=== PATIENT | male | born 1940 | race Caucasian/White ===

== ENCOUNTER → 2016-06-24 | Outpatient (CLI) | payer MEDICARE, BC ==
[~2016-06-24] MED LIST: CALC0.25 PO; CALCCHW25 CHEW; CARB10TA2 PO; CARV6.252 PO; FLUO10TA PO; FURO20TA PO; LEVO100T5 PO; MEGASUS2 PO; OMEP20TA PO; SEVEL800 PO; VASO10TA8 PO; WARF-58 PO
[2016-06-24 13:33] LABS: AUTOMATED NEUTROPHIL # 4.9 TH/MM3 (1.8-7.7); BASOPHIL # 0.1 TH/MM3 (0-0.2); BASOPHIL % 1.1 % (0.0-2.0); EOSINOPHIL # 0.3 TH/MM3 (0-0.4); EOSINOPHIL % 4.1 % (0.0-4.0); HEMATOCRIT 32.8 % (39.0-51.0); HEMO FLAGS DIFF FINAL; LYMPH % 17.9 % (9.0-44.0); LYMPHOCYTE # 1.4 TH/MM3 (1.0-4.8); MEAN CELL VOLUME 105.1 FL (80.0-100.0); MEAN CORPUSCULAR HEMOGLOBIN 34.3 PG (27.0-34.0); MEAN CORPUSCULAR HGB CONC 32.6 % (32.0-36.0); MONO % 12.3 % (0.0-8.0); NEUT % 64.6 % (16.0-70.0); PLATELET COUNT 284 TH/MM3 (150-450); RED BLOOD COUNT 3.13 MIL/MM3 (4.50-5.90); RED CELL DISTRIBUTION WIDTH 13.8 % (11.6-17.2); WHITE BLOOD COUNT 7.6 TH/MM3 (4.0-11.0)
[2016-06-24 14:06] LABS: ANION GAP 8 MEQ/L (5-15); BICARBONATE 28.1 MEQ/L (21.0-32.0); BLOOD UREA NITROGEN 14 MG/DL (7-18); CHLORIDE 102 MEQ/L (98-107); GLOMERULAR FILTRATION RATE 12 ML/MIN (>89); GLUCOSE,FASTING 129 MG/DL (74-99); POTASSIUM 4.6 MEQ/L (3.5-5.1); SODIUM (NA) 138 MEQ/L (136-145)
[2016-06-24 16:17] LABS: HEMOGLOBIN A1a 1.3 %; HEMOGLOBIN A1b 1.1 %; HEMOGLOBIN Ao 81.4 %; HEMOGLOBIN F 1.1 %; HEMOGLOBIN LA1C 2.5 %; HEMOGLOBIN P3 4.5 %
== END ==
LOC: PLAB 09:06
PROVIDERS: ATTEND Family Medicine
DX: D64.9 Anemia, unspecified (principal); I12.9 Hypertensive chronic kidney disease with stage 1 through stage 4 chronic kidney disease, or unspecified chronic kidney disease; N18.5 Chronic kidney disease, stage 5; E11.22 Type 2 diabetes mellitus with diabetic chronic kidney disease; D68.9 Coagulation defect, unspecified; D46.9 Myelodysplastic syndrome, unspecified; E03.2 Hypothyroidism due to medicaments and other exogenous substances; Z99.2 Dependence on renal dialysis
CPT/HCPCS: 36415; 80048; 83036; 84443; 85025

== ENCOUNTER → 2016-09-30 | Outpatient (CLI) | payer MEDICARE, BC ==
[2016-09-30 13:11] LABS: BASOPHIL % 0.5 % (0.0-2.0); EOSINOPHIL # 0.1 TH/MM3 (0-0.4); EOSINOPHIL % 1.6 % (0.0-4.0); HEMATOCRIT 35.8 % (39.0-51.0); HEMO FLAGS DIFF FINAL; LYMPH % 28.5 % (9.0-44.0); MEAN CELL VOLUME 104.7 FL (80.0-100.0); MEAN CORPUSCULAR HEMOGLOBIN 34.9 PG (27.0-34.0); MEAN CORPUSCULAR HGB CONC 33.4 % (32.0-36.0); NEUT % 57.4 % (16.0-70.0); PLATELET COUNT 266 TH/MM3 (150-450); RED BLOOD COUNT 3.42 MIL/MM3 (4.50-5.90); RED CELL DISTRIBUTION WIDTH 13.7 % (11.6-17.2)
[2016-09-30 13:37] LABS: ANION GAP 8 MEQ/L (5-15); BICARBONATE 27.7 MEQ/L (21.0-32.0); BLOOD UREA NITROGEN 17 MG/DL (7-18); CHLORIDE 104 MEQ/L (98-107); GLOMERULAR FILTRATION RATE 14 ML/MIN (>89); GLUCOSE,FASTING 125 MG/DL (74-99); POTASSIUM 4.8 MEQ/L (3.5-5.1); SODIUM (NA) 140 MEQ/L (136-145)
[2016-09-30 16:13] LABS: HEMOGLOBIN A1a 1.2 %; HEMOGLOBIN Ao 83.7 %; HEMOGLOBIN F 0.9 %; HEMOGLOBIN LA1C 2.4 %; HEMOGLOBIN P3 3.9 %
== END ==
LOC: PLAB 09:42
PROVIDERS: ATTEND Family Medicine
DX: D68.9 Coagulation defect, unspecified (principal); I12.0 Hypertensive chronic kidney disease with stage 5 chronic kidney disease or end stage renal disease; N18.5 Chronic kidney disease, stage 5; E11.22 Type 2 diabetes mellitus with diabetic chronic kidney disease; I50.9 Heart failure, unspecified; E78.5 Hyperlipidemia, unspecified; D46.9 Myelodysplastic syndrome, unspecified; E03.2 Hypothyroidism due to medicaments and other exogenous substances; G20 Parkinson's disease; Z99.2 Dependence on renal dialysis
CPT/HCPCS: 36415; 80048; 83036; 84443; 85025

== ENCOUNTER 2016-12-31 03:04 | Emergency (ER) | payer MEDICARE, BC ==
[~2016-12-31] VITALS: Ht 188 cm; Wt 79.5 kg
[2016-12-31 03:06] VITALS: BP 120/73; PULSE 82; RESP 16; TEMP 98; O2SAT 100
--- NOTE | 2016-12-31 03:33 | PD ---
HPI Chief Complaint: Fall Time Seen by Provider: 03:16 Travel History International Travel<30 days: No Contact w/Intl Traveler<30days: No Traveled to known affect area: No History of Present Illness HPI 76-year-old male complains of right hip pain or left ankle pain. Patient being treated by his reverse logistics analyst for left ankle infection. Patient has been receiving IV antibiotic for that. Patient does not know the name antibiotic is getting. Patient states that he fell yesterday and injured his right hip. Patient denies any head injury. Patient denies any headache. Patient denies any neck pain. Patient denies any chest pain or shortness of breath. Patient denies abdominal pain. Patient denies any back pain. Patient states the pain is sharp pain localized lateral aspect of the right hip. Patient denies any pain radiation. Patient states that the redness and swelling of the left ankle is much better while he is receiving antibiotic. Patient has history of end- stage renal disease on dialysis. Patient has dialysis Wednesday, , Wednesday weekly. His reverse logistics analyst is Dr. Durant. [facility] Past Medical History Hx Anticoagulant Therapy: Yes (COUMADIN) Arthritis: No Asthma: No Autoimmune Disease: Yes (Myodysplasia) Blood Disorders: No Anxiety: No Depression: Yes Heart Rhythm Problems: No Cancer: No Cardiovascular Problems: Yes (HTN; GIFFORD; DEFIB) High Cholesterol: No Chemotherapy: No Chest Pain: No Congestive Heart Failure: No COPD: No Cerebrovascular Accident: Yes (TIAS) Coronary Artery Disease: Yes Diabetes: Yes (TYPE 2 ) Dialysis: Yes (wed, , wed -none today) Diminished Hearing: Yes ([place]) Endocrine: Yes Gastrointestinal Disorders: No GERD: Yes Genitourinary: Yes (ESRD) Hepatitis: No Hiatal Hernia: No Hypertension: Yes Immune Disorder: No Implanted Vascular Access Dvce: No Kidney Stones: No Musculoskeletal: No Neurologic: Yes (Parkinson's) Psychiatric: Yes Reproductive: No Respiratory: No Immunizations Current: Yes Migraines: No Myocardial Infarction: Yes Radiation Therapy: No Renal Failure: Yes (On HD) Seizures: No Sleep Apnea: No Thyroid Disease: Yes (Hypo-) Ulcer: Yes Past Surgical History Abdominal Surgery: No AICD: Yes (under left arm) Appendectomy: No Body Medical Devices: AVF Cardiac Surgery: No Cholecystectomy: No Ear Surgery: No Endocrine Surgery: No Eye Surgery: Yes (BL cataracts) Genitourinary Surgery: No Gynecologic Surgery: No Neurologic Surgery: No Oral Surgery: No Thoracic Surgery: No Tonsillectomy: Yes Other Surgery: Yes (Fatty tumor removal) Social History Alcohol Use: Yes (Wine daily) Tobacco Use: No (Quit) Substance Use: No Allergies-Medications (Allergen,Severity, Reaction): Coded Allergies: Sulfa (Verified Allergy, Unknown, Rash, 12/31/16) Reported Meds & Prescriptions Reported Meds & Active Scripts Active Reported Amlodipine (Amlodipine Besylate) 10 Mg Tab 10 Mg PO DAILY Vitamin D3 (Cholecalciferol) 1,000 Unit Chew 1,000 Units CHEW DAILY Multi-Vitamin Daily (Multiple Vitamin) 1 Tab Tab 1 Tab PO DAILY Renvela (Sevelamer Carbonate) 800 Mg Tab 800 Mg PO TID Carvedilol 6.25 Mg Tab 6.25 Mg PO BID Furosemide 20 Mg Tab 20 Mg PO SUMOWEFR Megace ES Liq (Megestrol ES Liq) 625 Mg/5 Ml Susp 5 Ml PO EVERY OTHER DAY Fluoxetine (Fluoxetine HCl) 10 Mg Tab 10 Mg PO DAILY Calcium + D & K (Calcium-Vitamins D & K) 500-1,000-40 Mg-Unit-Mcg Chew 1 Tab CHEW Warfarin 3 Mg Tab 3 Mg PO DAILY Vasotec (Enalapril Maleate) 10 Mg Tab 10 Mg PO BID Carbidopa-Levodopa 10-100 Mg Tab 1 Tab PO Q8HR Omeprazole 20 Mg Tab 20 Mg PO DAILY Levothyroxine (Levothyroxine Sodium) 100 Mcg Tab 100 Mcg PO DAILY Review of Systems General / Constitutional: No: Fever Eyes: No: Visual changes HENT: No: Headaches Cardiovascular: No: Chest Pain or Discomfort Respiratory: No: Shortness of Breath Gastrointestinal: No: Abdominal Pain Genitourinary: No: Dysuria Musculoskeletal: Positive: Pain Skin: No Rash Neurologic: No: Weakness Psychiatric: No: Depression Endocrine: No: Polydipsia Hematologic/Lymphatic: No: Easy Bruising Physical Exam Narrative GENERAL: Well-nourished, well-developed patient. SKIN: Focused skin assessment warm/dry. HEAD: Normocephalic. EYES: No scleral icterus. No injection or drainage. NECK: Supple, trachea midline. No JVD or lymphadenopathy. CARDIOVASCULAR: Regular rate and rhythm without murmurs, gallops, or rubs. RESPIRATORY: Breath sounds equal bilaterally. No accessory muscle use. GASTROINTESTINAL: Abdomen soft, non-tender, nondistended. MUSCULOSKELETAL: No cyanosis, or edema. BACK: Nontender without obvious deformity. No CVA tenderness. Patient has mild to moderate tenderness on palpation lateral aspect the right hip joint. Full range of motion the right hip. Patient has a healing ulcer lesion lateral malleolus area left ankle with some mild soft tissue swelling tenderness and redness over the left ankle joint. Data Data Last Documented VS Vital Signs Date Time Temp Pulse Resp B/P Pulse Ox O2 Delivery O2 Flow Rate FiO2 12/31/16 03:06 98.0 82 16 120/73 100 Orders Ankle, Complete ([id number]) (12/31/16 03:22) Hip, Uni(Ap&Lat) W Ap Pelvis (12/31/16 03:22) MDM Medical Decision Making Medical Screen Exam Complete: Yes Emergency Medical Condition: Yes Interpretation(s) Last Impressions Hip and Pelvis X-Ray 12/31/16321 Signed Impressions: Service Date/Time: December 03:36 - CONCLUSION: No acute abnormality is identified. The bones are undermineralized. Myles Marti MD Ankle X-Ray 12/31/16321 Signed Impressions: Service Date/Time: December 03:44 - CONCLUSION: 1. No fracture is identified. The bones are undermineralized. 2. Lateral ankle soft tissue swelling. 3. Severe arterial vascular calcification. Myles Marti MD Differential Diagnosis Differential diagnosis including contusion, fracture, dislocation, cellulitis, abscess, osteomyelitis. Narrative Course 76-year-old male with right hip injury and left ankle pain been treated for left ankle cellulitis with IV antibiotic by patient's reverse logistics analyst. Diagnosis Primary Impression: Contusion of right hip Qualified Code: S70.01XA - Contusion of right hip, initial encounter Additional Impression: Cellulitis of left ankle Patient Instructions: General Instructions Additional Instructions: Tylenol for pain. Continue with antibiotic for the left ankle. Wound care daily. Follow-up with personal physician and orthopedist. Return is needed. Med/Other Pt SpecificInfo: No Change to Meds Disposition: 01 DISCHARGE HOME Condition: Stable Fabiano Rivera MD Dec 31, 2016 03:33
[2016-12-31] MEDS ORDERED: CHOL100025 CHEW (03:43)
[2016-12-31] MEDS ORDERED: MULT-65 PO (03:43)
[2016-12-31] MEDS ORDERED: AMLO10TA2 PO (03:43)
--- NOTE | 2016-12-31 03:56 | RADRPT ---
EXAM DATE/TIME: 12/31/2016 03:36 [facility] COMPARISON: No previous studies available for comparison. INDICATIONS : Trauma, fall. MEDICAL HISTORY : None. SURGICAL HISTORY : Hip replacement. ENCOUNTER: Initial ACUITY: 2 days PAIN SCORE: 7/10 LOCATION: Right hip FINDINGS: AP view of the pelvis with 3 views of the right hip joint demonstrate undermineralized bones without a fracture or dislocation identified. There is severe arterial vascular calcification. A right hip bi polar arthroplasty is present. The hardware demonstrates no acute finding. CONCLUSION: No acute abnormality is identified. The bones are undermineralized. Myles Marti MD on December 31, 2016 at 3:54 Board Certified Radiologist. This report was verified electronically.
--- NOTE | 2016-12-31 03:58 | RADRPT ---
EXAM DATE/TIME: 12/31/2016 03:44 [facility] COMPARISON: No previous studies available for comparison. INDICATIONS : Trauma, fall. MEDICAL HISTORY : None. SURGICAL HISTORY : None. ENCOUNTER: Initial ACUITY: 1 day PAIN SCORE: 5/10 LOCATION: Left ankle FINDINGS: 3 views of the left ankle demonstrate no fracture or dislocation. The bones are undermineralized. Ank le mortise is intact. There is hypertrophic bone at the posterior aspect of the calcaneus. There is s evere arterial vascular calcification. Lateral ankle soft tissue swelling is present. CONCLUSION: 1. No fracture is identified. The bones are undermineralized. 2. Lateral ankle soft tissue swelling. 3. Severe arterial vascular calcification. Myles Marti MD on December 31, 2016 at 3:56 Board Certified Radiologist. This report was verified electronically.
[2016-12-31 04:41] VITALS: BP 159/85
== END 2016-12-31 04:43 | disposition home or self-care (01) ==
LOC: PHED 03:04
DX: S70.01XA Contusion of right hip, initial encounter (principal); L03.116 Cellulitis of left lower limb; W19.XXXA Unspecified fall, initial encounter
CPT/HCPCS: 73502; 73610; 99284

== ENCOUNTER 2017-05-23 18:33 | Emergency (ER) | payer MEDICARE, BC ==
[~2017-05-23 18:33] MED LIST changes: +AMLO10TA2 PO; -CALC0.25 PO; +CHOL100025 CHEW; +MULT-65 PO; -OMEP20TA PO; +OMEP20TA93 PO
[2017-05-23 18:35] VITALS: BP 145/73; PULSE 78; RESP 20; TEMP 97.9; O2SAT 98
--- NOTE | 2017-05-23 19:08 | PD ---
HPI Chief Complaint: Fall Time Seen by Provider: 18:50 Travel History International Travel<30 days: No Contact w/Intl Traveler<30days: No Traveled to known affect area: No History of Present Illness HPI 76-year-old male patient presents emergency department via EMS for evaluation of left ankle pain after tripping over his cat this afternoon. Patient denies any other pain associated with this fall. Patient denies any head or lose consciousness. Patient is on Coumadin. Patient did sustain a couple skin tears on his left upper extremity during the fall but otherwise has no other injuries. He states he is up-to-date on his tetanus vaccine. Patient denies chest pain, shortness breath, nausea, vomiting, abdominal pain, diarrhea. No neck pain or back pain. He is a dialysis patient and had dialysis yesterday. PFSH Past Medical History Hx Anticoagulant Therapy: Yes (COUMADIN) Arthritis: No Asthma: No Autoimmune Disease: Yes (Myodysplasia) Blood Disorders: No Anxiety: No Depression: Yes Heart Rhythm Problems: No Cancer: No Cardiovascular Problems: Yes (HTN; [place]FF[place]; DEFIB) High Cholesterol: No Chemotherapy: No Chest Pain: No Congestive Heart Failure: No COPD: No Cerebrovascular Accident: Yes (TIAS) Coronary Artery Disease: Yes Diabetes: Yes (TYPE 2 ) Patient Takes Glucophage: No Dialysis: Yes (wed, , wed) Diminished Hearing: Yes ([place]) Endocrine: Yes Gastrointestinal Disorders: No GERD: Yes Genitourinary: Yes (ESRD) Hepatitis: No Hiatal Hernia: No Hypertension: Yes Immune Disorder: No Implanted Vascular Access Dvce: No Kidney Stones: No Musculoskeletal: No Neurologic: Yes (Parkinson's) Psychiatric: Yes Reproductive: No Respiratory: No Immunizations Current: Yes Migraines: No Myocardial Infarction: Yes Radiation Therapy: No Renal Failure: Yes (On HD) Seizures: No Sleep Apnea: No Thyroid Disease: Yes (Hypo-) Ulcer: Yes Past Surgical History Abdominal Surgery: No AICD: Yes (under left arm) Appendectomy: No Body Medical Devices: AVF Cardiac Surgery: No Cholecystectomy: No Ear Surgery: No Endocrine Surgery: No Eye Surgery: Yes (BL cataracts) Genitourinary Surgery: No Gynecologic Surgery: No Neurologic Surgery: No Oral Surgery: No Thoracic Surgery: No Tonsillectomy: Yes Other Surgery: Yes (Fatty tumor removal) Social History Alcohol Use: Yes (Wine daily) Tobacco Use: No (Quit) Substance Use: No Allergies-Medications (Allergen,Severity, Reaction): Coded Allergies: Sulfa (Sulfonamide Antibiotics) (Unverified Allergy, Unknown, Rash, ) Reported Meds & Prescriptions Reported Meds & Active Scripts Active Reported Amlodipine (Amlodipine Besylate) 10 Mg Tab 10 Mg PO DAILY Vitamin D3 (Cholecalciferol) 1,000 Unit Chew 1,000 Units CHEW DAILY Multi-Vitamin Daily (Multiple Vitamin) 1 Tab Tab 1 Tab PO DAILY Renvela (Sevelamer Carbonate) 800 Mg Tab 800 Mg PO TID Carvedilol 6.25 Mg Tab 6.25 Mg PO BID Furosemide 20 Mg Tab 20 Mg PO SUMOWEFR Megace ES Liq (Megestrol ES Liq) 625 Mg/5 Ml Susp 5 Ml PO EVERY OTHER DAY Fluoxetine (Fluoxetine HCl) 10 Mg Tab 10 Mg PO DAILY Calcium + D & K (Calcium-Vitamins D & K) 500-1,000-40 Mg-Unit-Mcg Chew 1 Tab CHEW Warfarin 3 Mg Tab 3 Mg PO DAILY Vasotec (Enalapril Maleate) 10 Mg Tab 10 Mg PO BID Carbidopa-Levodopa 10-100 Mg Tab 1 Tab PO Q8HR Omeprazole 20 Mg Tab 20 Mg PO DAILY Levothyroxine (Levothyroxine Sodium) 100 Mcg Tab 100 Mcg PO DAILY Review of Systems Except as stated in HPI: all other systems reviewed are Neg Physical Exam Narrative GENERAL: Well-nourished, well-developed 76-year-old male patient in no acute distress. Nontoxic appearing. SKIN: Focused skin assessment warm/dry. HEAD: Normocephalic. Traumatic. EYES: No scleral icterus. No injection or drainage. NEUROLOGICAL: Awake and alert. Cranial nerves II through XII intact. Motor and sensory grossly within normal limits. Five out of 5 muscle strength in all muscle groups. Normal speech. NECK: Supple, trachea midline. No JVD or lymphadenopathy. CARDIOVASCULAR: Regular rate and rhythm without murmurs, gallops, or rubs. RESPIRATORY: Breath sounds equal bilaterally. No accessory muscle use. GASTROINTESTINAL: Abdomen soft, non-tender, nondistended. MUSCULOSKELETAL: No obvious deformity, ecchymosis, erythema, cyanosis, or edema. BACK: No midline spinal tenderness. No obvious deformity, erythema, ecchymosis , cyanosis, edema. No CVA tenderness. Data Data Last Documented VS Vital Signs Date Time Temp Pulse Resp B/P (MAP) Pulse Ox O2 Delivery O2 Flow Rate FiO2 05/23/17 18:35 97.9 78 20 145/73 (97) 98 Orders Orders Ankle, Complete ([id number]) (05/23/17 18:49) Ice/Cold Pack (05/23/17 18:49) Splint Or Brace Apply/Monitor (05/23/17 19:59) Ed Discharge Order (05/23/17 20:14) MDM Medical Decision Making Medical Screen Exam Complete: Yes Emergency Medical Condition: Yes Differential Diagnosis Differential diagnoses include but not limited to left ankle sprain, left ankle fracture, fall, contusions, skin tear Narrative Course Ankle x-ray ordered and pending. Ice applied to left ankle. Ankle x-ray shows acute oblique fracture through the distal tibial shaft. Orthopedist orthodontist, Dr. Nicole's PA called back and recommended a Ilene splint, nonweightbearing and follow-up in their office this week for a cast. Patient discharged home with those instructions and given Dr. Nicole's contact information. Last Impressions Ankle X-Ray 05/23/171848 Signed Impressions: Service Date/Time: Tuesday, May 23, 2017 19:02 - CONCLUSION: 1. Acute oblique fracture through the distal tibial shaft. 2. Chronic appearing very prominent hypertrophic change of the posterior calcaneus. Myles Blanchard MD Diagnosis Primary Impression: Fracture of distal end of left tibia Qualified Codes: S82.875A - Nondisplaced pilon fracture of left tibia, initial encounter for closed fracture Referrals: Louis Nicole MD Patient Instructions: General Instructions, Leg Fracture (DC) Additional Instructions: Please return to emergency department if your symptoms return or worsen. Follow up with Dr. Nicole's office next week to get a cast. Call Dr. Nicole's office tomorrow and tell them Te, Dr. Nicole's PA said he needed to get an appointment for this week Take medications as prescribed. Rice therapy to left lower leg, rest, ice, splint, elevate with resting. Med/Other Pt SpecificInfo: Prescription(s) given Disposition: 01 DISCHARGE HOME Condition: Stable SherwinShawnaanupam ROLDAN May 23, 2017 19:08
--- NOTE | 2017-05-23 19:28 | RADRPT ---
EXAM DATE/TIME: 05/23/2017 19:02 [facility] COMPARISON: ANKLE LEFT COMPLETE ([id number]), December 31, 2016, 3:44. INDICATIONS : Left anterior ankle pain after tripping and falling. MEDICAL HISTORY : None. SURGICAL HISTORY : None. ENCOUNTER: Initial ACUITY: 1 day PAIN SCORE: 8/10 LOCATION: Left ankle FINDINGS: There is an oblique fracture at the distal tibial shaft. This is not significantly displaced. The ank le is normally aligned. There is very prominent increased density at the posterior calcaneus. Vascula r calcifications are seen. CONCLUSION: 1. Acute oblique fracture through the distal tibial shaft. 2. Chronic appearing very prominent hypertrophic change of the posterior calcaneus. Myles Blanchard MD on May 23, 2017 at 19:22 Board Certified Radiologist. This report was verified electronically.
== END 2017-05-23 20:42 | disposition home or self-care (01) ==
LOC: PHEFT 18:33
DX: S82.875A Nondisplaced pilon fracture of left tibia, initial encounter for closed fracture (principal); I12.0 Hypertensive chronic kidney disease with stage 5 chronic kidney disease or end stage renal disease; N18.6 End stage renal disease; E11.22 Type 2 diabetes mellitus with diabetic chronic kidney disease; I25.10 Atherosclerotic heart disease of native coronary artery without angina pectoris; I25.2 Old myocardial infarction; K21.9 Gastro-esophageal reflux disease without esophagitis; G20 Parkinson's disease; W01.0XXA Fall on same level from slipping, tripping and stumbling without subsequent striking against object, initial encounter; Z79.01 Long term (current) use of anticoagulants; Z87.891 Personal history of nicotine dependence; Z99.2 Dependence on renal dialysis
CPT/HCPCS: 29515; 73610

== ENCOUNTER 2017-09-16 02:51 | Emergency (ER) | payer MEDICARE, BC ==
[~2017-09-16] VITALS: Ht 188 cm; Wt 72.7 kg
[2017-09-16 02:58] VITALS: BP 138/73; PULSE 87; RESP 18; TEMP 97.4; O2SAT 100
[2017-09-16] MEDS ORDERED: PERC7.5T13 PO (03:41)
--- NOTE | 2017-09-16 03:42 | PD ---
HPI Chief Complaint: Pain: Acute or Chronic Time Seen by Provider: 03:26 Travel History International Travel<30 days: No Contact w/Intl Traveler<30days: No Traveled to known affect area: No History of Present Illness HPI The patient is a 77-year-old male that complains of left hand pain since stitches were put in his fistula at 2 PM yesterday. His dialysis is Wednesday, and Wednesday and is due for dialysis this morning. He did not call Dr. Clarke's office about the pain thinking that this was probably normal for stitches. He complains of an aching pain of 10/10. He knows that he has good warmth and color of his left hand but it is painful on the dorsum of the left hand. There is no bleeding. He has no fever or erythema. PFSH Past Medical History Hx Anticoagulant Therapy: Yes (COUMADIN) Arthritis: No Asthma: No Autoimmune Disease: Yes (Myodysplasia) Blood Disorders: No Anxiety: No Depression: Yes Heart Rhythm Problems: No Cancer: No Cardiovascular Problems: Yes (HTN; GIFFORD; DEFIB) High Cholesterol: No Chemotherapy: No Chest Pain: No Congestive Heart Failure: No COPD: No Cerebrovascular Accident: Yes (TIAS) Coronary Artery Disease: Yes Diabetes: Yes (TYPE 2 ) Patient Takes Glucophage: Yes Dialysis: Yes (wed, , wed) Diminished Hearing: Yes ([place]) Endocrine: Yes Gastrointestinal Disorders: No GERD: Yes Genitourinary: Yes (ESRD) Hepatitis: No Hiatal Hernia: No Hypertension: Yes Immune Disorder: No Implanted Vascular Access Dvce: No Kidney Stones: No Musculoskeletal: No Neurologic: Yes (Parkinson's) Psychiatric: Yes Reproductive: No Respiratory: No Immunizations Current: Yes Migraines: No Myocardial Infarction: Yes Radiation Therapy: No Renal Failure: Yes (On HD) Seizures: No Sleep Apnea: No Thyroid Disease: Yes (Hypo-) Ulcer: Yes Past Surgical History Abdominal Surgery: No AICD: Yes (under left arm) Appendectomy: No Body Medical Devices: AVF Cardiac Surgery: No Cholecystectomy: No Ear Surgery: No Endocrine Surgery: No Eye Surgery: Yes (BL cataracts) Genitourinary Surgery: No Gynecologic Surgery: No Neurologic Surgery: No Oral Surgery: No Thoracic Surgery: No Tonsillectomy: Yes Other Surgery: Yes (Fatty tumor removal) Social History Alcohol Use: Yes (Wine daily) Tobacco Use: No (Quit) Substance Use: No Allergies-Medications (Allergen,Severity, Reaction): Coded Allergies: Sulfa (Sulfonamide Antibiotics) (Unverified Allergy, Unknown, Rash, ) Reported Meds & Prescriptions Reported Meds & Active Scripts Active Reported Amlodipine (Amlodipine Besylate) 10 Mg Tab 10 Mg PO DAILY Vitamin D3 (Cholecalciferol) 1,000 Unit Chew 1,000 Units CHEW DAILY Multi-Vitamin Daily (Multiple Vitamin) 1 Tab Tab 1 Tab PO DAILY Renvela (Sevelamer Carbonate) 800 Mg Tab 800 Mg PO TID Carvedilol 6.25 Mg Tab 6.25 Mg PO BID Furosemide 20 Mg Tab 20 Mg PO SUMOWEFR Megace ES Liq (Megestrol ES Liq) 625 Mg/5 Ml Susp 5 Ml PO EVERY OTHER DAY Fluoxetine (Fluoxetine HCl) 10 Mg Tab 10 Mg PO DAILY Calcium + D & K (Calcium-Vitamins D & K) 500-1,000-40 Mg-Unit-Mcg Chew 1 Tab CHEW Warfarin 3 Mg Tab 3 Mg PO DAILY Vasotec (Enalapril Maleate) 10 Mg Tab 10 Mg PO BID Carbidopa-Levodopa 10-100 Mg Tab 1 Tab PO Q8HR Omeprazole 20 Mg Tab 20 Mg PO DAILY Levothyroxine (Levothyroxine Sodium) 100 Mcg Tab 100 Mcg PO DAILY Review of Systems Except as stated in HPI: all other systems reviewed are Neg Physical Exam Narrative GENERAL: Well-nourished, alert and oriented, elderly in moderate apparent distress with his left hand discomfort patient. His vital signs are normal. SKIN: Focused skin assessment warm/dry. There is good color and warmth of the left hand as well as good capillary refill. No evidence of cellulitis is present around the fistula. HEAD: Normocephalic. EYES: No scleral icterus. No injection or drainage. NECK: Supple, trachea midline. No JVD or lymphadenopathy. CARDIOVASCULAR: Regular rate and rhythm without murmurs, gallops, or rubs. RESPIRATORY: Breath sounds equal bilaterally. No accessory muscle use. GASTROINTESTINAL: Abdomen soft, non-tender, nondistended. MUSCULOSKELETAL: No cyanosis, or edema. BACK: Nontender without obvious deformity. No CVA tenderness. Data Data Last Documented VS Vital Signs Date Time Temp Pulse Resp B/P (MAP) Pulse Ox O2 Delivery O2 Flow Rate FiO2 09/16/17 02:58 97.4 87 18 138/73 (94) 100 MDM Medical Decision Making Medical Screen Exam Complete: Yes Emergency Medical Condition: Yes Medical Record Reviewed: Yes Differential Diagnosis Cellulitis of the fistula, arterial insufficiency left hand, venous insufficiency left hand Narrative Course The patient has no evidence of cellulitis or arterial/venous insufficiency. He has pain and tenderness in the left hand but I cannot see why he is so hypersensitive to this area. He needs to follow-up with dialysis later on today and get this checked again today. In the meantime, we can give him Percocet 10 here and a prescription for Percocet 7.5 at home. Diagnosis Primary Impression: Left hand pain Additional Instructions: Elevate the left hand above your heart to improve the blood flow. The Percocet is 1 tablet every 4 hours as needed for pain. Do not drink alcohol or drive on this medication. Med/Other Pt SpecificInfo: Prescription(s) given Scripts Oxycodone-Acetaminophen (Percocet) 7.5-325 mg Tab 1 TAB PO Q4H Y for PAIN, #20 TAB 0 Refills Prov: Juan Miguel Duffy MD 09/16/17 Disposition: 01 DISCHARGE HOME Condition: Stable Juan Miguel Duffy MD Sep 16, 2017 03:42
[2017-09-16] MEDS ORDERED: oxyCODONE/ACETAMINOPHEN 10 MG/325 MG TAB PO ONE (03:45)
== END 2017-09-16 04:15 | disposition home or self-care (01) ==
LOC: PHED 02:51
DX: M79.642 Pain in left hand (principal); I12.0 Hypertensive chronic kidney disease with stage 5 chronic kidney disease or end stage renal disease; E11.22 Type 2 diabetes mellitus with diabetic chronic kidney disease; N18.6 End stage renal disease; I25.10 Atherosclerotic heart disease of native coronary artery without angina pectoris; Z99.2 Dependence on renal dialysis; G20 Parkinson's disease; I25.2 Old myocardial infarction; Z87.891 Personal history of nicotine dependence
CPT/HCPCS: 99283

== ENCOUNTER 2017-10-07 10:51 | Inpatient (IN) | payer MEDICARE, BC ==
[2017-10-07] VITALS (13 sets, daily range): BP systolic 100–165; BP diastolic 60–96; PULSE 82–100; RESP 18–24; TEMP 97.5–97.9; O2SAT 94–100
[~2017-10-07] VITALS: Ht 162.6 cm; Wt 77.0 kg
[~2017-10-07 10:51] MED LIST changes: -CHOL100025 CHEW; +CHOL100025 PO; +PERC7.5T13 PO
[2017-10-07] MEDS ORDERED: MORPHINE SULFATE 4 MG/ML INJ IV PUSH ONE (11:00)
[2017-10-07] MEDS ORDERED: SODIUM CHLOR 0.9% 250 ML INJ 250 ML IV ONE ×2 (11:00→11:45)
[2017-10-07] MEDS ORDERED: MORPHINE SULFATE 4 MG/ML INJ ONE (11:04)
[2017-10-07 11:15] LABS: AUTOMATED NEUTROPHIL # 4.4 TH/MM3 (1.8-7.7); BASOPHIL % 0.4 % (0.0-2.0); EOSINOPHIL # 0.3 TH/MM3 (0-0.4); EOSINOPHIL % 4.1 % (0.0-4.0); HEMATOCRIT 28.6 % (39.0-51.0); HEMOGLOBIN 9.7 GM/DL (13.0-17.0); LYMPH % 24.8 % (9.0-44.0); MEAN CELL VOLUME 102.4 FL (80.0-100.0); MEAN CORPUSCULAR HEMOGLOBIN 34.7 PG (27.0-34.0); MEAN CORPUSCULAR HGB CONC 33.8 % (32.0-36.0); MEAN PLATELET VOLUME 7.7 FL (7.0-11.0); MONO % 15.6 % (0.0-8.0); MONOCYTE # 1.2 TH/MM3 (0-0.9); NEUT % 55.1 % (16.0-70.0); PLATELET COUNT 338 TH/MM3 (150-450); RED BLOOD COUNT 2.79 MIL/MM3 (4.50-5.90); RED CELL DISTRIBUTION WIDTH 15.2 % (11.6-17.2); WHITE BLOOD COUNT 7.9 TH/MM3 (4.0-11.0)
[2017-10-07 11:30] LABS: INTERNATIONAL NORMALIZED RATIO 2.9 RATIO; PROTHROMBIN TIME - PATIENT 28.8 SEC (9.8-11.6)
[2017-10-07 11:32] LABS: ALBUMIN 2.1 GM/DL (3.4-5.0); ALT (GPT) 17 U/L (12-78); AST (GOT) 39 U/L (15-37); BICARBONATE 29.3 MEQ/L (21.0-32.0); BLOOD UREA NITROGEN 5 MG/DL (7-18); CALCIUM 8.4 MG/DL (8.5-10.1); CHLORIDE 106 MEQ/L (98-107); CREATININE 1.66 MG/DL (0.60-1.30); GLOMERULAR FILTRATION RATE 40 ML/MIN (>89); GLUCOSE,RANDOM 142 MG/DL (74-106); SODIUM (NA) 142 MEQ/L (136-145)
[2017-10-07 11:34] LABS: ALKALINE PHOSPHATASE 193 U/L (45-117); TOTAL BILIRUBIN ADULT 0.3 MG/DL (0.2-1.0); TOTAL PROTEIN 5.6 GM/DL (6.4-8.2)
[2017-10-07] MEDS ORDERED: CALC600T10 PO (11:40)
[2017-10-07] MEDS ORDERED: COUM3TAB PO (11:40)
[2017-10-07] MEDS ORDERED: MEGE40SU PO (11:40)
[2017-10-07] MEDS ORDERED: AMLO5 PO (11:40)
[2017-10-07] MEDS ORDERED: CALC0.25 PO (11:40)
[2017-10-07] MEDS ORDERED: TEMA7.5C9 PO (11:40)
[2017-10-07] MEDS ORDERED: MORPHINE SULFATE 2 MG/ML SYRINGE IV PUSH ONE (11:45)
[2017-10-07] MEDS ORDERED: LABETALOL HCL 100 MG/20 ML VIAL IV ONE (12:00)
[2017-10-07] MEDS ORDERED: PROPOFOL 200 MG/20 ML AMP IV ONE (12:00)
[2017-10-07] MEDS ORDERED: LIDOCAINE HCL 1% PF 5 ML SYRINGE OTHER ONE (12:00)
[2017-10-07] MEDS ORDERED: PHENYLEPH/NS 1000 MCG/10 ML SYR IV ONE (12:00)
[2017-10-07] MEDS ORDERED: ROCURONIUM INJ 50 MG/5 ML SYRINGE IV PUSH ONE (12:00)
[2017-10-07] MEDS ORDERED: SODIUM CHLORID 0.9% 500 ML INJ 500 ML IV ONE (12:00)
[2017-10-07] MEDS ORDERED: DEXAMETHASONE SOD PHOS 4 MG/ML VIAL IV ONE (12:00)
[2017-10-07] MEDS ORDERED: ONDANSETRON HCL 4 MG/2 ML VIAL IV PUSH ONE (12:00)
--- NOTE | 2017-10-07 12:47 | PD.VS.CON ---
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) Home Medications Reported Medications Temazepam (Restoril) 7.5 Mg Cap, 7.5 MG PO HS Y for INSOMNIA, #30 CAP 0 Refills 10/07/17 Calcitriol (Calcitriol) 0.25 Mcg Cap, 0.25 MCG PO TuThSa for Calcium Supplement , #30 CAP 0 Refills Take 1 tablet (0.25mcg) daily on dialysis days (Wednesday, and Wednesday) 10/07/17 Amlodipine (Norvasc) 5 Mg Tab, 5 MG PO DAILY for Blood Pressure Management, #30 TAB 0 Refills 10/07/17 Megestrol Liq (Megestrol Liq) 40 Mg/Ml Susp, 200 MG PO EVERY OTHER DAY, #240 ML 0 Refills 10/07/17 Calcium Carbonate-Cholecalciferol (Calcium + D3) 600-200 Mg-Unit Tab, 1 TAB PO DAILY for Nutritional Supplement, TAB 10/07/17 Warfarin (Coumadin) 3 Mg Tab, 3 MG PO DAILY for Prevent Blood Clot, #30 TAB 0 Refills 10/07/17 Cholecalciferol (Vitamin D3) 1,000 Unit Chew, 1000 UNITS PO BID for Nutritional Supplement, #1 BOTTLE 0 Refills 12/31/16 Multiple Vitamin (Multi-Vitamin Daily) 1 Tab Tab, 1 TAB PO DAILY for Nutritional Supplement, TAB 0 Refills 12/31/16 Sevelamer Carbonate (Renvela) 800 Mg Tab, 800 MG PO TID for Control phosphorous levels, #90 TAB 0 Refills 05/21/16 Carvedilol (Carvedilol) 6.25 Mg Tab, 6.25 MG PO BID, #60 TAB 0 Refills 05/21/16 Furosemide (Furosemide) 20 Mg Tab, 20 MG PO SuMoWeFr, #60 TAB 0 Refills Take 1 tablet (20mg) daily on Wednesday,Wednesday,Wednesday and Wednesday05/21/16 Fluoxetine (Fluoxetine) 10 Mg Tab, 10 MG PO DAILY, #30 TAB 0 Refills 05/21/16 Enalapril (Vasotec) 10 Mg Tab, 10 MG PO BID, #60 TAB 0 Refills 05/21/16 Carbidopa-Levodopa (Carbidopa-Levodopa) 10-100 Mg Tab, 1 TAB PO Q8HR for Parkinson Disease Mgmt, #90 TAB 0 Refills 05/21/16 Omeprazole (Omeprazole) 20 Mg Tab, 20 MG PO DAILY, #30 TAB 0 Refills 05/21/16 Levothyroxine (Levothyroxine) 100 Mcg Tab, 100 MCG PO DAILY for Thyroid, #30 TAB 0 Refills 05/21/16 Discontinued Reported Medications Amlodipine (Amlodipine) 10 Mg Tab, 10 MG PO DAILY for Blood Pressure Management , #30 TAB 0 Refills 12/31/16 Megestrol ES Liq (Megace ES Liq) 625 Mg/5 Ml Susp, 5 ML PO EVERY OTHER DAY for Improve Appetite, #240 ML 0 Refills 05/21/16 Calcium-Vitamins D & K (Calcium + D & K) 500-1,000-40 Mg-Unit-Mcg Chew, 1 TAB CHEW for Nutritional Supplement, TAB 0 Refills 05/21/16 Discontinued Scripts Oxycodone-Acetaminophen (Percocet) 7.5-325 mg Tab, 1 TAB PO Q4H Y for PAIN, #20 TAB 0 Refills Prov:Juan Miguel Duffy MD 09/16/17 Coded Allergies: Sulfa (Sulfonamide Antibiotics) (Unverified Allergy, Unknown, Rash, ) Review of Systems Constitutional: DENIES: Fever, Chills Cardiovascular: DENIES: Chest pain (Merle Ring) Physical Exam Vitals/I&O Date Time Temp Pulse Resp B/P (MAP) Pulse Ox O2 Delivery O2 Flow Rate FiO2 10/07/17 11:37 85 24 103/68 (80) 94 Nasal Cannula 10/07/17 10:53 97.8 83 24 116/90 (99) 100 Neuro: GCS 15 A&OX3 Neck: No JVD Distention Heart: RRR + S1,S2 Lungs: BS CTA Vascular: L UE with motor intact L UE AVF w/ Fem Stop device for pressure (JhonathanMerle F CLIENT PORTFOLIO MANAGER) Laboratory Tests Test 10/07/17 11:00 White Blood Count 7.9 Red Blood Count 2.79 Hemoglobin 9.7 Hematocrit 28.6 Mean Corpuscular Volume 102.4 Mean Corpuscular Hemoglobin 34.7 Mean Corpuscular Hemoglobin Concent 33.8 Red Cell Distribution Width 15.2 Platelet Count 338 Mean Platelet Volume 7.7 Neutrophils (%) (Auto) 55.1 Lymphocytes (%) (Auto) 24.8 Monocytes (%) (Auto) 15.6 Eosinophils (%) (Auto) 4.1 Basophils (%) (Auto) 0.4 Neutrophils # (Auto) 4.4 Lymphocytes # (Auto) 2.0 Monocytes # (Auto) 1.2 Eosinophils # (Auto) 0.3 Basophils # (Auto) 0.0 CBC Comment DIFF FINAL Differential Comment Prothrombin Time 28.8 Prothromb Time International Ratio 2.9 Activated Partial Thromboplast Time 46.7 Blood Urea Nitrogen 5 Creatinine 1.66 Random Glucose 142 Total Protein 5.6 Albumin 2.1 Calcium Level 8.4 Alkaline Phosphatase 193 Aspartate Amino Transf (AST/SGOT) 39 Alanine Aminotransferase (ALT/SGPT) 17 Total Bilirubin 0.3 Sodium Level 142 Potassium Level 3.1 Chloride Level 106 Carbon Dioxide Level 29.3 Anion Gap 7 Estimat Glomerular Filtration Rate 40 (Jhonathan,Merle F CLIENT PORTFOLIO MANAGER) Assessment and Plan Assessment: (1) AVF (arteriovenous fistula) Plan 77/M w sudden onset L UE vascular access hemorrhage Pt with FemStop device to L UE L UE w/ motor intact Labs reviewed Plan Discussed with Pt LEFT UE access excision (surgical intervention) Pt agrees w/ plan Consents signed Pt to remain NPO Recommend tourniquet to be released every 20 minutes Recommend Neurovascular checks every 5 minutes L UE (hand) Give 2 Units FFP in prep for surgical intervention today w/ Dr. Noel Consult Nephrology (Bhargav) Consult IR for Vas cath or PermCath placement Merle Ring NP [facility] [phone] (Merle Ring) Plan Bleeding AVF and by history access-related hand ischemia. To OR emergently. Stepan Noel MD FACS RPV[employer] mobile sales technician [facility] - Heart and Vascular Surgery at [facility] [phone] (Ananth Noel MD) Merle Ring October 07, 2017 12:47 Ananth Noel MD October 07, 2017 14:37
--- NOTE | 2017-10-07 13:03 | HHI.HP ---
[facility] Service Family Medicine Primary Care Physician Mari Varela MD Admission Diagnosis Diagnoses: Chief Complaint: fistula hemorrhage International Travel<30 Days: No Contact w/Intl Traveler<30days: No History of Present Illness 77-year-old male with history of ESRD on hemodialysis 3 days a week, hypertension, Parkinson's, hypothyroidism presents by EVAC from dialysis due to AV fistula hemorrhage. Patient coming by , who provides some of the history. Patient has had some problems with AV fistula last month or so. Had hematoma formed earlier this week. Also had maintenance done in September of the fistula, had procedure performed at that time. On dialysis for 5 years. States he is having a lot of pain in his left lower arm. Otherwise, denies any complaints or concerns. According to report, patient lost a lot of blood at dialysis. He is on Coumadin. Denies any dizziness or lightheadedness. Denies any chest pain or shortness of breath. (Maurilio Martinez MD R2) Review of Systems Constitutional: DENIES: Fever, Weight gain, Weight loss, Chills, Dizziness Eyes: DENIES: Eye pain, Vision loss Ears, nose, mouth, throat: DENIES: Nasal discharge, Oral lesions, Throat pain Respiratory: DENIES: Cough, Wheezing, Sputum production, Shortness of breath Cardiovascular: DENIES: Chest pain, Palpitations, PND, Lower Extremity Edema Gastrointestinal: DENIES: Abdominal pain, Black stools, Bloody stools, Constipation, Diarrhea, Nausea, Vomiting Genitourinary: DENIES: Hematuria, Dysuria Musculoskeletal: COMPLAINS OF: Joint pain, Muscle aches, DENIES: Joint Swelling , Back pain, Neck pain Integumentary: DENIES: Abnormal pigmentation, Rash Hematologic/lymphatic: DENIES: Bruising, Lymphadenopathy Neurologic: DENIES: Headache, Paresthesias, Tremor Psychiatric: DENIES: Mood changes, Depression, Hallucinations (Maurilio Martinez MD R2) Past Family Social History Past Medical History ESRD on HD (//Wed) HTN DM-diet controlled Parkinson's Disease TIA CAD-defibillator Hypothyroidism Dr. Tobias- nephro Dr. Clarke-vascular Dr. Khan-PCP Past Surgical History L UE A-V Fistula Tonsillectomy Reported Medications Reported Meds & Active Scripts Active Reported Restoril (Temazepam) 7.5 Mg Cap 7.5 Mg PO HS PRN Calcitriol 0.25 Mcg Cap 0.25 Mcg PO TUTHSA Take 1 tablet (0.25mcg) daily on dialysis days (Wednesday, and Wednesday) Norvasc (Amlodipine Besylate) 5 Mg Tab 5 Mg PO DAILY Megestrol Liq (Megestrol Acetate) 40 Mg/Ml Susp 200 Mg PO EVERY OTHER DAY Calcium + D3 (Calcium Carbonate-Cholecalciferol) 600-200 Mg-Unit Tab 1 Tab PO DAILY Coumadin (Warfarin) 3 Mg Tab 3 Mg PO DAILY (5mgx6, 7.5x1) Vitamin D3 (Cholecalciferol) 1,000 Unit Chew 1,000 Units PO BID Multi-Vitamin Daily (Multiple Vitamin) 1 Tab Tab 1 Tab PO DAILY Renvela (Sevelamer Carbonate) 800 Mg Tab 800 Mg PO TID Carvedilol 6.25 Mg Tab 6.25 Mg PO BID--stopped Furosemide 20 Mg Tab 20 Mg PO SUMOWEFR Take 1 tablet (20mg) daily on Wednesday,Wednesday,Wednesday and Wednesday--stopped Fluoxetine (Fluoxetine HCl) 10 Mg Tab 10 Mg PO DAILY Vasotec (Enalapril Maleate) 10 Mg Tab 10 Mg PO BID Carbidopa-Levodopa 10-100 Mg Tab 1 Tab PO Q8HR Omeprazole 20 Mg Tab 20 Mg PO DAILY Levothyroxine (Levothyroxine Sodium) 100 Mcg Tab 100 Mcg PO DAILY (Maurilio Martinez MD R2) Allergies: Coded Allergies: Sulfa (Sulfonamide Antibiotics) (Unverified Allergy, Unknown, Rash, ) Active Ordered Medications Active Medications Morphine Sulfate (Morphine Inj) 2 mg ONCE ONCE IV PUSH Last administered on 10/07at 12:10; Admin Dose 2 MG; Start 10/07/17 at 11:45; Stop 10/07/17 at 11:46; Status DC Morphine Sulfate (Morphine Inj) 4 mg ONCE ONCE IV PUSH Last administered on 10/07at 11:13; Admin Dose 4 MG; Start 10/07/17 at 11:00; Stop 10/07/17 at 11:05; Status DC Morphine Sulfate (Morphine Inj) 4 mg STK-MED ONCE .ROUTE; Start 10/07/17 at 11:04 ; Stop 10/07/17 at 11:05; Status DC Sodium Chloride 250 ml @ 15 mls/hr ONCE ONCE IV; Start 10/07/17 at 11:00; Stop 10/08/17 at 03:39 Sodium Chloride 250 ml @ 15 mls/hr ONCE ONCE IV; Start 10/07/17 at 11:45; Stop 10/08/17 at 04:24 Family History Father-HD Mother-unsure Social History No tobacco use Occasional alcohol use Denies 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 HEAD: Atraumatic. Normocephalic. No temporal or scalp tenderness. EYES: Pupils equal round and reactive. Extraocular motions intact. No scleral icterus. No injection or drainage. ENT: Throat without erythema, tonsillar hypertrophy or exudate. Uvula midline. Airway patent. NECK: Trachea midline. No JVD or lymphadenopathy. Supple, nontender. CARDIOVASCULAR: Regular rate and rhythm without murmurs, gallops, or rubs. RESPIRATORY: Clear to auscultation. Breath sounds equal bilaterally. No wheezes , rales, or rhonchi. GASTROINTESTINAL: Abdomen soft, non-tender, nondistended. No hepato-splenomegaly , or palpable masses. No guarding. MUSCULOSKELETAL: Left upper extremity with Femstop in place. Radial pulse intact. Able to move fingers. NEUROLOGICAL: Awake and alert. Cranial nerves II through XII intact. Motor and sensory grossly within normal limits. Normal speech. Laboratory Laboratory Tests Test 10/07/17 11:00 White Blood Count 7.9 Red Blood Count 2.79 Hemoglobin 9.7 Hematocrit 28.6 Mean Corpuscular Volume 102.4 Mean Corpuscular Hemoglobin 34.7 Mean Corpuscular Hemoglobin Concent 33.8 Red Cell Distribution Width 15.2 Platelet Count 338 Mean Platelet Volume 7.7 Neutrophils (%) (Auto) 55.1 Lymphocytes (%) (Auto) 24.8 Monocytes (%) (Auto) 15.6 Eosinophils (%) (Auto) 4.1 Basophils (%) (Auto) 0.4 Neutrophils # (Auto) 4.4 Lymphocytes # (Auto) 2.0 Monocytes # (Auto) 1.2 Eosinophils # (Auto) 0.3 Basophils # (Auto) 0.0 CBC Comment DIFF FINAL Differential Comment Prothrombin Time 28.8 Prothromb Time International Ratio 2.9 Activated Partial Thromboplast Time 46.7 Blood Urea Nitrogen 5 Creatinine 1.66 Random Glucose 142 Total Protein 5.6 Albumin 2.1 Calcium Level 8.4 Alkaline Phosphatase 193 Aspartate Amino Transf (AST/SGOT) 39 Alanine Aminotransferase (ALT/SGPT) 17 Total Bilirubin 0.3 Sodium Level 142 Potassium Level 3.1 Chloride Level 106 Carbon Dioxide Level 29.3 Anion Gap 7 Estimat Glomerular Filtration Rate 40 (Maurilio Martinez MD R2) Result Diagram: 10/07/17 1100 10/07/17 1100 Caprini VTE Risk Assessment Caprini VTE Risk Assessment: Mod/High Risk (score >= 2) Caprini Risk Assessment Model Point Value = 1 Point Value = 2 Point Value = 3 Point Value = 5 Age 41-60 Minor surgery BMI > 25 kg/m2 Swollen legs Varicose veins or History of unexplained or recurrent spontaneous Oral contraceptives or hormone replacement Sepsis (< 1 month) Serious lung disease, including pneumonia (< 1 month) Abnormal pulmonary function Acute myocardial infarction Congestive heart failure (< 1 month) History of inflammatory bowel disease Medical patient at bed rest Age 61-74 Arthroscopic surgery Major open surgery (> 45 min) Laparoscopic surgery (> 45 min) Malignancy Confined to bed (> 72 hours) Immobilizing plaster cast Central venous access Age >= 75 History of VTE Family history of VTE Factor V Leiden Prothrombin [id number] Lupus anticoagulant Anticardiolipin antibodies Elevated serum homocysteine Heparin-induced thrombocytopenia Other congenital or acquired thrombophilia Stroke (< 1 month) Elective arthroplasty Hip, pelvis, or leg fracture Acute spinal cord injury (< 1 month) Prophylaxis Regimen Total Risk Factor Score Risk Level Prophylaxis Regimen 0-1 Low Early ambulation 2 Moderate Order ONE of the following: *Sequential Compression Device (SCD) *Heparin 5000 units SQ BID 3-4 Higher Order ONE of the following medications: *Heparin 5000 units SQ TID *Enoxaparin/Lovenox 40 mg SQ daily (WT < 150 kg, CrCl > 30 mL/min) *Enoxaparin/Lovenox 30 mg SQ daily (WT < 150 kg, CrCl > 10-29 mL/min) *Enoxaparin/Lovenox 30 mg SQ BID (WT < 150 kg, CrCl > 30 mL/min) AND/OR *Sequential Compression Device (SCD) 5 or more Highest Order ONE of the following medications: *Heparin 5000 units SQ TID (Preferred with Epidurals) *Enoxaparin/Lovenox 40 mg SQ daily (WT < 150 kg, CrCl > 30 mL/min) *Enoxaparin/Lovenox 30 mg SQ daily (WT < 150 kg, CrCl > 10-29 mL/min) *Enoxaparin/Lovenox 30 mg SQ BID (WT < 150 kg, CrCl > 30 mL/min) AND *Sequential Compression Device (SCD) (Maurilio Martinez MD R2) Assessment and Plan Assessment and Plan 77-year-old male with history of ESRD on dialysis, hypertension, heart disease presents from dialysis with hemorrhage of his AV fistula. Will admit for medical management and vascula repair. Code Status DNR Discussed Condition With Giorgio Jacome (Maurilio Martinez MD R2) Attending Attestation Pt seen and examined, discussed with the medicine team. This is a 77 yo male on dialysis for years for ESRD. For the past several weeks has had some seepage from his left forearm AV fistula. Today while in dialysis the fistula blew open resulting is significant bleeding from the site. he has required significant pressure to control the bleeding and has complaint of pain left forearm. He has history of hypertension and Parkinson's. Please see H&P for this admission for additional historical details including past, family, social history and ROS. Exam shows a pale elderly male in some distress with pain left forearm. My exam agrees with that of the resident physician as documented above. He is on coumadin. Hb 9.7. INR 2.9. Plan is for interventional radiology to replace the catheter. (Lena Alvares MD) Problem List: (1) Hemorrhage of arteriovenous fistula ICD Codes: T82.838A - Hemorrhage due to vascular prosthetic devices, implants and grafts, initial encounter Status: Acute Plan: Patient presents from dialysis with hemorrhage of AV fistula. Patient on Coumadin. INR 2.9 on admission Given FFP and ED. Patient on Femstop in ED as well CBC 9.7. Asymptomatic, besides LUE pain -Vascular consulted -Going back to OR today for access excision -Monitor neurovascular status of LUE -Hold warfarin -IR consult after for vascath or permcath placement -Monitor H/H -Morphine for pain (2) End stage renal disease on dialysis ICD Codes: N18.6 - End stage renal failure on dialysis; Z99.2 - Dependence on renal dialysis Status: Chronic Plan: Patient on dialysis from ESRD Wednesday//Wednesday. -Nephrology consulted to assist with dialysis -Will need new access -Continue home meds (3) Hypertension ICD Codes: I10 - Hypertension Status: Chronic Plan: Continue home amlodipine, enalapril (4) Hypothyroidism ICD Codes: E03.9 - Hypothyroidism Status: Chronic Plan: Continue home synthroid (5) Parkinsons disease ICD Codes: G20 - Parkinson's disease Status: Chronic Plan: Continue home levodopa/carbidopa (6) FEN Plan: Fluids: NS @ 100mls/hr Electrolytes: monitor, replace PRN Nutrition: NPO until after procedure DVT ppx: SCDs (Maurilio Martinez MD R2) Physician Certification 2 Midnight Certification Type: Admission for Inpatient Services Order for Inpatient Services The services are ordered in accordance with Medicare regulations or non- Medicare payer requirements, as applicable. In the case of services not specified as inpatient-only, they are appropriately provided as inpatient services in accordance with the 2-midnight benchmark. Estimated LOS (days): 2 days is the estimated time the patient will need to remain in the hospital, assuming treatment plan goals are met and no additional complications. Post-Hospital Plan: Home (Maurilio Martinez MD R2) Problem Qualifiers (1) Hemorrhage of arteriovenous fistula: Qualified Codes: T82.838A - Hemorrhage due to vascular prosthetic devices, implants and grafts, initial encounter Maurilio Martinez MD R2 October 07, 2017 13:03 Lena Alvares MD October 07, 2017 15:50
[2017-10-07] MEDS ORDERED: PROTAMINE SULFATE 50 MG/5 ML VIAL ONE (13:09)
[2017-10-07] MEDS ORDERED: HEPARIN-NS/PF INJ 500 ML ONE (13:10)
[2017-10-07] MEDS ORDERED: HEPARIN SODIUM - IV 10,000 UNITS/10 ML VIAL ONE (13:10)
[2017-10-07] MEDS ORDERED: THROMBIN (TOPICAL) 20,000 UNIT SPRAY KIT ONE (13:10)
[2017-10-07] MEDS ORDERED: VANCOMYCIN HCL 1000 MG VIAL ONE (13:10)
[2017-10-07] MEDS ORDERED: BUPIVACAINE HCL PF 0.5% 30 ML VIAL ONE (13:11)
--- NOTE | 2017-10-07 13:41 | PD ---
HPI Chief Complaint: Bleeding Time Seen by Provider: 10:59 Travel History International Travel<30 days: No Contact w/Intl Traveler<30days: No History of Present Illness HPI This is a 77 year old male who presents to the emergency department having had his fistula rupture during dialysis. Pt. lost 500 cc of blood per the dialysis center on scene. A tourniquet was placed by EMS and he was transported to the hospital. Pt. has some pain in his left forearm, constant, moderate severity, but denies any associated lightheadedness. He is on coumadin for atrial fibrillation PFSH Past Medical History Hx Anticoagulant Therapy: Yes (COUMADIN) Arthritis: No Asthma: No Autoimmune Disease: Yes (Myodysplasia) Blood Disorders: No Anxiety: No Depression: Yes Heart Rhythm Problems: No Cancer: No Cardiovascular Problems: Yes (HTN; GIFFORD; DEFIB) High Cholesterol: No Chemotherapy: No Chest Pain: No Congestive Heart Failure: No COPD: No Cerebrovascular Accident: Yes (TIA'S) Coronary Artery Disease: Yes Diabetes: Yes (TYPE 2 ) Patient Takes Glucophage: No Dialysis: Yes (tue, th, sat) Diminished Hearing: Yes (NUIQSUT) Endocrine: Yes Gastrointestinal Disorders: No GERD: Yes Genitourinary: Yes (ESRD) Hepatitis: No Hiatal Hernia: No Hypertension: Yes Immune Disorder: No Implanted Vascular Access Dvce: No Kidney Stones: No Musculoskeletal: No Neurologic: Yes (Parkinson's) Parkinson's Disease: Yes Psychiatric: Yes Reproductive: No Respiratory: No Immunizations Current: Yes Migraines: No Myocardial Infarction: Yes Radiation Therapy: No Renal Failure: Yes (On HD) Seizures: No Sleep Apnea: No Thyroid Disease: Yes (Hypo-) Ulcer: Yes Past Surgical History Abdominal Surgery: No AICD: Yes (under left arm) Appendectomy: No Body Medical Devices: AVF Cardiac Surgery: No Cholecystectomy: No Ear Surgery: No Endocrine Surgery: No Eye Surgery: Yes (BL cataracts) Genitourinary Surgery: No Gynecologic Surgery: No Neurologic Surgery: No Oral Surgery: No Thoracic Surgery: No Tonsillectomy: Yes Other Surgery: Yes (Fatty tumor removal) Social History Alcohol Use: Yes (Wine daily) Tobacco Use: No (Quit) Substance Use: No Allergies-Medications (Allergen,Severity, Reaction): Coded Allergies: Sulfa (Sulfonamide Antibiotics) (Unverified Allergy, Unknown, Rash, ) Reported Meds & Prescriptions Reported Meds & Active Scripts Active Reported Restoril (Temazepam) 7.5 Mg Cap 7.5 Mg PO HS PRN Calcitriol 0.25 Mcg Cap 0.25 Mcg PO TUTHSA Take 1 tablet (0.25mcg) daily on dialysis days (Wednesday, and Wednesday) Norvasc (Amlodipine Besylate) 5 Mg Tab 5 Mg PO DAILY Megestrol Liq (Megestrol Acetate) 40 Mg/Ml Susp 200 Mg PO EVERY OTHER DAY Calcium + D3 (Calcium Carbonate-Cholecalciferol) 600-200 Mg-Unit Tab 1 Tab PO DAILY Coumadin (Warfarin) 3 Mg Tab 3 Mg PO DAILY Vitamin D3 (Cholecalciferol) 1,000 Unit Chew 1,000 Units PO BID Multi-Vitamin Daily (Multiple Vitamin) 1 Tab Tab 1 Tab PO DAILY Renvela (Sevelamer Carbonate) 800 Mg Tab 800 Mg PO TID Carvedilol 6.25 Mg Tab 6.25 Mg PO BID Furosemide 20 Mg Tab 20 Mg PO SUMOWEFR Take 1 tablet (20mg) daily on Wednesday,Wednesday,Wednesday and Wednesday Fluoxetine (Fluoxetine HCl) 10 Mg Tab 10 Mg PO DAILY Vasotec (Enalapril Maleate) 10 Mg Tab 10 Mg PO BID Carbidopa-Levodopa 10-100 Mg Tab 1 Tab PO Q8HR Omeprazole 20 Mg Tab 20 Mg PO DAILY Levothyroxine (Levothyroxine Sodium) 100 Mcg Tab 100 Mcg PO DAILY Review of Systems Except as stated in HPI: all other systems reviewed are Neg Physical Exam Narrative GENERAL: SKIN: AV Fistula left forearm with significant pulsatile bleeding from multiple areas. HEAD: Atraumatic. Normocephalic. EYES: Pupils equal and round. ENT: No nasal bleeding or discharge. Mucous membranes pink and moist. NECK: Trachea midline. CARDIOVASCULAR: Regular rate and rhythm. RESPIRATORY: No accessory muscle use. Clear to auscultation. Breath sounds equal bilaterally. GASTROINTESTINAL: Abdomen soft, non-tender, nondistended. Hepatic and splenic margins not palpable. MUSCULOSKELETAL: Extremities without clubbing, cyanosis, or edema. No obvious deformities. NEUROLOGICAL: Awake and alert. No obvious cranial nerve deficits. Moving all extremities. PSYCHIATRIC: Appropriate mood and affect; insight and judgment normal. Data Data Last Documented VS Vital Signs Date Time Temp Pulse Resp B/P (MAP) Pulse Ox O2 Delivery O2 Flow Rate FiO2 10/07/17 13:02 97.7 94 24 165/96 (119) 100 Nasal Cannula 2.00 Orders Orders Complete Blood Count With Diff (10/07/17 11:00) Comprehensive Metabolic Panel (10/07/17 11:00) Prothrombin Time / Inr (Pt) (10/07/17 11:00) Act Partial Throm Time (Ptt) (10/07/17 11:00) Type And Screen (10/07/17 11:00) Red Blood Cells (Rbc) (10/07/17 11:00) Sodium Chlor 0.9% 250 Ml Inj (Ns 250 Ml (10/07/17 11:00) Morphine Inj (Morphine Inj) (10/07/17 11:00) Morphine Inj (Morphine Inj) (10/07/17 11:04) Fresh Frozen Plasma (Ffp) (10/07/17 11:39) Blood Product Administration (10/07/17 11:39) Sodium Chlor 0.9% 250 Ml Inj (Ns 250 Ml (10/07/17 11:45) Morphine Inj (Morphine Inj) (10/07/17 11:45) Protamine Sulfate Inj (Protamine Sulfate (10/07/17 13:09) Heparin Inj (Heparin Inj) (10/07/17 13:10) Vancomycin Inj (Vancomycin Inj) (10/07/17 13:10) Thrombin Top [place] (Thrombin Top Clinton) (10/07/17 13:10) Heparin-Ns/Pf Inj (Heparin-Ns/Pf Inj) (10/07/17 13:10) Admit Order (Ed Use Only) (10/07/17 13:09) Bupivacaine Pf 0.5% Inj (Marcaine Pf 0.5 (10/07/17 13:11) Consult Vascular Surgery (10/07/17 ) Labs Laboratory Tests Test 10/07/17 11:00 White Blood Count 7.9 TH/MM3 Red Blood Count 2.79 MIL/MM3 Hemoglobin 9.7 GM/DL Hematocrit 28.6 % Mean Corpuscular Volume 102.4 FL Mean Corpuscular Hemoglobin 34.7 PG Mean Corpuscular Hemoglobin Concent 33.8 % Red Cell Distribution Width 15.2 % Platelet Count 338 TH/MM3 Mean Platelet Volume 7.7 FL Neutrophils (%) (Auto) 55.1 % Lymphocytes (%) (Auto) 24.8 % Monocytes (%) (Auto) 15.6 % Eosinophils (%) (Auto) 4.1 % Basophils (%) (Auto) 0.4 % Neutrophils # (Auto) 4.4 TH/MM3 Lymphocytes # (Auto) 2.0 TH/MM3 Monocytes # (Auto) 1.2 TH/MM3 Eosinophils # (Auto) 0.3 TH/MM3 Basophils # (Auto) 0.0 TH/MM3 CBC Comment DIFF FINAL Differential Comment Prothrombin Time 28.8 SEC Prothromb Time International Ratio 2.9 RATIO Activated Partial Thromboplast Time 46.7 SEC Blood Urea Nitrogen 5 MG/DL Creatinine 1.66 MG/DL Random Glucose 142 MG/DL Total Protein 5.6 GM/DL Albumin 2.1 GM/DL Calcium Level 8.4 MG/DL Alkaline Phosphatase 193 U/L Aspartate Amino Transf (AST/SGOT) 39 U/L Alanine Aminotransferase (ALT/SGPT) 17 U/L Total Bilirubin 0.3 MG/DL Sodium Level 142 MEQ/L Potassium Level 3.1 MEQ/L Chloride Level 106 MEQ/L Carbon Dioxide Level 29.3 MEQ/L Anion Gap 7 MEQ/L Estimat Glomerular Filtration Rate 40 ML/MIN MDM Medical Decision Making Medical Screen Exam Complete: Yes Emergency Medical Condition: Yes Interpretation(s) Afebrile, mild tachycardia Hemoglobin is 9.7 Macrocytosis Mild hypokalemia Renal insufficiency PT is 2.9 Differential Diagnosis Hemorrhagic shock, AV fistula rupture, anemia Narrative Course This is a 77-year-old male who presents to the emergency department having blown out his AV fistula and dialysis. On exam there are multiple areas of bleeding over his fistula. Tourniquet had been placed by EMS. I replaced the tourniquet with a femoral compression device in order to attempt to get more direct pressure on the wound without complete vascular compromise to the hand. Pt. maintained capillary refill, movement and sensation in the emergency department. I spoke to Dr. Noel who will take the patient to the operating room. Pt. also had INR of 2.9 so he was given 2 units of FFP. I reassessed the patient multiple times. Pt. was crossmatched for blood but blood transfusion was deferred as the patient is a dialysis patient. Critical Care Narrative Aggregate critical care time was 50 minutes. Time to perform other separately billable procedures was not included in the critical care time. My time did not include minutes spent treating any other patients simultaneously or on activities that did not directly contribute to the patient's treatment. The services I provided to this patient were to treat and/or prevent clinically significant deterioration that could result in: disability, I provided critical care services requiring my management, as noted below: Chart data review, documentation time, medication orders and management, vital sign assessments/reviewing monitor data, ordering and reviewing lab tests, ordering and interpreting/reviewing x-rays and diagnostic studies, care of the patient and discussion of the patient with the admitting physicians. Diagnosis Primary Impression: Hemorrhage of arteriovenous fistula Qualified Codes: T82.838A - Hemorrhage due to vascular prosthetic devices, implants and grafts, initial encounter Admitting Information Admitting Physician Requests: Admit Cristina Michelle MD October 07, 2017 13:41
[2017-10-07] MEDS: CALCITRIOL 0.25 MCG CAP PO SCH (13:45)
[2017-10-07] MEDS ORDERED: LACTULOSE SYRUP 20 GM/30 ML CUP PO PRN (13:45)
[2017-10-07] MEDS ORDERED: ACETAMINOPHEN 325 MG TAB PO PRN ×2 (13:45→16:45)
[2017-10-07] MEDS ORDERED: MORPHINE SULFATE 4 MG/ML INJ IV PUSH PRN ×3 (13:45)
[2017-10-07] MEDS ORDERED: SODIUM CHLORIDE 0.9% FLUSH 10 ML FLUSH IV FLUSH PRN ×2 (13:45→16:45)
[2017-10-07] MEDS ORDERED: MAGNESIUM HYDROXIDE SUSP 30 ML CUP PO PRN (13:45)
[2017-10-07] MEDS ORDERED: NALOXONE HCL 0.4 MG/ML AMP IV PUSH PRN (13:45)
[2017-10-07] MEDS ORDERED: BISACODYL 10 MG SUPP RECTAL PRN (13:45)
[2017-10-07] MEDS ORDERED: SENNOSIDES 8.6 MG TAB PO PRN (14:00)
[2017-10-07] MEDS: CARBIDOPA/LEVODOPA 10 MG/100 MG TAB PO SCH ×2 (14:00→22:12)
[2017-10-07] MEDS ORDERED: ONDANSETRON HCL 4 MG/2 ML VIAL IVP PRN (14:00)
[2017-10-07] MEDS ORDERED: ETOMIDATE 40 MG/20 ML VIAL ONE (14:39)
[2017-10-07] MEDS ORDERED: SUGAMMADEX SODIUM 200 MG/2 ML VIAL IV PUSH ONE (14:57)
[2017-10-07] MEDS ORDERED: BACITRACIN TOP OINT 15 GM TUBE ONE (15:23)
--- NOTE | 2017-10-07 15:39 | HHI.PR ---
cc: Ananth Noel MD Immediate Post Op Note Procedure Date: October 07, 2017 Pre Op Diagnosis: Bleeding L forearm AVF pseudoaneurysm Post Op Diagnosis: Bleeding L forearm AVF pseudoaneurysm Surgeon: Ananth Noel Sharepoint Application Developer(s): Myles Gonzalez Procedure: Ligation of AVF Findings: AVF pseudoaneurysm eroded through skin Complications: none Specimen(s) removed: none for pathology Estimated blood loss: 50mL Anesthesia: General Drains: None Fluids: 250mL IVF Patient to: PACU Patient Condition: Good Date/Time of Procedure: SEE SURGICAL CARE RECORD Ananth Noel MD October 07, 2017 15:39
[2017-10-07] MEDS ORDERED: DO NOT ADM ANY ANTICOAGULANT DRUGS PRN (15:44)
[2017-10-07] MEDS ORDERED: HYDROmorphone HCL 2 MG TAB PO PRN (16:30)
[2017-10-07] MEDS ORDERED: SODIUM CHLOR 0.9% 1000 ML INJ 1,000 ML IV PRN (16:43)
[2017-10-07] MEDS ORDERED: SODIUM CHLOR 0.9% 1000 ML INJ 1,000 ML OTHER PRN ×2 (16:43)
[2017-10-07] MEDS ORDERED: GENTAMICIN SULFATE 20 MG/2 ML VIAL OTHER PRN (16:45)
[2017-10-07] MEDS ORDERED: HEPARIN SODIUM - IV 10,000 UNITS/10 ML VIAL PRN (16:45)
[2017-10-07] MEDS ORDERED: cloNIDine HCL 0.1 MG TAB PO PRN (16:45)
[2017-10-07] MEDS ORDERED: HEPARIN SODIUM - IV 10,000 UNITS/10 ML VIAL IV FLUSH PRN (16:45)
[2017-10-07] MEDS ORDERED: EPOETIN ALFA 10,000 UNITS/ML VIAL IV PUSH PRN (16:45)
[2017-10-07] MEDS ORDERED: ONDANSETRON HCL 4 MG/2 ML VIAL IV PUSH PRN (16:45)
[2017-10-07] MEDS ORDERED: GELATIN 12 MM/7 MM FOAM TOP PRN (16:45)
[2017-10-07] MEDS ORDERED: ALBUMIN 25% INJ 100 ML IV PRN (16:45)
[2017-10-07] MEDS ORDERED: MANNITOL 12.5 GM/50 ML VIAL IV PRN (16:45)
[2017-10-07] MEDS ORDERED: diphenhydrAMINE HCL 25 MG CAP PO PRN (16:45)
[2017-10-07] MEDS ORDERED: NITROGLYCERIN 0.4 MG SL 25 TABS/BTL SL PRN (16:45)
--- NOTE | 2017-10-07 16:52 | PD.CONS ---
HPI Service Nephrology Consult Requested By Dr. Martinez Reason for Consult End stage renal disease on hemodialysis Primary Care Physician Mari Varela MD History of Present Illness Patient is a 77 year old male with a past medical history of hypertension, diabetes, Parkinson disease, cerebral vascular accident, coronary artery disease with AICD, and hypothyroidism. Patient presented to the emergency with his AVF site hemorrhage from dialysis center. Approximate blood loss at 500ml. Patient has reported that he has had problems with fistula over the last month and was seen by Dr. Clarke in September and had procedure preformed. Mr. Martinez was seen at Dialysis on Wednesday and at that time advised to be seen by Vascular surgeon. Nephrology is consulted for end stage renal disease. His normal dialysis days are Wednesday, , and Wednesday. He did complete all of dialysis today so next scheduled dialysis will be on Wednesday. Patient was seen in recovery room and part of history and physical was obtained from chart. (Debora Schilling) Review of Systems Constitutional: COMPLAINS OF: Fatigue Respiratory: DENIES: Cough, Shortness of breath Cardiovascular: DENIES: Chest pain, Palpitations, Syncope, Lower Extremity Edema Gastrointestinal: DENIES: Abdominal pain, Diarrhea, Nausea, Vomiting ( Debora Schilling) Past Family Social History Allergies: Coded Allergies: Sulfa (Sulfonamide Antibiotics) (Unverified Allergy, Unknown, Rash, ) Past Medical History ESRD on HD (//Wed) Hypertension DM-diet controlled Parkinson's Disease TIA CAD-AICD Hypothyroidism Past Surgical History L UE A-V Fistula Tonsillectomy cataract bilateral Active Ordered Medications Current Medications Medications (Trade) Dose Ordered Sig/Marleni Route Start Time Stop Time Status Last Admin Sodium Chloride 250 ml @ 15 mls/hr ONCE ONCE IV 10/07/17 11:00 10/08/17 03:39 10/07/17 12:57 Sodium Chloride 250 ml @ 15 mls/hr ONCE ONCE IV 10/07/17 11:45 10/08/17 04:24 10/07/17 12:58 Sodium Chloride 1,000 ml @ 100 mls/hr Q10H IV 10/07/17 13:31 (NS Flush) 2 ml UNSCH PRN IV FLUSH 10/07/17 13:45 (NS Flush) 2 ml BID IV FLUSH 10/07/17 21:00 (Tylenol) 650 mg Q4H PRN PO 10/07/17 13:45 (Zofran Inj) 4 mg Q6H PRN IVP 10/07/17 14:00 (Morphine Inj) 2 mg Q3H PRN IV PUSH 10/07/17 13:45 (Morphine Inj) 4 mg Q3H PRN IV PUSH 10/07/17 13:45 (Morphine Inj) 4 mg Q3H PRN IV PUSH 10/07/17 13:45 (Narcan Inj) 0.4 mg UNSCH PRN IV PUSH 10/07/17 13:45 (Susu-Colace) 1 tab BID PO 10/07/17 21:00 (Milk Of Magnesia Liq) 30 ml Q12H PRN PO 10/07/17 13:45 (Senokot) 17.2 mg Q12HR PRN PO 10/07/17 14:00 (Dulcolax Supp) 10 mg DAILY PRN RECTAL 10/07/17 13:45 (Lactulose Liq) 30 ml DAILY PRN PO 10/07/17 13:45 (Norvasc) 5 mg DAILY PO 10/08/17 09:00 (Rocaltrol) 0.25 mcg TuThSa PO 10/07/17 13:45 (Sinemet 10-100 Mg) 1 tab Q8HR PO 10/07/17 14:00 (Vitamin D3) 1,000 units BID PO 10/07/17 21:00 (Vasotec) 10 mg BID PO 10/07/17 21:00 (PROzac) 10 mg DAILY PO 10/08/17 09:00 (Lasix) 20 mg SuMoWeFr PO 10/08/17 13:45 (Synthroid) 100 mcg DAILY@0600 PO 10/08/17 06:00 (Renvela) 800 mg TID PO 10/07/17 18:00 (Oscal-D 250-125) 500 mg DAILY PO 10/08/17 09:00 (Theragran) 1 tab DAILY PO 10/08/17 09:00 (Protonix) 20 mg DAILY PO 10/08/17 09:00 Family History Father on Hemodialysis Social History Quit smoking over 20 years ago Drinks 1 glass of wine daily Lives with (Debora Schilling) Physical Exam Vital Signs Vital Signs Date Time Temp Pulse Resp B/P (MAP) Pulse Ox O2 Delivery O2 Flow Rate FiO2 10/07/17 15:40 97.6 74 20 137/86 (103) 93 Nasal Cannula 2 10/07/17 14:37 10/07/17 14:06 91 18 164/87 (112) 100 Room Air 10/07/17 13:02 97.7 94 24 165/96 (119) 100 Nasal Cannula 2.00 10/07/17 13:01 97.7 96 24 165/96 100 10/07/17 12:58 97.7 94 24 165/96 100 10/07/17 12:45 97.9 99 24 126/74 94 10/07/17 12:42 97.9 95 24 126/74 94 10/07/17 12:39 98 24 100/60 (73) 94 Nasal Cannula 2.00 10/07/17 12:15 100 20 112/68 (83) 94 Nasal Cannula 2.00 10/07/17 11:37 85 24 103/68 (80) 94 Nasal Cannula 10/07/17 10:53 97.8 83 24 116/90 (99) 100 Physical Exam GENERAL: alert seen in recovery room. SKIN: Warm and dry. left arm with JEMAL wrap HEAD: Normocephalic. EYES: No scleral icterus. No injection or drainage. NECK: Supple, trachea midline. No JVD or lymphadenopathy. CARDIOVASCULAR: Regular rate and rhythm without murmurs, gallops, or rubs. RESPIRATORY: Breath sounds equal bilaterally. No accessory muscle use. wheezing noted GASTROINTESTINAL: Abdomen soft, non-tender, nondistended. MUSCULOSKELETAL: No cyanosis, or edema. BACK: Nontender without obvious deformity. No CVA tenderness. Laboratory Laboratory Tests Test 10/07/17 11:00 White Blood Count 7.9 Red Blood Count 2.79 Hemoglobin 9.7 Hematocrit 28.6 Mean Corpuscular Volume 102.4 Mean Corpuscular Hemoglobin 34.7 Mean Corpuscular Hemoglobin Concent 33.8 Red Cell Distribution Width 15.2 Platelet Count 338 Mean Platelet Volume 7.7 Neutrophils (%) (Auto) 55.1 Lymphocytes (%) (Auto) 24.8 Monocytes (%) (Auto) 15.6 Eosinophils (%) (Auto) 4.1 Basophils (%) (Auto) 0.4 Neutrophils # (Auto) 4.4 Lymphocytes # (Auto) 2.0 Monocytes # (Auto) 1.2 Eosinophils # (Auto) 0.3 Basophils # (Auto) 0.0 CBC Comment DIFF FINAL Differential Comment Prothrombin Time 28.8 Prothromb Time International Ratio 2.9 Activated Partial Thromboplast Time 46.7 Blood Urea Nitrogen 5 Creatinine 1.66 Random Glucose 142 Total Protein 5.6 Albumin 2.1 Calcium Level 8.4 Alkaline Phosphatase 193 Aspartate Amino Transf (AST/SGOT) 39 Alanine Aminotransferase (ALT/SGPT) 17 Total Bilirubin 0.3 Sodium Level 142 Potassium Level 3.1 Chloride Level 106 Carbon Dioxide Level 29.3 Anion Gap 7 Estimat Glomerular Filtration Rate 40 (Debora Schilling) Result Diagram: 10/07/17 1100 10/07/17 1100 Assessment and Plan Problem List: (1) End stage renal disease on dialysis ICD Codes: N18.6 - End stage renal failure on dialysis; Z99.2 - Dependence on renal dialysis Status: Chronic Plan: End stage renal disease on hemodialysis on Wednesday, , and Wednesday. He did complete all of dialysis today so next scheduled dialysis will be on Wednesday. Plan Next scheduled hemodialysis will be on Wednesday. Dialysis orders placed Continue Renvela, Calcitrol and oscal for metabolic bone disorder. Hgb 9.8. Epogen with dialysis Will need hemodialysis access will order tomorrow Labs in AM (2) Hypertension ICD Codes: I10 - Hypertension Status: Chronic Plan: Will monitor (Debora Schilling) Problem List: (1) End stage renal disease on dialysis ICD Codes: N18.6 - End stage renal failure on dialysis; Z99.2 - Dependence on renal dialysis Status: Chronic Plan: End stage renal disease on hemodialysis on Wednesday, , and Wednesday. He did complete all of dialysis today so next scheduled dialysis will be on Wednesday. Plan Next scheduled hemodialysis will be on Wednesday. Dialysis orders placed Continue Renvela, Calcitrol and oscal for metabolic bone disorder. Hgb 9.8. Epogen with dialysis Will need hemodialysis access will order tomorrow Labs in AM. Patient seen and examined, now post AVF ligation and Vascath. HD to continue TTS. Follow the Hgb. (2) Hypertension ICD Codes: I10 - Hypertension Status: Chronic Plan: Will monitor (Valarie Durant MD) Debora Schilling October 07, 2017 16:52 Valarie Durant MD October 08, 2017 11:25
[2017-10-07] MEDS ORDERED: *morphine SULFATE 4 MG/ML PERIprocedure ONLY ONE (17:11)
--- NOTE | 2017-10-07 17:28 | MP ---
cc: Ananth Noel MD DATE OF OPERATION: 10/07/2017 PREOPERATIVE DIAGNOSIS: Bleeding pseudoaneurysm from arteriovenous fistula. POSTOPERATIVE DIAGNOSIS: Bleeding pseudoaneurysm from arteriovenous fistula, skin necrosis from underlying hematoma. PROCEDURES PERFORMED: Excision of bleeding arteriovenous fistula. ATTENDING SURGEON: Ananth Noel MD MICA LAYER SURGEON: Myles Diaz ANESTHESIA: General. INDICATIONS FOR PROCEDURE: Mr. Martinez is a 77-year-old gentleman who apparently had a left forearm access created somewhere else and has had several endovascular office based for mediation. He presented to me through the Emergency Department with exsanguinating hemorrhage from his fistula and he was taken to the operating room emergently, with manual pressure being held on the fistula. DESCRIPTION OF PROCEDURE: Informed consent was obtained from the patient. He was taken to the operating room urgently, placed supine on the operating table. An appropriate timeout was taken to ensure the patient's identity, operative site and planned procedure. A gram of vancomycin was initiated prior to skin incision, will be discontinued after single preoperative dose. Vancomycin was chosen because of the patient's end-stage renal disease. Everyone in the room agreed with timeout and we proceeded. His left arm was prepped and draped, with manual pressure being held and the bleeding point of the fistula. We dissected proximally on the fistula, encircled with a right angle and the fistula was clamped. The pressure was released and the fistula was transected. The proximal aspect of the fistula was oversewn with 5-0 Prolene suture and then the distal aspect was controlled with electrocautery and Prolene suture. The wound was then cleaned up with sharp debridement and vertical mattress nylon sutures were used to reapproximate the skin as well as we could. There was a nice Doppler signal in distal radial artery at the conclusion of the case and the patient was then transported to the PACU in fair condition. There were no complications. I was present and scrubbed for the entire procedure. MD ION Newsome/FABI , 04:50 PM , 05:26 PM
[2017-10-07] MEDS ORDERED: POTASSIUM CHLORIDE 10 MEQ CAP PO ONE (17:30)
[2017-10-07 18:44] LABS: TROPONIN I LESS THAN 0.02 NG/ML (0.02-0.05)
[2017-10-07] MEDS: CHOLECALCIFEROL (VIT D3) 1000 UNIT TAB PO SCH (20:25)
[2017-10-07] MEDS: ENALAPRIL MALEATE 10 MG TAB PO SCH (20:25)
[2017-10-07] MEDS: DOCUSATE SODIUM 50 MG/SENNA 8.6 MG TAB PO SCH (20:25)
[2017-10-07] MEDS: SEVELAMER CARBONATE 800 MG TAB PO SCH (20:25)
[2017-10-07] MEDS: SODIUM CHLORIDE 0.9% FLUSH 10 ML FLUSH IV FLUSH SCH (21:00)
[2017-10-07 22:09] LABS: HEMATOCRIT 21.3 % (39.0-51.0); HEMOGLOBIN 7.5 GM/DL (13.0-17.0)
[2017-10-07] MEDS: SODIUM CHLOR 0.9% 1000 ML INJ 1,000 ML IV SCH ×2 (22:10→23:31)
[2017-10-08] VITALS (7 sets, daily range): BP systolic 109–159; BP diastolic 49–99; PULSE 73–105; RESP 16–22; TEMP 97.1–97.8; O2SAT 99–100
[2017-10-08] MEDS ORDERED: SODIUM CHLOR 0.9% 250 ML INJ 250 ML IV ONE (01:15)
[2017-10-08] MEDS ORDERED: FUROSEMIDE 20 MG/2 ML VIAL IV PUSH SCH (01:15)
[2017-10-08] MEDS: LEVOTHYROXINE SODIUM 100 MCG TAB PO SCH (06:20)
[2017-10-08] MEDS: CARBIDOPA/LEVODOPA 10 MG/100 MG TAB PO SCH ×3 (06:25→21:06)
[2017-10-08 06:53] LABS: AUTOMATED NEUTROPHIL # 3.9 TH/MM3 (1.8-7.7); BASOPHIL % 0.1 % (0.0-2.0); HEMATOCRIT 21.5 % (39.0-51.0); HEMOGLOBIN 7.2 GM/DL (13.0-17.0); LYMPHOCYTE # 1.1 TH/MM3 (1.0-4.8); MEAN CELL VOLUME 103.6 FL (80.0-100.0); MEAN CORPUSCULAR HEMOGLOBIN 34.9 PG (27.0-34.0); MEAN CORPUSCULAR HGB CONC 33.7 % (32.0-36.0); MEAN PLATELET VOLUME 7.9 FL (7.0-11.0); MONO % 10.3 % (0.0-8.0); MONOCYTE # 0.6 TH/MM3 (0-0.9); NEUT % 70.6 % (16.0-70.0); PLATELET COUNT 264 TH/MM3 (150-450); RED BLOOD COUNT 2.08 MIL/MM3 (4.50-5.90); RED CELL DISTRIBUTION WIDTH 15.1 % (11.6-17.2); WHITE BLOOD COUNT 5.6 TH/MM3 (4.0-11.0)
[2017-10-08 07:02] LABS: INTERNATIONAL NORMALIZED RATIO 2.1 RATIO; PROTHROMBIN TIME - PATIENT 21.4 SEC (9.8-11.6)
[2017-10-08 07:35] LABS: BICARBONATE 25.2 MEQ/L (21.0-32.0); CALCIUM 8.4 MG/DL (8.5-10.1); CREATININE 2.66 MG/DL (0.60-1.30)
--- NOTE | 2017-10-08 07:42 | PD.VS.PN ---
Subjective POD #: 1 Procedure(s): Ligation of L UE AVF for bleeding pseudoaneurysm Subjective/Hospital Course notes that his hand and wrist pain are markedly improved today Objective Vitals/I&O Date Time Temp Pulse Resp B/P (MAP) Pulse Ox O2 Delivery O2 Flow Rate FiO2 10/08/17 04:00 79 10/08/17 04:00 97.1 79 22 154/99 (117) 100 10/08/17 00:00 73 10/08/17 00:00 97.5 79 22 128/71 (90) 100 10/07/17 20:33 97 Nasal Cannula 2.00 10/07/17 20:20 82 10/07/17 20:00 97.5 90 22 147/73 (97) 99 10/07/17 18:30 97.6 90 18 133/76 (95) 100 Nasal Cannula 2 10/07/17 18:00 83 20 146/72 (96) 100 Nasal Cannula 2 10/07/17 17:30 92 12 126/59 (81) 100 Nasal Cannula 2 10/07/17 17:00 88 15 139/75 (96) 100 Nasal Cannula 2 10/07/17 16:45 82 13 150/75 (100) 100 Nasal Cannula 2 10/07/17 16:30 84 15 148/81 (103) 100 Nasal Cannula 2 10/07/17 16:15 79 16 148/71 (96) 100 Nasal Cannula 2 10/07/17 16:00 78 18 165/85 (111) 96 Nasal Cannula 2 10/07/17 15:45 82 15 157/78 (104) 96 Nasal Cannula 2 10/07/17 15:40 97.6 74 20 137/86 (103) 93 Nasal Cannula 2 10/07/17 14:37 10/07/17 14:06 91 18 164/87 (112) 100 Room Air 10/07/17 13:02 97.7 94 24 165/96 (119) 100 Nasal Cannula 2.00 10/07/17 13:01 97.7 96 24 165/96 100 10/07/17 12:58 97.7 94 24 165/96 100 10/07/17 12:45 97.9 99 24 126/74 94 10/07/17 12:42 97.9 95 24 126/74 94 10/07/17 12:39 98 24 100/60 (73) 94 Nasal Cannula 2.00 10/07/17 12:15 100 20 112/68 (83) 94 Nasal Cannula 2.00 10/07/17 11:37 85 24 103/68 (80) 94 Nasal Cannula 10/07/17 10:53 97.8 83 24 116/90 (99) 100 10/08/17 10/08/17 10/08/17 07:00 15:00 23:00 Intake Total 900 ml Output Total 350 ml Balance 550 ml Exam: resting comfortably neuro intact LEFT hand dressing in place without obvious hematoma Laboratory Laboratory Tests Test 10/07/17 11:00 10/07/17 17:37 10/07/17 21:05 10/08/17 06:17 White Blood Count 7.9 5.6 Red Blood Count 2.79 2.08 Hemoglobin 9.7 7.5 7.2 Hematocrit 28.6 21.3 21.5 Mean Corpuscular Volume 102.4 103.6 Mean Corpuscular Hemoglobin 34.7 34.9 Mean Corpuscular Hemoglobin Concent 33.8 33.7 Red Cell Distribution Width 15.2 15.1 Platelet Count 338 264 Mean Platelet Volume 7.7 7.9 Neutrophils (%) (Auto) 55.1 70.6 Lymphocytes (%) (Auto) 24.8 19.0 Monocytes (%) (Auto) 15.6 10.3 Eosinophils (%) (Auto) 4.1 0.0 Basophils (%) (Auto) 0.4 0.1 Neutrophils # (Auto) 4.4 3.9 Lymphocytes # (Auto) 2.0 1.1 Monocytes # (Auto) 1.2 0.6 Eosinophils # (Auto) 0.3 0.0 Basophils # (Auto) 0.0 0.0 CBC Comment DIFF FINAL DIFF FINAL Differential Comment Prothrombin Time 28.8 21.4 Prothromb Time International Ratio 2.9 2.1 Activated Partial Thromboplast Time 46.7 Blood Urea Nitrogen 5 11 Creatinine 1.66 2.66 Random Glucose 142 156 Total Protein 5.6 Albumin 2.1 Calcium Level 8.4 8.4 Alkaline Phosphatase 193 Aspartate Amino Transf (AST/SGOT) 39 Alanine Aminotransferase (ALT/SGPT) 17 Total Bilirubin 0.3 Sodium Level 142 145 Potassium Level 3.1 4.5 Chloride Level 106 110 Carbon Dioxide Level 29.3 25.2 Anion Gap 7 10 Estimat Glomerular Filtration Rate 40 23 Total Creatine Kinase 44 Troponin I LESS THAN 0.02 Assessment and Plan Assessment: (1) AVF (arteriovenous fistula) Plan POD#1 s/p excision of AVF for bleeding pseudoaneurysm 1. Needs catheter for HD; will schedule new elective AVF as outpatient. 2. Will keep JEMAL wrap in place until tomorrow as skin closure tenuous given skin necrosis that was associated with pseudoaneurysm 3. OT for hand Discharge Planning as early as tomorrow (POD#2) from a vascular surgery standpoint Ananth Noel MD October 08, 2017 07:42
[2017-10-08] MEDS ORDERED: LIDOCAINE HCL 1% PF 30 ML VIAL ONE (08:56)
[2017-10-08] MEDS ORDERED: amLODIPine BESYLATE 5 MG TAB PO SCH (09:00)
--- NOTE | 2017-10-08 09:19 | PD.RAD ---
Post Procedure Progress Note Pre Procedure Diagnosis: (1) End stage renal disease on dialysis (2) Hemorrhage of arteriovenous fistula Post Procedure Diagnosis: (1) End stage renal disease on dialysis (2) Hemorrhage of arteriovenous fistula Procedure Date: October 08, 2017 Supervising Radiologist: Jae Panda Estimated blood loss: none Anesthesia: Local Plan of Activity Patient to Unit: Nursing Unit Patient Condition: Fair Additional Comments: Vascath placed via the right Ij catheter in good position OK for use See PACS Report for procedural detail/treatment Jae Panda MD October 08, 2017 09:19
[2017-10-08] MEDS ORDERED: SODIUM CHLORIDE 0.9% FLUSH 10 ML FLUSH IV FLUSH PRN (09:30)
[2017-10-08] MEDS ORDERED: HEPARIN SODIUM - IV 2,000 UNITS/2 ML VIAL IV FLUSH PRN (09:30)
[2017-10-08] MEDS: FLUoxetine HCL 10 MG CAP PO SCH (09:47)
[2017-10-08] MEDS: MULTIVITAMIN TAB PO SCH (09:47)
[2017-10-08] MEDS: DOCUSATE SODIUM 50 MG/SENNA 8.6 MG TAB PO SCH ×2 (09:47→21:05)
[2017-10-08] MEDS: CHOLECALCIFEROL (VIT D3) 1000 UNIT TAB PO SCH ×2 (09:47→21:05)
[2017-10-08] MEDS: PANTOPRAZOLE SOD 20 MG DELAYED RELEASE TAB PO SCH (09:47)
[2017-10-08] MEDS: CALCIUM/VITAMIN D 250 MG/125 U TAB PO SCH (09:47)
[2017-10-08] MEDS: SEVELAMER CARBONATE 800 MG TAB PO SCH ×3 (09:48→18:00)
[2017-10-08] MEDS: SODIUM CHLORIDE 0.9% FLUSH 10 ML FLUSH IV FLUSH SCH ×2 (09:48→21:00)
[2017-10-08] MEDS: ENALAPRIL MALEATE 10 MG TAB PO SCH ×2 (09:49→21:05)
[2017-10-08] MEDS: SODIUM CHLOR 0.9% 1000 ML INJ 1,000 ML IV SCH (09:51)
--- NOTE | 2017-10-08 10:16 | HHI.NPPN ---
Subjective General Problems: Anemia Renal Failure: End Stage Renal Disease History of Present Illness Patient is a 77 year old male with a past medical history of hypertension, diabetes, Parkinson disease, cerebral vascular accident, coronary artery disease with AICD, and hypothyroidism. Patient presented to the emergency with his AVF site hemorrhage from dialysis center. Approximate blood loss at 500ml. Patient has reported that he has had problems with fistula over the last month and was seen by Dr. Clarke in September and had procedure preformed. Mr. Martinez was seen at Dialysis on Wednesday and at that time advised to be seen by Vascular surgeon. Nephrology is consulted for end stage renal disease. His normal dialysis days are Wednesday, , and Wednesday. He did complete all of dialysis today so next scheduled dialysis will be on Wednesday. Patient was seen in recovery room and part of history and physical was obtained from chart. Additional Remarks Resting comfortably. Vas cath placed in right IJ. Denies any discomfort. (Debora Schilling) Review of Systems General Constitutional: Fatigue (Debora Schilling) Respiratory Respiratory Remarks Denies SOB (Debora Schilling) Cardiovascular Cardiac Remarks Denies CP (Debora Schilling) Gastrointestinal GI Remarks Denies abdominal pain (Debora Schilling) Objective Data Data Vital Signs Date Time Temp Pulse Resp B/P (MAP) Pulse Ox O2 Delivery O2 Flow Rate FiO2 10/08/17 08:39 100 Nasal Cannula 2.00 10/08/17 04:00 79 10/08/17 04:00 97.1 79 22 154/99 (117) 100 10/08/17 00:00 73 10/08/17 00:00 97.5 79 22 128/71 (90) 100 10/07/17 20:33 97 Nasal Cannula 2.00 10/07/17 20:20 82 10/07/17 20:00 97.5 90 22 147/73 (97) 99 10/07/17 18:30 97.6 90 18 133/76 (95) 100 Nasal Cannula 2 10/07/17 18:00 83 20 146/72 (96) 100 Nasal Cannula 2 10/07/17 17:30 92 12 126/59 (81) 100 Nasal Cannula 2 10/07/17 17:00 88 15 139/75 (96) 100 Nasal Cannula 2 10/07/17 16:45 82 13 150/75 (100) 100 Nasal Cannula 2 10/07/17 16:30 84 15 148/81 (103) 100 Nasal Cannula 2 10/07/17 16:15 79 16 148/71 (96) 100 Nasal Cannula 2 10/07/17 16:00 78 18 165/85 (111) 96 Nasal Cannula 2 10/07/17 15:45 82 15 157/78 (104) 96 Nasal Cannula 2 10/07/17 15:40 97.6 74 20 137/86 (103) 93 Nasal Cannula 2 10/07/17 14:37 10/07/17 14:06 91 18 164/87 (112) 100 Room Air 10/07/17 13:02 97.7 94 24 165/96 (119) 100 Nasal Cannula 2.00 10/07/17 13:01 97.7 96 24 165/96 100 10/07/17 12:58 97.7 94 24 165/96 100 10/07/17 12:45 97.9 99 24 126/74 94 10/07/17 12:42 97.9 95 24 126/74 94 10/07/17 12:39 98 24 100/60 (73) 94 Nasal Cannula 2.00 10/07/17 12:15 100 20 112/68 (83) 94 Nasal Cannula 2.00 10/07/17 11:37 85 24 103/68 (80) 94 Nasal Cannula 10/07/17 10:53 97.8 83 24 116/90 (99) 100 (Debora Schilling) -: 10/08/17 0617 10/08/17 0617 Tubes & Lines: Vas-Cath Tubes & Lines Comment right IJ (Debora Schilling) Physical Exam General Appearance: Well Nourished, No Acute Distress, Comfortable (Debora Schilling) Eyes Eye Exam: Pupils Equal (Debora Schilling) Throat Throat Exam: Oral Mucosa [place] & Moist (Debora Schilling) Pulmonary Resp Exam: Clear Bilaterally, Breath Sounds Equal, No Distress (Debora Schilling) Cardiology CV Exam: Regular, Normal Sinus Rhythm (Debora Schilling) Gastrointestinal/Abdomen GI Exam: Soft, Non-Tender, Bowel Sounds Present (Debora Schilling) Genitourinary Exam: Flank Non-Tender (Debora Schilling) Integumentary Skin Exam: Clear, Warm, Dry (Debora Schilling) Extremeties Extremities Exam: No Edema (Debora Schilling) Neurologic Neuro Exam: Alert, Awake (Debora Schilling) Psychiatric Psych Exam: Appropriate Responses (Debora Schilling) Assessment/Plan Problem List: (1) End stage renal disease on dialysis ICD Codes: N18.6 - End stage renal failure on dialysis; Z99.2 - Dependence on renal dialysis Status: Chronic Plan: End stage renal disease on hemodialysis on Wednesday, , and Wednesday. Next scheduled dialysis will be on Wednesday. s/p excision of AVF for bleeding pseudoaneurysm 10/07 Plan Next scheduled hemodialysis will be on Wednesday. Dialysis orders placed Continue Renvela, Calcitrol and oscal for metabolic bone disorder. Hgb 9.5 to 7.5 to 7.2 today, no signs of bleeding, Epogen with dialysis tomorrow Vas cath placed right IJ today, will need perma cath for outpatient dialysis Hemodialysis tomorrow (2) Hypertension ICD Codes: I10 - Hypertension Status: Chronic Plan: Will monitor (Debora Schilling) Problem List: (1) End stage renal disease on dialysis ICD Codes: N18.6 - End stage renal failure on dialysis; Z99.2 - Dependence on renal dialysis Status: Chronic Plan: End stage renal disease on hemodialysis on Wednesday, , and Wednesday. Next scheduled dialysis will be on Wednesday. s/p excision of AVF for bleeding pseudoaneurysm 10/07 Plan Next scheduled hemodialysis will be on Wednesday. Dialysis orders placed Continue Renvela, Calcitrol and oscal for metabolic bone disorder. Hgb 9.5 to 7.5 to 7.2 today, no signs of bleeding, Epogen with dialysis tomorrow Vas cath placed right IJ today, will need perma cath for outpatient dialysis Hemodialysis tomorrow. Patient seen and examined, agree with above. Has Vascath and will need PermCath. (2) Hypertension ICD Codes: I10 - Hypertension Status: Chronic Plan: Will monitor (Valarie Durant MD) Debora Schilling October 08, 2017 10:16 Valarie Durant MD October 11, 2017 18:38
--- NOTE | 2017-10-08 12:17 | HHI.FPPN ---
Subjective Remarks Patient is postop from Vas-Cath placed in the right IJ. Patient is doing well at this time. Denies chest pain, nausea, vomiting, shortness of breath. (Ash Alvares MD R3) Objective Vitals Vital Signs Date Time Temp Pulse Resp B/P (MAP) Pulse Ox O2 Delivery O2 Flow Rate FiO2 10/08/17 08:39 100 Nasal Cannula 2.00 10/08/17 08:00 97.6 78 16 159/79 (105) 99 10/08/17 04:00 79 10/08/17 04:00 97.1 79 22 154/99 (117) 100 10/08/17 00:00 73 10/08/17 00:00 97.5 79 22 128/71 (90) 100 10/07/17 20:33 97 Nasal Cannula 2.00 10/07/17 20:20 82 10/07/17 20:00 97.5 90 22 147/73 (97) 99 10/07/17 18:30 97.6 90 18 133/76 (95) 100 Nasal Cannula 2 10/07/17 18:00 83 20 146/72 (96) 100 Nasal Cannula 2 10/07/17 17:30 92 12 126/59 (81) 100 Nasal Cannula 2 10/07/17 17:00 88 15 139/75 (96) 100 Nasal Cannula 2 10/07/17 16:45 82 13 150/75 (100) 100 Nasal Cannula 2 10/07/17 16:30 84 15 148/81 (103) 100 Nasal Cannula 2 10/07/17 16:15 79 16 148/71 (96) 100 Nasal Cannula 2 10/07/17 16:00 78 18 165/85 (111) 96 Nasal Cannula 2 10/07/17 15:45 82 15 157/78 (104) 96 Nasal Cannula 2 10/07/17 15:40 97.6 74 20 137/86 (103) 93 Nasal Cannula 2 10/07/17 14:37 10/07/17 14:06 91 18 164/87 (112) 100 Room Air 10/07/17 13:02 97.7 94 24 165/96 (119) 100 Nasal Cannula 2.00 10/07/17 13:01 97.7 96 24 165/96 100 10/07/17 12:58 97.7 94 24 165/96 100 10/07/17 12:45 97.9 99 24 126/74 94 10/07/17 12:42 97.9 95 24 126/74 94 10/07/17 12:39 98 24 100/60 (73) 94 Nasal Cannula 2.00 10/07/17 12:15 100 20 112/68 (83) 94 Nasal Cannula 2.00 I/O 10/07/17 10/07/17 10/07/17 10/08/17 10/08/17 10/08/17 07:00 15:00 23:00 07:00 15:00 23:00 Intake Total 1993 ml 400 ml 900 ml Output Total 50 ml 350 ml Balance 1993 ml 350 ml 550 ml Intake Oral 150 ml 900 ml FFP 493 ml Blood Product IV Normal Saline Flush 1500 ml Other 250 ml Output Urine Total 350 ml Estimated Blood Loss 50 ml # Voids 2 # Bowel Movements 1 (Ash Alvares MD R3) Result Diagram: 10/08/1761610/08/17616 Objective Remarks GENERAL: This is a well-nourished, well-developed patient, in no acute distress. SKIN: Scattered ecchymosis present. Vas-Cath placed in the right IJ HEAD: Atraumatic. Normocephalic. No temporal or scalp tenderness. EYES: Pupils equal round and reactive. Extraocular motions intact. No scleral icterus. No injection or drainage. ENT: Throat without erythema, tonsillar hypertrophy or exudate. Uvula midline. Airway patent. NECK: Trachea midline. No JVD or lymphadenopathy. Supple, nontender. CARDIOVASCULAR: Regular rate and rhythm without murmurs, gallops, or rubs. RESPIRATORY: Clear to auscultation. Breath sounds equal bilaterally. No wheezes , rales, or rhonchi. GASTROINTESTINAL: Abdomen soft, non-tender, nondistended. No hepato-splenomegaly , or palpable masses. No guarding. MUSCULOSKELETAL: Radial pulse intact. Able to move fingers. NEUROLOGICAL: Awake and alert. Cranial nerves II through XII intact. Motor and sensory grossly within normal limits. Normal speech. (Ash Alvares MD R3) A/P Assessment and Plan 77-year-old male with history of ESRD on dialysis, hypertension, heart disease presents from dialysis with hemorrhage of his AV fistula. Will admit for medical management and vascula repair. (Ash Alvares MD R3) Attending Attestation Patient seen and examined and discussed with the medicine team. Case reviewed and discussed with the resident team. Agree with plan of care as discussed with me and documented in the resident note. (Lena Alvares MD) Problem List: (1) Hemorrhage of arteriovenous fistula ICD Codes: T82.838A - Hemorrhage due to vascular prosthetic devices, implants and grafts, initial encounter Status: Acute Plan: Vascular consult Interventional radiology consult Status post ligation of AV fistula on 10/07 Status post Vas-Cath placed in the right IJ on 10/08 (2) End stage renal disease on dialysis ICD Codes: N18.6 - End stage renal failure on dialysis; Z99.2 - Dependence on renal dialysis Status: Chronic Plan: Patient on dialysis from ESRD Wednesday//Wednesday. -Nephrology consulted to assist with dialysis Status post right IJ Vas-Cath placement 10/08 (3) Hypertension ICD Codes: I10 - Hypertension Status: Chronic Plan: Continue home amlodipine, enalapril (4) Hypothyroidism ICD Codes: E03.9 - Hypothyroidism Status: Chronic Plan: Continue home synthroid (5) Parkinsons disease ICD Codes: G20 - Parkinson's disease Status: Chronic Plan: Continue home levodopa/carbidopa (6) FEN Plan: Fluids: Tolerating p.o. Electrolytes: monitor, replace PRN Nutrition: regular diet DVT ppx: SCDs (Ash Alvares MD R3) Problem Qualifiers (1) Hemorrhage of arteriovenous fistula: Qualified Codes: T82.838A - Hemorrhage due to vascular prosthetic devices, implants and grafts, initial encounter Ash Alvares MD R3 October 08, 2017 12:17 Lena Alvares MD October 08, 2017 12:36
[2017-10-08] MEDS: FUROSEMIDE 20 MG TAB PO SCH (14:04)
--- NOTE | 2017-10-08 15:05 | MB ---
cc: Charlie Carlton MD DATE: 10/08/2017 REASON FOR CONSULTATION: Apparently new onset atrial fibrillation. HISTORY OF PRESENT ILLNESS: The patient is a pleasant 77-year-old gentleman who sees my partner, Dr. Choudhary, for a history of a cardiomyopathy with a defibrillator placement. Patient is also maintained on Coumadin, apparently for prior strokes. As far as I can tell at this point he has no definitive history of atrial fibrillation and none was reported on his last defibrillator check this past August. The patient presented due to his AV fistula rupturing which required an intervention yesterday. Today a Vascath was placed for resumption of dialysis. Incidentally, the patient had EKG showing atrial fibrillation at a controlled rate. The patient is asymptomatic and hoping to be discharged home soon. He denies chest pain, shortness of breath, lightheadedness, dizziness, palpitations. PAST MEDICAL HISTORY: 1. CVA, maintained on warfarin. 2. End-stage renal disease. 3. Hypertension. 4. Diabetes. 5. Parkinson's disease. 6. Coronary artery disease. 7. Defibrillator placement. 8. Hypothyroidism. 9. Mild cardiomyopathy by echocardiogram in 2017. CURRENT MEDICATIONS: 1. Lasix 20 mg daily. 2. Amlodipine 5 mg daily. 3. Prozac. 4. Synthroid. 5. Vasotec 10 mg b.i.d. ALLERGIES: SULFA. PHYSICAL EXAMINATION: VITAL SIGNS: Afebrile, pulse 78, respiratory rate 60, BP 159/79, sating 100%. GENERAL: Pleasant, obese gentleman, in no distress. NECK: No JVD. LUNGS: Clear to auscultation bilaterally. HEART: Irregularly irregular rhythm, regular rate. No murmurs appreciated. ABDOMEN: Benign. EXTREMITIES: No edema. LABORATORY DATA: INR is 2.1. Sodium 145, potassium 4.5, chloride 110, bicarbonate 25.2, BUN 11, creatinine 2.66, glucose 156. White count 5.6, hematocrit 21.5, platelets 264. EKG shows atrial fibrillation at a rate of 86. Telemetry shows rate controlled atrial fibrillation. IMPRESSION: 1. Apparently newly discovered rate controlled atrial fibrillation. The patient is currently in rate controlled atrial fibrillation on no rate control medications. His blood pressure is high so I will add a touch of oral Cardizem, stopping his amlodipine. 2. With regard to anticoagulation, he is clearly a very high stroke risk and this should be reinitiated as soon as the surgical team feels it is safe. He had an echocardiogram in the office less than a year ago and I do not feel it is required to repeat this study at this time given he is asymptomatic. RECOMMENDATIONS: From my standpoint, he could be discharged home for outpatient followup, but again, I would recommend resumption of anticoagulation as soon as Surgery feels it is safe. I will be available on an as-needed basis. Please call with any questions. Thank you again for the opportunity to participate in this patient's care. MD EVELYN Ellis/MARTY , 02:39 PM , 03:04 PM
--- NOTE | 2017-10-08 15:55 | RADRPT ---
EXAM DATE/TIME: 10/08/2017 09:13 [facility] COMPARISON: No previous studies available for comparison. INDICATIONS : Dialysis patient AV fistula hemorrage.Needs dialysis. MEDICAL HISTORY : 1. ESRD 2. HTN 3. DM 4. TIA 5. Parkinson disease 6. CAD 7. thyroid disease SURGICAL HISTORY : 1. L UE A_V fistula 2. defibillator ENCOUNTER: Initial ACUITY: 2 days PAIN SCORE: 1/10 LOCATION: Left forearm FLUORO TIME: 0.3 minutes IMAGE SERIES: 1 ACCESS: Right internal jugular vein DEVICE(S): 1.) 14 Italian dual lumen 15 cm Diaz II Plus catheter PROCEDURE : 1. Ultrasound guided venipuncture. 2. Fluoroscopic guidance. 3. Central line placement. The risks, benefits and alternatives to the procedure were explained and verbal and written consent w as obtained. The site was prepped in sterile fashion. Full sterile technique was used, including ca p, mask, sterile gloves and gown and a large sterile sheet. Hand hygiene and 2% chlorhexidine prep w as utilized per protocol for cutaneous antisepsis with appropriate dry time for site. Sterile gel an d sterile probe cover were utilized for ultrasound guidance. The skin and subcutaneous tissues were infiltrated with local anesthetic solution. A suitable site a dylan the right internal jugular vein was selected with ultrasound and fluoroscopic guidance. A small incision was made. The vein was accessed under direct ultrasound visualization using the micropunct ure technique. The micropuncture set was exchanged for a 0.035 wire. The tract was dilated. The ca theter was advanced into position under direct fluoroscopic visualization. The catheter was fixed in place with suture and a sterile dressing was applied. The patient tolerated the procedure well and there were no complications. CONCLUSION: Uncomplicated 14 Italian Vas-Cath placement as above. Jae Panda MD on October 08, 2017 at 15:53 Board Certified Radiologist. This report was verified electronically.
[2017-10-08] MEDS: DILTIAZEM HCL 30 MG TAB PO SCH (17:27)
--- NOTE | 2017-10-08 21:15 | EKG ---
Date Performed: 10/07/2017 Time Performed: 16:43:38 PTAGE: 77 years EKG: ATRIAL FIBRILLATION LOW QRS VOLTAGE IN EXTREMITY LEADS POSSIBLE ANTERIOR MYOCARDIAL INFARCT ION , PROBABLY OLD INFERIOR MYOCARDIAL INFARCTION , PROBABLY OLD ABNORMAL ECG Since the PREVIOUS TRACING , no significant change noted PREVIOUS TRACIN05/21/2016 13.15 DOCTOR: Remedios Rodriguez Interpretating Date/Time 10/08/2017 16:54:42
[2017-10-09] VITALS (11 sets, daily range): BP systolic 107–162; BP diastolic 46–86; PULSE 50–104; RESP 16–19; TEMP 97.2–98.3; O2SAT 94–99
[2017-10-09] MEDS: DILTIAZEM HCL 30 MG TAB PO SCH ×4 (01:26→18:38)
[2017-10-09 06:10] LABS: AUTOMATED NEUTROPHIL # 5.7 TH/MM3 (1.8-7.7); BASOPHIL % 0.5 % (0.0-2.0); EOSINOPHIL # 0.2 TH/MM3 (0-0.4); EOSINOPHIL % 1.8 % (0.0-4.0); LYMPH % 22.3 % (9.0-44.0); MEAN CELL VOLUME 102.6 FL (80.0-100.0); MEAN CORPUSCULAR HEMOGLOBIN 35.5 PG (27.0-34.0); MEAN CORPUSCULAR HGB CONC 34.6 % (32.0-36.0); MEAN PLATELET VOLUME 7.5 FL (7.0-11.0); MONO % 13.2 % (0.0-8.0); MONOCYTE # 1.2 TH/MM3 (0-0.9); NEUT % 62.2 % (16.0-70.0); PLATELET COUNT 291 TH/MM3 (150-450); RED BLOOD COUNT 1.94 MIL/MM3 (4.50-5.90); RED CELL DISTRIBUTION WIDTH 15.2 % (11.6-17.2); WHITE BLOOD COUNT 9.2 TH/MM3 (4.0-11.0)
[2017-10-09 06:16] LABS: HEMATOCRIT 19.9 % (39.0-51.0); HEMOGLOBIN 6.9 GM/DL (13.0-17.0)
[2017-10-09] MEDS: CARBIDOPA/LEVODOPA 10 MG/100 MG TAB PO SCH ×3 (06:23→22:12)
[2017-10-09] MEDS: LEVOTHYROXINE SODIUM 100 MCG TAB PO SCH (06:23)
[2017-10-09 06:27] LABS: ALBUMIN 2.2 GM/DL (3.4-5.0); AST (GOT) 21 U/L (15-37); BICARBONATE 22.8 MEQ/L (21.0-32.0); BLOOD UREA NITROGEN 19 MG/DL (7-18); CALCIUM 8.4 MG/DL (8.5-10.1); CHLORIDE 110 MEQ/L (98-107); CREATININE 3.52 MG/DL (0.60-1.30); GLOMERULAR FILTRATION RATE 17 ML/MIN (>89); GLUCOSE,RANDOM 111 MG/DL (74-106); SODIUM (NA) 142 MEQ/L (136-145)
[2017-10-09 06:29] LABS: ALT (GPT) 8 U/L (12-78)
[2017-10-09 06:30] LABS: ALKALINE PHOSPHATASE 145 U/L (45-117); TOTAL BILIRUBIN ADULT 0.3 MG/DL (0.2-1.0); TOTAL PROTEIN 5.4 GM/DL (6.4-8.2)
[2017-10-09] MEDS: SEVELAMER CARBONATE 800 MG TAB PO SCH ×3 (09:20→18:00)
[2017-10-09] MEDS: PANTOPRAZOLE SOD 20 MG DELAYED RELEASE TAB PO SCH (09:21)
[2017-10-09] MEDS: CHOLECALCIFEROL (VIT D3) 1000 UNIT TAB PO SCH ×2 (09:21→22:10)
[2017-10-09] MEDS: FLUoxetine HCL 10 MG CAP PO SCH (09:21)
[2017-10-09] MEDS: MULTIVITAMIN TAB PO SCH (09:21)
[2017-10-09] MEDS: ENALAPRIL MALEATE 10 MG TAB PO SCH ×2 (09:21→22:10)
[2017-10-09] MEDS: CALCIUM/VITAMIN D 250 MG/125 U TAB PO SCH (09:21)
[2017-10-09] MEDS: DOCUSATE SODIUM 50 MG/SENNA 8.6 MG TAB PO SCH ×2 (09:21→22:10)
[2017-10-09] MEDS: SODIUM CHLORIDE 0.9% FLUSH 10 ML FLUSH IV FLUSH SCH ×2 (09:21→22:19)
--- NOTE | 2017-10-09 09:48 | PD.VS.PN ---
Subjective POD #: 2 Procedure(s): Ligation of L UE AVF for bleeding pseudoaneurysm Subjective/Hospital Course hand ok no complaints of pain rec'd VasCath yesterday and slated for HD Objective Vitals/I&O Date Time Temp Pulse Resp B/P (MAP) Pulse Ox O2 Delivery O2 Flow Rate FiO2 10/09/17 08:21 97.2 87 18 162/81 (108) 99 10/09/17 04:00 97.4 83 19 158/86 (110) 95 10/09/17 01:26 150/68 (95) 10/09/17 00:00 97.6 78 18 107/58 (74) 98 10/08/17 20:30 130/64 (86) 10/08/17 20:00 97.3 83 20 109/49 (69) 99 10/08/17 12:00 97.8 105 18 145/80 (101) 99 10/09/17 10/09/17 10/09/17 07:00 15:00 23:00 Intake Total 240 ml Output Total 150 ml Balance 90 ml Exam: L hand with palpable distal radial pulse incision ok and stitches intact 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 Laboratory Laboratory Tests Test 10/09/17 05:46 White Blood Count 9.2 Red Blood Count 1.94 Hemoglobin 6.9 Hematocrit 19.9 Mean Corpuscular Volume 102.6 Mean Corpuscular Hemoglobin 35.5 Mean Corpuscular Hemoglobin Concent 34.6 Red Cell Distribution Width 15.2 Platelet Count 291 Mean Platelet Volume 7.5 Neutrophils (%) (Auto) 62.2 Lymphocytes (%) (Auto) 22.3 Monocytes (%) (Auto) 13.2 Eosinophils (%) (Auto) 1.8 Basophils (%) (Auto) 0.5 Neutrophils # (Auto) 5.7 Lymphocytes # (Auto) 2.0 Monocytes # (Auto) 1.2 Eosinophils # (Auto) 0.2 Basophils # (Auto) 0.0 CBC Comment AUTO DIFF Differential Comment AUTO DIFF CONFIRMED Blood Urea Nitrogen 19 Creatinine 3.52 Random Glucose 111 Total Protein 5.4 Albumin 2.2 Calcium Level 8.4 Alkaline Phosphatase 145 Aspartate Amino Transf (AST/SGOT) 21 Alanine Aminotransferase (ALT/SGPT) 8 Total Bilirubin 0.3 Sodium Level 142 Potassium Level 4.1 Chloride Level 110 Carbon Dioxide Level 22.8 Anion Gap 9 Estimat Glomerular Filtration Rate 17 Assessment and Plan Assessment: (1) AVF (arteriovenous fistula) Plan POD#2 s/p excision of AVF for bleeding pseudoaneurysm 1. Needs catheter for HD; will schedule new elective AVF as outpatient. 2. Ok to anticoagulate from vascular surgery standpoint but probably need to wait until VasCath exchanged for tunneled catheter by IR 3. JEMAL wrap to hand and change daily Discharge Planning anytime from a vascular surgery standpoint Ananth Noel MD October 09, 2017 09:48
--- NOTE | 2017-10-09 10:27 | HHI.FPPN ---
Subjective Remarks Patient seen and examined this morning. No acute events overnight. No complaints of pain. States he is feeling well. Denies any dizziness or lightheadedness. Denies any chest pain, shortness of breath, abdominal pain, leg pain. (Maurilio Martinez MD R2) Objective Vitals Vital Signs Date Time Temp Pulse Resp B/P (MAP) Pulse Ox O2 Delivery O2 Flow Rate FiO2 10/09/17 08:21 97.2 87 18 162/81 (108) 99 10/09/17 04:00 97.4 83 19 158/86 (110) 95 10/09/17 01:26 150/68 (95) 10/09/17 00:00 97.6 78 18 107/58 (74) 98 10/08/17 20:30 130/64 (86) 10/08/17 20:00 97.3 83 20 109/49 (69) 99 10/08/17 12:00 97.8 105 18 145/80 (101) 99 I/O 10/08/17 10/08/17 10/08/17 10/09/17 10/09/17 10/09/17 07:00 15:00 23:00 07:00 15:00 23:00 Intake Total 900 ml 240 ml Output Total 350 ml 150 ml Balance 550 ml 90 ml Intake Oral 900 ml 240 ml Output Urine Total 350 ml 150 ml # Voids 2 2 # Bowel Movements 1 1 (Maurilio Martinez MD R2) Result Diagram: 10/09/17 0546 10/09/17 0546 Objective Remarks GENERAL: This is a well-nourished, well-developed patient, in no acute distress. SKIN: Scattered ecchymosis present. Pale. Vas-Cath placed in the right IJ CARDIOVASCULAR: Regular rate and rhythm without murmurs, gallops, or rubs. RESPIRATORY: Clear to auscultation. Breath sounds equal bilaterally. No wheezes , rales, or rhonchi. GASTROINTESTINAL: Abdomen soft, non-tender, nondistended. No hepato-splenomegaly , or palpable masses. No guarding. MUSCULOSKELETAL: Left Radial pulse intact. Able to move fingers. Incision intact. Boarder Machine intact NEUROLOGICAL: Awake and alert. Motor and sensory grossly within normal limits. Normal speech. (Maurilio Martinez MD R2) A/P Assessment and Plan 77-year-old male with history of ESRD on dialysis, hypertension, heart disease presents from dialysis with hemorrhage of his AV fistula. Will admit for medical management and vascula repair. Discharge Planning Pending catheter placement and clinical stabilization Will need PT at rehab (Maurilio Martinez MD R2) Attending Attestation Patient seen and examined. Case reviewed and discussed with the resident team. Agree with plan of care as discussed with me and documented in the resident note. (Lena Alvares MD) Problem List: (1) Hemorrhage of arteriovenous fistula ICD Codes: T82.838A - Hemorrhage due to vascular prosthetic devices, implants and grafts, initial encounter Status: Acute Plan: Vascular consult-POD#2 excision of AVF -Cleared for c/d -Elective AVF as outpatient Interventional radiology consult -Will need exchange of VasCath for catheter Status post Vas-Cath placed in the right IJ on 10/08 (2) Anemia ICD Codes: D64.9 - Anemia, unspecified Status: Acute Plan: Hemoglobin of 6.9 this morning. Likely due to acute blood loss. History of chronic anemia likely from CKD. Epogen with dialysis May benefit from unit of pRBC with hemodialysis (3) Afib ICD Codes: I48.91 - Unspecified atrial fibrillation Status: Acute Plan: Newly discovered rate controlled atrial fibrillation in PACU. Rate controlled. Oral Cardizem Cardiology consulted-stable, recommend anticoagulation -Will restart after replacing his VasCath (4) End stage renal disease on dialysis ICD Codes: N18.6 - End stage renal failure on dialysis; Z99.2 - Dependence on renal dialysis Status: Chronic Plan: Patient on dialysis from ESRD Wednesday//Wednesday. -Nephrology consulted to assist with dialysis Status post right IJ Vas-Cath placement 10/08 (5) Hypertension ICD Codes: I10 - Hypertension Status: Chronic Plan: Continue home enalapril Added cardizem 30mg q6H to replace amlodipine (6) Hypothyroidism ICD Codes: E03.9 - Hypothyroidism Status: Chronic Plan: Continue home synthroid (7) Parkinsons disease ICD Codes: G20 - Parkinson's disease Status: Chronic Plan: Continue home levodopa/carbidopa (8) FEN Plan: Fluids: Tolerating p.o. Electrolytes: monitor, replace PRN Nutrition: regular diet DVT ppx: SCDs (Maurilio Martinez MD R2) Problem Qualifiers (1) Hemorrhage of arteriovenous fistula: Qualified Codes: T82.838A - Hemorrhage due to vascular prosthetic devices, implants and grafts, initial encounter Maurilio Martinez MD R2 October 09, 2017 10:27 Lena Alvares MD October 09, 2017 12:46
[2017-10-09] MEDS: CALCITRIOL 0.25 MCG CAP PO SCH (13:45)
[2017-10-09] MEDS ORDERED: GLUCAGON 1 MG/ML VIAL OTHER PRN (14:15)
[2017-10-09] MEDS ORDERED: DEXTROSE 50% IN WATER 50 ML VIAL(D50) IV PUSH PRN (14:15)
[2017-10-09] MEDS ORDERED: SODIUM CHLOR 0.9% 250 ML INJ 250 ML IV ONE (14:30)
--- NOTE | 2017-10-09 14:55 | HHI.NPPN ---
Subjective General Problems: Anemia Renal Failure: End Stage Renal Disease History of Present Illness Patient is a 77 year old male with a past medical history of hypertension, diabetes, Parkinson disease, cerebral vascular accident, coronary artery disease with AICD, and hypothyroidism. Patient presented to the emergency with his AVF site hemorrhage from dialysis center. Approximate blood loss at 500ml. Patient has reported that he has had problems with fistula over the last month and was seen by Dr. Clarke in September and had procedure preformed. Mr. Martinez was seen at Dialysis on Wednesday and at that time advised to be seen by Vascular surgeon. Nephrology is consulted for end stage renal disease. His normal dialysis days are Wednesday, , and Wednesday. He did complete all of dialysis today so next scheduled dialysis will be on Wednesday. Patient was seen in recovery room and part of history and physical was obtained from chart. Additional Remarks Resting comfortably. Vas cath placed in right IJ. Denies any discomfort. Review of Systems General Constitutional: Fatigue Respiratory Respiratory Remarks Denies SOB Cardiovascular Cardiac Remarks Denies CP Gastrointestinal GI Remarks Denies abdominal pain Objective Data Data Vital Signs Date Time Temp Pulse Resp B/P (MAP) Pulse Ox O2 Delivery O2 Flow Rate FiO2 10/09/17 13:13 Nasal Cannula 10/09/17 12:05 97.7 94 17 125/70 (88) 94 10/09/17 08:21 97.2 87 18 162/81 (108) 99 10/09/17 04:00 97.4 83 19 158/86 (110) 95 10/09/17 01:26 150/68 (95) 10/09/17 00:00 97.6 78 18 107/58 (74) 98 10/08/17 20:30 130/64 (86) 10/08/17 20:00 97.3 83 20 109/49 (69) 99 -: 10/09/17 0546 10/09/17 0546 Tubes & Lines: Vas-Cath Tubes & Lines Comment right IJ Physical Exam General Appearance: Well Nourished, No Acute Distress, Comfortable Eyes Eye Exam: Pupils Equal Throat Throat Exam: Oral Mucosa [place] & Moist Pulmonary Resp Exam: Clear Bilaterally, Breath Sounds Equal, No Distress Cardiology CV Exam: Regular, Normal Sinus Rhythm Gastrointestinal/Abdomen GI Exam: Soft, Non-Tender, Bowel Sounds Present Genitourinary Exam: Flank Non-Tender Integumentary Skin Exam: Clear, Warm, Dry Extremeties Extremities Exam: No Edema Neurologic Neuro Exam: Alert, Awake Psychiatric Psych Exam: Appropriate Responses Assessment/Plan Problem List: (1) End stage renal disease on dialysis ICD Codes: N18.6 - End stage renal failure on dialysis; Z99.2 - Dependence on renal dialysis Status: Chronic Plan: End stage renal disease on hemodialysis on Wednesday, , and Wednesday. He did complete all of dialysis today so next scheduled dialysis will be on Wednesday. Plan Patient is seen during hemodialysis his hemoglobin is low getting packed red blood cells, Epogen has been ordered Ultrafiltration 3 L Status post AV fistula ligation for bleeding pseudoaneurysm HD to continue TTS. Follow the Hgb. (2) Hypertension ICD Codes: I10 - Hypertension Status: Chronic Plan: Will monitor Adan Zamora MD October 09, 2017 14:55
[2017-10-09] MEDS ORDERED: EPOETIN ALFA 10,000 UNITS/ML VIAL IV PUSH PRN (15:00)
[2017-10-09] MEDS: INSULIN ASPART SUPPLEMENTAL SCALE SQ SCH ×2 (17:00→21:00)
[2017-10-10] VITALS (7 sets, daily range): BP systolic 137–168; BP diastolic 66–85; PULSE 73–89; RESP 18; TEMP 97.9–98.8; O2SAT 95–99
[2017-10-10] MEDS: DILTIAZEM HCL 30 MG TAB PO SCH ×4 (00:54→17:34)
[2017-10-10 05:38] LABS: HEMATOCRIT 24.3 % (39.0-51.0); HEMOGLOBIN 8.3 GM/DL (13.0-17.0); MEAN CORPUSCULAR HEMOGLOBIN 33.6 PG (27.0-34.0); MEAN CORPUSCULAR HGB CONC 34.3 % (32.0-36.0); MEAN PLATELET VOLUME 7.4 FL (7.0-11.0); PLATELET COUNT 286 TH/MM3 (150-450); RED BLOOD COUNT 2.48 MIL/MM3 (4.50-5.90); RED CELL DISTRIBUTION WIDTH 17.8 % (11.6-17.2); WHITE BLOOD COUNT 7.8 TH/MM3 (4.0-11.0)
[2017-10-10 05:57] LABS: BICARBONATE 27.3 MEQ/L (21.0-32.0); CREATININE 2.62 MG/DL (0.60-1.30)
[2017-10-10] MEDS: LEVOTHYROXINE SODIUM 100 MCG TAB PO SCH (06:58)
[2017-10-10] MEDS: CARBIDOPA/LEVODOPA 10 MG/100 MG TAB PO SCH ×3 (06:58→21:39)
--- NOTE | 2017-10-10 07:33 | PD.VS.PN ---
Subjective POD #: 3 Procedure(s): Ligation of L UE AVF for bleeding pseudoaneurysm Subjective/Hospital Course looks great no issues Objective Vitals/I&O Date Time Temp Pulse Resp B/P (MAP) Pulse Ox O2 Delivery O2 Flow Rate FiO2 10/10/17 03:22 98.0 89 18 147/75 (99) 97 10/09/17 22:44 98.3 86 18 130/75 (93) 96 10/09/17 19:44 98.0 91 17 115/66 (82) 99 10/09/17 19:38 98 21 10/09/17 18:00 98.1 104 18 126/60 (82) 98 10/09/17 15:47 98.0 95 16 149/52 98 10/09/17 14:56 97.8 50 16 140/46 97 10/09/17 13:13 Nasal Cannula 10/09/17 12:05 97.7 94 17 125/70 (88) 94 10/09/17 08:21 97.2 87 18 162/81 (108) 99 10/10/17 10/10/17 10/10/17 07:00 15:00 23:00 Intake Total 240 ml Balance 240 ml Exam: incision ok skin still threatened medially, away from AVF ligation palpable distal radial pulse good hand strength Laboratory Laboratory Tests Test 10/10/17 04:51 White Blood Count 7.8 Red Blood Count 2.48 Hemoglobin 8.3 Hematocrit 24.3 Mean Corpuscular Volume 98.0 Mean Corpuscular Hemoglobin 33.6 Mean Corpuscular Hemoglobin Concent 34.3 Red Cell Distribution Width 17.8 Platelet Count 286 Mean Platelet Volume 7.4 Blood Urea Nitrogen 15 Creatinine 2.62 Random Glucose 90 Calcium Level 8.0 Sodium Level 143 Potassium Level 4.0 Chloride Level 107 Carbon Dioxide Level 27.3 Anion Gap 9 Estimat Glomerular Filtration Rate 24 Assessment and Plan Assessment: (1) AVF (arteriovenous fistula) Plan POD#3 s/p excision of AVF for bleeding pseudoaneurysm 1. Needs catheter for HD; will schedule new elective AVF as outpatient. 2. Ok to anticoagulate from vascular surgery standpoint but probably need to wait until VasCath exchanged for tunneled catheter by IR 3. JEMAL wrap to hand and change daily Discharge Planning anytime from a vascular surgery standpoint Ananth Noel MD October 10, 2017 07:33
[2017-10-10] MEDS: INSULIN ASPART SUPPLEMENTAL SCALE SQ SCH ×4 (08:00→21:34)
[2017-10-10] MEDS: SEVELAMER CARBONATE 800 MG TAB PO SCH ×3 (08:32→18:00)
[2017-10-10] MEDS: FLUoxetine HCL 10 MG CAP PO SCH (08:32)
[2017-10-10] MEDS: SODIUM CHLORIDE 0.9% FLUSH 10 ML FLUSH IV FLUSH SCH ×2 (08:32→21:32)
[2017-10-10] MEDS: MULTIVITAMIN TAB PO SCH (08:32)
[2017-10-10] MEDS: ENALAPRIL MALEATE 10 MG TAB PO SCH ×2 (08:32→21:33)
[2017-10-10] MEDS: CALCIUM/VITAMIN D 250 MG/125 U TAB PO SCH (08:33)
[2017-10-10] MEDS: DOCUSATE SODIUM 50 MG/SENNA 8.6 MG TAB PO SCH ×2 (08:33→21:33)
[2017-10-10] MEDS: PANTOPRAZOLE SOD 20 MG DELAYED RELEASE TAB PO SCH (08:33)
[2017-10-10] MEDS: CHOLECALCIFEROL (VIT D3) 1000 UNIT TAB PO SCH ×2 (08:33→21:33)
[2017-10-10] MEDS: NEOMYCIN/POLYMYXIN/BACITRACIN OINT 15 GM TUBE TOPICAL SCH (09:00)
--- NOTE | 2017-10-10 10:35 | HHI.FPPN ---
Subjective Remarks No acute events overnight. Patient has no complaints this morning. Denies chest pain, shortness of breath, abdominal pain, bleeding. Objective Vitals Vital Signs Date Time Temp Pulse Resp B/P (MAP) Pulse Ox O2 Delivery O2 Flow Rate FiO2 10/10/17 08:32 18 10/10/17 08:00 98.1 81 18 137/70 (92) 96 10/10/17 03:22 98.0 89 18 147/75 (99) 97 10/09/17 22:44 98.3 86 18 130/75 (93) 96 10/09/17 19:44 98.0 91 17 115/66 (82) 99 10/09/17 19:38 98 21 10/09/17 18:00 98.1 104 18 126/60 (82) 98 10/09/17 15:47 98.0 95 16 149/52 98 10/09/17 14:56 97.8 50 16 140/46 97 10/09/17 13:13 Nasal Cannula 10/09/17 12:05 97.7 94 17 125/70 (88) 94 I/O 10/09/17 10/09/17 10/09/17 10/10/17 10/10/17 10/10/17 07:00 15:00 23:00 07:00 15:00 23:00 Intake Total 240 ml 20 ml 1025 ml 240 ml Output Total 150 ml 2600 ml Balance 90 ml 20 ml -1575 ml 240 ml Intake Oral 240 ml 600 ml 240 ml Packed Cells 400 ml Blood Product IV Normal Saline Flush 20 ml 25 ml Output Urine Total 150 ml 100 ml Hemodialysis 2500 ml # Voids 0 # Bowel Movements 0 Result Diagram: 10/10/17 0451 10/10/17 0451 Objective Remarks GENERAL: This is a well-nourished, well-developed patient, in no acute distress. SKIN: Scattered ecchymosis present. Pale. Vas-Cath placed in the right IJ CARDIOVASCULAR: Regular rate and rhythm without murmurs, gallops, or rubs. RESPIRATORY: Clear to auscultation. Breath sounds equal bilaterally. No wheezes , rales, or rhonchi. GASTROINTESTINAL: Abdomen soft, non-tender, nondistended. No hepato-splenomegaly , or palpable masses. No guarding. NEUROLOGICAL: Awake and alert. Motor and sensory grossly within normal limits. Normal speech. A/P Assessment and Plan 77-year-old male with history of ESRD on dialysis, hypertension, heart disease presents from dialysis with hemorrhage of his AV fistula. Will admit for medical management and vascula repair. Discharge Planning Pending permacath placement and clinical stabilization Will need PT at rehab Problem List: (1) Hemorrhage of arteriovenous fistula ICD Codes: T82.838A - Hemorrhage due to vascular prosthetic devices, implants and grafts, initial encounter Status: Acute Plan: Vascular consult-POD#3 ligation of AVF -Okay to resume anticoagulation after Vas-Cath is exchanged for tunneled catheter -Elective AVF as outpatient Interventional radiology consult -Will need exchange of VasCath for catheter Status post Vas-Cath placed in the right IJ on 10/08 (2) Anemia ICD Codes: D64.9 - Anemia, unspecified Status: Acute Plan: Hemoglobin of 6.9 this morning. Likely due to acute blood loss. History of chronic anemia likely from CKD. Epogen with dialysis Hemoglobin stable at 8.3 after transfusing leukocyte reduced RBCs, 2 units of FFP We will continue to monitor (3) Afib ICD Codes: I48.91 - Unspecified atrial fibrillation Status: Acute Plan: Newly discovered rate controlled atrial fibrillation in PACU. Rate controlled. Oral Cardizem Cardiology consulted-stable, recommend anticoagulation -Will restart after replacing his VasCath (4) End stage renal disease on dialysis ICD Codes: N18.6 - End stage renal failure on dialysis; Z99.2 - Dependence on renal dialysis Status: Chronic Plan: Patient on dialysis from ESRD Wednesday//Wednesday. -Nephrology consulted to assist with dialysis Status post right IJ Vas-Cath placement 10/08 (5) Hypertension ICD Codes: I10 - Hypertension Status: Chronic Plan: Continue home enalapril Added cardizem 30mg q6H to replace amlodipine (6) Hypothyroidism ICD Codes: E03.9 - Hypothyroidism Status: Chronic Plan: Continue home synthroid (7) Parkinsons disease ICD Codes: G20 - Parkinson's disease Status: Chronic Plan: Continue home levodopa/carbidopa (8) FEN Plan: Fluids: Tolerating p.o. Electrolytes: monitor, replace PRN Nutrition: regular diet DVT ppx: SCDs Problem Qualifiers (1) Hemorrhage of arteriovenous fistula: Qualified Codes: T82.838A - Hemorrhage due to vascular prosthetic devices, implants and grafts, initial encounter Marito Head MD R1 October 10, 2017 10:35
[2017-10-10] MEDS: FUROSEMIDE 20 MG TAB PO SCH (13:50)
--- NOTE | 2017-10-10 16:13 | HHI.NPPN ---
Subjective General Problems: Anemia Renal Failure: End Stage Renal Disease History of Present Illness Patient is a 77 year old male with a past medical history of hypertension, diabetes, Parkinson disease, cerebral vascular accident, coronary artery disease with AICD, and hypothyroidism. Patient presented to the emergency with his AVF site hemorrhage from dialysis center. Approximate blood loss at 500ml. Patient has reported that he has had problems with fistula over the last month and was seen by Dr. Clarke in September and had procedure preformed. Mr. Martinez was seen at Dialysis on Wednesday and at that time advised to be seen by Vascular surgeon. Nephrology is consulted for end stage renal disease. His normal dialysis days are Wednesday, , and Wednesday. He did complete all of dialysis today so next scheduled dialysis will be on Wednesday. Patient was seen in recovery room and part of history and physical was obtained from chart. Additional Remarks Resting comfortably. Vas cath placed in right IJ. Denies any discomfort. Review of Systems General Constitutional: Fatigue Respiratory Respiratory Remarks Denies SOB Cardiovascular Cardiac Remarks Denies CP Gastrointestinal GI Remarks Denies abdominal pain Objective Data Data 10/10/17 10/11/17 19:00 07:00 # Voids 2 # Bowel Movements 1 Vital Signs Date Time Temp Pulse Resp B/P (MAP) Pulse Ox O2 Delivery O2 Flow Rate FiO2 10/10/17 12:00 98.0 78 18 157/79 (105) 99 10/10/17 08:32 18 10/10/17 08:00 98.1 81 18 137/70 (92) 96 10/10/17 03:22 98.0 89 18 147/75 (99) 97 10/09/17 22:44 98.3 86 18 130/75 (93) 96 10/09/17 19:44 98.0 91 17 115/66 (82) 99 10/09/17 19:38 98 21 10/09/17 18:00 98.1 104 18 126/60 (82) 98 -: 10/10/17 0451 10/10/17 0451 Tubes & Lines: Vas-Cath Tubes & Lines Comment right IJ Physical Exam General Appearance: Well Nourished, No Acute Distress, Comfortable Eyes Eye Exam: Pupils Equal Throat Throat Exam: Oral Mucosa [place] & Moist Pulmonary Resp Exam: Clear Bilaterally, Breath Sounds Equal, No Distress Cardiology CV Exam: Regular, Normal Sinus Rhythm Gastrointestinal/Abdomen GI Exam: Soft, Non-Tender, Bowel Sounds Present Genitourinary Exam: Flank Non-Tender Integumentary Skin Exam: Clear, Warm, Dry Extremeties Extremities Exam: No Edema Neurologic Neuro Exam: Alert, Awake Psychiatric Psych Exam: Appropriate Responses Assessment/Plan Problem List: (1) End stage renal disease on dialysis ICD Codes: N18.6 - End stage renal failure on dialysis; Z99.2 - Dependence on renal dialysis Status: Chronic Plan: End stage renal disease on hemodialysis on Wednesday, , and Wednesday. He did complete all of dialysis today so next scheduled dialysis will be on Wednesday. Plan Patient had hemodialysis yesterday Epogen has been ordered 10 Hb 8.3 posttransfusion last Ultrafiltration 3 L Status post AV fistula ligation for bleeding pseudoaneurysm HD to continue TTS. Follow the Hgb. Dr. Durant to follow (2) Hypertension ICD Codes: I10 - Hypertension Status: Chronic Plan: Will monitor Adan Zamora MD October 10, 2017 16:13
[2017-10-11] VITALS (10 sets, daily range): BP systolic 118–169; BP diastolic 70–84; PULSE 72–87; RESP 16–19; TEMP 97.8–98.2; O2SAT 94–99
[2017-10-11] MEDS: DILTIAZEM HCL 30 MG TAB PO SCH ×4 (00:31→17:58)
[2017-10-11] MEDS: CARBIDOPA/LEVODOPA 10 MG/100 MG TAB PO SCH ×3 (05:29→22:13)
[2017-10-11] MEDS: LEVOTHYROXINE SODIUM 100 MCG TAB PO SCH (05:29)
[2017-10-11 06:24] LABS: AUTOMATED NEUTROPHIL # 3.9 TH/MM3 (1.8-7.7); BASOPHIL # 0.1 TH/MM3 (0-0.2); BASOPHIL % 0.7 % (0.0-2.0); EOSINOPHIL # 0.5 TH/MM3 (0-0.4); EOSINOPHIL % 5.8 % (0.0-4.0); HEMOGLOBIN 8.5 GM/DL (13.0-17.0); LYMPH % 32.8 % (9.0-44.0); LYMPHOCYTE # 2.7 TH/MM3 (1.0-4.8); MEAN CORPUSCULAR HEMOGLOBIN 34.5 PG (27.0-34.0); MEAN CORPUSCULAR HGB CONC 35.2 % (32.0-36.0); MEAN PLATELET VOLUME 7.5 FL (7.0-11.0); MONO % 14.1 % (0.0-8.0); MONOCYTE # 1.2 TH/MM3 (0-0.9); NEUT % 46.6 % (16.0-70.0); PLATELET COUNT 292 TH/MM3 (150-450); RED BLOOD COUNT 2.45 MIL/MM3 (4.50-5.90); RED CELL DISTRIBUTION WIDTH 16.9 % (11.6-17.2); WHITE BLOOD COUNT 8.4 TH/MM3 (4.0-11.0)
[2017-10-11 06:47] LABS: BICARBONATE 25.9 MEQ/L (21.0-32.0); CALCIUM 8.2 MG/DL (8.5-10.1); CREATININE 3.63 MG/DL (0.60-1.30)
[2017-10-11] MEDS: INSULIN ASPART SUPPLEMENTAL SCALE SQ SCH ×4 (08:00→20:32)
--- NOTE | 2017-10-11 08:23 | PD.VS.PN ---
Subjective POD #: 4 Procedure(s): Ligation of L UE AVF for bleeding pseudoaneurysm Subjective/Hospital Course looks good pain controlled moving hand well Objective Vitals/I&O Date Time Temp Pulse Resp B/P (MAP) Pulse Ox O2 Delivery O2 Flow Rate FiO2 10/11/17 07:37 98.2 87 19 121/84 (96) 95 10/11/17 04:27 98.1 76 19 140/73 (95) 95 10/11/17 03:49 72 10/11/17 00:00 75 10/10/17 23:51 98.8 86 18 168/83 (111) 96 10/10/17 20:36 97.9 73 18 137/66 (89) 97 10/10/17 20:00 79 10/10/17 16:00 98.2 78 18 161/85 (110) 95 10/10/17 12:00 98.0 78 18 157/79 (105) 99 10/10/17 08:32 18 10/11/17 10/11/17 10/11/17 07:00 15:00 23:00 Intake Total 0 ml Balance 0 ml Exam: L UE incision in tact palpable distal radial pulse Laboratory Laboratory Tests Test 10/11/17 05:15 White Blood Count 8.4 Red Blood Count 2.45 Hemoglobin 8.5 Hematocrit 24.0 Mean Corpuscular Volume 98.0 Mean Corpuscular Hemoglobin 34.5 Mean Corpuscular Hemoglobin Concent 35.2 Red Cell Distribution Width 16.9 Platelet Count 292 Mean Platelet Volume 7.5 Neutrophils (%) (Auto) 46.6 Lymphocytes (%) (Auto) 32.8 Monocytes (%) (Auto) 14.1 Eosinophils (%) (Auto) 5.8 Basophils (%) (Auto) 0.7 Neutrophils # (Auto) 3.9 Lymphocytes # (Auto) 2.7 Monocytes # (Auto) 1.2 Eosinophils # (Auto) 0.5 Basophils # (Auto) 0.1 CBC Comment DIFF FINAL Differential Comment Blood Urea Nitrogen 26 Creatinine 3.63 Random Glucose 83 Calcium Level 8.2 Sodium Level 142 Potassium Level 4.0 Chloride Level 108 Carbon Dioxide Level 25.9 Anion Gap 8 Estimat Glomerular Filtration Rate 16 Assessment and Plan Assessment: (1) AVF (arteriovenous fistula) Plan POD#4 s/p excision of AVF for bleeding pseudoaneurysm 1. Needs catheter for HD; will schedule new elective AVF as outpatient. 2. Ok to anticoagulate from vascular surgery standpoint but probably need to wait until VasCath exchanged for tunneled catheter by IR 3. JEMAL wrap to hand and change daily 4. Can be d/c today from vascular surgery standpoint with f/u in 2 weeks - will arrange Discharge Planning anytime from a vascular surgery standpoint Ananth Noel MD October 11, 2017 08:23
[2017-10-11] MEDS: DOCUSATE SODIUM 50 MG/SENNA 8.6 MG TAB PO SCH ×2 (08:26→20:34)
[2017-10-11] MEDS: ENALAPRIL MALEATE 10 MG TAB PO SCH ×2 (08:26→20:34)
[2017-10-11] MEDS: CALCIUM/VITAMIN D 250 MG/125 U TAB PO SCH (08:26)
[2017-10-11] MEDS: SEVELAMER CARBONATE 800 MG TAB PO SCH ×3 (08:26→17:58)
[2017-10-11] MEDS: MULTIVITAMIN TAB PO SCH (08:26)
[2017-10-11] MEDS: PANTOPRAZOLE SOD 20 MG DELAYED RELEASE TAB PO SCH (08:26)
[2017-10-11] MEDS: SODIUM CHLORIDE 0.9% FLUSH 10 ML FLUSH IV FLUSH SCH ×2 (08:26→20:34)
[2017-10-11] MEDS: CHOLECALCIFEROL (VIT D3) 1000 UNIT TAB PO SCH ×2 (08:26→20:34)
[2017-10-11] MEDS: FLUoxetine HCL 10 MG CAP PO SCH (08:26)
[2017-10-11] MEDS: NEOMYCIN/POLYMYXIN/BACITRACIN OINT 15 GM TUBE TOPICAL SCH (09:00)
--- NOTE | 2017-10-11 10:19 | HHI.NPPN ---
Subjective General Problems: Anemia Renal Failure: End Stage Renal Disease History of Present Illness Patient is a 77 year old male with a past medical history of hypertension, diabetes, Parkinson disease, cerebral vascular accident, coronary artery disease with AICD, and hypothyroidism. Patient presented to the emergency with his AVF site hemorrhage from dialysis center. Approximate blood loss at 500ml. Patient has reported that he has had problems with fistula over the last month and was seen by Dr. Clarke in September and had procedure preformed. Mr. Martinez was seen at Dialysis on Wednesday and at that time advised to be seen by Vascular surgeon. Nephrology is consulted for end stage renal disease. His normal dialysis days are Wednesday, , and Wednesday. He did complete all of dialysis today so next scheduled dialysis will be on Wednesday. Patient was seen in recovery room and part of history and physical was obtained from chart. Additional Remarks Resting comfortably. Patient NPO for permacath placement today. (Debora Schilling) Review of Systems General Constitutional: Fatigue (Debora Schilling) Respiratory Respiratory Remarks Denies SOB (Debora Schilling) Cardiovascular Cardiac Remarks Denies CP (Debora Schilling) Gastrointestinal GI Remarks Denies abdominal pain (Debora Schilling) Objective Data Data Vital Signs Date Time Temp Pulse Resp B/P (MAP) Pulse Ox O2 Delivery O2 Flow Rate FiO2 10/11/17 08:51 Room Air 10/11/17 08:45 77 10/11/17 08:43 96 21 10/11/17 07:37 98.2 87 19 121/84 (96) 95 10/11/17 04:27 98.1 76 19 140/73 (95) 95 10/11/17 03:49 72 10/11/17 00:00 75 10/10/17 23:51 98.8 86 18 168/83 (111) 96 10/10/17 20:36 97.9 73 18 137/66 (89) 97 10/10/17 20:00 79 10/10/17 16:00 98.2 78 18 161/85 (110) 95 10/10/17 12:00 98.0 78 18 157/79 (105) 99 (Debora Schilling) -: 10/11/17 0515 10/11/17 0515 Imaging Last Impressions Catheter Placement X-Ray 10/08/17 0000 Signed Impressions: Service Date/Time: Sunday, October 08, 2017 09:13 - CONCLUSION: Uncomplicated 14 [place] Vas-Cath placement as above. Jae Panda MD Tubes & Lines: Vas-Cath Tubes & Lines Comment right IJ (Debora SchillingP) Physical Exam General Appearance: Well Nourished, No Acute Distress, Comfortable (LillielerDebora larsen. RETAIL SERVICE REPRESENTATIVE) Eyes Eye Exam: Pupils Equal (GellerDebora larsen M. RETAIL SERVICE REPRESENTATIVE) Throat Throat Exam: Oral Mucosa [place] & Moist (LillielerDebora larsen M. RETAIL SERVICE REPRESENTATIVE) Pulmonary Resp Exam: Clear Bilaterally, Breath Sounds Equal, No Distress (LillielerDebora larsen. RETAIL SERVICE REPRESENTATIVE) Cardiology CV Exam: Regular, Normal Sinus Rhythm (LillielerDebora larsen. RETAIL SERVICE REPRESENTATIVE) Gastrointestinal/Abdomen GI Exam: Soft, Non-Tender, Bowel Sounds Present (Debora Schilling. RETAIL SERVICE REPRESENTATIVE) Genitourinary Exam: Flank Non-Tender (Debora Schilling. RETAIL SERVICE REPRESENTATIVE) Integumentary Skin Exam: Clear, Warm, Dry (Debora Schilling. RETAIL SERVICE REPRESENTATIVE) Extremeties Extremities Exam: No Edema (Debora Schilling. RETAIL SERVICE REPRESENTATIVE) Neurologic Neuro Exam: Alert, Awake (Debora Schilling. RETAIL SERVICE REPRESENTATIVE) Psychiatric Psych Exam: Appropriate Responses (Debora SchillingP) Assessment/Plan Problem List: (1) End stage renal disease on dialysis ICD Codes: N18.6 - End stage renal failure on dialysis; Z99.2 - Dependence on renal dialysis Status: Chronic Plan: End stage renal disease on hemodialysis on Wednesday, , and Wednesday. Excision of bleeding arteriovenous fistula 10/07 Plan Continue Renvela, Calcitrol and oscal Continue epogen with dialysis Hemodialysis planned for tomorrow Permacath placement today. (2) Hypertension ICD Codes: I10 - Hypertension Status: Chronic Plan: Will monitor (Debora SchillingP) Problem List: (1) End stage renal disease on dialysis ICD Codes: N18.6 - End stage renal failure on dialysis; Z99.2 - Dependence on renal dialysis Status: Chronic Plan: End stage renal disease on hemodialysis on Wednesday, , and Wednesday. Excision of bleeding arteriovenous fistula 10/07 Plan Continue Renvela, Calcitrol and oscal Continue epogen with dialysis Hemodialysis planned for tomorrow Permacath placement today. Patient seen and examined, agree with above. Possible discharge after PermCath placement. HD will be in AM. (2) Hypertension ICD Codes: I10 - Hypertension Status: Chronic Plan: Will monitor (Valarie Durant MD) Debora Schilling October 11, 2017 10:19 Valarie Durant MD October 11, 2017 18:43
--- NOTE | 2017-10-11 10:39 | HHI.FPPN ---
Subjective Remarks No acute events overnight. Patient continues to feel better and has no complaints. Denies chest pain, shortness of breath, nausea or vomiting. He looks forward to returning to rehab. (Marito Head MD R1) Objective Vitals Vital Signs Date Time Temp Pulse Resp B/P (MAP) Pulse Ox O2 Delivery O2 Flow Rate FiO2 10/11/17 08:51 Room Air 10/11/17 08:45 77 10/11/17 08:43 96 21 10/11/17 07:37 98.2 87 19 121/84 (96) 95 10/11/17 04:27 98.1 76 19 140/73 (95) 95 10/11/17 03:49 72 10/11/17 00:00 75 10/10/17 23:51 98.8 86 18 168/83 (111) 96 10/10/17 20:36 97.9 73 18 137/66 (89) 97 10/10/17 20:00 79 10/10/17 16:00 98.2 78 18 161/85 (110) 95 10/10/17 12:00 98.0 78 18 157/79 (105) 99 I/O 10/10/17 10/10/17 10/10/17 10/11/17 10/11/17 10/11/17 07:00 15:00 23:00 07:00 15:00 23:00 Intake Total 240 ml 600 ml 0 ml Balance 240 ml 600 ml 0 ml Intake Oral 240 ml 600 ml 0 ml # Voids 0 2 5 # Bowel Movements 0 1 0 (Marito Head MD R1) Result Diagram: 10/11/17 0515 10/11/17 0515 Objective Remarks GENERAL: This is a well-nourished, well-developed patient, in no acute distress. SKIN: Scattered ecchymosis present. Pale but unchanged from prior exam. Vas- Cath placed in the right IJ CARDIOVASCULAR: Regular rate and rhythm without murmurs, gallops, or rubs. RESPIRATORY: Clear to auscultation. Breath sounds equal bilaterally. No wheezes , rales, or rhonchi. GASTROINTESTINAL: Abdomen soft, non-tender, nondistended. No hepato-splenomegaly , or palpable masses. No guarding. NEUROLOGICAL: Awake and alert. Motor and sensory grossly within normal limits. Normal speech. (Marito Head MD R1) A/P Assessment and Plan 77-year-old male with history of ESRD on dialysis, hypertension, heart disease presents from dialysis with hemorrhage of his AV fistula. Will admit for medical management and vascula repair. Discharge Planning Pending permacath placement and clinical stabilization Will need PT at rehab (Marito Head MD R1) Problem List: (1) Hemorrhage of arteriovenous fistula ICD Codes: T82.838A - Hemorrhage due to vascular prosthetic devices, implants and grafts, initial encounter Status: Acute Plan: Vascular consult-POD#4 ligation of AVF -Okay to resume anticoagulation after Vas-Cath is exchanged for tunneled catheter -Elective AVF as outpatient Interventional radiology consult -Will need exchange of VasCath for catheter Status post Vas-Cath placed in the right IJ on 10/08 (2) Anemia ICD Codes: D64.9 - Anemia, unspecified Status: Acute Plan: Hemoglobin of 6.9 on 10/09. Likely due to acute blood loss. History of chronic anemia likely from CKD. Epogen with dialysis Hemoglobin stable above 8 after transfusing leukocyte reduced RBCs, 2 units of FFP on 10/09 We will continue to monitor (3) Afib ICD Codes: I48.91 - Unspecified atrial fibrillation Status: Acute Plan: Newly discovered rate controlled atrial fibrillation in PACU. Rate controlled. Oral Cardizem Cardiology consulted-stable, recommend anticoagulation -Will restart after replacing his VasCath (4) End stage renal disease on dialysis ICD Codes: N18.6 - End stage renal failure on dialysis; Z99.2 - Dependence on renal dialysis Status: Chronic Plan: Patient on dialysis from ESRD Wednesday//Wednesday. -Nephrology consulted to assist with dialysis Status post right IJ Vas-Cath placement 10/08 -Order placed for IR to exchange VasCath for tunnel catheter (5) Hypertension ICD Codes: I10 - Hypertension Status: Chronic Plan: Continue home enalapril Added cardizem 30mg q6H to replace amlodipine (6) Hypothyroidism ICD Codes: E03.9 - Hypothyroidism Status: Chronic Plan: Continue home synthroid (7) Parkinsons disease ICD Codes: G20 - Parkinson's disease Status: Chronic Plan: Continue home levodopa/carbidopa (8) FEN Plan: Fluids: Tolerating p.o. Electrolytes: monitor, replace PRN Nutrition: regular diet DVT ppx: SCDs (Marito Head MD R1) Problem List: (1) Hemorrhage of arteriovenous fistula ICD Codes: T82.838A - Hemorrhage due to vascular prosthetic devices, implants and grafts, initial encounter Status: Acute Plan: Vascular consult-POD#4 ligation of AVF -Okay to resume anticoagulation after Vas-Cath is exchanged for tunneled catheter -Elective AVF as outpatient Interventional radiology consult -Will need exchange of VasCath for catheter Status post Vas-Cath placed in the right IJ on 10/08 (2) Anemia ICD Codes: D64.9 - Anemia, unspecified Status: Acute Plan: Hemoglobin of 6.9 on 10/09. Likely due to acute blood loss. History of chronic anemia likely from CKD. Epogen with dialysis Hemoglobin stable above 8 after transfusing leukocyte reduced RBCs, 2 units of FFP on 10/09 We will continue to monitor (3) Afib ICD Codes: I48.91 - Unspecified atrial fibrillation Status: Acute Plan: Newly discovered rate controlled atrial fibrillation in PACU. Rate controlled. Oral Cardizem Cardiology consulted-stable, recommend anticoagulation -Will restart after replacing his VasCath (4) End stage renal disease on dialysis ICD Codes: N18.6 - End stage renal failure on dialysis; Z99.2 - Dependence on renal dialysis Status: Chronic Plan: Patient on dialysis from ESRD Wednesday//Wednesday. -Nephrology consulted to assist with dialysis Status post right IJ Vas-Cath placement 10/08 -Order placed for IR to exchange VasCath for tunnel catheter (5) Hypertension ICD Codes: I10 - Hypertension Status: Chronic Plan: Continue home enalapril Added cardizem 30mg q6H to replace amlodipine (6) Hypothyroidism ICD Codes: E03.9 - Hypothyroidism Status: Chronic Plan: Continue home synthroid (7) Parkinsons disease ICD Codes: G20 - Parkinson's disease Status: Chronic Plan: Continue home levodopa/carbidopa (8) FEN Plan: Fluids: Tolerating p.o. Electrolytes: monitor, replace PRN Nutrition: regular diet DVT ppx: SCDs See the residents documentation for details. I saw and evaluated the patient regarding the ramirez portions of this evaluation and agree with the residents findings and plans as written. Parts of this note were created using [employer] voice recognition software program. While efforts were made to correct any mistakes made by this software, some mistakes, errors, and omissions may remain in the final note that were not caught when the note was originally created. Plan of care was discussed and agreed upon with the patient as specifically documented in the above note. An opportunity to ask questions with explanation was provided. Patient voiced understanding on all information reviewed and discussed. (Amandeep Duran MD) Problem Qualifiers (1) Hemorrhage of arteriovenous fistula: Qualified Codes: T82.838A - Hemorrhage due to vascular prosthetic devices, implants and grafts, initial encounter (2) Afib: Qualified Codes: I48.2 - Chronic atrial fibrillation Marito Head MD R1 October 11, 2017 10:39 Amandeep Duran MD October 13, 2017 11:04
[2017-10-11] MEDS: FUROSEMIDE 20 MG TAB PO SCH (15:35)
[2017-10-11] MEDS: SODIUM CHLOR 0.9% 1000 ML INJ 1,000 ML IV SCH (22:14)
[2017-10-12] MEDS: DILTIAZEM HCL 30 MG TAB PO SCH ×5 (00:47→23:52)
[2017-10-12 01:27] VITALS: BP 148/65; PULSE 73; RESP 16; TEMP 97.7; O2SAT 98
[2017-10-12 04:44] VITALS: BP 131/72; PULSE 80; RESP 16; TEMP 97.7; O2SAT 99
[2017-10-12] MEDS: CARBIDOPA/LEVODOPA 10 MG/100 MG TAB PO SCH ×3 (06:15→21:05)
[2017-10-12] MEDS: LEVOTHYROXINE SODIUM 100 MCG TAB PO SCH (06:15)
[2017-10-12 07:35] VITALS: BP 154/65; PULSE 75; RESP 18; TEMP 98.1; O2SAT 99
[2017-10-12] MEDS: INSULIN ASPART SUPPLEMENTAL SCALE SQ SCH ×4 (08:00→21:02)
[2017-10-12] MEDS ORDERED: VANCOMYCIN INJ 1,000 MG in SODIUM CHLOR 0.9% 250 ML INJ 250 ML IV SCH (08:15)
[2017-10-12] MEDS ORDERED: ceFAZolin 2 GM PREMIX 50 ML IV SCH (08:15)
[2017-10-12] MEDS: DOCUSATE SODIUM 50 MG/SENNA 8.6 MG TAB PO SCH ×2 (08:19→21:05)
[2017-10-12] MEDS: SEVELAMER CARBONATE 800 MG TAB PO SCH ×3 (08:19→17:13)
[2017-10-12] MEDS: FLUoxetine HCL 10 MG CAP PO SCH (08:19)
[2017-10-12] MEDS: MULTIVITAMIN TAB PO SCH (08:19)
[2017-10-12] MEDS: PANTOPRAZOLE SOD 20 MG DELAYED RELEASE TAB PO SCH (08:19)
[2017-10-12] MEDS: CALCIUM/VITAMIN D 250 MG/125 U TAB PO SCH (08:19)
[2017-10-12] MEDS: ENALAPRIL MALEATE 10 MG TAB PO SCH ×2 (08:20→21:05)
[2017-10-12] MEDS: CHOLECALCIFEROL (VIT D3) 1000 UNIT TAB PO SCH ×2 (08:20→21:05)
[2017-10-12] MEDS: NEOMYCIN/POLYMYXIN/BACITRACIN OINT 15 GM TUBE TOPICAL SCH (09:00)
[2017-10-12] MEDS: SODIUM CHLORIDE 0.9% FLUSH 10 ML FLUSH IV FLUSH SCH ×2 (09:00→21:05)
--- NOTE | 2017-10-12 09:34 | HHI.NPPN ---
Subjective General Problems: Anemia Renal Failure: End Stage Renal Disease History of Present Illness Patient is a 77 year old male with a past medical history of hypertension, diabetes, Parkinson disease, cerebral vascular accident, coronary artery disease with AICD, and hypothyroidism. Patient presented to the emergency with his AVF site hemorrhage from dialysis center. Approximate blood loss at 500ml. Patient has reported that he has had problems with fistula over the last month and was seen by Dr. Clarke in September and had procedure preformed. Mr. Martinez was seen at Dialysis on Wednesday and at that time advised to be seen by Vascular surgeon. Nephrology is consulted for end stage renal disease. His normal dialysis days are Wednesday, , and Wednesday. He did complete all of dialysis today so next scheduled dialysis will be on Wednesday. Patient was seen in recovery room and part of history and physical was obtained from chart. Additional Remarks Seen during hemodialysis today, tolerating well. Plan to have perma cath placement today. (Debora Schilling) Review of Systems General Constitutional: Fatigue (Debora Schilling) Respiratory Respiratory Remarks Denies SOB (Debora Schilling) Cardiovascular Cardiac Remarks Denies CP (Debora Schilling) Gastrointestinal GI Remarks Denies abdominal pain (Debora Schilling) Objective Data Data Vital Signs Date Time Temp Pulse Resp B/P (MAP) Pulse Ox O2 Delivery O2 Flow Rate FiO2 10/12/17 07:35 98.1 75 18 154/65 (94) 99 10/12/17 07:15 Room Air 10/12/17 04:44 97.7 80 16 131/72 (91) 99 10/12/17 01:27 97.7 73 16 148/65 (92) 98 10/11/17 22:15 Room Air 10/11/17 21:02 97.9 82 16 139/72 (94) 95 10/11/17 18:08 99 21 10/11/17 15:37 97.8 80 18 118/70 (86) 99 10/11/17 11:28 98.2 79 18 169/75 (106) 94 (Debora Schilling) -: 10/11/17 0515 10/11/17 0515 Imaging Last Impressions Catheter Placement X-Ray 10/08/17 0000 Signed Impressions: Service Date/Time: Sunday, October 08, 2017 09:13 - CONCLUSION: Uncomplicated [address] [facility] Vas-Cath placement as above. Jae Panda MD Tubes & Lines: Vas-Cath Tubes & Lines Comment right IJ (Debora SchillingP) Physical Exam General Appearance: Well Nourished, No Acute Distress, Comfortable (Debora Schilling. RISK ASSESSMENT ANALYST) Eyes Eye Exam: Pupils Equal (LillielerDebora larsen RISK ASSESSMENT ANALYST) Throat Throat Exam: Oral Mucosa [place] & Moist (LillielerDebora larsen RISK ASSESSMENT ANALYST) Pulmonary Resp Exam: Clear Bilaterally, Breath Sounds Equal, No Distress (LillielerDebora larsen RISK ASSESSMENT ANALYST) Cardiology CV Exam: Regular, Normal Sinus Rhythm (LillielerDebora larsen RISK ASSESSMENT ANALYST) Gastrointestinal/Abdomen GI Exam: Soft, Non-Tender, Bowel Sounds Present (LillielerDebora larsen RISK ASSESSMENT ANALYST) Genitourinary Exam: Flank Non-Tender (Debora Schilling RISK ASSESSMENT ANALYST) Integumentary Skin Exam: Clear, Warm, Dry (Debora SchillingP) Extremeties Extremities Exam: No Edema (Debora SchillingP) Neurologic Neuro Exam: Alert, Awake (Debora SchillingP) Psychiatric Psych Exam: Appropriate Responses (Debora Schilling) Assessment/Plan Problem List: (1) End stage renal disease on dialysis ICD Codes: N18.6 - End stage renal failure on dialysis; Z99.2 - Dependence on renal dialysis Status: Chronic Plan: End stage renal disease on hemodialysis on Wednesday, , and Wednesday. Excision of bleeding arteriovenous fistula 10/07 Plan Continue Renvela, Calcitrol and oscal Continue epogen with dialysis Seen during hemodialysis tolerating well Permacath placement today Possible discharge today. (2) Hypertension ICD Codes: I10 - Hypertension Status: Chronic Plan: Will monitor (Debora SchillingP) Problem List: (1) End stage renal disease on dialysis ICD Codes: N18.6 - End stage renal failure on dialysis; Z99.2 - Dependence on renal dialysis Status: Chronic Plan: End stage renal disease on hemodialysis on Wednesday, , and Wednesday. Excision of bleeding arteriovenous fistula 10/07 Plan Continue Renvela, Calcitrol and oscal Continue epogen with dialysis Seen during hemodialysis tolerating well Permacath placement today Possible discharge today. Patient seen and examined, agree with above. Continue HD, TTS. For discharge in 1-2 days. (2) Hypertension ICD Codes: I10 - Hypertension Status: Chronic Plan: Will monitor (Valarie Durant MD) Debora Schilling October 12, 2017 09:34 Valarie Durant MD October 13, 2017 21:59
[2017-10-12 10:37] LABS: INTERNATIONAL NORMALIZED RATIO 1.6 RATIO
[2017-10-12] MEDS ORDERED: LIDOCAINE 1%/EPINEPHrine 1:100,000 SOLN 20 ML VIAL ONE (12:12)
[2017-10-12] MEDS ORDERED: MIDAZOLAM HCL 2 MG/2 ML VIAL ONE (12:15)
--- NOTE | 2017-10-12 12:22 | HHI.FPPN ---
Subjective Remarks Patient interviewed and dialysis. He has no complaints at this time. Denies chest pain, nausea, vomiting, diarrhea, shortness of breath, fever, chills. Patient is looking forward to going home. He prefers to go home with home health and refuses consideration of care home facility. (Ash Alvares MD R3) Objective Vitals Vital Signs Date Time Temp Pulse Resp B/P (MAP) Pulse Ox O2 Delivery O2 Flow Rate FiO2 10/12/17 07:35 98.1 75 18 154/65 (94) 99 10/12/17 07:15 Room Air 10/12/17 04:44 97.7 80 16 131/72 (91) 99 10/12/17 01:27 97.7 73 16 148/65 (92) 98 10/11/17 22:15 Room Air 10/11/17 21:02 97.9 82 16 139/72 (94) 95 10/11/17 18:08 99 21 10/11/17 15:37 97.8 80 18 118/70 (86) 99 I/O 10/11/17 10/11/17 10/11/17 10/12/17 10/12/17 10/12/17 07:00 15:00 23:00 07:00 15:00 23:00 Intake Total 0 ml Output Total 2000 ml Balance 0 ml -2000 ml Intake Oral 0 ml Hemodialysis 2000 ml # Voids 5 # Bowel Movements 0 (Ash Alvares MD R3) Result Diagram: 10/11/17 0515 10/11/17 0515 Objective Remarks GENERAL: This is a well-nourished, well-developed patient, in no acute distress. SKIN: Scattered ecchymosis present. Pale but unchanged from prior exam. Vas- Cath placed in the right IJ CARDIOVASCULAR: Regular rate and rhythm without murmurs, gallops, or rubs. RESPIRATORY: Clear to auscultation. Breath sounds equal bilaterally. No wheezes , rales, or rhonchi. GASTROINTESTINAL: Abdomen soft, non-tender, nondistended. No hepato-splenomegaly , or palpable masses. No guarding. NEUROLOGICAL: Awake and alert. Motor and sensory grossly within normal limits. Normal speech. (Ash Alvares MD R3) A/P Assessment and Plan 77-year-old male with history of ESRD on dialysis, hypertension, heart disease presents from dialysis with hemorrhage of his AV fistula. Will admit for medical management and vascula repair. Discharge Planning Pending permacath placement PT recommends PT at rehab. Patient refuses going to rehab; patient will be discharged with home health PT (Ash Alvares MD R3) Problem List: (1) Hemorrhage of arteriovenous fistula ICD Codes: T82.838A - Hemorrhage due to vascular prosthetic devices, implants and grafts, initial encounter Status: Acute Plan: Vascular consult-POD#5 ligation of AVF -Okay to resume anticoagulation after Vas-Cath is exchanged for tunneled catheter -Elective AVF as outpatient Interventional radiology consult -exchange of VasCath for catheter to be performed today Status post Vas-Cath placed in the right IJ on 10/08 (2) Anemia ICD Codes: D64.9 - Anemia, unspecified Status: Acute Plan: Hemoglobin of 6.9 on 10/09. History of chronic anemia likely from CKD. Epogen with dialysis Hemoglobin stable above 8 after transfusing leukocyte reduced RBCs, 2 units of FFP on 10/09 We will continue to monitor (3) Afib ICD Codes: I48.91 - Unspecified atrial fibrillation Status: Acute Plan: Newly discovered rate controlled atrial fibrillation in PACU. Rate controlled. Oral Cardizem Cardiology consulted-stable; chads 2 score greater than 2, recommend anticoagulation -Will restart Coumadin after replacing his VasCath (4) End stage renal disease on dialysis ICD Codes: N18.6 - End stage renal failure on dialysis; Z99.2 - Dependence on renal dialysis Status: Chronic Plan: Patient on dialysis from ESRD Wednesday//Wednesday. -Nephrology consulted to assist with dialysis Status post right IJ Vas-Cath placement 10/08 -Order placed for IR to exchange VasCath for tunnel catheter (5) Hypertension ICD Codes: I10 - Hypertension Status: Chronic Plan: Continue home enalapril Added cardizem 30mg q6H to replace amlodipine (6) Hypothyroidism ICD Codes: E03.9 - Hypothyroidism Status: Chronic Plan: Continue home synthroid (7) Parkinsons disease ICD Codes: G20 - Parkinson's disease Status: Chronic Plan: Continue home levodopa/carbidopa (8) Gait instability ICD Codes: R26.81 - Unsteadiness on feet Status: Acute Plan: PT recommends PT rehab. Patient refuses rehab and is adamant about going home with home health PT. (9) FEN Plan: Fluids: Tolerating p.o. Electrolytes: monitor, replace PRN Nutrition: regular diet DVT ppx: SCDs (Ash Alvares MD R3) Problem List: (1) Hemorrhage of arteriovenous fistula ICD Codes: T82.838A - Hemorrhage due to vascular prosthetic devices, implants and grafts, initial encounter Status: Acute Plan: Vascular consult-POD#5 ligation of AVF -Okay to resume anticoagulation after Vas-Cath is exchanged for tunneled catheter -Elective AVF as outpatient Interventional radiology consult -exchange of VasCath for catheter to be performed today Status post Vas-Cath placed in the right IJ on 10/08 (2) Anemia ICD Codes: D64.9 - Anemia, unspecified Status: Acute Plan: Hemoglobin of 6.9 on 10/09. History of chronic anemia likely from CKD. Epogen with dialysis Hemoglobin stable above 8 after transfusing leukocyte reduced RBCs, 2 units of FFP on 10/09 We will continue to monitor (3) Afib ICD Codes: I48.91 - Unspecified atrial fibrillation Status: Acute Plan: Newly discovered rate controlled atrial fibrillation in PACU. Rate controlled. Oral Cardizem Cardiology consulted-stable; chads 2 score greater than 2, recommend anticoagulation -Will restart Coumadin after replacing his VasCath (4) End stage renal disease on dialysis ICD Codes: N18.6 - End stage renal failure on dialysis; Z99.2 - Dependence on renal dialysis Status: Chronic Plan: Patient on dialysis from ESRD Wednesday//Wednesday. -Nephrology consulted to assist with dialysis Status post right IJ Vas-Cath placement 10/08 -Order placed for IR to exchange VasCath for tunnel catheter (5) Hypertension ICD Codes: I10 - Hypertension Status: Chronic Plan: Continue home enalapril Added cardizem 30mg q6H to replace amlodipine (6) Hypothyroidism ICD Codes: E03.9 - Hypothyroidism Status: Chronic Plan: Continue home synthroid (7) Parkinsons disease ICD Codes: G20 - Parkinson's disease Status: Chronic Plan: Continue home levodopa/carbidopa (8) Gait instability ICD Codes: R26.81 - Unsteadiness on feet Status: Acute Plan: PT recommends PT rehab. Patient refuses rehab and is adamant about going home with home health PT. (9) FEN Plan: Fluids: Tolerating p.o. Electrolytes: monitor, replace PRN Nutrition: regular diet DVT ppx: SCDs See the residents documentation for details. I saw and evaluated the patient regarding the ramirez portions of this evaluation and agree with the residents findings and plans as written. Parts of this note were created using [employer] voice recognition software program. While efforts were made to correct any mistakes made by this software, some mistakes, errors, and omissions may remain in the final note that were not caught when the note was originally created. Plan of care was discussed and agreed upon with the patient as specifically documented in the above note. An opportunity to ask questions with explanation was provided. Patient voiced understanding on all information reviewed and discussed. (Amandeep Duran MD) Problem Qualifiers (1) Hemorrhage of arteriovenous fistula: Qualified Codes: T82.838A - Hemorrhage due to vascular prosthetic devices, implants and grafts, initial encounter (2) Afib: Qualified Codes: I48.2 - Chronic atrial fibrillation Ash Alvares MD R3 October 12, 2017 12:22 Amandeep Duran MD October 13, 2017 11:49
--- NOTE | 2017-10-12 13:14 | PD.RAD ---
Post Procedure Progress Note Pre Procedure Diagnosis: (1) Chronic kidney disease, stage IV (severe) Post Procedure Diagnosis: (1) End stage renal disease on dialysis (2) Chronic kidney disease, stage IV (severe) Procedure Date: October 12, 2017 Supervising Radiologist: Alec Marquez Proceduralist/Assist: RT Mirlande(Stephanie), Other (Jefferson) Anesthesia: Local, Analgesia, Conscious Sedation Plan of Activity Patient to Unit: ROPU Patient Condition: Good See PACS Report for procedural detail/treatment Central Venous Access Device Procedure 1 Right Internal Jugular [facility]od[facility] single lumen Arabic: 15 Alec Marquez MD October 12, 2017 13:14
[2017-10-12 13:15] VITALS: BP 142/66; PULSE 105; RESP 19; TEMP 98.1; O2SAT 96
[2017-10-12] MEDS ORDERED: HEPARIN SODIUM - IV 2,000 UNITS/2 ML VIAL IV FLUSH PRN (13:15)
[2017-10-12] MEDS ORDERED: SODIUM CHLORIDE 0.9% FLUSH 10 ML FLUSH IV FLUSH PRN (13:15)
[2017-10-12 13:30] VITALS: BP 130/88; PULSE 89; RESP 18; O2SAT 94
[2017-10-12] MEDS: CALCITRIOL 0.25 MCG CAP PO SCH (13:45)
[2017-10-12] MEDS ORDERED: WALKER WHEELS/F1 MIS (13:47)
--- NOTE | 2017-10-12 13:48 | HHI.DCPOC ---
Discharge Care Plan Diagnosis: (1) Hemorrhage of arteriovenous fistula (2) End stage renal disease on dialysis (3) Afib (4) Parkinsons disease Goals to Promote Your Health * To prevent worsening of your condition and complications * To maintain your health at the optimal level Directions to Meet Your Goals Take your medications as prescribed Follow your dietary instruction Follow activity as directed Keep your appointments as scheduled Take your immunizations and boosters as scheduled If your symptoms worsen call your PCP, if no PCP go to Urgent Care Center or Emergency Room Smoking is Dangerous to Your Health. Avoid second hand smoke Call the 24-hour hour crisis hotline for domestic abuse at Ash Alvares MD R3 October 12, 2017 13:48
--- NOTE | 2017-10-12 13:50 | HHI.FF ---
Face to Face Verification Diagnosis: (1) Hemorrhage of arteriovenous fistula (2) End stage renal disease on dialysis (3) Gait instability (4) Parkinsons disease Physical Therapy Order: Evaluate and Treat, Improve ambulation, Strength and gait training Home Health Nursing Order: Medical education Signs/symptoms of disease process Wound care and dressing changes Nursing assessment with vital signs I have seen patient Adolfo MartinezJr on 10/12/17. My clinical findings support the need for the requested home health care services because: Ltd mobility - disease progression Deconditioned w/ increased weakness Med compliance is questionable Limited ability to care for self High risk of falls I certify that my clinical findings support that this patient is homebound because: Unsteady gait/balance Unsafe to leave home unassisted [id number] bed/chair Ash Alvares MD R3 October 12, 2017 13:50
[2017-10-12] MEDS: SODIUM CHLOR 0.9% 1000 ML INJ 1,000 ML IV SCH (14:40)
--- NOTE | 2017-10-12 15:11 | HHI.DS ---
Discharge Summary Admission Date October 07, 2017 at 13:12 Discharge Date: October 12, 2017 Admitting Diagnosis (1) Hemorrhage of arteriovenous fistula Diagnosis: Principal Plan: Vascular consult-POD#5 ligation of AVF -Okay to resume anticoagulation after Vas-Cath is exchanged for tunneled catheter -Elective AVF as outpatient Interventional radiology consult -exchange of VasCath for catheter to be performed today Status post Vas-Cath placed in the right IJ on 10/08 ICD Codes: T82.838A - Hemorrhage due to vascular prosthetic devices, implants and grafts, initial encounter Status: Acute (2) Anemia Diagnosis: Secondary Plan: Hemoglobin of 6.9 on 10/09. History of chronic anemia likely from CKD. Epogen with dialysis Hemoglobin stable above 8 after transfusing leukocyte reduced RBCs, 2 units of FFP on 10/09 We will continue to monitor ICD Codes: D64.9 - Anemia, unspecified Status: Acute (3) Afib Diagnosis: Secondary Plan: Newly discovered rate controlled atrial fibrillation in PACU. Rate controlled. Oral Cardizem Cardiology consulted-stable; chads 2 score greater than 2, recommend anticoagulation -Will restart Coumadin after replacing his VasCath ICD Codes: I48.91 - Unspecified atrial fibrillation Status: Acute (4) End stage renal disease on dialysis Diagnosis: Secondary Plan: Patient on dialysis from ESRD Wednesday//Wednesday. -Nephrology consulted to assist with dialysis Status post right IJ Vas-Cath placement 10/08 -Order placed for IR to exchange VasCath for tunnel catheter ICD Codes: N18.6 - End stage renal failure on dialysis; Z99.2 - Dependence on renal dialysis Status: Chronic (5) Hypertension Diagnosis: Secondary Plan: Continue home enalapril Added cardizem 30mg q6H to replace amlodipine ICD Codes: I10 - Hypertension Status: Chronic (6) Hypothyroidism Diagnosis: Secondary Plan: Continue home synthroid ICD Codes: E03.9 - Hypothyroidism Status: Chronic (7) Parkinsons disease Diagnosis: Secondary Plan: Continue home levodopa/carbidopa ICD Codes: G20 - Parkinson's disease Status: Chronic (8) Gait instability Diagnosis: Secondary Plan: PT recommends PT rehab. Patient refuses rehab and is adamant about going home with home health PT. ICD Codes: R26.81 - Unsteadiness on feet Status: Acute (9) FEN Diagnosis: Secondary Plan: Fluids: Tolerating p.o. Electrolytes: monitor, replace PRN Nutrition: regular diet DVT ppx: SCDs Consultants Vascular surgery Cardiology Nephrology Interventional radiology Procedures Ligation of AV fistula Vas-Cath placed in the right IJ Permacath placed Brief History 77-year-old male with history of ESRD on hemodialysis 3 days a week, hypertension, Parkinson's, hypothyroidism presents by [facility] from dialysis due to AV fistula hemorrhage. Patient coming by , who provides some of the history. Patient has had some problems with AV fistula last month or so. Had hematoma formed earlier this week. Also had maintenance done in September of the fistula, had procedure performed at that time. On dialysis for 5 years. States he is having a lot of pain in his left lower arm. Otherwise, denies any complaints or concerns. According to report, patient lost a lot of blood at dialysis. He is on Coumadin. Denies any dizziness or lightheadedness. Denies any chest pain or shortness of breath. CBC/BMP: 10/11/17 0515 10/11/17 0515 Significant Findings Laboratory Tests Test 10/10/17 04:51 10/11/17 05:15 10/12/17 07:05 Red Blood Count 2.48 MIL/MM3 (4.50-5.90) 2.45 MIL/MM3 (4.50-5.90) Hemoglobin 8.3 GM/DL (13.0-17.0) 8.5 GM/DL (13.0-17.0) Hematocrit 24.3 % (39.0-51.0) 24.0 % (39.0-51.0) Red Cell Distribution Width 17.8 % (11.6-17.2) Creatinine 2.62 MG/DL (0.60-1.30) 3.63 MG/DL (0.60-1.30) Calcium Level 8.0 MG/DL (8.5-10.1) 8.2 MG/DL (8.5-10.1) Estimat Glomerular Filtration Rate 24 ML/MIN (>89) 16 ML/MIN (>89) Mean Corpuscular Hemoglobin 34.5 PG (27.0-34.0) Monocytes (%) (Auto) 14.1 % (0.0-8.0) Eosinophils (%) (Auto) 5.8 % (0.0-4.0) Monocytes # (Auto) 1.2 TH/MM3 (0-0.9) Eosinophils # (Auto) 0.5 TH/MM3 (0-0.4) Blood Urea Nitrogen 26 MG/DL (7-18) Chloride Level 108 MEQ/L (98-107) Prothrombin Time 16.0 SEC (9.8-11.6) Activated Partial Thromboplast Time 34.8 SEC (24.3-30.1) Imaging Last Impressions Catheter Placement X-Ray 10/08/17 0000 Signed Impressions: Service Date/Time: Sunday, October 08, 2017 09:13 - CONCLUSION: Uncomplicated 14 Lao Vas-Cath placement as above. Jae Panda MD PE at Discharge GENERAL: This is a well-nourished, well-developed patient, in no acute distress. SKIN: Scattered ecchymosis present. Pale but unchanged from prior exam. Vas- Cath placed in the right IJ CARDIOVASCULAR: Regular rate and rhythm without murmurs, gallops, or rubs. RESPIRATORY: Clear to auscultation. Breath sounds equal bilaterally. No wheezes , rales, or rhonchi. GASTROINTESTINAL: Abdomen soft, non-tender, nondistended. No hepato-splenomegaly , or palpable masses. No guarding. NEUROLOGICAL: Awake and alert. Motor and sensory grossly within normal limits. Normal speech. Hospital Course Vascular surgery was consulted for ligation of AV fistula. This was performed on 10/07 successfully. The patient then had a temporary Vas-Cath placed by interventional radiology in order to receive hemodialysis. Cardiology was also consulted because of atrial fibrillation. The patient has been rate controlled with his current medications and is anticoagulated with Coumadin. The patient' s chads 2 score is greater than 2 and cardiology recommended continuing anticoagulation after all of his procedures have been performed. His final procedure, which was a permacath placement, was performed on 10/12. The patient also has Parkinson's disease with gait instability. Physical therapy was consulted and recommended PT at rehab, however the patient refused going to rehab. He insists on going home with home health with physical therapy. Case management coordinated with physical therapy the need for a front wheeled walker with a platform attachment. The patient received dialysis throughout his stay. On the last day of his hospitalization on 10/12, the patient had no complaints. Patient was looking forward to being discharged home with home health PT. Pt Condition on Discharge: Stable Discharge Disposition: Disch w/ Home Health Serv Discharge Instructions DIET: Follow Instructions for: Dialysis Diet Activities you can perform: See Additionl Instruction Other Activity Instructions: per PT Follow up Referrals: Cardiology - 1 Week with Charlie Carlton MD Nephrology - 1 Week PCP Follow-up - 1 Week New Medications: Walker with Front Wheels (Walker with Front Wheels) 1 Mis Mis EA .XX DIRECTED, #1 0 Refills Continued Medications: Amlodipine (Norvasc) 5 Mg Tab 5 MG PO DAILY for Blood Pressure Management, #30 TAB 0 Refills Calcitriol (Calcitriol) 0.25 Mcg Cap 0.25 MCG PO TuThSa for Calcium Supplement, #30 CAP 0 Refills Take 1 tablet (0.25mcg) daily on dialysis days (Wednesday, and Wednesday) Calcium Carbonate-Cholecalciferol (Calcium + D3) 600-200 Mg-Unit Tab 1 TAB PO DAILY for Nutritional Supplement, TAB Carbidopa-Levodopa (Carbidopa-Levodopa) 10-100 Mg Tab 1 TAB PO Q8HR for Parkinson Disease Mgmt, #90 TAB 0 Refills Carvedilol (Carvedilol) 6.25 Mg Tab 6.25 MG PO BID, #60 TAB 0 Refills Cholecalciferol (Vitamin D3) 1,000 Unit Chew 1000 UNITS PO BID for Nutritional Supplement, #1 BOTTLE 0 Refills Enalapril (Vasotec) 10 Mg Tab 10 MG PO BID, #60 TAB 0 Refills Fluoxetine (Fluoxetine) 10 Mg Tab 10 MG PO DAILY, #30 TAB 0 Refills Furosemide (Furosemide) 20 Mg Tab 20 MG PO SuMoWeFr, #60 TAB 0 Refills Take 1 tablet (20mg) daily on Wednesday,Wednesday,Wednesday and Wednesday Levothyroxine (Levothyroxine) 100 Mcg Tab 100 MCG PO DAILY for Thyroid, #30 TAB 0 Refills Megestrol Liq (Megestrol Liq) 40 Mg/Ml Susp 200 MG PO EVERY OTHER DAY, #240 ML 0 Refills Multiple Vitamin (Multi-Vitamin Daily) 1 Tab Tab 1 TAB PO DAILY for Nutritional Supplement, TAB 0 Refills Omeprazole (Omeprazole) 20 Mg Tab 20 MG PO DAILY, #30 TAB 0 Refills Sevelamer Carbonate (Renvela) 800 Mg Tab 800 MG PO TID for Control phosphorous levels, #90 TAB 0 Refills Temazepam (Restoril) 7.5 Mg Cap 7.5 MG PO HS PRN for INSOMNIA, #30 CAP 0 Refills Warfarin (Coumadin) 3 Mg Tab 3 MG PO DAILY for Prevent Blood Clot, #30 TAB 0 Refills Ash Alvares MD R3 October 12, 2017 15:11
--- NOTE | 2017-10-12 15:58 | RADRPT ---
EXAM DATE/TIME: 10/12/2017 12:58 [facility] COMPARISON: No previous studies available for comparison. INDICATIONS : Patient with exsisting vas cath to be changed to a perma cath. MEDICAL HISTORY : 1. ESRD 2. HTN 3. DM 4. TIA 5. Parkinson disease 6. CAD 7. throid disease SURGICAL HISTORY : 1. Lt upper extremity AV fistula 2. Defibillator 3. vas cath ENCOUNTER: Subsequent ACUITY: 1 week PAIN SCORE: 0/10 FLUORO TIME: 1.75 minutes IMAGE SERIES: 1 SEDATION TIME: 20 minutes ACCESS: Right internal jugular vein SEDATION: 1.) 2 mg midazolam (Versed) IV 2.) 100 mcg fentanyl (Sublimaze) IV Prophylactic antibiotics were administered with appropriate pre-procedure timing. Vancomycin within 2 hours of procedure, Ancef (or alternative) within 1 hour of procedure. DEVICE: 1. 15 Greek dual lumen 23 cm Diaz II Plus catheter PROCEDURE : 1. conversion of Vas-Cath catheter to tunneled PermCath catheter. 2. Conscious sedation with continuous EKG and oximetry monitoring. The risks, benefits and alternatives to the procedure were explained and verbal and written consent w as obtained. The site was prepped in sterile fashion. Full sterile technique was used, including ca p, mask, sterile gloves and gown and a large sterile sheet. Hand hygiene and 2% chlorhexidine and/or betadine/alcohol prep was utilized per protocol for cutaneous antisepsis. The skin and subcutaneous tissues were infiltrated with local anesthetic solution. With fluoroscopic guidance, the blue port of the existing catheter was accessed with a stiff Glidewir e. Catheter was removed immediately hockey-stick catheter, the wire was advanced down into the IVC. A subcutaneous tunnel was created in a retrograde fashion the catheter was pulled through the tunnel. The tip of the catheter was then advanced [id number] into the peel-away sheath. Catheter hub was then pulled through the subcutaneous tunnel. The catheter was flushed and assembled and locked with heparin. The catheter was sutured in place. Conscious sedation was performed with the prescribed dosages and duration as above in the presence of an independent trained radiology nurse to assist in the monitoring of the patient. EKG and oximetry remained stable throughout the procedure. The patient tolerated the procedure well and there were n o complications. The patient was sent to post anesthesia recovery in stable condition. CONCLUSION: Uncomplicated conversion of a Vas-Cath catheter to a perm catheter as above. Alec Marquez MD on October 12, 2017 at 15:54 Board Certified Radiologist. This report was verified electronically.
[2017-10-12 20:00] VITALS: BP 138/84; PULSE 89; PULSE 90; RESP 18; TEMP 97.8; O2SAT 96
[2017-10-13] VITALS: PULSE 76
[2017-10-13 00:01] VITALS: BP 139/93; PULSE 100; RESP 18; TEMP 97.3; O2SAT 100
[2017-10-13 04:00] VITALS: BP 173/82; PULSE 72; PULSE 76; RESP 18; TEMP 97.7; O2SAT 96
[2017-10-13 05:12] LABS: HEMATOCRIT 25.6 % (39.0-51.0); MEAN CELL VOLUME 98.8 FL (80.0-100.0); MEAN CORPUSCULAR HEMOGLOBIN 34.6 PG (27.0-34.0); MEAN CORPUSCULAR HGB CONC 35.1 % (32.0-36.0); MEAN PLATELET VOLUME 7.5 FL (7.0-11.0); PLATELET COUNT 346 TH/MM3 (150-450); RED BLOOD COUNT 2.59 MIL/MM3 (4.50-5.90); RED CELL DISTRIBUTION WIDTH 16.7 % (11.6-17.2); WHITE BLOOD COUNT 9.7 TH/MM3 (4.0-11.0)
[2017-10-13 05:42] LABS: BICARBONATE 26.6 MEQ/L (21.0-32.0); CALCIUM 8.7 MG/DL (8.5-10.1); CREATININE 3.55 MG/DL (0.60-1.30)
[2017-10-13] MEDS: CARBIDOPA/LEVODOPA 10 MG/100 MG TAB PO SCH (06:22)
[2017-10-13] MEDS: LEVOTHYROXINE SODIUM 100 MCG TAB PO SCH (06:22)
[2017-10-13] MEDS: DILTIAZEM HCL 30 MG TAB PO SCH ×2 (06:22→12:24)
[2017-10-13] MEDS: SODIUM CHLOR 0.9% 1000 ML INJ 1,000 ML IV SCH (07:20)
[2017-10-13 07:53] LABS: BASOPHILS 2 % (0-2); LYMPHOCYTES 15 % (9-44); MONOCYTES 8 % (0-8); NEUTROPHIL # MANUAL DIFF 6.1 TH/MM3 (1.8-7.7); POLYS (SEG NEUTROPHILS) 63 % (16-70)
[2017-10-13] MEDS: INSULIN ASPART SUPPLEMENTAL SCALE SQ SCH ×2 (07:56→12:00)
[2017-10-13] MEDS: SODIUM CHLORIDE 0.9% FLUSH 10 ML FLUSH IV FLUSH SCH (07:56)
[2017-10-13] MEDS: ENALAPRIL MALEATE 10 MG TAB PO SCH (07:57)
[2017-10-13] MEDS: PANTOPRAZOLE SOD 20 MG DELAYED RELEASE TAB PO SCH (07:57)
[2017-10-13] MEDS: SEVELAMER CARBONATE 800 MG TAB PO SCH ×2 (07:57→12:22)
[2017-10-13] MEDS: CALCIUM/VITAMIN D 250 MG/125 U TAB PO SCH (07:58)
[2017-10-13] MEDS: CHOLECALCIFEROL (VIT D3) 1000 UNIT TAB PO SCH (07:58)
[2017-10-13] MEDS: MULTIVITAMIN TAB PO SCH (07:58)
[2017-10-13] MEDS: DOCUSATE SODIUM 50 MG/SENNA 8.6 MG TAB PO SCH (07:58)
[2017-10-13] MEDS: FLUoxetine HCL 10 MG CAP PO SCH (07:58)
[2017-10-13 08:00] VITALS: BP 94/59; PULSE 117; RESP 18; TEMP 97.6; O2SAT 96
[2017-10-13] MEDS: NEOMYCIN/POLYMYXIN/BACITRACIN OINT 15 GM TUBE TOPICAL SCH (08:04)
--- NOTE | 2017-10-13 08:35 | HHI.FPPN ---
Subjective Remarks Patient seen and examined this morning. No acute events overnight. Patient's discharge was delayed due to not able to get the walker with platform. Patient reports doing well today. No new complaints. Is ready to go home. Denies any new chest pain, shortness of breath, abdominal pain, leg pain. (Maurilio Martinez MD R2) Objective Vitals Vital Signs Date Time Temp Pulse Resp B/P (MAP) Pulse Ox O2 Delivery O2 Flow Rate FiO2 10/13/17 08:05 Room Air 10/13/17 04:00 97.7 76 18 173/82 (112) 96 10/13/17 04:00 72 10/13/17 00:01 97.3 100 18 139/93 (108) 100 10/13/17 00:00 76 10/12/17 21:10 Room Air 10/12/17 20:00 97.8 89 18 138/84 (102) 96 10/12/17 20:00 90 10/12/17 13:30 89 18 130/88 (102) 94 10/12/17 13:15 98.1 105 19 142/66 (91) 96 I/O 10/12/17 10/12/17 10/12/17 10/13/17 10/13/17 10/13/17 07:00 15:00 23:00 07:00 15:00 23:00 Intake Total 400 ml 240 ml Output Total 2000 ml Balance -2000 ml 400 ml 240 ml Intake Oral 400 ml 240 ml Hemodialysis 2000 ml # Voids 5 3 # Bowel Movements 0 0 (Maurilio Martinez MD R2) Result Diagram: 10/13/17 0451 10/13/17 0451 Objective Remarks GENERAL: This is a well-nourished, well-developed patient, in no acute distress. SKIN: Scattered ecchymosis present. Pale but unchanged from prior exam. Port in place in upper chest CARDIOVASCULAR: Regular rate and rhythm without murmurs, gallops, or rubs. Pulses intact RESPIRATORY: Clear to auscultation. Breath sounds equal bilaterally. No wheezes , rales, or rhonchi. GASTROINTESTINAL: Abdomen soft, non-tender, nondistended. No hepato-splenomegaly , or palpable masses. NEUROLOGICAL: Awake and alert. Motor and sensory grossly within normal limits. Normal speech. Procedures Ligation of AV fistula Vas-Cath placed in the right IJ Permacath placed (Maurilio Martinez MD R2) A/P Assessment and Plan 77-year-old male with history of ESRD on dialysis, hypertension, heart disease presents from dialysis with hemorrhage of his AV fistula. Will admit for medical management and vascula repair. Discharge Planning Today with home health PT recommends PT at rehab. Patient refuses going to rehab; patient will be discharged with home health PT (Maurilio Martinez MD R2) Problem List: (1) Hemorrhage of arteriovenous fistula ICD Codes: T82.838A - Hemorrhage due to vascular prosthetic devices, implants and grafts, initial encounter Status: Acute Plan: Vascular consult-POD#6 ligation of AVF -Resume warfarin -Elective AVF as outpatient Interventional radiology consult -exchange of VasCath for catheter 10/12 Status post Vas-Cath placed in the right IJ on 10/08 (2) Anemia ICD Codes: D64.9 - Anemia, unspecified Status: Acute Plan: Hemoglobin of 6.9 on 10/09. History of chronic anemia likely from CKD. Epogen with dialysis Hemoglobin stable above 8 after transfusing leukocyte reduced RBCs, 2 units of FFP on 10/09 We will continue to monitor (3) Afib ICD Codes: I48.91 - Unspecified atrial fibrillation Status: Acute Plan: Newly discovered rate controlled atrial fibrillation in PACU. Rate controlled. Oral Cardizem Cardiology consulted-stable; chads 2 score greater than 2, recommend anticoagulation -Continue coumadin at home (4) End stage renal disease on dialysis ICD Codes: N18.6 - End stage renal failure on dialysis; Z99.2 - Dependence on renal dialysis Status: Chronic Plan: Patient on dialysis from ESRD Wednesday//Wednesday. -Nephrology consulted to assist with dialysis Status post right IJ Vas-Cath placement 10/08 -Has catheter in place (5) Hypertension ICD Codes: I10 - Hypertension Status: Chronic Plan: Continue home enalapril Added cardizem 30mg q6H to replace amlodipine (6) Hypothyroidism ICD Codes: E03.9 - Hypothyroidism Status: Chronic Plan: Continue home synthroid (7) Parkinsons disease ICD Codes: G20 - Parkinson's disease Status: Chronic Plan: Continue home levodopa/carbidopa (8) Gait instability ICD Codes: R26.81 - Unsteadiness on feet Status: Acute Plan: PT recommends PT rehab. Patient refuses rehab and is adamant about going home with home health PT. (9) FEN Plan: Fluids: Tolerating p.o. Electrolytes: monitor, replace PRN Nutrition: regular diet DVT ppx: SCDs/warfarin (Maurilio Martinez MD R2) Problem List: (1) Hemorrhage of arteriovenous fistula ICD Codes: T82.838A - Hemorrhage due to vascular prosthetic devices, implants and grafts, initial encounter Status: Acute Plan: Vascular consult-POD#6 ligation of AVF -Resume warfarin -Elective AVF as outpatient Interventional radiology consult -exchange of VasCath for catheter 10/12 Status post Vas-Cath placed in the right IJ on 10/08 (2) Anemia ICD Codes: D64.9 - Anemia, unspecified Status: Acute Plan: Hemoglobin of 6.9 on 10/09. History of chronic anemia likely from CKD. Epogen with dialysis Hemoglobin stable above 8 after transfusing leukocyte reduced RBCs, 2 units of FFP on 10/09 We will continue to monitor (3) Afib ICD Codes: I48.91 - Unspecified atrial fibrillation Status: Acute Plan: Newly discovered rate controlled atrial fibrillation in PACU. Rate controlled. Oral Cardizem Cardiology consulted-stable; chads 2 score greater than 2, recommend anticoagulation -Continue coumadin at home (4) End stage renal disease on dialysis ICD Codes: N18.6 - End stage renal failure on dialysis; Z99.2 - Dependence on renal dialysis Status: Chronic Plan: Patient on dialysis from ESRD Wednesday//Wednesday. -Nephrology consulted to assist with dialysis Status post right IJ Vas-Cath placement 10/08 -Has catheter in place (5) Hypertension ICD Codes: I10 - Hypertension Status: Chronic Plan: Continue home enalapril Added cardizem 30mg q6H to replace amlodipine (6) Hypothyroidism ICD Codes: E03.9 - Hypothyroidism Status: Chronic Plan: Continue home synthroid (7) Parkinsons disease ICD Codes: G20 - Parkinson's disease Status: Chronic Plan: Continue home levodopa/carbidopa (8) Gait instability ICD Codes: R26.81 - Unsteadiness on feet Status: Acute Plan: PT recommends PT rehab. Patient refuses rehab and is adamant about going home with home health PT. (9) FEN Plan: Fluids: Tolerating p.o. Electrolytes: monitor, replace PRN Nutrition: regular diet DVT ppx: SCDs/warfarin See the residents documentation for details. I saw and evaluated the patient regarding the ramirez portions of this evaluation and agree with the residents findings and plans as written. Parts of this note were created using [employer] voice recognition software program. While efforts were made to correct any mistakes made by this software, some mistakes, errors, and omissions may remain in the final note that were not caught when the note was originally created. Plan of care was discussed and agreed upon with the patient as specifically documented in the above note. An opportunity to ask questions with explanation was provided. Patient voiced understanding on all information reviewed and discussed. (Amandeep Duran MD) Problem Qualifiers (1) Hemorrhage of arteriovenous fistula: Qualified Codes: T82.838A - Hemorrhage due to vascular prosthetic devices, implants and grafts, initial encounter (2) Afib: Qualified Codes: I48.2 - Chronic atrial fibrillation Maurilio Martinez MD R2 October 13, 2017 08:35 Amandeep Duran MD October 13, 2017 12:18
--- NOTE | 2017-10-13 09:37 | PD.VS.PN ---
Subjective POD #: 6 Procedure(s): Ligation of L UE AVF for bleeding pseudoaneurysm Subjective/Hospital Course 77/M S/P Ligation of L UE AVF for bleeding pseudoaneurysm POD 6 Pt doing well L UE warm with motor intact Pain controlled Palpable Radial pulses present Incision Intact with mild serosanguineous drainage Objective Vitals/I&O Date Time Temp Pulse Resp B/P (MAP) Pulse Ox O2 Delivery O2 Flow Rate FiO2 10/13/17 08:05 Room Air 10/13/17 04:00 97.7 76 18 173/82 (112) 96 10/13/17 04:00 72 10/13/17 00:01 97.3 100 18 139/93 (108) 100 10/13/17 00:00 76 10/12/17 21:10 Room Air 10/12/17 20:00 97.8 89 18 138/84 (102) 96 10/12/17 20:00 90 10/12/17 13:30 89 18 130/88 (102) 94 10/12/17 13:15 98.1 105 19 142/66 (91) 96 10/13/17 10/13/17 10/13/17 07:00 15:00 23:00 Intake Total 240 ml Balance 240 ml Exam: GENERAL: Afebrile 77/M, GCS 15, NAD SKIN: UE Warm and dry w/ motor intact LEFT UE incision intact with sutures/ Mild serosanguineous drainage noted NECK: Supple, trachea midline. No JVD or lymphadenopathy. CARDIOVASCULAR: +S1,S2 RESPIRATORY: BS CTA Palpable R/L radial pulses noted UE warm w/ motor intact Pt w/o hand pain Cap refill < 3 sec Laboratory Laboratory Tests Test 10/13/17 04:51 White Blood Count 9.7 Red Blood Count 2.59 Hemoglobin 9.0 Hematocrit 25.6 Mean Corpuscular Volume 98.8 Mean Corpuscular Hemoglobin 34.6 Mean Corpuscular Hemoglobin Concent 35.1 Red Cell Distribution Width 16.7 Platelet Count 346 Mean Platelet Volume 7.5 CBC Comment AUTO DIFF Differential Total Cells Counted 100 Neutrophils % (Manual) 63 Lymphocytes % 15 Monocytes % 8 Eosinophils % 12 Basophils % 2 Neutrophils # (Manual) 6.1 Differential Comment FINAL DIFF MANUAL Platelet Estimate NORMAL Platelet Morphology Comment NORMAL Blood Urea Nitrogen 19 Creatinine 3.55 Random Glucose 78 Calcium Level 8.7 Sodium Level 140 Potassium Level 3.9 Chloride Level 104 Carbon Dioxide Level 26.6 Anion Gap 9 Estimat Glomerular Filtration Rate 17 Assessment and Plan Assessment: (1) AVF (arteriovenous fistula) Plan POD#6 s/p excision of AVF for bleeding pseudoaneurysm Pt doing well Does not endorse hand pain Motor intact Pt w/ palpable distal pulses Plan Discussed and reviewed post operative care and management w/ pt Pt clear for D/C from a Vascular Surgery Standpoint Arranged out pt f/u in 2W for post operative f/u and AVF Eval Continue w/ an JEMAL wrap to LEFT hand and change daily Merle Ring NP [facility] [phone] Discharge Planning anytime from a vascular surgery standpoint Merle Ring October 13, 2017 09:37
--- NOTE | 2017-10-13 10:45 | HHI.NPPN ---
Subjective General Problems: Anemia Renal Failure: End Stage Renal Disease History of Present Illness Patient is a 77 year old male with a past medical history of hypertension, diabetes, Parkinson disease, cerebral vascular accident, coronary artery disease with AICD, and hypothyroidism. Patient presented to the emergency with his AVF site hemorrhage from dialysis center. Approximate blood loss at 500ml. Patient has reported that he has had problems with fistula over the last month and was seen by Dr. Clarke in September and had procedure preformed. Mr. Martinez was seen at Dialysis on Wednesday and at that time advised to be seen by Vascular surgeon. Nephrology is consulted for end stage renal disease. His normal dialysis days are Wednesday, , and Wednesday. He did complete all of dialysis today so next scheduled dialysis will be on Wednesday. Patient was seen in recovery room and part of history and physical was obtained from chart. Additional Remarks Perma cath placement yesterday. Patient with no complaints. (Debora Schilling) Review of Systems Respiratory Respiratory Remarks Denies SOB (Debora Schilling) Cardiovascular Cardiac Remarks Denies CP (Debora Schilling) Gastrointestinal GI Remarks Denies abdominal pain (Debora Schilling) Objective Data Data Vital Signs Date Time Temp Pulse Resp B/P (MAP) Pulse Ox O2 Delivery O2 Flow Rate FiO2 10/13/17 08:05 Room Air 10/13/17 08:00 97.6 117 18 94/59 (71) 96 10/13/17 04:00 97.7 76 18 173/82 (112) 96 10/13/17 04:00 72 10/13/17 00:01 97.3 100 18 139/93 (108) 100 10/13/17 00:00 76 10/12/17 21:10 Room Air 10/12/17 20:00 97.8 89 18 138/84 (102) 96 10/12/17 20:00 90 10/12/17 13:30 89 18 130/88 (102) 94 10/12/17 13:15 98.1 105 19 142/66 (91) 96 (Debora Schilling) -: 10/13/17 0451 10/13/17 0451 Imaging Last Impressions Catheter Placement X-Ray 10/12/17 0000 Signed Impressions: Service Date/Time: Thursday, October 12, 2017 12:58 - CONCLUSION: Uncomplicated conversion of a Vas-Cath catheter to a perm catheter as above. Alec Marquez MD Tubes & Lines: Perma-Cath Tubes & Lines Comment right IJ (Debora Schilling. REFINERY OPERATOR [employer]) Physical Exam General Appearance: Well Nourished, No Acute Distress, Comfortable (GellermannDebora. REFINERY OPERATOR [employer]) Eyes Eye Exam: Pupils Equal (GellerDebora larsen M. REFINERY O[employer]) Throat Throat Exam: Oral Mucosa [place] & Moist (LillielerKierra larsenne Sarina. REFINERY OPERATOR [employer]) Pulmonary Resp Exam: Clear Bilaterally, Breath Sounds Equal, No Distress (LillielerDebora larsen. REFINERY OPERATOR [employer]) Cardiology CV Exam: Regular, Normal Sinus Rhythm (GellermannDebora. REFINERY OPERATOR [employer]) Gastrointestinal/Abdomen GI Exam: Soft, Non-Tender, Bowel Sounds Present (LillielerKierra larsenne M. [employer]ERY [employer]ATOR [employer]) Genitourinary Exam: Flank Non-Tender (LillielerDebora larsen M. REFINERY O[employer]) Integumentary Skin Exam: Clear, Warm, Dry (Debora Schilling. REFINERY OPERATOR [employer]) Extremeties Extremities Exam: No Edema (Debora Schilling. REFINERY OPERATOR [employer]) Neurologic Neuro Exam: Alert, Awake (Debora Schilling. REFINERY OPERATOR [employer]) Psychiatric Psych Exam: Appropriate Responses (Debora SchillingP) Assessment/Plan Problem List: (1) End stage renal disease on dialysis ICD Codes: N18.6 - End stage renal failure on dialysis; Z99.2 - Dependence on renal dialysis Status: Chronic Plan: End stage renal disease on hemodialysis on Wednesday, , and Wednesday. Excision of bleeding arteriovenous fistula 10/07 Plan Continue Renvela, Calcitrol and oscal Continue epogen with dialysis Permacath placement 10/12 tolerated well Dialysis planned for tomorrow either at [facility] or [facility] if discharged. (2) Hypertension ICD Codes: I10 - Hypertension Status: Chronic Plan: Will monitor (Debora SchillingP) Problem List: (1) End stage renal disease on dialysis ICD Codes: N18.6 - End stage renal failure on dialysis; Z99.2 - Dependence on renal dialysis Status: Chronic Plan: End stage renal disease on hemodialysis on Wednesday, , and Wednesday. Excision of bleeding arteriovenous fistula 10/07 Plan Continue Renvela, Calcitrol and oscal Continue epogen with dialysis Permacath placement 10/12 tolerated well Dialysis planned for tomorrow either at [facility] or [facility] if discharged. Patient seen and examined, agree with above. For discharge, will continue HD as out patient. (2) Hypertension ICD Codes: I10 - Hypertension Status: Chronic Plan: Will monitor (Valarie Durant MD) Debora Schilling October 13, 2017 10:44 Valarie Durant MD October 13, 2017 22:20
[2017-10-13 12:00] VITALS: BP 130/76; PULSE 81; RESP 18; TEMP 97.7; O2SAT 99
[2017-10-13] MEDS: FUROSEMIDE 20 MG TAB PO SCH (12:24)
== END 2017-10-13 13:00 | disposition home health service (06) | DRG 252 ==
LOC: HCVO 10:51 → NEDA 13:12 → N04B 16:10 → NEDA 16:10 → HPAC 16:32 → N06B 18:46
PROVIDERS: ADMIT Family Medicine; ATTEND Family Medicine
PROC: 05BY0ZZ Excision of Upper Vein, Open Approach (ICD-10-PCS; principal; 2017-10-07 14:35)
PROC: 05HM33Z Insertion of Infusion Device into Right Internal Jugular Vein, Percutaneous Approach (ICD-10-PCS; 2017-10-08)
PROC: 5A1D70Z Performance of Urinary Filtration, Intermittent, Less than 6 Hours Per Day (ICD-10-PCS; 2017-10-09)
PROC: 05PY33Z Removal of Infusion Device from Upper Vein, Percutaneous Approach (ICD-10-PCS; 2017-10-12)
PROC: 06H033Z Insertion of Infusion Device into Inferior Vena Cava, Percutaneous Approach (ICD-10-PCS; 2017-10-12)
PROC: 0JH63XZ Insertion of Tunneled Vascular Access Device into Chest Subcutaneous Tissue and Fascia, Percutaneous Approach (ICD-10-PCS; 2017-10-12)
DX: T82.838A Hemorrhage due to vascular prosthetic devices, implants and grafts, initial encounter (principal); N18.6 End stage renal disease; I12.0 Hypertensive chronic kidney disease with stage 5 chronic kidney disease or end stage renal disease; E88.89 Other specified metabolic disorders; I42.9 Cardiomyopathy, unspecified; E11.22 Type 2 diabetes mellitus with diabetic chronic kidney disease; G20 Parkinson's disease; I48.2 Chronic atrial fibrillation; Z66 Do not resuscitate; K21.9 Gastro-esophageal reflux disease without esophagitis; I25.2 Old myocardial infarction; I25.10 Atherosclerotic heart disease of native coronary artery without angina pectoris; R26.81 Unsteadiness on feet; F32.9 Major depressive disorder, single episode, unspecified; D63.1 Anemia in chronic kidney disease; E03.9 Hypothyroidism, unspecified; H91.90 Unspecified hearing loss, unspecified ear; Y84.8 Other medical procedures as the cause of abnormal reaction of the patient, or of later complication, without mention of misadventure at the time of the procedure; Z87.891 Personal history of nicotine dependence; Z86.73 Personal history of transient ischemic attack (TIA), and cerebral infarction without residual deficits; Z95.810 Presence of automatic (implantable) cardiac defibrillator; Z99.2 Dependence on renal dialysis; Z79.01 Long term (current) use of anticoagulants
CPT/HCPCS: 36430; 36556; 36558; 76942; 77001; 80048; 80053; 82550; 82948; 84484; 85007; 85014; 85018; 85025; 85027; 85610; 85730; 86850; 86900; 86901; 86920; 86927; 90935; 93005; 96374; 96375; 96376; 99152; 99153; C1750; C1752; C1769; C1887; J1100; J1580; J1644; J1815; J2250; J2270; J2370; J2405; J2720; J3010; J3370; J7030; J7040; J7050; P9016; P9017; Q4081

== ENCOUNTER 2017-10-28 05:46 | Observation (INO) | payer MEDICARE, BC ==
[2017-10-28] VITALS (13 sets, daily range): BP systolic 135–171; BP diastolic 82–108; PULSE 51–93; RESP 14–20; TEMP 97–98; O2SAT 94–99
[~2017-10-28] VITALS: Ht 188 cm; Wt 72.5 kg
[~2017-10-28 05:46] MED LIST changes: -AMLO10TA2 PO; +AMLO5 PO; +CALC0.25 PO; +CALC600T10 PO; -CALCCHW25 CHEW; +COUM3TAB PO; -MEGASUS2 PO; +MEGE40SU PO; -PERC7.5T13 PO; +TEMA7.5C9 PO; +WALKER WHEELS/F1 MIS; -WARF-58 PO
--- NOTE | 2017-10-28 05:51 | PD ---
HPI Chief Complaint: [facility] Problem Time Seen by Provider: 05:51 Travel History International Travel<30 days: No Contact w/Intl Traveler<30days: No Traveled to known affect area: No History of Present Illness HPI 77-year-old male came to the emergency room after his dialysis catheter got accidentally pulled out. This happened just prior to coming in this morning. His accidentally pulled it out while they were in bed. It bled some initially but now it has stopped bleeding. Patient is due for his dialysis this morning but because of this he came to the emergency room. His supervisor fish hatchery is Dr. Durant. Patient is on Coumadin. Vital signs are stable otherwise. [facility] Past Medical History Narrative Medical List of his past medical, surgical, social and family history is reviewed from the nursing note. Hx Anticoagulant Therapy: Yes (COUMADIN) Arthritis: No Asthma: No Autoimmune Disease: Yes (MYODISPLASIA) Blood Disorders: No Anxiety: No Depression: Yes Heart Rhythm Problems: Yes ([place] AFIB-10/07/17) Cancer: No Cardiovascular Problems: Yes (DEFIBRILATOR) High Cholesterol: No Chemotherapy: No Chest Pain: No Congestive Heart Failure: No COPD: No Cerebrovascular Accident: Yes (TIA'S) Coronary Artery Disease: Yes Diabetes: Yes (TYPE 2 ) Dialysis: Yes (tue, th, sat) Diminished Hearing: Yes ([place]) Endocrine: Yes Gastrointestinal Disorders: No GERD: Yes Genitourinary: Yes Hepatitis: No Hiatal Hernia: No Hypertension: Yes Immune Disorder: No Implanted Vascular Access Dvce: No Kidney Stones: No Musculoskeletal: No Neurologic: Yes (Parkinson's) Parkinson's Disease: Yes Psychiatric: Yes Reproductive: No Respiratory: No Immunizations Current: Yes Migraines: No Myocardial Infarction: Yes Radiation Therapy: No Renal Failure: Yes (HEMODIALYSIS PT) Seizures: No Sleep Apnea: No Thyroid Disease: Yes (HYPOTHYROID) Ulcer: Yes Past Surgical History Abdominal Surgery: No AICD: Yes (DEFIB) Appendectomy: No Body Medical Devices: AVF Cardiac Surgery: No Cholecystectomy: No Ear Surgery: No Endocrine Surgery: No Eye Surgery: Yes (BILATERAL CATARACTS) Genitourinary Surgery: No Gynecologic Surgery: No Neurologic Surgery: No Oral Surgery: No Thoracic Surgery: No Tonsillectomy: Yes Other Surgery: Yes (Fatty tumor removal) Social History Alcohol Use: Yes (Wine daily) Tobacco Use: No (Quit) Substance Use: No Allergies-Medications (Allergen,Severity, Reaction): Coded Allergies: Sulfa (Sulfonamide Antibiotics) (Unverified Allergy, Unknown, Rash, ) Comments List of his allergies reviewed from the nursing note. Reported Meds & Prescriptions Reported Meds & Active Scripts Active Walker with Front Wheels (Device) 1 Mis Mis Ea .XX DIRECTED Reported Restoril (Temazepam) 7.5 Mg Cap 7.5 Mg PO HS PRN Calcitriol 0.25 Mcg Cap 0.25 Mcg PO TUTHSA Take 1 tablet (0.25mcg) daily on dialysis days (Wednesday, and Wednesday) Norvasc (Amlodipine Besylate) 5 Mg Tab 5 Mg PO DAILY Megestrol Liq (Megestrol Acetate) 40 Mg/Ml Susp 200 Mg PO EVERY OTHER DAY Calcium + D3 (Calcium Carbonate-Cholecalciferol) 600-200 Mg-Unit Tab 1 Tab PO DAILY Coumadin (Warfarin) 3 Mg Tab 4.5 Mg PO DAILY Vitamin D3 (Cholecalciferol) 1,000 Unit Chew 1,000 Units PO BID Multi-Vitamin Daily (Multiple Vitamin) 1 Tab Tab 1 Tab PO DAILY Renvela (Sevelamer Carbonate) 800 Mg Tab 800 Mg PO TID Carvedilol 6.25 Mg Tab 6.25 Mg PO BID Furosemide 20 Mg Tab 20 Mg PO SUMOWEFR Take 1 tablet (20mg) daily on Wednesday,Wednesday,Wednesday and Wednesday Fluoxetine (Fluoxetine HCl) 10 Mg Tab 10 Mg PO DAILY Vasotec (Enalapril Maleate) 10 Mg Tab 10 Mg PO BID Carbidopa-Levodopa 10-100 Mg Tab 1 Tab PO Q8HR Omeprazole 20 Mg Tab 20 Mg PO DAILY Levothyroxine (Levothyroxine Sodium) 100 Mcg Tab 100 Mcg PO DAILY Narrative Medication List of his home medications reviewed from the nursing note. Review of Systems Except as stated in HPI: all other systems reviewed are Neg Physical Exam Narrative GENERAL: Awake, alert, no obvious distress, elderly, pale, frail SKIN: Focused skin assessment warm/dry. Pale. Right subclavian area has a small hole in the chest anteriorly that could be visible where the catheter went in. No active bleeding HEAD: Atraumatic. Normocephalic. EYES: Pupils equal and round. No scleral icterus. No injection or drainage. ENT: No nasal bleeding or discharge. Mucous membranes pink and moist. NECK: Trachea midline. No JVD. CARDIOVASCULAR: Regular rate and rhythm. No murmur appreciated. RESPIRATORY: No accessory muscle use. Clear to auscultation. Breath sounds equal bilaterally. GASTROINTESTINAL: Abdomen soft, non-tender, nondistended. Hepatic and splenic margins not palpable. MUSCULOSKELETAL: No obvious deformities. No clubbing. No cyanosis. No edema. NEUROLOGICAL: Awake and alert. No obvious cranial nerve deficits. Motor grossly within normal limits. Normal speech. PSYCHIATRIC: Appropriate mood and affect; insight and judgment normal. Data Data Orders Orders Complete Blood Count With Diff (10/28/17 06:00) Basic Metabolic Panel (Bmp) (10/28/17 06:00) Prothrombin Time / Inr (Pt) (10/28/17 06:00) Type And Screen (10/28/17 06:00) ^ Saline Lock (10/28/17 06:00) Chest, Single Ap (10/28/17 ) Admit Order (Ed Use Only) (10/28/17 06:21) MDM Medical Decision Making Medical Screen Exam Complete: Yes Emergency Medical Condition: Yes Medical Record Reviewed: Yes Differential Diagnosis Dialysis catheter dislodged Narrative Course 6:20 AM I discussed the case with Dr. uDrant and he wants the patient to be transferred to the [facility] so that he can get another catheter in to get the dialysis done today. I have conveyed this to the patient. I discussed the case with the hospitalist was accepted the patient. 6:50 AM I was told by the charge nurse that there was no bed at the [facility]. I spoke with Dr. Schwarz from ICU who recommended to keep the patient in [place] and he would have 1 of the brainer come to the hospital and put a catheter in. Dr. Tobias is here right now to put the catheter in. Patient will not require transfer if the catheter could be inserted here and can be dialyzed in [place]. Patient had no IV access in spite of the nurses multiple attempts. I put a right EJ. Please refer to my procedure note. Procedures Procedure Narrative EJ insertion: Patient was a difficult stick and no access could be obtained by the nurse. I put the patient in Trendelenburg position and put a 20-gauge Angiocath in the right EJ. Patient tolerated the procedure well. EKG Prior to Arrival: No Physician Communication Physician Communication Dr. Durant, Dr. Schwarz, Dr. Tobias Diagnosis Primary Impression: Displacement of vascular dialysis catheter Qualified Codes: T82.42XA - Displacement of vascular dialysis catheter, initial encounter Admitting Information Admitting Physician Requests: Observation Pérez Modi MD October 28, 2017 05:51
--- NOTE | 2017-10-28 06:23 | RADRPT ---
EXAM DATE: 10/28/2017 6:18 AM EDT AGE/SEX: 77 years / Male INDICATIONS: Chest discomfort after right sided dialysis catheter was pulled out CLINICAL DATA: This is the patient's initial encounter. Patient reports that signs and symptoms have been present for 1 day and indicates a pain score of 0/10. MEDICAL/SURGICAL HISTORY: Hypertension. Coronary artery disease Defibrillator. COMPARISON: No prior [facility] exams available for comparison. FINDINGS: A single AP view of the chest demonstrates the lungs to be symmetrically aerated without evidence of mass, infiltrate or effusion. The cardiomediastinal contours are unremarkable. Osseous structures a re intact. A left-sided pacing device is noted in place there are atherosclerotic calcifications in the aorta. There is mild scarring at the lung bases. CONCLUSION: 1. No acute cardiopulmonary disease. 2. Mild scarring at the lung bases. 3. Left-sided pacing device. Electronically signed by: Johan Chamorro MD 10/28/2017 6:22 AM EDT
[2017-10-28] MEDS ORDERED: MAGNESIUM HYDROXIDE SUSP 30 ML CUP PO PRN (06:30)
[2017-10-28] MEDS ORDERED: ACETAMINOPHEN 325 MG TAB PO PRN ×2 (06:30→08:15)
[2017-10-28] MEDS ORDERED: LACTULOSE SYRUP 20 GM/30 ML CUP PO PRN (06:30)
[2017-10-28] MEDS ORDERED: NALOXONE HCL 0.4 MG/ML AMP IV PUSH PRN (06:30)
[2017-10-28] MEDS ORDERED: BISACODYL 10 MG SUPP RECTAL PRN (06:30)
[2017-10-28] MEDS ORDERED: SENNOSIDES 8.6 MG TAB PO PRN (06:30)
[2017-10-28] MEDS ORDERED: SODIUM CHLORIDE 0.9% FLUSH 10 ML FLUSH IV FLUSH PRN ×3 (06:30→08:15)
[2017-10-28 07:24] LABS: AUTOMATED NEUTROPHIL # 5.6 TH/MM3 (1.8-7.7); BASOPHIL # 0.1 TH/MM3 (0-0.2); BASOPHIL % 0.6 % (0.0-2.0); EOSINOPHIL # 0.4 TH/MM3 (0-0.4); EOSINOPHIL % 4.4 % (0.0-4.0); HEMATOCRIT 28.8 % (39.0-51.0); HEMOGLOBIN 10.1 GM/DL (13.0-17.0); LYMPH % 22.6 % (9.0-44.0); LYMPHOCYTE # 2.1 TH/MM3 (1.0-4.8); MEAN CELL VOLUME 101.9 FL (80.0-100.0); MEAN CORPUSCULAR HEMOGLOBIN 35.6 PG (27.0-34.0); MEAN PLATELET VOLUME 7.4 FL (7.0-11.0); MONO % 11.5 % (0.0-8.0); MONOCYTE # 1.1 TH/MM3 (0-0.9); NEUT % 60.9 % (16.0-70.0); PLATELET COUNT 332 TH/MM3 (150-450); RED BLOOD COUNT 2.82 MIL/MM3 (4.50-5.90); RED CELL DISTRIBUTION WIDTH 16.4 % (11.6-17.2); WHITE BLOOD COUNT 9.3 TH/MM3 (4.0-11.0)
[2017-10-28 07:34] LABS: CALCIUM 8.4 MG/DL (8.5-10.1)
[2017-10-28 07:35] LABS: BICARBONATE 21.1 MEQ/L (21.0-32.0)
[2017-10-28 07:36] LABS: INTERNATIONAL NORMALIZED RATIO 2.8 RATIO; PROTHROMBIN TIME - PATIENT 28.4 SEC (9.8-11.6)
[2017-10-28 07:38] LABS: CREATININE 3.9 MG/DL (0.60-1.30)
[2017-10-28] MEDS ORDERED: SODIUM CHLOR 0.9% 1000 ML INJ 1,000 ML OTHER PRN ×2 (08:08)
[2017-10-28] MEDS ORDERED: SODIUM CHLOR 0.9% 1000 ML INJ 1,000 ML IV PRN (08:08)
[2017-10-28] MEDS ORDERED: MANNITOL 12.5 GM/50 ML VIAL IV PRN (08:15)
[2017-10-28] MEDS ORDERED: ALBUMIN 25% INJ 100 ML IV PRN (08:15)
[2017-10-28] MEDS ORDERED: HEPARIN SODIUM - IV 2,000 UNITS/2 ML VIAL IV FLUSH PRN (08:15)
[2017-10-28] MEDS ORDERED: HEPARIN SODIUM - IV 10,000 UNITS/10 ML VIAL IV FLUSH PRN ×2 (08:15→08:30)
[2017-10-28] MEDS ORDERED: GELATIN 12 MM/7 MM FOAM TOP PRN (08:15)
[2017-10-28] MEDS ORDERED: NITROGLYCERIN 0.4 MG SL 25 TABS/BTL SL PRN (08:15)
[2017-10-28] MEDS ORDERED: cloNIDine HCL 0.1 MG TAB PO PRN (08:15)
[2017-10-28] MEDS ORDERED: EPOETIN ALFA 10,000 UNITS/ML VIAL IV PUSH PRN (08:15)
[2017-10-28] MEDS ORDERED: GENTAMICIN SULFATE 20 MG/2 ML VIAL OTHER PRN (08:15)
[2017-10-28] MEDS ORDERED: diphenhydrAMINE HCL 25 MG CAP PO PRN (08:15)
[2017-10-28] MEDS ORDERED: ONDANSETRON HCL 4 MG/2 ML VIAL IV PUSH PRN (08:15)
--- NOTE | 2017-10-28 08:26 | PD.CONS ---
HPI Service Nephrology Consult Requested By Reason for Consult End stage end disease on hemodialysis Primary Care Physician Mari Varela MD History of Present Illness Patient is a 77 year old male with a past medical history of hypertension, diabetes, Parkinson disease, cerebral vascular accident, coronary artery disease with AICD, and hypothyroidism. Patient presented to the emergency with a permacath that was dislodged at home. Nephrology is consulted for management of end stage renal disease and hemodialysis. Vas cath is being placed now and dialysis is scheduled for today arrangements made. His normal dialysis days are Wednesday, , and Wednesday, with last dialysis on Wednesday. (Debora Schilling) Review of Systems Respiratory: DENIES: Cough, Sputum production, Shortness of breath Cardiovascular: DENIES: Chest pain, Dyspnea on Exertion Gastrointestinal: DENIES: Abdominal pain, Nausea, Vomiting (Debora Schilling) Past Family Social History Allergies: Coded Allergies: Sulfa (Sulfonamide Antibiotics) (Unverified Allergy, Unknown, Rash, ) Past Medical History ESRD on HD (//Wed) Hypertension DM-diet controlled Parkinson's Disease TIA CAD-AICD Hypothyroidism Past Surgical History L UE A-V Fistula Tonsillectomy cataract bilateral Active Ordered Medications Current Medications Medications (Trade) Dose Ordered Sig/Marleni Route Start Time Stop Time Status Last Admin (NS Flush) 2 ml UNSCH PRN IV FLUSH 10/28/17 06:30 (NS Flush) 2 ml BID IV FLUSH 10/28/17 09:00 (Tylenol) 650 mg Q4H PRN PO 10/28/17 06:30 (Narcan Inj) 0.4 mg UNSCH PRN IV PUSH 10/28/17 06:30 (Milk Of Magnesia Liq) 30 ml Q12H PRN PO 10/28/17 06:30 (Senokot) 17.2 mg Q12H PRN PO 10/28/17 06:30 (Dulcolax Supp) 10 mg DAILY PRN RECTAL 10/28/17 06:30 (Lactulose Liq) 30 ml DAILY PRN PO 10/28/17 06:30 Family History Father on Hemodialysis Social History Quit smoking over 20 years ago Drinks 1 glass of wine daily Lives with (Debora Schilling) Physical Exam Vital Signs Vital Signs Date Time Temp Pulse Resp B/P (MAP) Pulse Ox O2 Delivery O2 Flow Rate FiO2 10/28/17 06:54 98.0 93 20 168/91 (116) 97 Physical Exam GENERAL: Alert and oriented SKIN: Warm and dry. HEAD: Normocephalic. EYES: No scleral icterus. No injection or drainage. NECK: Supple, trachea midline. No JVD or lymphadenopathy. CARDIOVASCULAR: Regular rate and rhythm without murmurs, gallops, or rubs. RESPIRATORY: Breath sounds equal bilaterally. No accessory muscle use. GASTROINTESTINAL: Abdomen soft, non-tender, nondistended. MUSCULOSKELETAL: No cyanosis, or edema. BACK: Nontender without obvious deformity. No CVA tenderness. Laboratory Laboratory Tests Test 10/28/17 07:00 White Blood Count 9.3 Red Blood Count 2.82 Hemoglobin 10.1 Hematocrit 28.8 Mean Corpuscular Volume 101.9 Mean Corpuscular Hemoglobin 35.6 Mean Corpuscular Hemoglobin Concent 35.0 Red Cell Distribution Width 16.4 Platelet Count 332 Mean Platelet Volume 7.4 Neutrophils (%) (Auto) 60.9 Lymphocytes (%) (Auto) 22.6 Monocytes (%) (Auto) 11.5 Eosinophils (%) (Auto) 4.4 Basophils (%) (Auto) 0.6 Neutrophils # (Auto) 5.6 Lymphocytes # (Auto) 2.1 Monocytes # (Auto) 1.1 Eosinophils # (Auto) 0.4 Basophils # (Auto) 0.1 CBC Comment AUTO DIFF Differential Comment AUTO DIFF CONFIRMED Prothrombin Time 28.4 Prothromb Time International Ratio 2.8 Blood Urea Nitrogen 16 Creatinine 3.90 Random Glucose 101 Calcium Level 8.4 Sodium Level 138 Potassium Level 4.5 Chloride Level 109 Carbon Dioxide Level 21.1 Anion Gap 8 Estimat Glomerular Filtration Rate 15 (Debora Schilling) Result Diagram: 10/28/17 0700 10/28/17 0700 Imaging Last Impressions Chest X-Ray 10/28/17 0000 Signed Impressions: CONCLUSION: 1. No acute cardiopulmonary disease. 2. Mild scarring at the lung bases. 3. Left-sided pacing device. (Debora Schilling) Assessment and Plan Problem List: (1) End stage renal disease ICD Codes: N18.6 - End stage renal disease Status: Acute Plan: End stage renal disease on hemodialysis on Wednesday, , and Wednesday. Vas cath placed in ED Orders placed for dialysis today. Permacath ordered. INR is at 2.8 this morning. (2) Displacement of vascular dialysis catheter ICD Codes: T82.42XA - Displacement of vascular dialysis catheter, initial encounter Status: Acute Plan: Vas cath placement at bedside. (Debora Schilling) Problem List: (1) End stage renal disease ICD Codes: N18.6 - End stage renal disease Status: Acute Plan: End stage renal disease on hemodialysis on Wednesday, , and Wednesday. Vas cath placed in ED Orders placed for dialysis today. Permacath ordered. INR is at 2.8 this morning. Patient seen and examine, agree with above. Given Vit. K and to get FFP. Follow INR in AM, if better, to get PermCath in AM. Possible discharge tomorrow. (2) Displacement of vascular dialysis catheter ICD Codes: T82.42XA - Displacement of vascular dialysis catheter, initial encounter Status: Acute Plan: Vas cath placement at bedside. (Valarie Durant MD) Problem Qualifiers (1) Displacement of vascular dialysis catheter: Qualified Codes: T82.42XA - Displacement of vascular dialysis catheter, initial encounter Debora Schilling October 28, 2017 08:26 Valarie Durant MD October 29, 2017 00:16
--- NOTE | 2017-10-28 08:48 | HHI.HP ---
[facility] Service [facility] Primary Care Physician Mari Varela MD Admission Diagnosis Displacement of dialysis catheter Diagnoses: (1) Displacement of vascular dialysis catheter Diagnosis: Principal Chief Complaint: Permacath was pulled out Travel History International Travel<30 Days: No Contact w/Intl Traveler <30 Da: No Traveled to Known Affected Are: No History of Present Illness Written by Huber Duffy, acting as scribe for Dr. Bettencourt on 10/28/17 at 08: 48. 77-year-old male who undergoes outpatient dialysis for end-stage renal disease. Patient did have a permacath in place, however his was taking his shirt off and it got caught and was displaced. Because of that he came to emergency department for evaluation. The permacath was removed. ER physician contacted head of academic technology who recommended patient be observed in the hospital with vascular access device placed. Patient denies any other symptomatology. Review of Systems Except as stated in HPI: all other systems reviewed are Neg Past Family Social History Past Medical History Hypertension History of myocardial infarction End-stage renal disease on dialysis Diabetes History TIA Coronary artery disease Anxiety depression Hypothyroidism Parkinson's Myelodysplastic syndrome Chronic systolic congestive heart failure Macrocytic anemia Gastroesophageal reflux Past Surgical History Left hip replacement Left foot second digit amputation Cataract surgery AV Fistula insertion and removal Reported Medications Reported Meds & Active Scripts Active Walker with Front Wheels (Device) 1 Mis Mis Ea .XX DIRECTED Reported Restoril (Temazepam) 7.5 Mg Cap 7.5 Mg PO HS PRN Calcitriol 0.25 Mcg Cap 0.25 Mcg PO TUTHSA Take 1 tablet (0.25mcg) daily on dialysis days (Wednesday, and Wednesday) Norvasc (Amlodipine Besylate) 5 Mg Tab 5 Mg PO DAILY Megestrol Liq (Megestrol Acetate) 40 Mg/Ml Susp 200 Mg PO EVERY OTHER DAY Calcium + D3 (Calcium Carbonate-Cholecalciferol) 600-200 Mg-Unit Tab 1 Tab PO DAILY Coumadin (Warfarin) 3 Mg Tab 4.5 Mg PO DAILY Vitamin D3 (Cholecalciferol) 1,000 Unit Chew 1,000 Units PO BID Multi-Vitamin Daily (Multiple Vitamin) 1 Tab Tab 1 Tab PO DAILY Renvela (Sevelamer Carbonate) 800 Mg Tab 800 Mg PO TID Carvedilol 6.25 Mg Tab 6.25 Mg PO BID Furosemide 20 Mg Tab 20 Mg PO SUMOWEFR Take 1 tablet (20mg) daily on Wednesday,Wednesday,Wednesday and Wednesday Fluoxetine (Fluoxetine HCl) 10 Mg Tab 10 Mg PO DAILY Vasotec (Enalapril Maleate) 10 Mg Tab 10 Mg PO BID Carbidopa-Levodopa 10-100 Mg Tab 1 Tab PO Q8HR Omeprazole 20 Mg Tab 20 Mg PO DAILY Levothyroxine (Levothyroxine Sodium) 100 Mcg Tab 100 Mcg PO DAILY Allergies: Coded Allergies: Sulfa (Sulfonamide Antibiotics) (Unverified Allergy, Unknown, Rash, ) Family History Significant for mother with stroke Social History Patient not use any tobacco, alcohol or illicit drugs Physical Exam Vital Signs Vital Signs Date Time Temp Pulse Resp B/P (MAP) Pulse Ox O2 Delivery O2 Flow Rate FiO2 10/28/17 06:54 98.0 93 20 168/91 (116) 97 Physical Exam GENERAL: Well-developed, well-nourished, in no acute distress. alert and orientated HEENT: Head is normocephalic without any lesions or masses noted. Facial features are symmetric. Eyes: Pupils equal round reactive to light. Extraocular muscles are intact. Conjunctivae were clear. Oropharyngeal: Pharynx without any erythema edema. Tongue is midline without deviation. Buccal mucosa is moist without any masses or lesions NECK: Supple without any masses. Trachea midline no deviation. No JVD, no bruits are appreciated CARDIAC: Regular rhythm, regular rate. S1/S2 are heard. No murmurs gallops or rubs. LUNGS: Clear to auscultation bilaterally. No wheeze, rhonchi or rales. No use of accessory muscles on inspiration or expiration. ABDOMEN: Soft, nontender. Nondistended. Bowel sounds heard in all 4 quadrants. No organomegaly or masses. Negative rebound, negative guarding EXTREMITIES: No edema, pulses are equal bilaterally. No cyanosis or clubbing, splint noted on right wrist NEUROLOGY: Mood and affect appear appropriate. Cranial nerves II through XII grossly intact. Muscle strength 5/5 in upper and lower extremities bilaterally. Deep tendon reflexes are 2+ in upper and lower extremities bilaterally. Laboratory Laboratory Tests Test 10/28/17 07:00 White Blood Count 9.3 Red Blood Count 2.82 Hemoglobin 10.1 Hematocrit 28.8 Mean Corpuscular Volume 101.9 Mean Corpuscular Hemoglobin 35.6 Mean Corpuscular Hemoglobin Concent 35.0 Red Cell Distribution Width 16.4 Platelet Count 332 Mean Platelet Volume 7.4 Neutrophils (%) (Auto) 60.9 Lymphocytes (%) (Auto) 22.6 Monocytes (%) (Auto) 11.5 Eosinophils (%) (Auto) 4.4 Basophils (%) (Auto) 0.6 Neutrophils # (Auto) 5.6 Lymphocytes # (Auto) 2.1 Monocytes # (Auto) 1.1 Eosinophils # (Auto) 0.4 Basophils # (Auto) 0.1 CBC Comment AUTO DIFF Differential Comment AUTO DIFF CONFIRMED Prothrombin Time 28.4 Prothromb Time International Ratio 2.8 Blood Urea Nitrogen 16 Creatinine 3.90 Random Glucose 101 Calcium Level 8.4 Sodium Level 138 Potassium Level 4.5 Chloride Level 109 Carbon Dioxide Level 21.1 Anion Gap 8 Estimat Glomerular Filtration Rate 15 Result Diagram: 10/28/17 0700 10/28/17 0700 Imaging Last Impressions Chest X-Ray 10/28/17 0000 Signed Impressions: CONCLUSION: 1. No acute cardiopulmonary disease. 2. Mild scarring at the lung bases. 3. Left-sided pacing device. Caprini VTE Risk Assessment Caprini VTE Risk Assessment: Mod/High Risk (score >= 2) Caprini Risk Assessment Model Point Value = 1 Point Value = 2 Point Value = 3 Point Value = 5 Age 41-60 Minor surgery BMI > 25 kg/m2 Swollen legs Varicose veins or History of unexplained or recurrent spontaneous Oral contraceptives or hormone replacement Sepsis (< 1 month) Serious lung disease, including pneumonia (< 1 month) Abnormal pulmonary function Acute myocardial infarction Congestive heart failure (< 1 month) History of inflammatory bowel disease Medical patient at bed rest Age 61-74 Arthroscopic surgery Major open surgery (> 45 min) Laparoscopic surgery (> 45 min) Malignancy Confined to bed (> 72 hours) Immobilizing plaster cast Central venous access Age >= 75 History of VTE Family history of VTE Factor V Leiden Prothrombin [id number] Lupus anticoagulant Anticardiolipin antibodies Elevated serum homocysteine Heparin-induced thrombocytopenia Other congenital or acquired thrombophilia Stroke (< 1 month) Elective arthroplasty Hip, pelvis, or leg fracture Acute spinal cord injury (< 1 month) Prophylaxis Regimen Total Risk Factor Score Risk Level Prophylaxis Regimen 0-1 Low Early ambulation 2 Moderate Order ONE of the following: *Sequential Compression Device (SCD) *Heparin 5000 units SQ BID 3-4 Higher Order ONE of the following medications: *Heparin 5000 units SQ TID *Enoxaparin/Lovenox 40 mg SQ daily (WT < 150 kg, CrCl > 30 mL/min) *Enoxaparin/Lovenox 30 mg SQ daily (WT < 150 kg, CrCl > 10-29 mL/min) *Enoxaparin/Lovenox 30 mg SQ BID (WT < 150 kg, CrCl > 30 mL/min) AND/OR *Sequential Compression Device (SCD) 5 or more Highest Order ONE of the following medications: *Heparin 5000 units SQ TID (Preferred with Epidurals) *Enoxaparin/Lovenox 40 mg SQ daily (WT < 150 kg, CrCl > 30 mL/min) *Enoxaparin/Lovenox 30 mg SQ daily (WT < 150 kg, CrCl > 10-29 mL/min) *Enoxaparin/Lovenox 30 mg SQ BID (WT < 150 kg, CrCl > 30 mL/min) AND *Sequential Compression Device (SCD) Assessment and Plan Assessment and Plan Displaced vascular device, unintentional -Permacath was removed -Critical care physician Dr. Tobias inserted a Vas-Cath for dialysis -It was indicated by nephrology that dialysis center will not accept a Vas-Cath in outpatient setting will need to have a permacath -Intervention radiology consulted for permacath placement End-stage renal disease on dialysis -Nephrology consulted -Dialysis per nephrology recommendations Hypertension -Home medication be continued Hypothyroidism -Home medications be continued Parkinson's disease -Home medication will be continued DVT prevention -Patient anticoagulated on Coumadin Code Status Full code Discussed Condition With Patient Problem Qualifiers (1) Displacement of vascular dialysis catheter: Qualified Codes: T82.42XA - Displacement of vascular dialysis catheter, initial encounter Huber Duffy October 28, 2017 08:48 Jae Bettencourt MD October 28, 2017 08:48
[2017-10-28] MEDS: HEPARIN SODIUM - IV 10,000 UNITS/10 ML VIAL PRN ×2 (08:56→18:00)
[2017-10-28] MEDS: SODIUM CHLORIDE 0.9% FLUSH 10 ML FLUSH IV FLUSH SCH ×2 (09:00→19:55)
--- NOTE | 2017-10-28 09:25 | RADRPT ---
EXAM DATE: 10/28/2017 8:56 AM EDT AGE/SEX: 77 years / Male INDICATIONS: Post right side catheter placement. CLINICAL DATA: This is the patient's subsequent encounter. Patient reports that signs and symptoms h ave been present for 1 day and indicates a pain score of 0/10. MEDICAL/SURGICAL HISTORY: . Hypertension. Coronary artery disease . Defibrillator. COMPARISON: [facility], CHEST SINGLE AP, 10/28/2017. . FINDINGS: Right central line in superior vena cava. Left-sided pacing device unchanged. Heart size mildly enlar ged. Linear atelectasis or scarring at the bases. Blunting left costophrenic angle may represent scar ring or small effusion. CONCLUSION: Right central line in superior vena cava. No pneumothorax. Minimal basilar atelectasis or scarring. Electronically signed by: Michoacano Ace MD 10/28/2017 9:23 AM EDT
[2017-10-28] MEDS: FLUoxetine HCL 10 MG CAP PO SCH (09:30)
[2017-10-28] MEDS: LEVOTHYROXINE SODIUM 100 MCG TAB PO SCH (09:30)
[2017-10-28] MEDS ORDERED: TEMAZEPAM 7.5 MG CAP PO PRN (09:30)
[2017-10-28] MEDS: PANTOPRAZOLE SOD 20 MG DELAYED RELEASE TAB PO SCH (10:00)
[2017-10-28] MEDS: CALCIUM/VITAMIN D 250 MG/125 U TAB PO SCH (10:54)
[2017-10-28] MEDS: CARBIDOPA/LEVODOPA 10 MG/100 MG TAB PO SCH ×3 (10:54→22:03)
[2017-10-28] MEDS: CARVEDILOL 6.25 MG TAB PO SCH ×2 (10:54→22:03)
[2017-10-28] MEDS: ENALAPRIL MALEATE 10 MG TAB PO SCH ×2 (10:54→22:03)
[2017-10-28] MEDS: amLODIPine BESYLATE 5 MG TAB PO SCH (10:55)
[2017-10-28] MEDS ORDERED: PHYTONADIONE 5 MG/SWFI 5 ML ORAL SYR PO ONE (11:30)
[2017-10-28] MEDS: SEVELAMER CARBONATE 800 MG TAB PO SCH ×2 (13:00→18:17)
--- NOTE | 2017-10-28 13:43 | PD.PROCEDR ---
Procedure Note Procedure Preop diagnosis: ESRD on HD Postop diagnosis: Same Informed consent: Obtained from patient and documented on chart Anesthesia: 1% lidocaine for local infiltration anesthesia Procedure: Dialysis catheter placement Site: Right internal jugular vein Ultrasound guidance : Yes After sterile prepping and draping using 1% lidocaine for local infiltration anesthesia, right internal jugular vein was visualized using an ultrasound was finder and under direct visualization was cannulated using an introducer needle with dark nonpulsatile blood return. A Guidewire was passed through the introducer needle without any resistance and the needle was then removed. After making a skin neck and dilation of tract, a 20 cm dual lumen dialysis catheter was passed over the guidewire by modified seldinger's technique into the right internal jugular vein up to the 19 cm nacho and the guidewire was then removed. Good blood return obtained through both ports which were then flushed with saline and subsequently hep-locked. After suturing the catheter in place, a Bio- occlusive dressing with biopatch was applied to the site. Post procedure chest x -ray was ordered and reviewed with good placement of RIJ dialysis catheter with tip overlying SVC, no pneumothorax on postprocedure film. Patient tolerated the procedure well with no immediate complications noted. Timmy Tobias MD October 28, 2017 13:43
[2017-10-28] MEDS ORDERED: SODIUM CHLOR 0.9% 250 ML INJ 250 ML IV ONE (15:45)
[2017-10-28] MEDS ORDERED: VANCOMYCIN 1 GM/200 ML PREMIX ON-CALL IV SCH (17:30)
[2017-10-28] MEDS ORDERED: ceFAZolin 2 GM/DEX PREMIX 50 ML IV SCH (17:30)
[2017-10-28 20:35] LABS: INTERNATIONAL NORMALIZED RATIO 1.8 RATIO; PROTHROMBIN TIME - PATIENT 18.1 SEC (9.8-11.6)
[2017-10-29] VITALS (9 sets, daily range): BP systolic 144–217; BP diastolic 82–139; PULSE 64–97; RESP 16–20; TEMP 97.1–99; O2SAT 94–99
[2017-10-29 03:28] LABS: INTERNATIONAL NORMALIZED RATIO 1.6 RATIO
[2017-10-29] MEDS: CARBIDOPA/LEVODOPA 10 MG/100 MG TAB PO SCH ×2 (05:45→13:16)
[2017-10-29] MEDS: LEVOTHYROXINE SODIUM 100 MCG TAB PO SCH (05:45)
[2017-10-29 06:09] LABS: AUTOMATED NEUTROPHIL # 4.7 TH/MM3 (1.8-7.7); BASOPHIL # 0.2 TH/MM3 (0-0.2); EOSINOPHIL # 0.3 TH/MM3 (0-0.4); EOSINOPHIL % 4.2 % (0.0-4.0); HEMATOCRIT 25.5 % (39.0-51.0); HEMOGLOBIN 8.9 GM/DL (13.0-17.0); LYMPH % 19.7 % (9.0-44.0); LYMPHOCYTE # 1.4 TH/MM3 (1.0-4.8); MEAN CELL VOLUME 102.2 FL (80.0-100.0); MEAN CORPUSCULAR HEMOGLOBIN 35.6 PG (27.0-34.0); MEAN CORPUSCULAR HGB CONC 34.9 % (32.0-36.0); MEAN PLATELET VOLUME 7.5 FL (7.0-11.0); MONO % 9.9 % (0.0-8.0); MONOCYTE # 0.7 TH/MM3 (0-0.9); NEUT % 63.2 % (16.0-70.0); PLATELET COUNT 280 TH/MM3 (150-450); RED BLOOD COUNT 2.49 MIL/MM3 (4.50-5.90); RED CELL DISTRIBUTION WIDTH 16.2 % (11.6-17.2); WHITE BLOOD COUNT 7.3 TH/MM3 (4.0-11.0)
[2017-10-29 06:20] LABS: CALCIUM 8.3 MG/DL (8.5-10.1); INTERNATIONAL NORMALIZED RATIO 1.4 RATIO; PROTHROMBIN TIME - PATIENT 14.6 SEC (9.8-11.6)
[2017-10-29 06:21] LABS: BICARBONATE 27.2 MEQ/L (21.0-32.0)
[2017-10-29 06:24] LABS: CREATININE 3.1 MG/DL (0.60-1.30)
[2017-10-29] MEDS ORDERED: VANCOMYCIN 1000 MG/NS 250 ML ON-CALL IV SCH ×2 (07:45)
[2017-10-29] MEDS: FLUoxetine HCL 10 MG CAP PO SCH (08:58)
[2017-10-29] MEDS: SODIUM CHLORIDE 0.9% FLUSH 10 ML FLUSH IV FLUSH SCH (08:58)
[2017-10-29] MEDS: ENALAPRIL MALEATE 10 MG TAB PO SCH (08:58)
[2017-10-29] MEDS: PANTOPRAZOLE SOD 20 MG DELAYED RELEASE TAB PO SCH (08:58)
[2017-10-29] MEDS: amLODIPine BESYLATE 5 MG TAB PO SCH (08:58)
[2017-10-29] MEDS: CARVEDILOL 6.25 MG TAB PO SCH (08:58)
[2017-10-29] MEDS: CALCIUM/VITAMIN D 250 MG/125 U TAB PO SCH (08:58)
[2017-10-29] MEDS ORDERED: FUROSEMIDE 20 MG TAB PO SCH (09:00)
[2017-10-29] MEDS: SEVELAMER CARBONATE 800 MG TAB PO SCH ×2 (09:00→13:16)
[2017-10-29] MEDS ORDERED: MIDAZOLAM HCL 2 MG/2 ML VIAL IV ONE (10:35)
[2017-10-29] MEDS ORDERED: SODIUM CHLORIDE 0.9% FLUSH 10 ML FLUSH IV FLUSH PRN (11:00)
[2017-10-29] MEDS ORDERED: HEPARIN SODIUM - IV 2,000 UNITS/2 ML VIAL IV FLUSH PRN (11:00)
--- NOTE | 2017-10-29 11:01 | PD.RAD ---
Post Procedure Progress Note Pre Procedure Diagnosis: (1) End stage renal disease Post Procedure Diagnosis: (1) End stage renal disease on dialysis Procedure Date: October 29, 2017 Supervising Radiologist: Alec Marquez Proceduralist/Assist: RT Katina(R), RT Chery(R) Anesthesia: Local, Analgesia, Conscious Sedation Plan of Activity Patient to Unit: PACU Patient Condition: Good See PACS Report for procedural detail/treatment Central Venous Access Device Procedure 1 Right Internal Jugular Hemodialysis Catheter Tunneled Placement dual lumen Cypriot: 16 PICC Line Length (cm): 23 Alec Marquez MD October 29, 2017 11:01
--- NOTE | 2017-10-29 14:00 | RADRPT ---
EXAM DATE: 10/29/2017 10:52 AM EDT AGE/SEX: 77 years / Male INDICATIONS: Patient with history of end stage renal disease in need of tunneled dialysis catheter p lacement CLINICAL DATA: This is the patient's subsequent encounter. Patient reports that signs and symptoms h ave been present for 2 days and indicates a pain score of 7/10. MEDICAL/SURGICAL HISTORY: Hypertension. Diabetes. CADC VAE SRD Parkinson's CHF Macrocytic anem ia Left hip replacementAV Fistula LUE Left foot second digit amputation COMPARISON: No prior [place] exams available for comparison. FLUORO TIME (min): 0.41 IMAGE SERIES: 1 ACCESS SITE: SEDATION TIME (min): 30 MEDICATION(S): 4mg midazolam (Versed) IV 200mcg fentanyl (Sublimaze) IV DEVICE(S): [id number] Perm-cath . . PROCEDURE: 1. Ultrasound-guided venipuncture. 2. PermaCath placement. 3. Conscious sedation with continuous EKG and oximetry monitoring. The risks, benefits and alternatives to the procedure were explained and verbal and written consent w as obtained. The site was prepped in sterile fashion. Full sterile technique was used, including ca p, mask, sterile gloves and gown and a large sterile sheet. Hand hygiene and 2% chlorhexidine and/or betadine/alcohol prep was utilized per protocol for cutaneous antisepsis. Sterile gel and sterile p robe cover were utilized for ultrasound guidance. The skin and subcutaneous tissues were infiltrated with local anesthetic solution. With ultrasound and fluoroscopic guidance a dermatotomy was created over the prescribed vein. A micr opuncture set was used to access the targeted vein and serial dilatation was performed to accept the prescribed length catheter. A subcutaneous tunnel was created in a retrograde fashion the catheter w as pulled through the tunnel. The catheter was flushed and assembled and locked with heparin. The c atheter was sutured in place. Please note, the patient has very thin skin. A Prolene cerclage was bill rae to the chest wall dermatotomy to help secure the catheter. This can be removed in 10-14 days once the subcutaneous tissues have grown into the catheter cuff. Conscious sedation was performed with the prescribed dosages and duration as above in the presence of an independent trained radiology nurse to assist in the monitoring of the patient. EKG and oximetry remained stable throughout the procedure. The patient tolerated the procedure well and there were n o complications. The patient was sent to post anesthesia recovery in stable condition. CONCLUSION: 1. Uncomplicated PermaCath placement as above. 2. Patient has a Prolene cerclage at the chest wall dermatotomy to help secure the catheter. This ca n be removed in 10-14 days. Electronically signed by: Alec Marquez MD 10/29/2017 1:58 PM EDT
--- NOTE | 2017-10-29 14:22 | HHI.PR ---
Subjective Remarks Patient was seen and examined Permacath was placed by interventional radiology Currently stable, by the bedside Objective Vitals Vital Signs Date Time Temp Pulse Resp B/P (MAP) Pulse Ox O2 Delivery O2 Flow Rate FiO2 10/29/17 13:02 97.4 90 20 144/82 (102) 98 10/29/17 12:10 76 18 217/139 (165) 10/29/17 12:10 76 18 217/139 (165) 10/29/17 11:40 70 16 185/127 (146) 99 10/29/17 11:25 94 18 197/108 (137) 94 10/29/17 11:25 70 16 197/108 (137) 94 10/29/17 11:21 64 16 212/102 (138) 99 10/29/17 11:10 97.1 97 16 199/101 (133) 98 10/29/17 07:59 97.8 93 20 150/86 (107) 98 10/29/17 04:00 99.0 82 16 145/98 (114) 99 10/28/17 23:45 97.6 81 14 149/98 99 10/28/17 23:00 97.7 87 14 140/91 97 10/28/17 22:10 97.9 87 14 164/105 97 10/28/17 20:00 97.0 83 16 164/95 (118) 95 10/28/17 17:45 95 21 10/28/17 17:33 97.0 51 18 156/90 10/28/17 17:13 97.0 68 20 135/82 I/O 10/28/17 10/28/17 10/28/17 10/29/17 10/29/17 10/29/17 07:00 15:00 23:00 07:00 15:00 23:00 Intake Total 100 ml 443 ml Output Total 2000 ml Balance -1900 ml 443 ml Intake Oral 0 ml FFP 343 ml Blood Product IV Normal Saline Flush 100 ml 100 ml Output Hemodialysis 2000 ml Result Diagram: 10/29/17 0550 10/29/17 0550 Imaging Last Impressions Catheter Placement X-Ray 10/29/17 0000 Signed Impressions: CONCLUSION: 1. Uncomplicated PermaCath placement as above. 2. Patient has a Prolene cerclage at the chest wall dermatotomy to help secure the catheter. This can be removed in 10-14 days. Chest X-Ray 10/28/17 0000 Signed Impressions: CONCLUSION: Right central line in superior vena cava. No pneumothorax. Minimal basilar atel ectasis or scarring. Objective Remarks GENERAL: NAD SKIN: Warm and dry. HEAD: Normocephalic. EYES: No scleral icterus. No injection or drainage. NECK: Supple, trachea midline. No JVD or lymphadenopathy. CARDIOVASCULAR: Regular rate and rhythm without murmurs, gallops, or rubs. Permacath right anterior chest RESPIRATORY: Breath sounds equal bilaterally. No accessory muscle use. GASTROINTESTINAL: Abdomen soft, non-tender, nondistended. MUSCULOSKELETAL: No cyanosis, or edema. BACK: Nontender without obvious deformity. No CVA tenderness. Procedures Permacath placement October 29, 2017 A/P Problem List: (1) Displacement of vascular dialysis catheter ICD Code: T82.42XA - Displacement of vascular dialysis catheter, initial encounter Status: Acute Assessment and Plan 77-year-old man with Displaced vascular device, unintentional -Permacath was removed prior to arrival in the ED October 28, 2017 -Critical care physician Dr. Tobias inserted a Vas-Cath for dialysis October 28, 2017 -Patient had hemodialysis yesterday October 28, 2017 -Intervention radiology consulted and permacath was placed today October 29, 2017 End-stage renal disease on dialysis -Nephrology put appreciated -Dialysis per nephrology recommendations Hypertension -Continue home medication Hypothyroidism -Continue home medications Parkinson's disease -Continue home medication Discharge Planning Discharge patient to home Condition on discharge: Improved Regular Diet as tolerated Ad Lety activity Rx written:None Follow-up with primary care physician 1 week Follow-up with nephrology tomorrow for hemodialysis October 30, 2017 Problem Qualifiers (1) Displacement of vascular dialysis catheter: Qualified Codes: T82.42XA - Displacement of vascular dialysis catheter, initial encounter Jae Bettencourt MD October 29, 2017 14:22
--- NOTE | 2017-10-29 15:28 | RADRPT ---
EXAM DATE: 10/29/2017 10:49 AM EDT AGE/SEX: 77 years / Male INDICATIONS: Patient with history of end stage renal disease in need of non tunnelled dialysis caitie ter removal. CLINICAL DATA: This is the patient's subsequent encounter. Patient reports that signs and symptoms h ave been present for 2 days and indicates a pain score of 7/10. MEDICAL/SURGICAL HISTORY: Hypertension. Diabetes. CADC VAE SRD Parkinson's CHF Macrocytic anem ia Left hip replacement Fistula LUE Left foot second digit amputation COMPARISON: No prior [place] exams available for comparison. IMAGE SERIES: ACCESS SITE: DEVICE(S): . . PROCEDURE: 1. Temporary central venous catheter removal. The prescribed catheter was removed intact and hemostasis was achieved with direct pressure. The sit e was dressed appropriately. The patient tolerated the procedure well. CONCLUSION: 1. Uncomplicated catheter removal. Electronically signed by: Alec Marquez MD 10/29/2017 3:27 PM EDT
--- NOTE | 2017-10-29 23:50 | HHI.NPPN ---
Subjective General Problems: Heart Disease, Hypertension Renal Failure: End Stage Renal Disease History of Present Illness 77 year old male with a past medical history of hypertension, diabetes, Parkinson disease, cerebral vascular accident, coronary artery disease with AICD , and hypothyroidism. Patient presented to the emergency with a permacath that was dislodged at home. Nephrology is consulted for management of end stage renal disease and hemodialysis. Additional Remarks Patient seen in greg afternoon, no SOB, mild pain at Catheter site. Objective Data Data 10/29/17 10/30/17 19:00 07:00 Intake Total 330 ml Output Total 20 ml Balance 310 ml IV Total 330 ml Output Urine Total 20 ml Vital Signs Date Time Temp Pulse Resp B/P (MAP) Pulse Ox O2 Delivery O2 Flow Rate FiO2 10/29/17 15:40 98.0 91 20 148/86 (106) 98 10/29/17 13:02 97.4 90 20 144/82 (102) 98 10/29/17 12:10 76 18 217/139 (165) 10/29/17 12:10 76 18 217/139 (165) 10/29/17 11:40 70 16 185/127 (146) 99 10/29/17 11:25 94 18 197/108 (137) 94 10/29/17 11:25 70 16 197/108 (137) 94 10/29/17 11:21 64 16 212/102 (138) 99 10/29/17 11:10 97.1 97 16 199/101 (133) 98 10/29/17 07:59 97.8 93 20 150/86 (107) 98 10/29/17 04:00 99.0 82 16 145/98 (114) 99 -: 10/29/17 0550 10/29/17 0550 Physical Exam General Appearance: No Acute Distress, Comfortable Eyes Eye Exam: Pupils Equal Throat Throat Exam: Oral Mucosa Topaz & Moist Neck Neck Exam: Neck Supple Pulmonary Resp Exam: Breath Sounds Equal, Rhonchi, Decreased Bases Cardiology CV Exam: Irregular, Arrhythmia Gastrointestinal/Abdomen GI Exam: Soft, Non-Tender, Bowel Sounds Present Extremeties Extremities Exam: Trace Edema Neurologic Neuro Exam: Alert, Awake, Oriented Assessment/Plan Problem List: (1) End stage renal disease ICD Codes: N18.6 - End stage renal disease Status: Acute Plan: End stage renal disease on hemodialysis on Wednesday, , and Wednesday. Patient has PermCath done. INR was 1.4, Patient for discharge, to continue HD TTS. To continue Coumadin. (2) Displacement of vascular dialysis catheter ICD Codes: T82.42XA - Displacement of vascular dialysis catheter, initial encounter Status: Acute Plan: Vas cath placement at bedside. Problem Qualifiers (1) Displacement of vascular dialysis catheter: Qualified Codes: T82.42XA - Displacement of vascular dialysis catheter, initial encounter Valarie Durant MD October 29, 2017 23:50
[2017-10-30] MEDS ORDERED: MEGESTROL ACETATE SUSP 400 MG/10 ML CUP PO SCH (09:00)
== END 2017-10-29 16:08 | disposition home or self-care (01) ==
LOC: PHED 05:46 → PHEDA 06:25 → PH3A 09:48
PROVIDERS: ADMIT Hospitalist; ATTEND Hospitalist
DX: T82.42XA Displacement of vascular dialysis catheter, initial encounter (principal); Z79.01 Long term (current) use of anticoagulants; I48.91 Unspecified atrial fibrillation; Z86.73 Personal history of transient ischemic attack (TIA), and cerebral infarction without residual deficits; I25.10 Atherosclerotic heart disease of native coronary artery without angina pectoris; N18.6 End stage renal disease; E11.22 Type 2 diabetes mellitus with diabetic chronic kidney disease; K21.9 Gastro-esophageal reflux disease without esophagitis; I50.22 Chronic systolic (congestive) heart failure; I13.2 Hypertensive heart and chronic kidney disease with heart failure and with stage 5 chronic kidney disease, or end stage renal disease; G20 Parkinson's disease; I25.2 Old myocardial infarction; Z99.2 Dependence on renal dialysis; E03.9 Hypothyroidism, unspecified; Z79.899 Other long term (current) drug therapy; F41.8 Other specified anxiety disorders; D46.9 Myelodysplastic syndrome, unspecified; D53.9 Nutritional anemia, unspecified; Z79.4 Long term (current) use of insulin
CPT/HCPCS: 36430; 36558; 71045; 76937; 77001; 80048; 85025; 85610; 85730; 86850; 86900; 86901; 86927; 87493; 90935; 96361; 96365; 96368; 96374; 99152; 99153; 99285; C1750; C1769; G0257; G0378; J0690; J1580; J1644; J2250; J3010; J3370; J7030; J7050; P9017

== ENCOUNTER → 2017-11-29 | Day surgery (SDC) | payer MEDICARE, BC ==
[~2017-11-29] VITALS: Ht 188 cm; Wt 77.0 kg
[~2017-11-29] MED LIST changes: +*LABETALOL HCL 100 MG/20 ML VIAL PERIprocedural Use ONLY ONE; +BUPIVACAINE HCL PF 0.5% 30 ML VIAL ONE; +CHLORHEXIDINE GLUCONATE 2 % 1 PACK (2 CLOTHS) TOPICAL PRN; +DO NOT ADM ANY ANTICOAGULANT DRUGS PRN; +HEPARIN SODIUM - IV 10,000 UNITS/10 ML VIAL ONE; +HEPARIN-NS/PF INJ 500 ML ONE; +LACTATED RINGER'S 1000 ML IV PRN; +LIDOCAINE HCL 1% PF 5 ML SYRINGE OTHER ONE; +METOPROLOL TARTRATE 25 MG TAB PO PRN; +ONDANSETRON HCL 4 MG/2 ML VIAL IV PUSH ONE; +PHENYLEPH/NS 1000 MCG/10 ML SYR IV ONE; +POVIDONE IODINE 5% (ANTISEPSIS KIT) 4 APPLICATIONS EACH NARE PRN; +PROPOFOL 200 MG/20 ML AMP IV ONE; +PROTAMINE SULFATE 50 MG/5 ML VIAL ONE; +SODIUM CHLORID 0.9% 500 ML IV PRN; +THROMBIN (TOPICAL) 20,000 UNIT SPRAY KIT ONE; +VANCOMYCIN HCL 1000 MG VIAL ONE; +ceFAZolin 2 GM PREMIX 0 ML ONE; +ePHEDrine/NS 25 MG/5 ML SYRINGE IV ONE; +fentaNYL CITRATE 250 MCG/5 ML AMP ONE
[2017-11-29 07:32] LABS: AUTOMATED NEUTROPHIL # 6.1 TH/MM3 (1.8-7.7); BASOPHIL # 0.1 TH/MM3 (0-0.2); EOSINOPHIL # 0.3 TH/MM3 (0-0.4); EOSINOPHIL % 3.2 % (0.0-4.0); HEMATOCRIT 31.3 % (39.0-51.0); HEMOGLOBIN 10.9 GM/DL (13.0-17.0); LYMPH % 23.5 % (9.0-44.0); LYMPHOCYTE # 2.4 TH/MM3 (1.0-4.8); MEAN CELL VOLUME 104.5 FL (80.0-100.0); MEAN CORPUSCULAR HEMOGLOBIN 36.5 PG (27.0-34.0); MEAN CORPUSCULAR HGB CONC 34.9 % (32.0-36.0); MEAN PLATELET VOLUME 7.7 FL (7.0-11.0); MONO % 12.1 % (0.0-8.0); MONOCYTE # 1.2 TH/MM3 (0-0.9); NEUT % 60.2 % (16.0-70.0); PLATELET COUNT 275 TH/MM3 (150-450); RED CELL DISTRIBUTION WIDTH 16.6 % (11.6-17.2); WHITE BLOOD COUNT 10.2 TH/MM3 (4.0-11.0)
--- NOTE | 2017-11-29 07:32 | HHI.HP ---
History of Present Illness Chief Complaint: ESRD, need for HD access History of Present Illness 77 yo male with ESRD qTTS, admitted a few weeks ago with eroding L UE RC AVF. Emergently ligated. Healed well. Needs new access. Past/Family/Social History Past Medical History ESRD CAD HTN TIA thyroid disease Parkinson Past Surgical History L UE access, ligation tonsillectomy Social History retired Family History NC Home Medications Reported Medications Temazepam (Restoril) 7.5 Mg Cap, 7.5 MG PO HS Y for INSOMNIA, #30 CAP 0 Refills 10/07/17 Calcitriol (Calcitriol) 0.25 Mcg Cap, 0.25 MCG PO TuThSa for Calcium Supplement , #30 CAP 0 Refills Take 1 tablet (0.25mcg) daily on dialysis days (Wednesday, and Wednesday) 10/07/17 Amlodipine (Norvasc) 5 Mg Tab, 5 MG PO DAILY for Blood Pressure Management, #30 TAB 0 Refills 10/07/17 Megestrol Liq (Megestrol Liq) 40 Mg/Ml Susp, 200 MG PO EVERY OTHER DAY, #240 ML 0 Refills 10/07/17 Calcium Carbonate-Cholecalciferol (Calcium + D3) 600-200 Mg-Unit Tab, 1 TAB PO DAILY for Nutritional Supplement, TAB 10/07/17 Warfarin (Coumadin) 3 Mg Tab, 4.5 MG PO DAILY for Prevent Blood Clot, #30 TAB 0 Refills 10/07/17 Cholecalciferol (Vitamin D3) 1,000 Unit Chew, 1000 UNITS PO BID for Nutritional Supplement, #1 BOTTLE 0 Refills 12/31/16 Multiple Vitamin (Multi-Vitamin Daily) 1 Tab Tab, 1 TAB PO DAILY for Nutritional Supplement, TAB 0 Refills 12/31/16 Sevelamer Carbonate (Renvela) 800 Mg Tab, 800 MG PO TID for Control phosphorous levels, #90 TAB 0 Refills 05/21/16 Furosemide (Furosemide) 20 Mg Tab, 20 MG PO SuMoWeFr, #60 TAB 0 Refills Take 1 tablet (20mg) daily on Wednesday,Wednesday,Wednesday and Wednesday05/21/16 Fluoxetine (Fluoxetine) 10 Mg Tab, 10 MG PO DAILY, #30 TAB 0 Refills 05/21/16 Enalapril (Vasotec) 10 Mg Tab, 10 MG PO BID, #60 TAB 0 Refills 05/21/16 Carbidopa-Levodopa (Carbidopa-Levodopa) 10-100 Mg Tab, 1 TAB PO Q8HR for Parkinson Disease Mgmt, #90 TAB 0 Refills 05/21/16 Omeprazole (Omeprazole) 20 Mg Tab, 20 MG PO DAILY, #30 TAB 0 Refills 05/21/16 Levothyroxine (Levothyroxine) 100 Mcg Tab, 100 MCG PO DAILY for Thyroid, #30 TAB 0 Refills 05/21/16 Discontinued Reported Medications Carvedilol (Carvedilol) 6.25 Mg Tab, 6.25 MG PO BID, #60 TAB 0 Refills 05/21/16 Discontinued Scripts Walker with Front Wheels (Walker with Front Wheels) 1 Mis Mis, EA .XX DIRECTED, #1 0 Refills Prov:Ash Alvares MD R3 10/12/17 Coded Allergies: Sulfa (Sulfonamide Antibiotics) (Unverified Allergy, Unknown, Rash, ) Review of Systems Constitutional: DENIES: Diaphoretic episodes, Fatigue, Fever, Weight gain, Weight loss, Chills, Dizziness, Change in appetite, Night Sweats Physical Exam Vitals/I&O Date Time Temp Pulse Resp B/P (MAP) Pulse Ox O2 Delivery O2 Flow Rate FiO2 11/29/17 06:47 97.8 80 16 182/101 (128) 100 Neuro: alert, no distress HEENT: NC/AT Neck: trachea midline Heart: reg rate, no M Lungs: clear B Vascular: L UE incision healed palpable brachial pulse Extremities: R UE motor dysfunction, stable pending AVF eval reviewed: no autogenous vein Caprini VTE Risk Assessment Caprini VTE Risk Assessment: No/Low Risk (score <= 1) Caprini Risk Assessment Model Point Value = 1 Point Value = 2 Point Value = 3 Point Value = 5 Age 41-60 Minor surgery BMI > 25 kg/m2 Swollen legs Varicose veins or History of unexplained or recurrent spontaneous Oral contraceptives or hormone replacement Sepsis (< 1 month) Serious lung disease, including pneumonia (< 1 month) Abnormal pulmonary function Acute myocardial infarction Congestive heart failure (< 1 month) History of inflammatory bowel disease Medical patient at bed rest Age 61-74 Arthroscopic surgery Major open surgery (> 45 min) Laparoscopic surgery (> 45 min) Malignancy Confined to bed (> 72 hours) Immobilizing plaster cast Central venous access Age >= 75 History of VTE Family history of VTE Factor V Leiden Prothrombin [id number] Lupus anticoagulant Anticardiolipin antibodies Elevated serum homocysteine Heparin-induced thrombocytopenia Other congenital or acquired thrombophilia Stroke (< 1 month) Elective arthroplasty Hip, pelvis, or leg fracture Acute spinal cord injury (< 1 month) Prophylaxis Regimen Total Risk Factor Score Risk Level Prophylaxis Regimen 0-1 Low Early ambulation 2 Moderate Order ONE of the following: *Sequential Compression Device (SCD) *Heparin 5000 units SQ BID 3-4 Higher Order ONE of the following medications: *Heparin 5000 units SQ TID *Enoxaparin/Lovenox 40 mg SQ daily (WT < 150 kg, CrCl > 30 mL/min) *Enoxaparin/Lovenox 30 mg SQ daily (WT < 150 kg, CrCl > 10-29 mL/min) *Enoxaparin/Lovenox 30 mg SQ BID (WT < 150 kg, CrCl > 30 mL/min) AND/OR *Sequential Compression Device (SCD) 5 or more Highest Order ONE of the following medications: *Heparin 5000 units SQ TID (Preferred with Epidurals) *Enoxaparin/Lovenox 40 mg SQ daily (WT < 150 kg, CrCl > 30 mL/min) *Enoxaparin/Lovenox 30 mg SQ daily (WT < 150 kg, CrCl > 10-29 mL/min) *Enoxaparin/Lovenox 30 mg SQ BID (WT < 150 kg, CrCl > 30 mL/min) AND *Sequential Compression Device (SCD) Assessment and Plan Plan L UE AVG, POA Discharge Planning Anticipate d/c POD#1 after HD Ananth Noel MD Nov 29, 2017 07:32
[2017-11-29 07:45] LABS: INTERNATIONAL NORMALIZED RATIO 1.1 RATIO; PROTHROMBIN TIME - PATIENT 11.6 SEC (9.8-11.6)
[2017-11-29 07:58] LABS: BICARBONATE 20.9 MEQ/L (21.0-32.0); CALCIUM 8.8 MG/DL (8.5-10.1); CREATININE 3.44 MG/DL (0.60-1.30)
--- NOTE | 2017-11-29 08:55 | HHI.PR ---
cc: Ananth Noel MD Immediate Post Op Note Procedure Date: Nov 29, 2017 Pre Op Diagnosis: ESRD, need for HD access Post Op Diagnosis: ESRD, need for HD access Surgeon: Ananth Noel Patient Service Specialist(s): Vanessa Monte Procedure: L brachiobasilic AVF (1st stage) Findings: 3mm basilic vein, After AVF creation, + thrill and good radial pulse Complications: none Estimated blood loss: 20mL Anesthesia: LMA Drains: None Fluids: 500mL IVF Patient to: PACU Patient Condition: Good Date/Time of Procedure: SEE SURGICAL CARE RECORD Ananth Noel MD Nov 29, 2017 08:55
[2017-11-29 10:09] VITALS: BP 123/77; PULSE 84; RESP 20; TEMP 97.9; O2SAT 100
--- NOTE | 2017-11-29 15:49 | MP ---
cc: Ananth Noel MD DATE OF OPERATION: 11/29/2017 PREOPERATIVE DIAGNOSIS: End-stage renal disease, need for dialysis access. POSTOPERATIVE DIAGNOSIS: End-stage renal disease, need for dialysis access. PROCEDURE PERFORMED: Left upper extremity brachiobasilic arteriovenous fistula (first stage). ATTENDING SURGEON: Ananth Noel MD MORPHOLOGIST SURGEON: Vanessa Bullard. ANESTHESIA: General. INDICATIONS: Mr. Martinez is a 77-year-old gentleman with end-stage renal disease. He had a left Derick and presented with skin erosion and active bleeding and this was emergently ligated. He presents for a new access creation. Preoperatively, it was found he had no suitable autogenous veins. However, intraoperatively his left basilic vein was 3-4 mm and was used as a conduit. DESCRIPTION OF PROCEDURE: Informed consent was obtained from the patient. He was taken to the operating room and placed supine on the operating table. An appropriate timeout was taken to ensure the patient's identity, operative site and planned procedure. The administration of 1 gram of vancomycin was initiated prior to skin incision and will be discontinued after single preoperative dose. Vancomycin was chosen because of the patient's end-stage renal disease. Everyone in the room agreed with the timeout and we proceeded. His left arm was prepped and draped and an incision made in the medial aspect of the upper arm, carried down through the subcutaneous tissue with electrocautery. The basilic vein was identified and dissected free for several centimeters. The brachial artery was identified in the medial aspect of this incision and dissected free for several centimeters. The patient was systemically heparinized with 3000 units of IV heparin. The distal aspect of the basilic vein was clamped, transected and ligated. The vein was distended and noted to be 4 mm. Proximal and distal control of the brachial artery was obtained with profunda clamps and a longitudinal arteriotomy was made with the 11 blade, extended with Tony scissors. The vein was spatulated and sewn end-to-side with running 6-0 Prolene suture. At the completion, it was flushed and noted to be hemostatic. There was a nice thrill in the fistula and a palpable radial pulse. The wound was infiltrated with Marcaine and closed with 2-0 Polysorb, 3-0 Polysorb and 4-0 Monocryl. The sponge and needle counts were correct at the end of the case. I was present, scrubbed, and performed the entire procedure. MD ION Newsome/MARTY , 03:25 PM , 03:48 PM
== END | disposition home or self-care (01) ==
LOC: HCVO 05:55
PROVIDERS: ATTEND Surgery
DX: N18.6 End stage renal disease (principal); I12.0 Hypertensive chronic kidney disease with stage 5 chronic kidney disease or end stage renal disease; I25.10 Atherosclerotic heart disease of native coronary artery without angina pectoris; E07.9 Disorder of thyroid, unspecified; Z99.2 Dependence on renal dialysis; Z79.01 Long term (current) use of anticoagulants; Z86.73 Personal history of transient ischemic attack (TIA), and cerebral infarction without residual deficits; Z88.2 Allergy status to sulfonamides
CPT/HCPCS: 01844; 36819; 80048; 85025; 85610; 86850; 86900; 86901; J1644; J2370; J2405; J2720; J3010; J3370; J7040; J0690

== ENCOUNTER 2018-03-14 07:34 | Observation (INO) ==
[2018-03-14] MEDS ORDERED: Heparin/NS PF Inj 500 ML ONE (08:01)
[2018-03-14] MEDS ORDERED: Bupivacaine PF 0.5% Inj 10 ML Vial ONE (08:01)
[2018-03-14] MEDS ORDERED: Heparin 10,000 UNITS/10 ML Vial (for IV use) ONE (08:01)
[2018-03-14] MEDS ORDERED: Thrombin Topical 20,000 UNIT Spray Kit TOPICAL ONE (08:01)
[2018-03-14] MEDS ORDERED: Protamine Sulfate Inj 50 MG/5 ML Vial ONE (08:01)
[2018-03-14] MEDS ORDERED: Metoprolol Tartrate 25 MG Tablet PO ONE (08:30)
[2018-03-14] MEDS ORDERED: Chlorhexidine Gluconate 2% 1 Pack (2 Cloths) TOPICAL ONE (08:30)
[2018-03-14] MEDS ORDERED: Sodium Chlor 0.9% Inj 500 ML IV.CONT ONE (08:30)
--- NOTE | 2018-03-14 08:46 | P.HPVS ---
History of Present Illness Chief Complaint: ESRD , need for HD access History of Present Illness: 77 yo male s/p L UE brachiobasilic (1st stage), presents for 2nd stage no recent change in overall health that would preclude OR. Ready for 2nd stage - Inpatient Certification If this patient has been admitted as an Inpatient: I certify that the inpatient services were ordered in accordance with Medicare regulations governing the order. This includes certification that hospital inpatient services are reasonable and necessary and in the case of services not specified as inpatient-only under 42 CFR 419.22(n), that they are appropriately provided as inpatient services in accordance to with the 2-midnight benchmark under 43 CFR 412.3(e) Estimated Total Length of Stay (Days): 2 Plans for Post Hospital Care: Home Review of Systems Constitutional: Denies chills, Denies fever(s) PMFSH - History History Provided By: Family Member - Medical History Medical History: Medical History (Last Reviewed 03/14/18 @ 08:45 by Ananth Noel MD) Broken arm Broken leg Depression Diabetes Dialysis patient Hypertension Hypothyroidism Parkinsons 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 Renal failure - Surgical History Surgical History: Surgical History (Last Reviewed 03/14/18 @ 08:45 by Ananth Noel MD) AICD (automatic cardioverter/defibrillator) present Hx of cataract removal with insertion of prosthetic lens Hx of joint replacement - Tobacco History Second Hand Smoke Exposure: No Smoking Status: Former smoker - Alcohol History How Often Do You Have a Drink Containing Alcohol: 4 or more times a week - Substance Use History Substance History: No History of Abuse Medications and Allergies Active Medications: Active Medications Lactated Ringer's (Lr 1000 Ml Inj) 1,000 mls @ 30 mls/hr IV.CONT .Q24H ONE Stop: 03/15/18 08:29 Sodium Chloride (Ns Inj) 500 mls @ 30 mls/hr IV.CONT .[id number] ONE Stop: 03/15/18 01:09 Allergies Allergy/AdvReac Type Severity Reaction Status Date / Time Sulfa (Sulfonamide Allergy Severe Rash Verified 03/14/18 08:43 Antibiotics) adhesive AdvReac Severe Redness of Verified 03/14/18 08:44 Skin, RASH, BLISTERS, CAUSES SKIN TO COME OFF Home Medications Medication Instructions Recorded Confirmed Type calcitriol 1 dose PO 3XW 12/05/17 03/10/18 History calcium carbonate-vitamin D3 1 tab PO DAILY 12/05/17 03/10/18 History [Calcium 600 + D(3)] carbidopa-levodopa 1 tab PO TID 12/05/17 03/10/18 History carvedilol 6.25 mg PO BID 12/05/17 03/10/18 History cholecalciferol (vitamin D3) 2,000 unit PO DAILY 12/05/17 03/10/18 History [Vitamin D3] enalapril maleate [Vasotec] 10 mg PO BID 12/05/17 03/10/18 History fluoxetine 10 mg PO DAILY 12/05/17 03/10/18 History furosemide 20 mg PO 4XW 12/05/17 03/10/18 History levothyroxine 100 mcg PO DAILY 12/05/17 03/10/18 History multivitamin [Multiple Vitamins] 1 tab PO DAILY 12/05/17 03/10/18 History omeprazole 20 mg PO DAILY 12/05/17 03/10/18 History sevelamer carbonate [Renvela] 800 mg PO TID PRN 12/05/17 03/10/18 History warfarin 3 mg PO DAILY 03/10/18 03/10/18 History warfarin 4.5 mg PO DAILY 03/10/18 03/10/18 History Physical Exam Vital Signs / I&O: Intake & Output 03/13/18 03/14/18 03/14/18 18:59 06:59 18:59 Weight 72.6 kg Other: Weight On Admission 72.6 kg Neuro: alert, pleasant HEENT: NC/AT Neck: no JVD Heart: reg rate, no M Lungs: clear B Vascular: L UE incisions healed + thrill 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 Caprini VTE Risk Assessment Caprini VTE Risk Assessment: No/Low Risk (score <= 1) (intraop heparin) Caprini Risk Assessment Model: Point Value = 1 Point Value = 2 Point Value = 3 Point Value = 5 Age 41-60 Minor surgery BMI > 25 kg/m2 Swollen legs Varicose veins or History of unexplained or recurrent spontaneous Oral contraceptives or hormone replacement Sepsis (< 1 month) Serious lung disease, including pneumonia (< 1 month) Abnormal pulmonary function Acute myocardial infarction Congestive heart failure (< 1 month) History of inflammatory bowel disease Medical patient at bed rest Age 61-74 Arthroscopic surgery Major open surgery (> 45 min) Laparoscopic surgery (> 45 min) Malignancy Confined to bed (> 72 hours) Immobilizing plaster cast Central venous access Age >= 75 History of VTE Family history of VTE Factor V Leiden Prothrombin [id number] Lupus anticoagulant Anticardiolipin antibodies Elevated serum homocysteine Heparin-induced thrombocytopenia Other congenital or acquired thrombophilia Stroke (< 1 month) Elective arthroplasty Hip, pelvis, or leg fracture Acute spinal cord injury (< 1 month) Prophylaxis Regimen: Total Risk Factor Score Risk Level Prophylaxis Regimen 0-1 Low Early ambulation 2 Moderate Order ONE of the following: *Sequential Compression Device (SCD) *Heparin 5000 units SQ BID 3-4 Higher Order ONE of the following medications: *Heparin 5000 units SQ TID *Enoxaparin/Lovenox 40 mg SQ daily (WT < 150 kg, CrCl > 30 mL/min) *Enoxaparin/Lovenox 30 mg SQ daily (WT < 150 kg, CrCl > 10-29 mL/min) *Enoxaparin/Lovenox 30 mg SQ BID (WT < 150 kg, CrCl > 30 mL/min) AND/OR *Sequential Compression Device (SCD) 5 or more Highest Order ONE of the following medications: *Heparin 5000 units SQ TID (Preferred with Epidurals) *Enoxaparin/Lovenox 40 mg SQ daily (WT < 150 kg, CrCl > 30 mL/min) *Enoxaparin/Lovenox 30 mg SQ daily (WT < 150 kg, CrCl > 10-29 mL/min) *Enoxaparin/Lovenox 30 mg SQ BID (WT < 150 kg, CrCl > 30 mL/min) AND *Sequential Compression Device (SCD) Assessment and Plan - Assessment (1) ESRD (end stage renal disease) on dialysis Code(s): N18.6 - End stage renal disease; Z99.2 - Dependence on renal dialysis Status: Acute - Plan LEFT upper extremity AVF revision (transposition) post-op adm for obs and HD [phone]
--- NOTE | 2018-03-14 08:49 | XR ---
EXAM DATE: 03/14/2018 12:00 AM EDT AGE/SEX: 77 years / Male INDICATIONS: Evaluate for pneumonia, pneumothorax, or any communicable disease. Pre op revision of christophe wilkins. CLINICAL DATA: This is the patient's initial encounter. Patient reports that signs and symptoms have been present for 1 day and indicates a pain score of 0/10. MEDICAL/SURGICAL HISTORY: . Diabetes. Hypertension. Parkinson's disease . Defibrillator. COMPARISON: [facility], CHEST SINGLE AP, 10/28/2017. . FINDINGS: A single AP view of the chest demonstrates clear lungs with the exception of minimal density left low er lobe. The cardiomediastinal contours are unremarkable. Osseous structures are intact. Right-side d vascular catheter unchanged. Metallic pacing device on the left is unchanged. Cardiomegaly. Bluntin g of the left costophrenic angle CONCLUSION: Small left pleural effusion and left basilar atelectasis. Electronically signed by: Jae Tucker MD 03/14/2018 8:48 AM EDT
[2018-03-14 09:13] LABS: Baso # (Auto) 0.1 th/mm3 (0.0-0.2); Baso % (Auto) 0.9 % (0.0-2.0); Eos # (Auto) 0.3 th/mm3 (0.0-0.4); Eos % (Auto) 4.4 % (0.0-4.0); Hematocrit 34.6 % (39.0-51.0); Hemoglobin 11.2 gm/dL (13.0-17.0); Lymph # (Auto) 1.8 th/mm3 (1.0-4.8); Lymph % (Auto) 25.3 % (9.0-44.0); Mean Corpuscular HGB Conc 32.3 % (32.0-36.0); Mean Corpuscular Hemoglobin 35.6 pg (27.0-34.0); Mean Corpuscular Volume 110.2 fL (80.0-100.0); Mean Platelet Volume 8.4 fL (7.0-11.0); Mono % (Auto) 13.7 % (0.0-8.0); Neut % (Auto) 55.7 % (16.0-70.0); Platelet Count 247 th/mm3 (150-450); Red Blood Count 3.14 mil/mm3 (4.50-5.90); Red Cell Distribution Width 13.9 % (11.6-17.2); White Blood Count 7.1 th/mm3 (4.0-11.0)
[2018-03-14 09:27] LABS: Calcium 8.9 mg/dL (8.5-10.1); Carbon Dioxide 26.6 meq/L (21.0-32.0); Potassium 4.3 meq/L (3.5-5.1)
[2018-03-14 09:35] LABS: INR 1.5 Ratio; Prothrombin Time 14.7 sec (9.8-11.6)
[2018-03-14] MEDS ORDERED: Phenylephrine/NS 1000 MCG/10ML Syringe IV.PUSH ONE (10:37)
--- NOTE | 2018-03-14 11:57 | P.OP ---
- Preoperative Diagnosis (1) ESRD (end stage renal disease) on dialysis - Postoperative Diagnosis (1) ESRD (end stage renal disease) on dialysis Date of procedure: 03/14/18 Procedure: LEFT upper extremity AVF revision (2nd stage brachibasilic AVF) Implants: none Anesthesia: GETA Surgeon: Ananth Neol MD Estimated blood loss (mL): 20 IV fluids (mL): 550 Pathology: none sent Operation and Findings: decent basilic vein + radial and ulnar signals after AVf good thrill
[2018-03-14] MEDS ORDERED: Bisacodyl 10 MG Supp RECTAL PRN ×2 (11:58→12:00)
[2018-03-14] MEDS ORDERED: Furosemide 20 MG Tablet PO SCH (12:15)
[2018-03-14] MEDS ORDERED: fentaNYL Citrate Inj 100 MCG/2 ML Ampul ONE (12:28)
[2018-03-14] MEDS ORDERED: *morphine SULFATE 4 MG/ML PERIprocedure ONLY ONE ×2 (12:54→13:17)
[2018-03-14] MEDS ORDERED: Heparin Central Flush 100 UNIT/ML 5 ML Vial IV.FLUSH ONE (12:55)
[2018-03-14] MEDS ORDERED: Albumin Human 25% Inj 100 ML IV.SIG PRN (15:56)
[2018-03-14] MEDS ORDERED: Heparin 10,000 UNITS/10 ML Vial (for IV use) OTHER PRN ×2 (15:56)
[2018-03-14] MEDS ORDERED: Sod Chloride 0.9% Inj 1,000 ML IV.CONT PRN (15:56)
[2018-03-14] MEDS ORDERED: Acetaminophen 325 MG Tablet PO PRN (15:56)
[2018-03-14] MEDS ORDERED: Sod Chloride 0.9% Inj 1,000 ML OTHER PRN ×2 (15:56)
[2018-03-14] MEDS ORDERED: Gelatin 12 MM/7 MM Topical Foam TOPICAL PRN (15:56)
[2018-03-14] MEDS ORDERED: Furosemide 40 MG Tablet PO ONE (16:00)
[2018-03-14] MEDS ORDERED: Sodium Chloride 0.9% 2 ML Flush PRN IV.FLUSH (16:42)
--- NOTE | 2018-03-14 17:17 | MB ---
cc: Mitchell Durant MD DATE: 03/14/2018 REASON FOR CONSULTATION: End-stage renal disease, on hemodialysis for evaluation. HISTORY OF PRESENT ILLNESS: This is a very pleasant 77-year-old male known to me from before with a past medical history of hypertension, diabetes mellitus, ischemic heart disease, hypothyroidism, history of cerebrovascular accident, parkinsonism, hypoalbuminemia with malnutrition, hypothyroidism, end-stage renal disease on hemodialysis 3 times per week, who was admitted for revision of left arm AV fistula. I was called to see the patient for the management of dialysis. The patient has been on hemodialysis on Wednesday, , and Wednesday. He has his regular dialysis on Wednesday. He has left arm AV fistula, which is deep and Dr. Noel admitted him for the revision of the fistula with superficialization and the procedure is done. The patient was seen by me postoperatively. He is currently with nasal cannula. He denies any chest pain, nausea, vomiting. Denies any shortness of breath. His appetite has not been very good. He has been given medications in the past and getting the intradialysis parenteral nutrition. His albumin has been low. There is no history of diarrhea. PAST MEDICAL HISTORY: Hypertension, ischemic heart disease, history of cerebrovascular accident, Parkinson disease, hypothyroidism, end-stage renal disease on hemodialysis, hypoalbuminemia with malnutrition. PAST SURGICAL HISTORY: Left arm AV fistula surgery and removal, because of the rupture; tonsillectomy, cataract surgery. REVIEW OF SYSTEMS: The patient denies any history of fever. No headache, dizziness or blurry vision. He has generalized weakness and feeling dizzy on walking, and uses a walker to walk. Denies any chest pain. No shortness of breath, no palpitation. No nausea or vomiting, but has decreased appetite. No history of diarrhea. No abdominal pain. SOCIAL HISTORY: The patient is , lives with his . He has a past history of smoking. Occasionally drinks wine. FAMILY HISTORY: Noncontributory. ALLERGIES: HE HAS AN ALLERGY TO SULFA AND ADHESIVES. MEDICATIONS: Currently, he is on following medications: Milk of magnesia, Dulcolax as needed, calcitriol 25 mcg, 3 times a day; Os-Karlos 2 tablets daily, Sinemet 1 tablet t.i.d., carvedilol 6.25 mg b.i.d., Vasotec 10 mg b.i.d., Prozac 10 mg daily, Lasix 20 mg, 4 times a day; Dilaudid 2 mg p.r.n., Ringer's lactate 30 mL an hour, Theragran 1 tablet daily, oxycodone as needed, Susu-Colace as needed, vitamin D3 of 2000 units daily, Renvela 800 mg t.i.d. PHYSICAL EXAMINATION: GENERAL: The patient is awake, alert. He is not in acute distress. VITAL SIGNS: Blood pressure is 136/86, temperature 98.1, oxygen saturation 93% to 98%. HEENT: Pupils are mildly constricted. Nonicteric sclerae. Conjunctivae pale. NECK: Supple. JVD is not elevated. LUNGS: The patient has bilateral good air entry with occasional wheezing. HEART: S1, S2. Regular rate and rhythm. ABDOMEN: Soft and lax. There is no tenderness. Bowel sounds positive. EXTREMITIES: Mild edema in the legs. Left arm is the AV fistula site with good bruit. INVESTIGATIONS: WBC count is 7.1, hemoglobin 9.2, platelet count of 247, neutrophils 55.7. INR is 1.5, PTT is 28.7. Sodium 141, potassium 4.3, chloride 106, bicarbonate 26.6, BUN 18, creatinine 3.3, glucose 115. Calcium 8.9. The patient has no recent imaging study done. ASSESSMENT AND PLAN: 1. Revision of a left arm AV fistula with superficialization. 2. End-stage renal disease on hemodialysis. 3. Hypertension. 4. Malnutrition and hypoalbuminemia. 5. Mild anemia. The patient had AV fistula superficialization done. He has a good bruit and currently he has a PermCath through which he is getting the dialysis. His dialysis is Wednesday, , and Wednesday, so he is due for dialysis tomorrow. I have already arranged dialysis to be done here in the hospital, and will continue the rest of his medications. I did discuss with the about appetite stimulant and according to her, his primary physician is working on the alternative for Megace, since Megace was working before, but is not working well now. We will continue the intradialytic parenteral nutrition as an outpatient and hemodialysis will be done here in the hospital tomorrow. Thank you for the consultation. I will follow the patient while he is in the hospital. Valarie Durant MD AQJ/rh , 03:57 PM , 04:11 PM
[2018-03-14] MEDS ORDERED: Senna/Docusate Sodium 8.6/50 MG Tablet PO SCH (21:00)
[2018-03-14] MEDS ORDERED: Famotidine 20 MG Tablet PO SCH (21:00)
[2018-03-14] MEDS: Senna/Docusate Sodium 8.6/50 MG Tablet PO SCH (21:13)
[2018-03-14] MEDS: Sodium Chloride 0.9% 2 ML Flush BID IV.FLUSH SCH (21:13)
[2018-03-14] MEDS: Carvedilol 6.25 MG Tablet PO SCH (21:13)
--- NOTE | 2018-03-14 22:38 | MP ---
cc: Ananth Noel MD DATE OF OPERATION: 03/14/2018 PREOPERATIVE DIAGNOSIS: End-stage renal disease, need for hemodialysis access. POSTOPERATIVE DIAGNOSIS: End-stage renal disease, need for hemodialysis access. PROCEDURE PERFORMED: Left upper extremity access revision (second stage brachiobasilic transposition). ATTENDING SURGEON: Ananth Noel MD SENIOR SUPPLIER QUALITY ENGINEER SURGEON: Kera Campa ANESTHESIA: General. INDICATIONS FOR PROCEDURE: Mr. Martinez is an elderly gentleman with end-stage renal disease who has a left brachiobasilic fistula. This is mature by duplex ultrasound and he presents for an elective second stage. DESCRIPTION OF PROCEDURE: Informed consent was obtained from the patient. He was taken to the operating room and placed supine on the operating table. An appropriate timeout was taken to ensure the patient's identity, operative site, and planned procedure. The administration of 1 gram of vancomycin was initiated prior to skin incision and will be discontinued after single preoperative dose. Everyone in the room agreed with timeout and we proceeded. Of note, vancomycin was chosen because of the patient's ureteral disease. His left arm was prepped and draped. An incision was made over the medial aspect of the arm, carried down through subcutaneous tissue with electrocautery. The basilic vein was identified, dissected free from near the antecubital all the way up to the axilla. Side branches were ligated with 3-0 silk. The vein was marked for orientation, clamped proximally and distally. The distal end was transected. The distal end was oversewn with 3-0 silk. A curvilinear tunnel was then created along the anterior aspect of the upper arm and the basilic vein was transposed through this taking caution not to twist it. The brachial artery identified the medial aspect of the incision. The patient was systemically heparinized with 3000 units of IV heparin. The proximal and distal control of the brachial artery obtained with profunda clamps and a longitudinal arteriotomy was made with an 11 blade, extended with Casper scissors. The vein was spatulated and sewn end-to-side with running 5-0 Prolene suture. The solution was flushed and was hemostatic. There was a nice thrill in the fistula and a Doppler signal in the wrist. The heparin was reversed with protamine. The wound was irrigated and made hemostatic and closed with 2-0 Polysorb, 3-0 Polysorb and 4-0 Monocryl. The sponge and needle counts were correct at the end of the case. I was present, scrubbed, and performed the entire procedure. MD ION Newsome/emilee , 09:18 PM , 09:25 PM [facility]
[2018-03-15 05:36] LABS: Hematocrit 31.2 % (39.0-51.0); Hemoglobin 10.1 gm/dL (13.0-17.0); Mean Corpuscular HGB Conc 32.4 % (32.0-36.0); Mean Corpuscular Hemoglobin 35.8 pg (27.0-34.0); Mean Corpuscular Volume 110.6 fL (80.0-100.0); Mean Platelet Volume 8.2 fL (7.0-11.0); Platelet Count 211 th/mm3 (150-450); Red Blood Count 2.82 mil/mm3 (4.50-5.90); White Blood Count 8.9 th/mm3 (4.0-11.0)
[2018-03-15] MEDS ORDERED: Levothyroxine 100 MCG Tablet PO SCH (06:00)
[2018-03-15 06:02] LABS: Calcium 8.3 mg/dL (8.5-10.1); Carbon Dioxide 26.1 meq/L (21.0-32.0); Potassium 4.9 meq/L (3.5-5.1)
[2018-03-15 07:40] VITALS: BP 138/79; PULSE 69; RESP 14; TEMP 96.4; O2SAT 94
[2018-03-15] MEDS: Carvedilol 6.25 MG Tablet PO SCH (08:30)
[2018-03-15] MEDS: Sodium Chloride 0.9% 2 ML Flush BID IV.FLUSH SCH (08:31)
[2018-03-15] MEDS: Senna/Docusate Sodium 8.6/50 MG Tablet PO SCH (08:31)
[2018-03-15] MEDS ORDERED: Calcitriol 0.25 MCG Capsule PO ONE (09:00)
[2018-03-15] MEDS ORDERED: Pantoprazole Sodium 20 MG DR Tablet PO SCH (09:00)
[2018-03-15] MEDS ORDERED: Calcium/Vitamin D 250/125 MG Tablet PO SCH (09:00)
[2018-03-15] MEDS ORDERED: FLUoxetine 10 MG Capsule PO SCH (09:00)
--- NOTE | 2018-03-15 09:22 | P.PNVS ---
Subjective Post Op Day #: 1 Procedure: LEFT upper extremity AVF revision (2nd stage brachibasilic AVF) Subjective/Hospital Course: 77/M POD 1 S/P L UE AVF revision Pt doing well w/o complaints UE warm w/ motor intact Pain controlled + thrill noted near L UE AVF Incision intact w/o R/D/S Objective Vital Signs / I&O: Vital Signs 03/14/18 12:22 03/14/18 12:30 03/14/18 12:45 Temperature 97.5 F L Pulse Rate 86 76 78 Respiratory Rate 16 16 16 Blood Pressure 112/62 134/63 129/73 Pulse Oximetry 93 L 94 L 94 L 03/14/18 13:00 03/14/18 14:01 03/14/18 15:00 Temperature 97.9 F 98.1 F Pulse Rate 78 69 84 Respiratory Rate 16 16 20 Blood Pressure 133/82 158/81 H 136/86 Pulse Oximetry 94 L 93 L 98 03/14/18 19:21 03/14/18 20:00 03/14/18 21:45 Temperature 98.1 F Pulse Rate 94 H Respiratory Rate 18 Blood Pressure 101/66 Pulse Oximetry 94 L 98 03/14/18 23:00 03/15/18 03:00 03/15/18 07:00 Temperature 98.0 F 98.2 F 96.4 F L Pulse Rate 87 64 69 Respiratory Rate 15 15 14 Blood Pressure 122/89 130/70 138/79 Pulse Oximetry 94 L 03/15/18 08:00 Temperature Pulse Rate Respiratory Rate Blood Pressure Pulse Oximetry 94 L Intake & Output 03/14/18 03/15/18 03/15/18 18:59 06:59 18:59 Intake Total 800 / 800 480 / 480 Output Total 20 / 20 0 / 0 Balance 780 / 780 480 / 480 Weight 72.6 kg 70 kg Intake: Oral 550 / 550 480 / 480 Anesthesia Amount 250 / 250 Output: Urine 0 / 0 Estimated Blood Loss 20 / 20 Other: # Voids 0 # Urine Diapers 1 # Bowel Movements 0 Weight On Admission 72.6 kg Exam: + thrill near AVF Incision intact w/o R/D/S Pt w/o hand pain UE warm w/ motor intact Laboratory Results - last 24 hr 10/08/18 10/08/18 10/08/18 08:39 08:39 09:00 WBC RBC Hgb Hct MCV MCH MCHC RDW Plt Count MPV PT 14.7 H INR 1.5 APTT Sodium 141 Potassium 4.3 Chloride 106 Carbon Dioxide 26.6 Anion Gap 8 BUN 18 Creatinine 3.33 H Estimated GFR 18 L POC Glucose Random Glucose 115 H Calcium 8.9 Blood Type O Positive Blood Type Recheck Not needed Antibody Screen Negative 03/14/18 03/14/18 03/15/18 09:00 12:30 03:43 WBC 8.9 RBC 2.82 L Hgb 10.1 L Hct 31.2 L MCV 110.6 H MCH 35.8 H MCHC 32.4 RDW 14.0 Plt Count 211 MPV 8.2 PT INR APTT 28.7 Sodium Potassium Chloride Carbon Dioxide Anion Gap BUN Creatinine Estimated GFR POC Glucose 102 Random Glucose Calcium Blood Type Blood Type Recheck Antibody Screen 03/15/18 03:43 WBC RBC Hgb Hct MCV MCH MCHC RDW Plt Count MPV PT INR APTT Sodium 140 Potassium 4.9 Chloride 104 Carbon Dioxide 26.1 Anion Gap 10 BUN 22 H Creatinine 4.04 H Estimated GFR 14 L POC Glucose Random Glucose 123 H Calcium 8.3 L Blood Type Blood Type Recheck Antibody Screen Assessment and Plan - Assessment (1) ESRD (end stage renal disease) on dialysis Code(s): N18.6 - End stage renal disease; Z99.2 - Dependence on renal dialysis Status: Acute - Plan 77/M s/p LEFT upper extremity AVF revision (transposition) Pt doing well w/o complaints Plan Pt to HD this am Pt clear for D/C post HD Arranged out pt f/u Merle Ring NP [facility] [phone] Discharge Planning: Today after HD
--- NOTE | 2018-03-15 09:55 | P.DS ---
Discharge Summary - Admission Date 03/14/18 12:13 - Admission Diagnosis (1) ESRD (end stage renal disease) on dialysis - Discharge Date 03/15/18 - Discharge Diagnosis (1) ESRD (end stage renal disease) on dialysis Status: Acute (2) AVF (arteriovenous fistula) Status: Acute - Summary Brief History from admission: 77 yo male s/p L UE brachiobasilic (1st stage), presents for 2nd stage no recent change in overall health that would preclude OR. Ready for 2nd stage Procedure: LEFT upper extremity AVF revision (2nd stage brachibasilic AVF) Significant Findings: + thrill Incision intact w/o R/D/S Pt w/o hand pain Abnormal Lab Results 03/14/18 03/14/18 03/15/18 08:39 12:30 03:43 WBC 8.9 RBC 2.82 L Hgb 10.1 L Hct 31.2 L MCV 110.6 H MCH 35.8 H MCHC 32.4 RDW 14.0 Plt Count 211 MPV 8.2 Sodium Potassium Chloride Carbon Dioxide Anion Gap BUN Creatinine Estimated GFR POC Glucose 102 Random Glucose Calcium Antibody Screen Negative 03/15/18 03:43 WBC RBC Hgb Hct MCV MCH MCHC RDW Plt Count MPV Sodium 140 Potassium 4.9 Chloride 104 Carbon Dioxide 26.1 Anion Gap 10 BUN 22 H Creatinine 4.04 H Estimated GFR 14 L POC Glucose Random Glucose 123 H Calcium 8.3 L Antibody Screen Hospital Course: 77 yo male s/p L UE brachiobasilic (1st stage) Pt presents for 2nd stage POD 1 Pt w/o complications Pt w/o hand pain + thrill Incision intact Pt clear for d/c after HD E- forcse reviewed, Written Rx provided to pt for post surgical out pt pain management Arranged out pt f/u - Discharge Instructions Any questions or concerns: Call [facility] [phone] Discharge Plan - Discharge Disposition Patient Disposition: 01 Discharge Home - Discharge Condition Condition: Good - Discharge Order Discharge Orders: Discharge Order (Routine); Ordered 03/15/18 Ordered By: Merle Ring - Physicians Team Primary Care Provider: Mari Varela Attending Provider: Ananth Noel Other Providers: Mitchell Durant MD - Rxs /Orders / Referrals /Forms Prescriptions: New oxycodone-acetaminophen [Percocet] 5-325 mg Tablet 1 tab PO Q4-6H PRN (Reason: Pain) Qty: 20 RF: 0 Continue calcitriol 0.25 mcg Capsule 1 dose PO 3XW calcium carbonate-vitamin D3 [Calcium 600 + D(3)] 600 mg(1,500mg) -200 unit Tablet 1 tab PO DAILY carbidopa-levodopa 10-100 mg Tablet 1 tab PO TID carvedilol 6.25 mg Tablet 6.25 mg PO BID cholecalciferol (vitamin D3) [Vitamin D3] 1,000 unit Capsule 2,000 unit PO DAILY enalapril maleate [Vasotec] 10 mg Tablet 10 mg PO BID fluoxetine 10 mg Capsule 10 mg PO DAILY furosemide 20 mg Tablet 20 mg PO 4XW levothyroxine 100 mcg Tablet 100 mcg PO DAILY multivitamin [Multiple Vitamins] Tablet 1 tab PO DAILY omeprazole 20 mg Tablet,Delayed Release (Dr/Ec) 20 mg PO DAILY sevelamer carbonate [Renvela] 800 mg Tablet 800 mg PO TID 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 Diet: You may resume a regular diet as you were eating at home before your admission. Activity: Increase your activity level gradually. Keep surgical extremities elevated when at rest. This will help limit the swelling, bruising and discomfort normally present after surgery. Walking is a good form of light exercise. Go for a walk at least 3 times per day. No heavy lifting (lifting over 10 pounds) for at least 4 weeks from surgery. Check with your surgeon to ensure when you are cleared for heavy lifting and full-intensity exercising. Your strength will gradually improve. No driving or operating motorized vehicles while on prescription pain medications. No swimming until wounds fully healed. Return to work when cleared by /[employer]. Bathing: Shower daily. Gently let soap and water run over your incision and pat dry. Do not scrub the incision/wound. Don't soak in a bath or submerge your incision in water until your incision is healed and evaluated by your physician at follow-up (usually two weeks). Wound Care: INCISION SITE CARE INSTRUCTIONS You may leave your incision open to air. Keep your incision clean and dry, unless showering. See above. Moisture near the incision will cause the wound to open. No lotions, creams, ointments, or powders on incisions until they are well- healed. If you have glue over the incision(s), allow it to fall off naturally in 1-3 weeks If present, shade/sutures will be removed 2-3 weeks after surgery during your follow-up clinic visit. If present, change dressing/bandage when soaked/soiled as needed. Observe wound daily, checking for signs and symptoms of infection including: foul odor, drainage from the incision, increased redness, increased pain at incision, or increased swelling. Pain Control: Expect post-operative pain for 1-4 weeks after surgery. Your pain will improve gradually. You may have been provided with a prescription for pain medication. Please take as directed, and be aware of side effects such as drowsiness, constipation and mild stomach discomfort. Pain pills on an empty stomach can cause nausea, so eat a small amount of food, such as crackers, when taking these pills. Take [id number] stool softeners (Colace or Senna) with your prescribed pain medication. Acetaminophen (500mg every 6 hours) or Ibuprofen (400mg every 6 hours) may be used in conjunction with narcotics to relieve pain. DO NOT take more than 4 grams (4000mg) of Tylenol in one day, as this can harm your liver. DO NOT take ibuprofen IF: you have an allergy to non-steroidal anti-inflammatory medications , you are taking Coumadin, you have been told you have kidney problems, or you have a history of gastrointestinal bleeding or ulcers. DO NOT take more than 3.2 grams (3200mg) of ibuprofen in one day. You may also find relief from using heat packs or pads or ice packs. Bowel Regimen for Constipation: People who undergo surgery are likely to develop post-operative constipation. Exposure to narcotics and changes in diet, fluid intake, and physical activity are known contributors to constipation. We recommend routine stool softeners and /or laxatives after surgery for most patients. Start by taking one medication. You can increase as directed to relieve constipation. Stop taking these medications if you develop diarrhea. These medications are available over-the- counter and do not require a prescription: Colace is a stool softener. We recommend starting at 100mg orally twice per day as needed for soft stools and increase to a maximum of 200mg twice daily as needed. Senna is a laxative that works by keeping water in the intestine to help stool move along the intestinal tract. Take 1 tablet daily as needed for soft stool and increase to a maximum of 2 tablets twice daily as needed. Take Senna with two full glasses of water each time. Miralax, Dulcolax and Milk of Magnesia are other wagi-kmi-gkibsrh laxatives that may be used as needed for post-operative constipation. Drink 6-8 glasses of water per day. Consume 15-30g of fiber per day: Metamucil powder, 1-2 tablespoons 1-2 times/day OR Benefiber powder, 2 tablespoons 4 times/day. Avoid straining. If you have any of the following symptoms please call immediately- [phone] Excessive swelling of the affected extremity. Sudden onset of severe or unusual pain in the affected extremity. Pain that gets worse or is not relieved by medication. Warmth, redness, or swelling in the skin around the wound. Foul drainage from incision. Extensive bruising or discoloration. Wound that opens up or pulls apart. Fever above 101.5F or shaking chills. Nausea or vomiting. Severe diarrhea or severe constipation. Dizziness or fainting. Chest pain, shortness of breath, or increased work of breathing. Weight gain >10lbs over 3-4 days. Inability to urinate for more than 6 hours. Cloudy or foul smelling urine. Urge to urinate more often than usual. Symptoms to Report to Your Doctor:Temperature 101, pain uncontrolled by medication, drainage or foul odor from incision, extensive bruising or discoloration, chest pain, shortness of breath, nausea, vomiting and dizziness.
--- NOTE | 2018-03-15 10:09 | P.PNNP ---
Subjective Interval history: Sitting up in bed, hemodialysis planned for today. Denies any shortness of breath, chest pain, nausea, or vomiting. Reports some pain at surgical site. <LilliekhadijahDebora larsen - Last Filed: 03/15/18 10:05> Physical Exam Vital signs: Vital Signs 03/14/18 12:22 03/14/18 12:30 03/14/18 12:45 Temperature 97.5 F L Pulse Rate 86 76 78 Respiratory Rate 16 16 16 Blood Pressure 112/62 134/63 129/73 Pulse Oximetry 93 L 94 L 94 L 03/14/18 13:00 03/14/18 14:01 03/14/18 15:00 Temperature 97.9 F 98.1 F Pulse Rate 78 69 84 Respiratory Rate 16 16 20 Blood Pressure 133/82 158/81 H 136/86 Pulse Oximetry 94 L 93 L 98 03/14/18 19:21 03/14/18 20:00 03/14/18 21:45 Temperature 98.1 F Pulse Rate 94 H Respiratory Rate 18 Blood Pressure 101/66 Pulse Oximetry 94 L 98 03/14/18 23:00 03/15/18 03:00 03/15/18 07:00 Temperature 98.0 F 98.2 F 96.4 F L Pulse Rate 87 64 69 Respiratory Rate 15 15 14 Blood Pressure 122/89 130/70 138/79 Pulse Oximetry 94 L 03/15/18 08:00 Temperature Pulse Rate Respiratory Rate Blood Pressure Pulse Oximetry 94 L Intake & Output 03/14/18 03/15/18 03/15/18 18:59 06:59 18:59 Intake Total 800 / 800 480 / 480 Output Total 0 / 0 Balance 780 / 780 480 / 480 Weight 72.6 kg 70 kg Intake: Oral 550 / 550 480 / 480 Anesthesia Amount 250 / 250 Output: Urine 0 / 0 Estimated Blood Loss Other: # Voids 0 # Urine Diapers 1 # Bowel Movements 0 Weight On Admission 72.6 kg Narrative: GENERAL: Alert and oriented. SKIN: Warm and dry. Right IJ permacath HEAD: Normocephalic. EYES: No scleral icterus. No injection or drainage. NECK: Supple, trachea midline. No JVD or lymphadenopathy. CARDIOVASCULAR: Regular rate and rhythm without murmurs, gallops, or rubs. Left arm AVF with positive thrill and bruit. RESPIRATORY: Breath sounds equal bilaterally. No accessory muscle use. GASTROINTESTINAL: Abdomen soft, non-tender, nondistended. MUSCULOSKELETAL: No cyanosis, or edema. BACK: Nontender without obvious deformity. No CVA tenderness. <Debora Schilling - Last Filed: 03/15/18 10:05> Assessment and Plan - Assessment (1) ESRD (end stage renal disease) on dialysis Code(s): N18.6 - End stage renal disease; Z99.2 - Dependence on renal dialysis Status: Acute Plan: End stage renal disease on hemodialysis Wednesday, , and Wednesday Right IJ permacath Plan Hemodialysis today, will remove fluid as tolerated Plan for discharge today. <Debora Schilling - Last Filed: 03/15/18 10:05> - Assessment (1) ESRD (end stage renal disease) on dialysis Code(s): N18.6 - End stage renal disease; Z99.2 - Dependence on renal dialysis Status: Acute Plan: Patient seen and examined, agree with above. Patient seen during HD. For D/C today. <Mitchell Durant - Last Filed: 03/22/18 17:11>
== END 2018-03-15 13:52 | disposition home or self-care (01) ==
LOC: HSDI 07:34 → HSDC 07:34 → HCVI 13:40
PROVIDERS: ADMIT Surgery; ATTEND Surgery
PROC: AVGFTUE (ICD-10-PCS; 2018-03-14 10:37)

== ENCOUNTER 2018-05-26 06:17 | Inpatient (IN) ==
--- NOTE | 2018-05-26 07:17 | ED ---
HPI General Chief complaint: Weakness Stated complaint: Fall/Medical Time Seen by Provider: 05/26/18 06:41 Source: patient and family Limitations: no limitations History of Present Illness HPI Narrative: 77 y/o male presents with feeling of progressive generalized weakness with frequent falls. His states that he cannot even transfer and it has been like this for about 2 months and it is gotten to the point where she cannot take care of him. The patient states Dr. durant his kidney doctor thinks he is going to need a feeding tube given his decreased intake. He states he gets dialysis 3 times a week and is due today. He denies any pain or fever or other concurrent complaints. Quality is weak. Severity is all over and progressive. Related Data Home Medications Medication Instructions Recorded Confirmed calcitriol 1 dose PO 3XW 12/05/17 05/26/18 calcium carbonate-vitamin D3 1 tab PO DAILY 12/05/17 05/26/18 [Calcium 600 + D(3)] carbidopa-levodopa 1 tab PO TID 12/05/17 05/26/18 carvedilol 6.25 mg PO BID 12/05/17 05/26/18 cholecalciferol (vitamin D3) 2,000 unit PO DAILY 12/05/17 05/26/18 [Vitamin D3] enalapril maleate [Vasotec] 10 mg PO BID 12/05/17 05/26/18 fluoxetine 10 mg PO DAILY 12/05/17 05/26/18 furosemide 20 mg PO 4XW 12/05/17 05/26/18 levothyroxine 100 mcg PO DAILY 12/05/17 05/26/18 multivitamin [Multiple Vitamins] 1 tab PO DAILY 12/05/17 05/26/18 omeprazole 20 mg PO DAILY 12/05/17 05/26/18 sevelamer carbonate [Renvela] 800 mg PO TID PRN 12/05/17 05/26/18 acetaminophen [Tylenol Extra 500 mg PO Q6H PRN 05/26/18 05/26/18 Strength] dronabinol 10 mg PO HS 05/26/18 05/26/18 loperamide [Imodium A-D] 2 mg PO Q2-4H PRN 05/26/18 05/26/18 metoclopramide HCl 10 mg PO BID 05/26/18 05/26/18 warfarin 3.5 mg PO DIRECTED 05/26/18 05/26/18 warfarin 4.5 mg PO QWEEK 05/26/18 05/26/18 Allergies Allergy/AdvReac Type Severity Reaction Status Date / Time Sulfa (Sulfonamide Allergy Severe Rash Verified 03/14/18 08:43 Antibiotics) adhesive AdvReac Severe Redness of Verified 03/14/18 08:44 Skin, RASH, BLISTERS, CAUSES SKIN TO COME OFF Review of Systems ROS: all other systems reviewed are negative [facility] Medical History Medical History Anemia (Acute) TIA (transient ischemic attack) (Acute) Broken arm (Acute) Broken leg (Acute) Depression (Acute) Diabetes (Acute) Dialysis patient (Acute) Hypertension (Acute) Hypothyroidism (Acute) Parkinsons (Acute) 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 (Acute) Renal failure (Acute) Surgical History Surgical History AICD (automatic cardioverter/defibrillator) present (Acute) Hx of cataract removal with insertion of prosthetic lens (Acute) Hx of joint replacement (Acute) Social History Social History Substance History: No History of Abuse Second Hand Smoke Exposure: No Smoking Status: Former smoker How Often Do You Have a Drink Containing Alcohol: 4 or more times a week Recent Travel in [facility] within the Last 8 Weeks: No Recent Out of Country Travel within the Last 8 Weeks: No Immunization History Tetanus Immunization: >5 Years Exam Narrative Exam Narrative: GENERAL: 77-year-old male in no apparent distress, pale SKIN: Focused skin assessment warm/dry. HEAD: Atraumatic. Normocephalic. EYES: Pupils equal and round. No scleral icterus. No injection or drainage. ENT: No nasal bleeding or discharge. Mucous membranes pink and moist. NECK: Trachea midline. CARDIOVASCULAR: Regular rate and rhythm. RESPIRATORY: No accessory muscle use. No increased effort GASTROINTESTINAL: Abdomen soft, non-tender, nondistended. MUSCULOSKELETAL: No obvious deformities. No clubbing. No cyanosis. NEUROLOGICAL: Awake. Moves all extremities with mild generalized weakness to all extremities. Normal speech. PSYCHIATRIC: Appropriate mood and affect; insight and judgment normal. Course Reevaluation(s) Reevaluation #1: Patient given Rocephin for UTI. Patient will be admitted and agrees to this plan of care given weakness with UTI setting Consultations Consultation #1: dr durant agrees to admit and will arrange dialysis Consultation #2: dr bashir agrees to admit Initial Documented Vital Signs Temperature 96.4 F L 05/26/18 06:19 Pulse Rate 83 05/26/18 06:19 Respiratory Rate 18 05/26/18 06:19 Blood Pressure 113/67 05/26/18 06:19 Pulse Oximetry 99 05/26/18 06:19 Last Documented Vital Signs Temperature 98 F 05/26/18 08:58 Pulse Rate 80 05/26/18 08:58 Respiratory Rate 16 05/26/18 08:58 Blood Pressure 131/68 05/26/18 08:58 Pulse Oximetry 97 05/26/18 09:04 Medical Decision Making MDM Narrative Medical decision making narrative: We will check lab work, imaging and reevaluate Medical Screen Exam Complete: Yes Emergency Medical Condition: Yes Differential Diagnosis Differential Diagnosis: Anemia, electrolyte deficiency, bleed, fracture Lab Data Lab results reviewed: Yes I reviewed the patient's lab results. Result diagrams: 05/26/18 06:45 05/26/18 06:45 Lab Results 05/26/18 05/26/18 05/26/18 Range/Units 06:45 06:45 06:45 WBC 9.2 (4.0-11.0) th/mm3 RBC 2.92 L (4.50-5.90) mil/mm3 Hgb 10.4 L (13.0-17.0) gm/dL Hct 30.4 L (39.0-51.0) % MCV 103.9 H (80.0-100.0) fL MCH 35.7 H (27.0-34.0) pg MCHC 34.3 (32.0-36.0) % RDW 15.4 (11.6-17.2) % Plt Count 287 (150-450) th/mm3 MPV 8.9 (7.0-11.0) fL Neut % (Auto) 57.9 (16.0-70.0) % Lymph % (Auto) 22.3 (9.0-44.0) % [place] % (Auto) 16.1 H (0.0-8.0) % Eos % (Auto) 3.0 (0.0-4.0) % Baso % (Auto) 0.7 (0.0-2.0) % Neut # (Auto) 5.3 (1.8-7.7) th/mm3 Lymph # (Auto) 2.1 (1.0-4.8) th/mm3 [place] # (Auto) 1.5 H (0.0-0.9) th/mm3 Eos # (Auto) 0.3 (0.0-0.4) th/mm3 Baso # (Auto) 0.1 (0.0-0.2) th/mm3 WBC Differential . Differential Comment Auto diff final PT 48.1 H (9.8-11.6) sec INR 4.8 Ratio Sodium 140 (136-145) meq/L Potassium 6.3 H (3.5-5.1) meq/L Chloride 109 H (98-107) meq/L Carbon Dioxide 25.1 (21.0-32.0) meq/L Anion Gap 6 (5-15) meq/L BUN 9 (7-18) mg/dL Creatinine 3.16 H (0.60-1.30) mg/dL Estimated GFR 19 L (>89) mL/min Random Glucose 133 H (74-106) mg/dL Lactic Acid (0.4-2.0) mmol/L Calcium 7.9 L (8.5-10.1) mg/dL Magnesium 2.1 (1.5-2.5) mg/dL Troponin I Less than 0.02 L (0.02-0.05) ng/mL Urine Color (Yellw/Straw) Urine Clarity (Clear) Urine pH (5.0-8.5) Ur Specific [place] (1.002-1.035) Urine Protein (Neg-Trace) mg/dL Urine Glucose (UA) (Negative) mg/dL Urine Ketones (Negative) mg/dL Urine Occult Blood (Negative) Urine Nitrate (Negative) Urine Bilirubin (Negative) Urine Urobilinogen (Less than 2) mg/dL Ur Leukocyte Esterase (Negative) Urine RBC (0-3) /hpf Urine WBC (0-5) /hpf Urine WBC Clumps (None) Ur Squamous Epith Cells (0-5) /hpf Urine Bacteria (None) /hpf Urine Mucus (Occasional) /lpf Micro UA Comment Ur Microscopic Review Urine Culture Comments Blood Type Antibody Screen 05/26/18 05/26/18 05/26/18 Range/Units 07:05 07:45 08:11 WBC (4.0-11.0) th/mm3 RBC (4.50-5.90) mil/mm3 Hgb (13.0-17.0) gm/dL Hct (39.0-51.0) % MCV (80.0-100.0) fL MCH (27.0-34.0) pg MCHC (32.0-36.0) % RDW (11.6-17.2) % Plt Count (150-450) th/mm3 MPV (7.0-11.0) fL Neut % (Auto) (16.0-70.0) % Lymph % (Auto) (9.0-44.0) % [place] % (Auto) (0.0-8.0) % Eos % (Auto) (0.0-4.0) % Baso % (Auto) (0.0-2.0) % Neut # (Auto) (1.8-7.7) th/mm3 Lymph # (Auto) (1.0-4.8) th/mm3 [place] # (Auto) (0.0-0.9) th/mm3 Eos # (Auto) (0.0-0.4) th/mm3 Baso # (Auto) (0.0-0.2) th/mm3 WBC Differential Differential Comment PT (9.8-11.6) sec INR Ratio Sodium (136-145) meq/L Potassium (3.5-5.1) meq/L Chloride (98-107) meq/L Carbon Dioxide (21.0-32.0) meq/L Anion Gap (5-15) meq/L BUN (7-18) mg/dL Creatinine (0.60-1.30) mg/dL Estimated GFR (>89) mL/min Random Glucose (74-106) mg/dL Lactic Acid 2.1 H (0.4-2.0) mmol/L Calcium (8.5-10.1) mg/dL Magnesium (1.5-2.5) mg/dL Troponin I (0.02-0.05) ng/mL Urine Color Yellow (Yellw/Straw) Urine Clarity Turbid H (Clear) Urine pH 7.0 (5.0-8.5) Ur Specific [place] 1.009 (1.002-1.035) Urine Protein 100 H (Neg-Trace) mg/dL Urine Glucose (UA) Negative (Negative) mg/dL Urine Ketones Negative (Negative) mg/dL Urine Occult Blood Small H (Negative) Urine Nitrate Negative (Negative) Urine Bilirubin Negative (Negative) Urine Urobilinogen Less than 2 (Less than 2) mg/dL Ur Leukocyte Esterase Moderate H (Negative) Urine RBC 10 H (0-3) /hpf Urine WBC (0-5) /hpf Urine WBC Clumps Many H (None) Ur Squamous Epith Cells 2 (0-5) /hpf Urine Bacteria Many H (None) /hpf Urine Mucus Few H (Occasional) /lpf Micro UA Comment Culture indicated Ur Microscopic Review Not Reportable Urine Culture Comments Culture indicated Blood Type O Positive Antibody Screen Negative Imaging Data Attestation: I personally reviewed and interpreted this imaging study as follows : Radiologist's impression: Chest X-Ray 05/26/18 06:39 CONCLUSION: Stable chest appearance. Head CT 05/26/18 07:13 CONCLUSION: Stable brain with no acute findings. . Discharge Plan Discharge Disposition Patient Disposition: ED Admit(ED Internal Use Only) Discharge Order Discharge Orders: ED Use Only Admit Order (Routine); Ordered 05/26/18 Ordered By: Beryl Lee Discharge Details Diagnosis: Acute UTI, ESRD (end stage renal disease) on dialysis, Weak Physicians Team ED Provider: Beryl Lee Primary Care Provider: UNKNOWN, Attending Provider: Jae Bashir Other Providers: Mitchell Durant Discharge Interventions Interventions: Vital Signs Last Done: 05/26/18 08:58 Status ED Status: Admitted Observation Patient
[2018-05-26 07:21] LABS: INR 4.8 Ratio; Prothrombin Time 48.1 sec (9.8-11.6)
--- NOTE | 2018-05-26 07:21 | XR ---
EXAM DATE: 05/26/2018 7:16 AM EST AGE/SEX: 77 years / Male INDICATIONS: Congestive heart failure. CLINICAL DATA: This is the patient's initial encounter. Patient reports that signs and symptoms have been present for 1 day and indicates a pain score of 0/10. MEDICAL/SURGICAL HISTORY: None. None. [place] [facility] [place]. . FINDINGS: There is chronic blunting of the left costophrenic angle. Right lung is grossly clear. Mediastinal co ntours are stable and satisfactory. CONCLUSION: Stable chest appearance. Electronically signed by: Myles Grace MD Board Certified Radiologist 05/26/2018 7:20 AM EST
[2018-05-26 07:33] LABS: Baso # (Auto) 0.1 th/mm3 (0.0-0.2); Baso % (Auto) 0.7 % (0.0-2.0); Eos # (Auto) 0.3 th/mm3 (0.0-0.4); Hematocrit 30.4 % (39.0-51.0); Hemoglobin 10.4 gm/dL (13.0-17.0); Lymph # (Auto) 2.1 th/mm3 (1.0-4.8); Lymph % (Auto) 22.3 % (9.0-44.0); Mean Corpuscular HGB Conc 34.3 % (32.0-36.0); Mean Corpuscular Hemoglobin 35.7 pg (27.0-34.0); Mean Corpuscular Volume 103.9 fL (80.0-100.0); Mean Platelet Volume 8.9 fL (7.0-11.0); Mono # (Auto) 1.5 th/mm3 (0.0-0.9); Mono % (Auto) 16.1 % (0.0-8.0); Neut # (Auto) 5.3 th/mm3 (1.8-7.7); Neut % (Auto) 57.9 % (16.0-70.0); Platelet Count 287 th/mm3 (150-450); Red Blood Count 2.92 mil/mm3 (4.50-5.90); Red Cell Distribution Width 15.4 % (11.6-17.2); White Blood Count 9.2 th/mm3 (4.0-11.0)
[2018-05-26 07:41] LABS: Anion Gap 6 meq/L (5-15); Blood Urea Nitrogen 9 mg/dL (7-18); Calcium 7.9 mg/dL (8.5-10.1); Carbon Dioxide 25.1 meq/L (21.0-32.0); Chloride 109 meq/L (98-107); Glomerular Filtration Rate 19 mL/min (>89); Glucose,Random 133 mg/dL (74-106); Potassium 6.3 meq/L (3.5-5.1); Sodium 140 meq/L (136-145)
[2018-05-26 07:42] LABS: Magnesium 2.1 mg/dL (1.5-2.5)
[2018-05-26 08:29] LABS: Bacteria,Urine Many /hpf; Bilirubin,Urine Negative (Negative); Clarity,Urine Turbid (Clear); Color,Urine Yellow (Yellw/Straw); Glucose,Urine (UA) Negative (Negative); Leukocyte Esterase,Urine Moderate (Negative); Mucus,Urine Few /lpf (Occasional); Nitrite,Urine Negative (Negative); Specific Gravity,Urine 1.009 (1.002-1.035); Squamous Epithelial Cell,Urine 2 /hpf (0-5)
--- NOTE | 2018-05-26 08:34 | CT ---
EXAM DATE: 05/26/2018 8:27 AM EST AGE/SEX: 77 years / Male INDICATIONS: Patient complains of weakness, frequent falls. CLINICAL DATA: This is the patient's initial encounter. Patient reports that signs and symptoms have been present for 1 day and indicates a pain score of 0/10. MEDICAL/SURGICAL HISTORY: Diabetes. Hypertension. Parkinson's disease. dialysis, TIA None. RADIATION DOSE: 37.32 CTDI (mGy) [place] [facility] [place]. . TECHNIQUE: CT of the head without contrast. Using automated exposure control and adjustment of the mA and/or kV according to patient size, radiation dose was kept as low as reasonably achievable to ob tain optimal diagnostic quality images. DICOM format image data is available electronically for revi ew and comparison. 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 Moderate hypodensity in the deep white matter is stable and grossly benign. There is no evidence of intracranial hemorrhage o r mass. Nothing to suggest acute infarction. Ventricles are stable and mildly prominent. Extracranial structures are grossly benign and intact. CONCLUSION: Stable brain with no acute findings. . Electronically signed by: Myles Grace MD Board Certified Radiologist 05/26/2018 8:32 AM EST
[2018-05-26] MEDS ORDERED: Acetaminophen 325 MG Tablet PO PRN ×2 (09:01→10:45)
[2018-05-26] MEDS ORDERED: Sod Chloride 0.9% Inj 1,000 ML IV.CONT PRN (09:01)
[2018-05-26] MEDS ORDERED: Sod Chloride 0.9% Inj 1,000 ML OTHER PRN ×2 (09:01)
[2018-05-26] MEDS ORDERED: Heparin 10,000 UNITS/10 ML Vial (for IV use) OTHER PRN ×2 (09:01)
[2018-05-26] MEDS ORDERED: Gelatin 12 MM/7 MM Topical Foam TOPICAL PRN (09:01)
[2018-05-26] MEDS ORDERED: Albumin Human 25% Inj 100 ML IV.SIG PRN (09:01)
--- NOTE | 2018-05-26 10:37 | P.CONNP ---
<Debora Schilling - Last Filed: 05/26/18 10:21> History of Present Illness Service: Nephrology Consult date: 05/26/18 Reason for Consult: End stage renal disease on hemodialysis Primary Care Provider: UNKNOWN History of Present Illness: Patient is a 77 y/o male with past medical history of hypertension, diabetes, depression, hypothyroidism, Parkinsons , anemia, and end stage renal disease. Presents to emergency room with feeling of progressive generalized weakness with frequent falls. His states that he cannot even transfer and it has been like this for about 2 months and it is gotten to the point where she cannot take care of him. Nephrology is consulted for management of end stage renal disease. Dialysis days are on with last dialysis on Wednesday. He has a permacath and a left AVF with positive thrill and bruit. They have just started using the AVF. Patient has been receiving IDPN during dialysis to treat protein calorie malnutrition. He has also been on marinol for appetite stimulant which thus far has not been improving appetite. Potassium level at 6.3 today, dialysis has been arranged for today. Denies any shortness of breath , chest pain, nausea, or vomiting. Reports generalized weakness and now wheelchair dependent. Review of Systems All other systems reviewed negative except as stated in HPI PMFSH - History History Provided By: Patient - Medical History Medical History: Medical History (Last Reviewed 05/26/18 @ 07:15 by Beryl Lee MD) Anemia TIA (transient ischemic attack) Broken arm Broken leg Depression Diabetes Dialysis patient Hypertension Hypothyroidism Parkinsons 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 Renal failure - Surgical History Surgical History: Surgical History (Last Reviewed 05/26/18 @ 07:15 by Beryl Lee MD) AICD (automatic cardioverter/defibrillator) present Hx of cataract removal with insertion of prosthetic lens Hx of joint replacement - Tobacco History Second Hand Smoke Exposure: No Smoking Status: Former smoker - Alcohol History How Often Do You Have a Drink Containing Alcohol: 4 or more times a week - Substance Use History Substance History: No History of Abuse - Travel History Recent Travel in the [place] Within the Last 8 Weeks: No Recent Travel Out of the Country Within the Last 8 Weeks: No - Immunization History Tetanus Immunization: >5 Years Medications and Allergies Allergies Allergy/AdvReac Type Severity Reaction Status Date / Time Sulfa (Sulfonamide Allergy Severe Rash Verified 03/14/18 08:43 Antibiotics) adhesive AdvReac Severe Redness of Verified 03/14/18 08:44 Skin, RASH, BLISTERS, CAUSES SKIN TO COME OFF Home Medications Medication Instructions Recorded Confirmed Type calcitriol 1 dose PO 3XW 12/05/17 05/26/18 History calcium carbonate-vitamin D3 1 tab PO DAILY 12/05/17 05/26/18 History [Calcium 600 + D(3)] carbidopa-levodopa 1 tab PO TID 12/05/17 05/26/18 History carvedilol 6.25 mg PO BID 12/05/17 05/26/18 History cholecalciferol (vitamin D3) 2,000 unit PO DAILY 12/05/17 05/26/18 History [Vitamin D3] enalapril maleate [Vasotec] 10 mg PO BID 12/05/17 05/26/18 History fluoxetine 10 mg PO DAILY 12/05/17 05/26/18 History furosemide 20 mg PO 4XW 12/05/17 05/26/18 History levothyroxine 100 mcg PO DAILY 12/05/17 05/26/18 History multivitamin [Multiple Vitamins] 1 tab PO DAILY 12/05/17 05/26/18 History omeprazole 20 mg PO DAILY 12/05/17 05/26/18 History sevelamer carbonate [Renvela] 800 mg PO TID PRN 12/05/17 05/26/18 History acetaminophen [Tylenol Extra 500 mg PO Q6H PRN 05/26/18 05/26/18 History Strength] dronabinol 10 mg PO HS 05/26/18 05/26/18 History loperamide [Imodium A-D] 2 mg PO Q2-4H PRN 05/26/18 05/26/18 History metoclopramide HCl 10 mg PO BID 05/26/18 05/26/18 History warfarin 3.5 mg PO DIRECTED 05/26/18 05/26/18 History warfarin 4.5 mg PO QWEEK 05/26/18 05/26/18 History Active Medications: Active Medications Acetaminophen (Tylenol) 650 mg PO UNSCH PRN PRN Reason: SEE LABEL COMMENTS Clonidine HCl (Catapres) 0.1 mg PO UNSCH PRN PRN Reason: SEE LABEL COMMENTS Diphenhydramine HCl (Benadryl) 25 mg PO UNSCH PRN PRN Reason: SEE LABEL COMMENTS Epoetin Nigel (Epogen Inj) 4,000 unit IV.PUSH UNSCH PRN PRN Reason: SEE LABEL COMMENTS Gelatin (Gelfoam 12 Mm/7 Mm Topical) 1 foam TOPICAL PRN PRN PRN Reason: help stop bleeding from site Gentamicin Sulfate (Gentamicin Inj) 20 mg OTHER WITH DIALYSIS PRN PRN Reason: Dwell Gentamycin Lock Heparin Sodium (Porcine) (Heparin Inj) 8,000 units OTHER WITH DIALYSIS PRN PRN Reason: for machine prime Heparin Sodium (Porcine) (Heparin Inj) 1,000 units OTHER WITH DIALYSIS PRN PRN Reason: Dwell Heparin to Fill Catheter Albumin Human (Flexbumin 25% Inj) 100 mls @ 60 mls/hr IV.SIG WITH DIALYSIS PRN PRN Reason: hypotension / volume replace Sodium Chloride (Ns Inj) 1,000 mls @ 0 mls/hr OTHER .Q0M PRN PRN Reason: for prime and rinse back Sodium Chloride (Ns Inj) 1,000 mls @ 200 mls/hr OTHER .Q5H PRN PRN Reason: for dialyzer flush PRN Sodium Chloride (Ns Inj) 1,000 mls @ 0 mls/hr IV.CONT .Q0M PRN PRN Reason: hypotension / volume replace Mannitol (Mannitol Inj) 12.5 gm IV.PUSH UNSCH PRN PRN Reason: hypotension / volume replace Nitroglycerin (Nitrostat Sl) 0.4 mg SL Q5M PRN PRN Reason: CHEST PAIN Ondansetron HCl (Zofran Inj) 4 mg IV.PUSH UNSCH PRN PRN Reason: NAUSEA OR VOMITING Sodium Chloride (Ns Flush) 2 ml IV.FLUSH PRN PRN PRN Reason: FLUSH AFTER USING IV ACCESS Last Admin: 05/26/18 08:57 Dose: 2 ml Sodium Chloride (Ns Flush) 5 ml IV.FLUSH PRN PRN PRN Reason: flush each lumen during HD Exam Vital signs: Vital Signs 05/26/18 06:19 05/26/18 06:32 05/26/18 07:15 Temperature 96.4 F L 97.8 F 97.9 F Pulse Rate 83 81 89 Respiratory Rate 18 16 Blood Pressure 113/67 139/68 134/81 Pulse Oximetry 99 97 05/26/18 08:58 05/26/18 09:04 Temperature 98 F Pulse Rate 80 Respiratory Rate 16 Blood Pressure 131/68 Pulse Oximetry 97 97 Intake & Output 05/25/18 05/26/18 05/26/18 18:59 06:59 18:59 Intake Total 100 / 100 Balance 100 / 100 Weight 79.379 kg Intake: IV 100 / 100 Rocephin Inj 1,000 MG In NS Inj 100 / 100 100 ML @ 200 mls/hr IV.SIG ONCE ONE Rx#:[id number] Narrative: GENERAL: Alert and oriented. SKIN: Warm and dry. NECK: Supple, trachea midline. No JVD. CARDIOVASCULAR: Regular rate and rhythm without murmurs, gallops, or rubs. Right IJ permacath. Left AVF positive thrill and bruit. RESPIRATORY: Breath sounds equal bilaterally. No accessory muscle use. GASTROINTESTINAL: Abdomen soft, non-tender, nondistended. +BS MUSCULOSKELETAL: No cyanosis, or edema. BACK: Nontender without obvious deformity. No CVA tenderness. Results - Lab Results 05/26/18 06:45 05/26/18 06:45 Most recent lab results Calcium 7.9 mg/dL (8.5-10.1) L 05/26/18 06:45 Magnesium 2.1 mg/dL (1.5-2.5) 05/26/18 06:45 Assessment and Plan - Assessment (1) ESRD (end stage renal disease) on dialysis Code(s): N18.6 - End stage renal disease; Z99.2 - Dependence on renal dialysis Status: Acute Plan: ESRD, Dialysis days are on with last dialysis on Wednesday. He has a permacath and a left AVF with positive thrill and bruit. They have just started using the AVF. Avoid IVF administration, Gadolinium is contraindicated. Antibiotics adjust for renal function as needed Hyperkalemia with potassium level of 6.3, will proceed with dialysis and adjust K bath accordingly. Will proceed to dialysis today, orders placed and dialysis contacted. (2) Unspecified protein-calorie malnutrition Code(s): E46 - Unspecified protein-calorie malnutrition Status: Acute Plan: Patient has been receiving IDPN during dialysis to treat protein calorie malnutrition. He has also been on Marinol for appetite stimulant which thus far has not been improving appetite. Patient and have agreed to proceed with tube feeding. Will consult GI. (3) Anemia Code(s): D64.9 - Anemia, unspecified Status: Acute Plan: HGB 10.4, Epogen with dialysis (4) Urinary tract infection Code(s): N39.0 - Urinary tract infection, site not specified Status: Acute Plan: Culture pending, has received Rocephin <Alcides Durant Q - Last Filed: 05/26/18 21:09> History of Present Illness Primary Care Provider: UNKNOWN [facility] - Medical History Medical History: Medical History (Last Reviewed 05/26/18 @ 07:15 by Beryl Lee MD) Anemia TIA (transient ischemic attack) Broken arm Broken leg Depression Diabetes Dialysis patient Hypertension Hypothyroidism Parkinsons 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 Renal failure - Surgical History Surgical History: Surgical History (Last Reviewed 05/26/18 @ 07:15 by Beryl Lee MD) AICD (automatic cardioverter/defibrillator) present Hx of cataract removal with insertion of prosthetic lens Hx of joint replacement Medications and Allergies Active Medications: Active Medications Acetaminophen (Tylenol) 650 mg PO UNSCH PRN PRN Reason: SEE LABEL COMMENTS Acetaminophen (Tylenol) 650 mg PO Q4H PRN PRN Reason: Temp > 100.4 Al Hydroxide/Mg Hydroxide (Milk Of Rajiv Siddiqi) 30 ml PO Q12H PRN PRN Reason: Mild Constipation Calcitriol (Rocaltrol) mcg PO 3XW [facility] Calcium/Vitamin D (Oscal With D 250/125 Mg) 2 tab PO DAILY [facility] Carbidopa/Levodopa (Simemet 10/100 Mg) 1 tab PO TID [facility] Last Admin: 05/26/18 18:24 Dose: 1 tab Carvedilol (Coreg) 6.25 mg PO BID [facility] Diphenhydramine HCl (Benadryl) 25 mg PO UNSCH PRN PRN Reason: SEE LABEL COMMENTS Dronabinol (Marinol) 10 mg PO HS [facility] Enalapril Maleate (Vasotec) 10 mg PO BID [facility] Epoetin Nigel (Epogen Inj) 4,000 unit IV.PUSH UNSCH PRN PRN Reason: SEE LABEL COMMENTS Fluoxetine HCl (Prozac) 10 mg PO DAILY [facility] Furosemide (Lasix) 20 mg PO 4XW [facility] Gelatin (Gelfoam 12 Mm/7 Mm Topical) 1 foam TOPICAL PRN PRN PRN Reason: help stop bleeding from site Gentamicin Sulfate (Gentamicin Inj) 20 mg OTHER WITH DIALYSIS PRN PRN Reason: Dwell Gentamycin Lock Heparin Sodium (Porcine) (Heparin Inj) 8,000 units OTHER WITH DIALYSIS PRN PRN Reason: for machine prime Heparin Sodium (Porcine) (Heparin Inj) 1,000 units OTHER WITH DIALYSIS PRN PRN Reason: Dwell Heparin to Fill Catheter Albumin Human (Flexbumin 25% Inj) 100 mls @ 60 mls/hr IV.SIG WITH DIALYSIS PRN PRN Reason: hypotension / volume replace Sodium Chloride (Ns Inj) 1,000 mls @ 0 mls/hr OTHER .Q0M PRN PRN Reason: for prime and rinse back Sodium Chloride (Ns Inj) 1,000 mls @ 200 mls/hr OTHER .Q5H PRN PRN Reason: for dialyzer flush PRN Sodium Chloride (Ns Inj) 1,000 mls @ 0 mls/hr IV.CONT .Q0M PRN PRN Reason: hypotension / volume replace Ceftriaxone Sodium 1,000 mg/ (Sodium Chloride) 100 mls @ 200 mls/hr IV.SIG Q24H [facility] Lactobacillus Acidophilus (Lactinex) 1 tab PO TID [facility] Last Admin: 05/26/18 18:24 Dose: 1 tab Levothyroxine Sodium (Synthroid) 100 mcg PO DAILY@0600 [facility] Mannitol (Mannitol Inj) 12.5 gm IV.PUSH UNSCH PRN PRN Reason: hypotension / volume replace Metoclopramide HCl (Reglan) 5 mg PO BID [facility] Multivitamins (Theragran) 1 tab PO DAILY [facility] Nitroglycerin (Nitrostat Sl) 0.4 mg SL Q5M PRN PRN Reason: CHEST PAIN Ondansetron HCl (Zofran Inj) 4 mg IV.PUSH UNSCH PRN PRN Reason: NAUSEA OR VOMITING Ondansetron HCl (Zofran Inj) 4 mg IV.PUSH Q6H PRN PRN Reason: NAUSEA OR VOMITING Pantoprazole Sodium (Protonix) 20 mg PO DAILY [facility] Last Admin: 05/26/18 15:44 Dose: 20 mg Sevelamer Carbonate (Renvela) 800 mg PO TID PRN PRN 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 Sodium Chloride (Ns Flush) 2 ml IV.FLUSH PRN PRN PRN Reason: FLUSH AFTER USING IV ACCESS Last Admin: 05/26/18 08:57 Dose: 2 ml Sodium Chloride (Ns Flush) 5 ml IV.FLUSH PRN PRN PRN Reason: flush each lumen during HD Sodium Chloride (Ns Flush) 2 ml IV.FLUSH BID [facility] Sodium Chloride (Ns Flush) 2 ml IV.FLUSH PRN PRN PRN Reason: FLUSH AFTER USING IV ACCESS Vitamin D (Vitamin D3) 2,000 unit PO DAILY [facility] Exam Vital signs: Vital Signs 05/26/18 06:19 05/26/18 06:32 05/26/18 07:15 Temperature 96.4 F L 97.8 F 97.9 F Pulse Rate 83 81 89 Respiratory Rate 18 16 Blood Pressure 113/67 139/68 134/81 Pulse Oximetry 99 97 05/26/18 08:58 05/26/18 09:04 05/26/18 10:00 Temperature 98 F 98.1 F Pulse Rate 80 85 Respiratory Rate 16 16 Blood Pressure 131/68 126/68 Pulse Oximetry 97 97 97 05/26/18 15:35 05/26/18 16:00 Temperature 98.2 F Pulse Rate 112 H Respiratory Rate 20 Blood Pressure 185/105 H Pulse Oximetry 97 99 Intake & Output 05/26/18 05/26/18 05/27/18 06:59 18:59 06:59 Intake Total 220 / 220 Output Total 1999 Balance -1780 / -1780 Weight 79.379 kg Intake: IV 100 / 100 Rocephin Inj 1,000 MG In NS Inj 100 / 100 100 ML @ 200 mls/hr IV.SIG ONCE ONE Rx#:[id number] Oral 120 / 120 Output: Urine 0 / 0 Hemodialysis Amount 1999 Other: Date of Last Bowel Movement 05/25/18 Results - Lab Results 05/26/18 06:45 05/26/18 20:18 Most recent lab results Calcium 7.9 mg/dL (8.5-10.1) L 05/26/18 06:45 Magnesium 2.1 mg/dL (1.5-2.5) 05/26/18 06:45 Assessment and Plan - Assessment (1) ESRD (end stage renal disease) on dialysis Code(s): N18.6 - End stage renal disease; Z99.2 - Dependence on renal dialysis Status: Acute Plan: Patient seen during HD and examined, agree with above. K is elevated, now on HD, not eating for some time. Has persistent low Albumin. Considering PEG placement, GI consulted. (2) Unspecified protein-calorie malnutrition Code(s): E46 - Unspecified protein-calorie malnutrition Status: Acute (3) Anemia Code(s): D64.9 - Anemia, unspecified Status: Acute (4) Urinary tract infection Code(s): N39.0 - Urinary tract infection, site not specified Status: Acute
[2018-05-26] MEDS ORDERED: Calcitriol 0.25 MCG Capsule PO SCH (11:00)
--- NOTE | 2018-05-26 12:17 | P.HPIM ---
History of Present Illness Primary Care Physician: UNKNOWN Chief Complaint: Weakness History of Present Illness: Mr. Martinez is a 7-year-old male. His primary complaint for coming in is poor appetite and weakness. He says for the past 2 weeks he is not been able to ambulate well and has hardly been eating anything. He has end-stage renal disease at baseline. He is dialysis dependent. Findings on workup revealed a urinary tract infection and hyperkalemia with lactic acidosis. Sepsis is not suspected at this point. Patient's urinary tract infection may have be contributory to his symptomology. No other complaints at this time. Dialysis due today. Diagnosis (1) ESRD (end stage renal disease) on dialysis: (2) Unspecified protein-calorie malnutrition: (3) Anemia: (4) Urinary tract infection: Review of Systems Constitutional: No fevers, no chills no night sweats, no fatigue, weakness Eyes: No eye pain, no blurry vision, no loss of vision ENT: No sore throat, no ear pain, no rhinorrhea Cardiovascular: No chest pain, no tachycardia, no palpitations, no syncope Respiratory: No wheezing, no cough, no shortness of breath Gastrointestinal: No abdominal pain, no black tarry stools, no bright red blood per rectum, no vomiting, no diarrhea, poor appetite Musculoskeletal: No joint pain, no muscle cramps, no stiffness Integumentary: No rash, no ulcers, no drainage Neurologic: No sensory loss, no loss of motor function, no dizziness Psychiatric: No behavioral changes, no hallucinations, no suicidal ideations [facility] Medical History Medical History Anemia (Acute) TIA (transient ischemic attack) (Acute) Broken arm (Acute) Broken leg (Acute) Depression (Acute) Diabetes (Acute) Dialysis patient (Acute) Hypertension (Acute) Hypothyroidism (Acute) Parkinsons (Acute) 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 (Acute) Renal failure (Acute) Surgical History Surgical History AICD (automatic cardioverter/defibrillator) present (Acute) Hx of cataract removal with insertion of prosthetic lens (Acute) Hx of joint replacement (Acute) Family History Family History Other Osteoarthritis Social History Social History Substance History: No History of Abuse Second Hand Smoke Exposure: No Smoking Status: Former smoker How Often Do You Have a Drink Containing Alcohol: 4 or more times a week Recent Travel in [facility] within the Last 8 Weeks: No Recent Out of Country Travel within the Last 8 Weeks: No Immunization History Tetanus Immunization: >5 Years Medications and Allergies Allergies Allergy/AdvReac Type Severity Reaction Status Date / Time Sulfa (Sulfonamide Allergy Severe Rash Verified 03/14/18 08:43 Antibiotics) adhesive AdvReac Severe Redness of Verified 03/14/18 08:44 Skin, RASH, BLISTERS, CAUSES SKIN TO COME OFF Home Medications Medication Instructions Recorded Confirmed Type calcitriol 1 dose PO 3XW 12/05/17 05/26/18 History calcium carbonate-vitamin D3 1 tab PO DAILY 12/05/17 05/26/18 History [Calcium 600 + D(3)] carbidopa-levodopa 1 tab PO TID 12/05/17 05/26/18 History carvedilol 6.25 mg PO BID 12/05/17 05/26/18 History cholecalciferol (vitamin D3) 2,000 unit PO DAILY 12/05/17 05/26/18 History [Vitamin D3] enalapril maleate [Vasotec] 10 mg PO BID 12/05/17 05/26/18 History fluoxetine 10 mg PO DAILY 12/05/17 05/26/18 History furosemide 20 mg PO 4XW 12/05/17 05/26/18 History levothyroxine 100 mcg PO DAILY 12/05/17 05/26/18 History multivitamin [Multiple Vitamins] 1 tab PO DAILY 12/05/17 05/26/18 History omeprazole 20 mg PO DAILY 12/05/17 05/26/18 History sevelamer carbonate [Renvela] 800 mg PO TID PRN 12/05/17 05/26/18 History acetaminophen [Tylenol Extra 500 mg PO Q6H PRN 05/26/18 05/26/18 History Strength] dronabinol 10 mg PO HS 05/26/18 05/26/18 History loperamide [Imodium A-D] 2 mg PO Q2-4H PRN 05/26/18 05/26/18 History metoclopramide HCl 10 mg PO BID 05/26/18 05/26/18 History warfarin 3.5 mg PO DIRECTED 05/26/18 05/26/18 History warfarin 4.5 mg PO QWEEK 05/26/18 05/26/18 History Active Medications: Active Medications Acetaminophen (Tylenol) 650 mg PO UNSCH PRN PRN Reason: SEE LABEL COMMENTS Acetaminophen (Tylenol) 650 mg PO Q4H PRN PRN Reason: Temp > 100.4 Al Hydroxide/Mg Hydroxide (Milk Of Magnlc Liq) 30 ml PO Q12H PRN PRN Reason: Mild Constipation Calcitriol (Rocaltrol) mcg PO 3XW LAMAR Calcium/Vitamin D (Oscal With D 250/125 Mg) 2 tab PO DAILY [facility] Carbidopa/Levodopa (Simemet 10/100 Mg) 1 tab PO TID LAMAR Carvedilol (Coreg) 6.25 mg PO BID L[facility]AR Clonidine HCl (Catapres) 0.1 mg PO UNSCH PRN PRN Reason: SEE LABEL COMMENTS Diphenhydramine HCl (Benadryl) 25 mg PO UNSCH PRN PRN Reason: SEE LABEL COMMENTS Dronabinol (Marinol) 10 mg PO HS LAMAR Enalapril Maleate (Vasotec) 10 mg PO BID LAMAR Epoetin Nigel (Epogen Inj) 4,000 unit IV.PUSH UNSCH PRN PRN Reason: SEE LABEL COMMENTS Fluoxetine HCl (Prozac) 10 mg PO DAILY L[facility]AR Furosemide (Lasix) 20 mg PO 4XW LAMAR Gelatin (Gelfoam 12 Mm/7 Mm Topical) 1 foam TOPICAL PRN PRN PRN Reason: help stop bleeding from site Gentamicin Sulfate (Gentamicin Inj) 20 mg OTHER WITH DIALYSIS PRN PRN Reason: Dwell Gentamycin Lock Heparin Sodium (Porcine) (Heparin Inj) 8,000 units OTHER WITH DIALYSIS PRN PRN Reason: for machine prime Heparin Sodium (Porcine) (Heparin Inj) 1,000 units OTHER WITH DIALYSIS PRN PRN Reason: Dwell Heparin to Fill Catheter Albumin Human (Flexbumin 25% Inj) 100 mls @ 60 mls/hr IV.SIG WITH DIALYSIS PRN PRN Reason: hypotension / volume replace Sodium Chloride (Ns Inj) 1,000 mls @ 0 mls/hr OTHER .Q0M PRN PRN Reason: for prime and rinse back Sodium Chloride (Ns Inj) 1,000 mls @ 200 mls/hr OTHER .Q5H PRN PRN Reason: for dialyzer flush PRN Sodium Chloride (Ns Inj) 1,000 mls @ 0 mls/hr IV.CONT .Q0M PRN PRN Reason: hypotension / volume replace Ceftriaxone Sodium 1,000 mg/ (Sodium Chloride) 100 mls @ 200 mls/hr IV.SIG Q24H [facility] Lactobacillus Acidophilus (Lactinex) 1 tab PO TID LAMAR Levothyroxine Sodium (Synthroid) 100 mcg PO DAILY@0600 L[facility]AR Mannitol (Mannitol Inj) 12.5 gm IV.PUSH UNSCH PRN PRN Reason: hypotension / volume replace Metoclopramide HCl (Reglan) 5 mg PO BID L[facility]AR Multivitamins (Theragran) 1 tab PO DAILY [facility] Nitroglycerin (Nitrostat Sl) 0.4 mg SL Q5M PRN PRN Reason: CHEST PAIN Ondansetron HCl (Zofran Inj) 4 mg IV.PUSH UNSCH PRN PRN Reason: NAUSEA OR VOMITING Ondansetron HCl (Zofran Inj) 4 mg IV.PUSH Q6H PRN PRN Reason: NAUSEA OR VOMITING Pantoprazole Sodium (Protonix) 20 mg PO DAILY [facility] Sevelamer Carbonate (Renvela) 800 mg PO TID PRN PRN 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 Sodium Chloride (Ns Flush) 2 ml IV.FLUSH PRN PRN PRN Reason: FLUSH AFTER USING IV ACCESS Last Admin: 05/26/18 08:57 Dose: 2 ml Sodium Chloride (Ns Flush) 5 ml IV.FLUSH PRN PRN PRN Reason: flush each lumen during HD Sodium Chloride (Ns Flush) 2 ml IV.FLUSH BID LAMAR Sodium Chloride (Ns Flush) 2 ml IV.FLUSH PRN PRN PRN Reason: FLUSH AFTER USING IV ACCESS Vitamin D (Vitamin D3) 2,000 unit PO DAILY [facility] Physical Exam Vital signs: Last Vital Signs Temp 98.1 F 05/26/18 10:00 Pulse 85 05/26/18 10:00 Resp 16 05/26/18 10:00 BP 126/68 05/26/18 10:00 Pulse Ox 97 05/26/18 10:00 Intake & Output 05/24/18 05/25/18 05/26/18 05/27/18 06:59 06:59 06:59 06:59 Intake Total 100 / 100 Balance 100 / 100 Weight 79.379 kg Narrative: GENERAL: NAD, A&Ox3 HEAD: Normocephalic. NECK: Supple, trachea midline. No lymphadenopathy. EYES: No scleral icterus. No injection or drainage. CARDIOVASCULAR: Regular rate and rhythm without murmurs, gallops, or rubs. RESPIRATORY: Breath sounds equal bilaterally. No accessory muscle use. GASTROINTESTINAL: Abdomen soft, non-tender, nondistended. MUSCULOSKELETAL: No cyanosis, or edema. SKIN: Warm and dry. NEURO: No focal neurological deficits. Results Labs CBC & Chem 7: 05/26/18 06:45 05/26/18 06:45 Imaging Impressions Chest X-Ray 05/26/18 06:39 CONCLUSION: Stable chest appearance. Head CT 05/26/18 07:13 CONCLUSION: Stable brain with no acute findings. . Caprini VTE Risk Assessment Caprini VTE Risk Assessment: Moderate/High Risk (score >= 2) Caprini Risk Assessment Model: Point Value = 1 Point Value = 2 Point Value = 3 Point Value = 5 Age 41-60 Minor surgery BMI > 25 kg/m2 Swollen legs Varicose veins or History of unexplained or recurrent spontaneous Oral contraceptives or hormone replacement Sepsis (< 1 month) Serious lung disease, including pneumonia (< 1 month) Abnormal pulmonary function Acute myocardial infarction Congestive heart failure (< 1 month) History of inflammatory bowel disease Medical patient at bed rest Age 61-74 Arthroscopic surgery Major open surgery (> 45 min) Laparoscopic surgery (> 45 min) Malignancy Confined to bed (> 72 hours) Immobilizing plaster cast Central venous access Age >= 75 History of VTE Family history of VTE Factor V Leiden Prothrombin [id number] Lupus anticoagulant Anticardiolipin antibodies Elevated serum homocysteine Heparin-induced thrombocytopenia Other congenital or acquired thrombophilia Stroke (< 1 month) Elective arthroplasty Hip, pelvis, or leg fracture Acute spinal cord injury (< 1 month) Prophylaxis Regimen: Total Risk Factor Score Risk Level Prophylaxis Regimen 0-1 Low Early ambulation 2 Moderate Order ONE of the following: *Sequential Compression Device (SCD) *Heparin 5000 units SQ BID 3-4 Higher Order ONE of the following medications: *Heparin 5000 units SQ TID *Enoxaparin/Lovenox 40 mg SQ daily (WT < 150 kg, CrCl > 30 mL/min) *Enoxaparin/Lovenox 30 mg SQ daily (WT < 150 kg, CrCl > 10-29 mL/min) *Enoxaparin/Lovenox 30 mg SQ BID (WT < 150 kg, CrCl > 30 mL/min) AND/OR *Sequential Compression Device (SCD) 5 or more Highest Order ONE of the following medications: *Heparin 5000 units SQ TID (Preferred with Epidurals) *Enoxaparin/Lovenox 40 mg SQ daily (WT < 150 kg, CrCl > 30 mL/min) *Enoxaparin/Lovenox 30 mg SQ daily (WT < 150 kg, CrCl > 10-29 mL/min) *Enoxaparin/Lovenox 30 mg SQ BID (WT < 150 kg, CrCl > 30 mL/min) AND *Sequential Compression Device (SCD) Assessment and Plan (1) ESRD (end stage renal disease) on dialysis: Code(s): N18.6 - End stage renal disease; Z99.2 - Dependence on renal dialysis Status: Acute (2) Unspecified protein-calorie malnutrition: Code(s): E46 - Unspecified protein-calorie malnutrition Status: Acute (3) Anemia: Code(s): D64.9 - Anemia, unspecified Status: Acute (4) Urinary tract infection: Code(s): N39.0 - Urinary tract infection, site not specified Status: Acute Plan 77-year-old male admitted secondary to a urinary tract infection with weakness and poor appetite Urinary tract infection Rocephin Probiotics Follow clinically for improvement Follow urine cultures Generalized weakness This may be secondary to urinary tract infection Start physical therapy Follow for improvement Poor appetite Patient inquires about tube feeding Treat urinary tract infection first Encourage p.o. intake Monitor for improvement End-stage renal disease Nephrology consulted Continue dialysis Monitor electrolytes Hypertension Continue baseline treatment Follow blood pressures Adjust treatments as needed Hypothyroidism Continue baseline treatment Follow as an outpatient Parkinson's disease History of TIA History of depression No exacerbations Follow these conditions clinically Hypertherapeutic INR Follow INR Coumadin on hold for now DVT prophylaxis Patient currently will be on Coumadin _ (1) Unspecified protein-calorie malnutrition Qualifiers: Protein-calorie malnutrition severity: (2) Anemia Qualifiers: Anemia type: Iron deficiency anemia type: Vitamin B12 deficiency anemia type: Folate deficiency anemia type: Bone marrow failure anemia type: Hemolytic anemia type: Other causes of anemia: Chronic kidney disease stage : (3) Urinary tract infection Qualifiers: Urinary tract infection type: Hematuria presence: Indwelling urinary catheter type: Encounter type:
[2018-05-26] MEDS: Pantoprazole Sodium 20 MG DR Tablet PO SCH (15:44)
[2018-05-26] MEDS: Lactobacillus Acidophilus/L. Spores Tablet PO SCH ×2 (15:44→18:24)
--- NOTE | 2018-05-26 16:08 | ECG ---
Date Performed: 05/26/2018 Time Performed: 06:38:48 PTAGE: 77 years EKG: ATRIAL FIBRILLATION POSSIBLE INFERIOR WALL MYOCARDIAL INFARCTION, OF UNDETERMINED AGE POSSI BLE ANTEROSEPTAL MYOCARDIAL INFARCTION, OF UNDETERMINED AGE NONSPECIFIC T-WAVE CHANGE Compared to pre vious tracing, no significant change. ABNORMAL ECG PREVIOUS TRACING : 10/07/2017 16.43 DOCTOR: Diaz Samayoa Interpretating Date/Time 05/26/2018 16:06:11
[2018-05-26 22:03] LABS: Hepatitis A IgM Antibody Nonreactive (Nonreactive); Hepatitits B Surface Antigen Nonreactive (Nonreactive)
[2018-05-26] MEDS: Carvedilol 6.25 MG Tablet PO SCH (22:15)
[2018-05-26] MEDS: Metoclopramide 10 MG Tablet PO SCH (22:15)
[2018-05-27 03:56] LABS: Baso % (Auto) 0.4 % (0.0-2.0); Eos % (Auto) 0.4 % (0.0-4.0); Hematocrit 23.1 % (39.0-51.0); Lymph # (Auto) 2.1 th/mm3 (1.0-4.8); Lymph % (Auto) 24.3 % (9.0-44.0); Mean Corpuscular HGB Conc 34.8 % (32.0-36.0); Mean Corpuscular Hemoglobin 35.4 pg (27.0-34.0); Mean Corpuscular Volume 101.6 fL (80.0-100.0); Mean Platelet Volume 8.5 fL (7.0-11.0); Mono # (Auto) 1.2 th/mm3 (0.0-0.9); Mono % (Auto) 13.2 % (0.0-8.0); Neut # (Auto) 5.4 th/mm3 (1.8-7.7); Neut % (Auto) 61.7 % (16.0-70.0); Platelet Count 192 th/mm3 (150-450); Red Blood Count 2.27 mil/mm3 (4.50-5.90); Red Cell Distribution Width 14.6 % (11.6-17.2); White Blood Count 8.8 th/mm3 (4.0-11.0)
[2018-05-27 03:59] LABS: INR 2.9 Ratio; Prothrombin Time 29.2 sec (9.8-11.6)
[2018-05-27 04:22] LABS: Albumin 1.3 g/dL (3.4-5.0); Alkaline Phosphatase 153 U/L (45-117); Anion Gap 4 meq/L (5-15); Aspartate Aminotransferase 24 U/L (15-37); Blood Urea Nitrogen 5 mg/dL (7-18); Calcium 7.2 mg/dL (8.5-10.1); Carbon Dioxide 32.7 meq/L (21.0-32.0); Chloride 105 meq/L (98-107); Glomerular Filtration Rate 28 mL/min (>89); Glucose,Random 89 mg/dL (74-106); Magnesium 1.7 mg/dL (1.5-2.5); Phosphorus 2.8 mg/dL (2.5-4.9); Sodium 142 meq/L (136-145); Total Protein 3.8 g/dL (6.4-8.2)
[2018-05-27] MEDS: Levothyroxine 100 MCG Tablet PO SCH (06:45)
[2018-05-27] MEDS: Metoclopramide 10 MG Tablet PO SCH ×2 (09:07→21:58)
[2018-05-27] MEDS: Lactobacillus Acidophilus/L. Spores Tablet PO SCH ×3 (09:08→18:09)
[2018-05-27] MEDS: Calcium/Vitamin D 250/125 MG Tablet PO SCH (09:08)
[2018-05-27] MEDS: FLUoxetine 10 MG Capsule PO SCH (09:08)
[2018-05-27] MEDS: Pantoprazole Sodium 20 MG DR Tablet PO SCH (09:08)
[2018-05-27] MEDS: Carvedilol 6.25 MG Tablet PO SCH ×2 (09:14→21:58)
--- NOTE | 2018-05-27 12:31 | P.PNNP ---
Subjective Interval history: Resting comfortably. Denies any shortness of breath, chest pain, nausea, or vomiting. Reports generalized weakness. <Debora Schilling - Last Filed: 05/27/18 12:26> Physical Exam Vital signs: Vital Signs 05/26/18 15:35 05/26/18 16:00 05/26/18 21:10 Temperature 98.2 F 98.4 F Pulse Rate 112 H 119 H Respiratory Rate 20 19 Blood Pressure 185/105 H 105/59 L Pulse Oximetry 97 99 90 L 05/27/18 01:10 05/27/18 02:08 05/27/18 05:20 Temperature 97.6 F 98.2 F Pulse Rate 84 84 Respiratory Rate 18 18 Blood Pressure 87/54 L 89/57 L 125/62 Pulse Oximetry 91 L 98 05/27/18 07:43 05/27/18 08:00 05/27/18 08:20 Temperature 97.3 F L Pulse Rate 77 Respiratory Rate 20 Blood Pressure 114/62 Pulse Oximetry 97 96 96 Intake & Output 05/26/18 05/27/18 05/27/18 18:59 06:59 18:59 Intake Total 220 / 220 Output Total 1999 Balance -1780 / -1780 Weight 73.7 kg Intake: IV 100 / 100 Rocephin Inj 1,000 MG In NS Inj 100 / 100 100 ML @ 200 mls/hr IV.SIG ONCE ONE Rx#:[id number] Oral 120 / 120 Output: Urine 0 / 0 Hemodialysis Amount 1999 Other: # Voids 0 Date of Last Bowel Movement 05/25/18 05/25/18 05/25/18 Narrative: GENERAL: NAD, A&Ox3 NECK: Supple, trachea midline. No JVD CARDIOVASCULAR: Regular rate and rhythm without murmurs, gallops, or rubs. Left ARM AVF Positive thrill and bruit. right IJ permacath RESPIRATORY: Breath sounds equal bilaterally. No accessory muscle use. GASTROINTESTINAL: Abdomen soft, non-tender, nondistended. +BS MUSCULOSKELETAL: No cyanosis, or edema. SKIN: Warm and dry. - Urinary Catheter Management Straight Cath placed during this visit: yes, but has since been removed by the nurse Reason for continuing: Decision to DC catheter Insertion date: 05/26/18 Insertion time: 07:15 Removal date: 05/26/18 Removal time: 07:15 <Debora Schilling - Last Filed: 05/27/18 12:26> Vital signs: Vital Signs 05/27/18 01:10 05/27/18 02:08 05/27/18 05:20 Temperature 97.6 F 98.2 F Pulse Rate 84 84 Respiratory Rate 18 18 Blood Pressure 87/54 L 89/57 L 125/62 Pulse Oximetry 91 L 98 05/27/18 07:43 05/27/18 08:00 05/27/18 08:20 Temperature 97.3 F L Pulse Rate 77 Respiratory Rate 20 Blood Pressure 114/62 Pulse Oximetry 97 96 96 05/27/18 12:00 05/27/18 16:00 05/27/18 17:08 Temperature 97.5 F L 97.5 F L Pulse Rate 74 74 Respiratory Rate 20 20 Blood Pressure 114/62 99/57 L Pulse Oximetry 95 98 96 Intake & Output 05/27/18 05/27/18 05/28/18 06:59 18:59 06:59 Intake Total 700 / 700 Output Total 0 / 0 Balance 700 / 700 Weight 73.7 kg Intake: IV 100 / 100 Rocephin Inj 1,000 MG In NS Inj 100 / 100 100 ML @ 200 mls/hr IV.SIG Q24H LAMAR Rx#:[id number] Oral 500 / 500 Other 100 / 100 Output: Urine 0 / 0 Other: Other Intake Source Saline Solution # Voids 0 0 Date of Last Bowel Movement 05/25/18 05/25/18 - Urinary Catheter Management Straight Cath placed during this visit: no <Mitchell Durant - Last Filed: 05/27/18 21:13> Assessment and Plan - Assessment (1) ESRD (end stage renal disease) on dialysis Code(s): N18.6 - End stage renal disease; Z99.2 - Dependence on renal dialysis Status: Acute Plan: ESRD, Dialysis days are on with last dialysis on Wednesday. He has a permacath and a left AVF with positive thrill and bruit. They have just started using the AVF. Avoid IVF administration, Gadolinium is contraindicated. Antibiotics adjust for renal function as needed HD yesterday with removal of 2 liters of fluid. Hemodialysis tomorrow. (2) Unspecified protein-calorie malnutrition Code(s): E46 - Unspecified protein-calorie malnutrition Status: Acute Plan: Patient has been receiving IDPN during dialysis to treat protein calorie malnutrition. He has also been on Marinol for appetite stimulant which thus far has not been improving appetite. Patient and have agreed to proceed with possible peg tube placement. Will consult GI. (3) Anemia Code(s): D64.9 - Anemia, unspecified Status: Acute Plan: HGB dropped to 8.0 no obvious signs of bleeding, Will increase Epogen with dialysis Labs in AM (4) Urinary tract infection Code(s): N39.0 - Urinary tract infection, site not specified Status: Acute Plan: Culture pending, has received Rocephin <Debora Schilling - Last Filed: 05/27/18 12:26> - Assessment (1) ESRD (end stage renal disease) on dialysis Code(s): N18.6 - End stage renal disease; Z99.2 - Dependence on renal dialysis Status: Acute Plan: Patient seen and examined, agree with above. Seen by GI, will need PEG insertion. HD will be in AM. (2) Unspecified protein-calorie malnutrition Code(s): E46 - Unspecified protein-calorie malnutrition Status: Acute (3) Anemia Code(s): D64.9 - Anemia, unspecified Status: Acute (4) Urinary tract infection Code(s): N39.0 - Urinary tract infection, site not specified Status: Acute <Mitchell Durant - Last Filed: 05/27/18 21:13>
--- NOTE | 2018-05-27 12:41 | P.PNIM ---
Subjective Interval history: Weakness persists in this patient. He does not feel he has had an improvement in his strength, however he has had improvement in appetite. Possibility for improvement in strength with physical therapy and as infection continues to be treated. Physical Exam Vital signs: Last Vital Signs Temp 97.3 F L 05/27/18 08:20 Pulse 77 05/27/18 08:20 Resp 20 05/27/18 08:20 BP 114/62 05/27/18 08:20 Pulse Ox 96 05/27/18 08:20 Intake & Output 05/25/18 05/26/18 05/27/18 05/28/18 06:59 06:59 06:59 06:59 Intake Total / 220 Output Total 1999 Balance -1779 / -1779 Weight 79.379 kg 73.7 kg Narrative: GENERAL: NAD, A&Ox3 HEAD: Normocephalic. NECK: Supple, trachea midline. No lymphadenopathy. EYES: No scleral icterus. No injection or drainage. CARDIOVASCULAR: Regular rate and rhythm without murmurs, gallops, or rubs. RESPIRATORY: Breath sounds equal bilaterally. No accessory muscle use. GASTROINTESTINAL: Abdomen soft, non-tender, nondistended. MUSCULOSKELETAL: No cyanosis, or edema. SKIN: Warm and dry. NEURO: No focal neurological deficits. Urinary Catheter Management Straight: Cath placed during this visit: yes, but has since been removed by the nurse Insertion date: 05/26/18 Insertion time: 07:15 Removal date: 05/26/18 Removal time: 07:15 Results Labs CBC & Chem 7: 05/27/18 03:34 05/27/18 03:34 Labs: Microbiology 05/26/18 08:11 Blood - Peripheral Aerobic Blood Culture - Preliminary No growth in 1 day 05/26/18 08:11 Blood - Peripheral Anaerobic Blood Culture - Preliminary No growth in 1 day 05/26/18 08:00 Blood - Peripheral Aerobic Blood Culture - Preliminary No growth in 1 day 05/26/18 08:00 Blood - Peripheral Anaerobic Blood Culture - Preliminary No growth in 1 day Assessment and Plan (1) ESRD (end stage renal disease) on dialysis: Code(s): N18.6 - End stage renal disease; Z99.2 - Dependence on renal dialysis Status: Acute (2) Unspecified protein-calorie malnutrition: Code(s): E46 - Unspecified protein-calorie malnutrition Status: Acute (3) Anemia: Code(s): D64.9 - Anemia, unspecified Status: Acute (4) Urinary tract infection: Code(s): N39.0 - Urinary tract infection, site not specified Status: Acute Plan 77-year-old male admitted secondary to a urinary tract infection with weakness and poor appetite Continue treatment of UTI. Continue physical therapy. Continue encouraging p.o. intake which has improved. Urinary tract infection Rocephin Probiotics Follow clinically for improvement Follow urine cultures Generalized weakness This may be secondary to urinary tract infection Start physical therapy Follow for improvement Poor appetite Patient inquires about tube feeding Treat urinary tract infection first Encourage p.o. intake Monitor for improvement End-stage renal disease Nephrology consulted Continue dialysis Monitor electrolytes Hypertension Continue baseline treatment Follow blood pressures Adjust treatments as needed Hypothyroidism Continue baseline treatment Follow as an outpatient Parkinson's disease History of TIA History of depression No exacerbations Follow these conditions clinically Hypertherapeutic INR Follow INR Coumadin on hold for now DVT prophylaxis Patient currently will be on Coumadin _ (1) Unspecified protein-calorie malnutrition Qualifiers: Protein-calorie malnutrition severity: (2) Anemia Qualifiers: Anemia type: Iron deficiency anemia type: Vitamin B12 deficiency anemia type: Folate deficiency anemia type: Bone marrow failure anemia type: Hemolytic anemia type: Other causes of anemia: Chronic kidney disease stage : (3) Urinary tract infection Qualifiers: Urinary tract infection type: Hematuria presence: Indwelling urinary catheter type: Encounter type:
--- NOTE | 2018-05-27 13:25 | P.CONGI ---
History of Present Illness Consult date: 05/27/18 Consult reason: PEG tube placement Chief complaint: Uti, weakness,ESRD History of Present Illness: This patient is a pleasant 77-year-old male with past medical history significant for anemia, TIA-on Coumadin, depression, diabetes, renal failure, hypertension, hypothyroidism and Parkinson's. Patient presented to [facility] yesterday brought in by spouse with report of generalized weakness and inability to ambulate well and decreased appetite over the last 2 weeks. Designated dialysis days are Tuesdays and Saturdays. Patient was found to have a UTI upon admission. Upon consultation, patient spouse assists with HPI and endorses that patient has had decreased appetite times 1 month despite being on Megace. She also reports patient receiving Reglan before meals and at bedtime. She states patient has had some dysphagia with solid foods and medications over the last 1-2 months. Patient able to swallow liquids but she reports that he will on occasion cough/choke regardless of what he is eating/drinking. She reports patient had EGD and colonoscopy "years ago" [place]. She denies any abnormal findings communicated as per her recollection. Patient denies any noted bleeding. Denies abdominal pain, nausea or vomiting and states he moves his bowels every 1-2 days and they are soft and brown without any noted bleeding. Patient denies smoking but does endorse drinking 2 glasses of wine daily. Our service has been consulted to evaluate patient for PEG tube placement. <Deanne Bell - Last Filed: 05/27/18 18:57> Review of Systems All other systems reviewed negative except as stated in HPI <Deanne Bell - Last Filed: 05/27/18 18:57> PMFSH - History History Provided By: Patient - Medical History Medical History: Medical History (Last Reviewed 05/27/18 @ 06:50 by Markell Serrano) Anemia TIA (transient ischemic attack) Broken arm Broken leg Depression Diabetes Dialysis patient Hypertension Hypothyroidism Parkinsons 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 Renal failure - Surgical History Surgical History: Surgical History (Last Reviewed 05/27/18 @ 06:50 by Markell Serrano) AICD (automatic cardioverter/defibrillator) present Hx of cataract removal with insertion of prosthetic lens Hx of joint replacement - Family History Family History: Family History (Last Reviewed 05/26/18 @ 07:15 by Beryl Lee MD) Other Osteoarthritis - Tobacco History Second Hand Smoke Exposure: No Smoking Status: Former smoker - Alcohol History How Often Do You Have a Drink Containing Alcohol: 4 or more times a week - Substance Use History Substance History: No History of Abuse - Travel History Recent Travel in the [place] Within the Last 8 Weeks: No Recent Travel Out of the Country Within the Last 8 Weeks: No - Immunization History Tetanus Immunization: >5 Years <Deanne Bell - Last Filed: 05/27/18 18:57> - Medical History Medical History: Medical History (Last Reviewed 05/27/18 @ 06:50 by Markell Serrano) Anemia TIA (transient ischemic attack) Broken arm Broken leg Depression Diabetes Dialysis patient Hypertension Hypothyroidism Parkinsons 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 Renal failure - Surgical History Surgical History: Surgical History (Last Reviewed 05/27/18 @ 06:50 by Markell Serrano) AICD (automatic cardioverter/defibrillator) present Hx of cataract removal with insertion of prosthetic lens Hx of joint replacement - Family History Family History: Family History (Last Reviewed 05/26/18 @ 07:15 by Beryl Lee MD) Other Osteoarthritis <Segun Patel - Last Filed: 05/28/18 09:58> Medications and Allergies Active Medications: Active Medications Acetaminophen (Tylenol) 650 mg PO UNSCH PRN PRN Reason: SEE LABEL COMMENTS Acetaminophen (Tylenol) 650 mg PO Q4H PRN PRN Reason: Temp > 100.4 Al Hydroxide/Mg Hydroxide (Milk Of Magnlc Liq) 30 ml PO Q12H PRN PRN Reason: Mild Constipation Calcitriol (Rocaltrol) mcg PO 3XW [facility] Calcium/Vitamin D (Oscal With D 250/125 Mg) 2 tab PO DAILY [facility] Last Admin: 05/27/18 09:08 Dose: 2 tab Carbidopa/Levodopa (Simemet 10/100 Mg) 1 tab PO TID [facility] Last Admin: 05/27/18 12:53 Dose: 1 tab Carvedilol (Coreg) 6.25 mg PO BID [facility] Last Admin: 05/27/18 09:14 Dose: 6.25 mg Diphenhydramine HCl (Benadryl) 25 mg PO UNSCH PRN PRN Reason: SEE LABEL COMMENTS Dronabinol (Marinol) 10 mg PO HS [facility] Last Admin: 05/26/18 22:19 Dose: 10 mg Enalapril Maleate (Vasotec) 10 mg PO BID [facility] Last Admin: 05/27/18 09:08 Dose: 10 mg Epoetin Nigel (Epogen Inj) 4,000 unit IV.PUSH UNSCH PRN PRN Reason: SEE LABEL COMMENTS Fluoxetine HCl (Prozac) 10 mg PO DAILY [facility] Last Admin: 05/27/18 09:08 Dose: 10 mg Furosemide (Lasix) 20 mg PO 4XW [facility] Gelatin (Gelfoam 12 Mm/7 Mm Topical) 1 foam TOPICAL PRN PRN PRN Reason: help stop bleeding from site Gentamicin Sulfate (Gentamicin Inj) 20 mg OTHER WITH DIALYSIS PRN PRN Reason: Dwell Gentamycin Lock Heparin Sodium (Porcine) (Heparin Inj) 8,000 units OTHER WITH DIALYSIS PRN PRN Reason: for machine prime Heparin Sodium (Porcine) (Heparin Inj) 1,000 units OTHER WITH DIALYSIS PRN PRN Reason: Dwell Heparin to Fill Catheter Albumin Human (Flexbumin 25% Inj) 100 mls @ 60 mls/hr IV.SIG WITH DIALYSIS PRN PRN Reason: hypotension / volume replace Sodium Chloride (Ns Inj) 1,000 mls @ 0 mls/hr OTHER .Q0M PRN PRN Reason: for prime and rinse back Sodium Chloride (Ns Inj) 1,000 mls @ 200 mls/hr OTHER .Q5H PRN PRN Reason: for dialyzer flush PRN Sodium Chloride (Ns Inj) 1,000 mls @ 0 mls/hr IV.CONT .Q0M PRN PRN Reason: hypotension / volume replace Ceftriaxone Sodium 1,000 mg/ (Sodium Chloride) 100 mls @ 200 mls/hr IV.SIG Q24H [facility] Last Admin: 05/27/18 09:07 Dose: 200 mls/hr Lactobacillus Acidophilus (Lactinex) 1 tab PO TID [facility] Last Admin: 05/27/18 12:53 Dose: 1 tab Levothyroxine Sodium (Synthroid) 100 mcg PO DAILY@0600 [facility] Last Admin: 05/27/18 06:45 Dose: 100 mcg Mannitol (Mannitol Inj) 12.5 gm IV.PUSH UNSCH PRN PRN Reason: hypotension / volume replace Metoclopramide HCl (Reglan) 5 mg PO BID [facility] Last Admin: 12/21/18 09:07 Dose: 5 mg Multivitamins (Theragran) 1 tab PO DAILY [facility] Last Admin: 05/27/18 09:08 Dose: 1 tab Nitroglycerin (Nitrostat Sl) 0.4 mg SL Q5M PRN PRN Reason: CHEST PAIN Ondansetron HCl (Zofran Inj) 4 mg IV.PUSH UNSCH PRN PRN Reason: NAUSEA OR VOMITING Ondansetron HCl (Zofran Inj) 4 mg IV.PUSH Q6H PRN PRN Reason: NAUSEA OR VOMITING Pantoprazole Sodium (Protonix) 20 mg PO DAILY [facility] Last Admin: 05/27/18 09:08 Dose: 20 mg Sevelamer Carbonate (Renvela) 800 mg PO TID PRN PRN 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 Sodium Chloride (Ns Flush) 5 ml IV.FLUSH PRN PRN PRN Reason: flush each lumen during HD Sodium Chloride (Ns Flush) 2 ml IV.FLUSH BID [facility] Last Admin: 05/27/18 09:09 Dose: 2 ml Sodium Chloride (Ns Flush) 2 ml IV.FLUSH PRN PRN PRN Reason: FLUSH AFTER USING IV ACCESS Vitamin D (Vitamin D3) 2,000 unit PO DAILY [facility] Last Admin: 05/27/18 09:08 Dose: 2,000 unit Warfarin Sodium (Coumadin) 3 mg PO DAILY@1600 [facility] <Deanne Bell - Last Filed: 05/27/18 18:57> Active Medications: Active Medications Acetaminophen (Tylenol) 650 mg PO UNSCH PRN PRN Reason: SEE LABEL COMMENTS Acetaminophen (Tylenol) 650 mg PO Q4H PRN PRN Reason: Temp > 100.4 Al Hydroxide/Mg Hydroxide (Milk Of Magnesia Liq) 30 ml PO Q12H PRN PRN Reason: Mild Constipation Calcitriol (Rocaltrol) mcg PO 3XW [facility] Calcium/Vitamin D (Oscal With D 250/125 Mg) 2 tab PO DAILY [facility] Last Admin: 05/27/18 09:08 Dose: 2 tab Carbidopa/Levodopa (Simemet 10/100 Mg) 1 tab PO TID [facility] Last Admin: 05/27/18 18:09 Dose: 1 tab Carvedilol (Coreg) 6.25 mg PO BID [facility] Last Admin: 05/27/18 21:58 Dose: 6.25 mg Diphenhydramine HCl (Benadryl) 25 mg PO UNSCH PRN PRN Reason: SEE LABEL COMMENTS Dronabinol (Marinol) 10 mg PO HS [facility] Last Admin: 05/27/18 21:58 Dose: 10 mg Enalapril Maleate (Vasotec) 10 mg PO BID [facility] Last Admin: 05/27/18 21:58 Dose: 10 mg Epoetin Nigel (Epogen Inj) 4,000 unit IV.PUSH UNSCH PRN PRN Reason: SEE LABEL COMMENTS Fluoxetine HCl (Prozac) 10 mg PO DAILY [facility] Last Admin: 05/27/18 09:08 Dose: 10 mg Furosemide (Lasix) 20 mg PO 4XW [facility] Gelatin (Gelfoam 12 Mm/7 Mm Topical) 1 foam TOPICAL PRN PRN PRN Reason: help stop bleeding from site Gentamicin Sulfate (Gentamicin Inj) 20 mg OTHER WITH DIALYSIS PRN PRN Reason: Dwell Gentamycin Lock Heparin Sodium (Porcine) (Heparin Inj) 8,000 units OTHER WITH DIALYSIS PRN PRN Reason: for machine prime Heparin Sodium (Porcine) (Heparin Inj) 1,000 units OTHER WITH DIALYSIS PRN PRN Reason: Dwell Heparin to Fill Catheter Albumin Human (Flexbumin 25% Inj) 100 mls @ 60 mls/hr IV.SIG WITH DIALYSIS PRN PRN Reason: hypotension / volume replace Sodium Chloride (Ns Inj) 1,000 mls @ 0 mls/hr OTHER .Q0M PRN PRN Reason: for prime and rinse back Sodium Chloride (Ns Inj) 1,000 mls @ 200 mls/hr OTHER .Q5H PRN PRN Reason: for dialyzer flush PRN Sodium Chloride (Ns Inj) 1,000 mls @ 0 mls/hr IV.CONT .Q0M PRN PRN Reason: hypotension / volume replace Ceftriaxone Sodium 1,000 mg/ (Sodium Chloride) 100 mls @ 200 mls/hr IV.SIG Q24H [facility] Last Infusion: 05/27/18 09:40 Dose: Infused Lactobacillus Acidophilus (Lactinex) 1 tab PO TID [facility] Last Admin: 05/27/18 18:09 Dose: 1 tab Levothyroxine Sodium (Synthroid) 100 mcg PO DAILY@0600 [facility] Last Admin: 05/28/18 05:48 Dose: 100 mcg Mannitol (Mannitol Inj) 12.5 gm IV.PUSH UNSCH PRN PRN Reason: hypotension / volume replace Metoclopramide HCl (Reglan) 5 mg PO BID [facility] Last Admin: 05/27/18 21:58 Dose: 5 mg Multivitamins (Theragran) 1 tab PO DAILY [facility] Last Admin: 05/27/18 09:08 Dose: 1 tab Nitroglycerin (Nitrostat Sl) 0.4 mg SL Q5M PRN PRN Reason: CHEST PAIN Ondansetron HCl (Zofran Inj) 4 mg IV.PUSH UNSCH PRN PRN Reason: NAUSEA OR VOMITING Ondansetron HCl (Zofran Inj) 4 mg IV.PUSH Q6H PRN PRN Reason: NAUSEA OR VOMITING Pantoprazole Sodium (Protonix) 20 mg PO DAILY [facility] Last Admin: 05/27/18 09:08 Dose: 20 mg Sevelamer Carbonate (Renvela) 800 mg PO TID PRN PRN 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 Sodium Chloride (Ns Flush) 5 ml IV.FLUSH PRN PRN PRN Reason: flush each lumen during HD Sodium Chloride (Ns Flush) 2 ml IV.FLUSH BID [facility] Last Admin: 05/27/18 21:57 Dose: 2 ml Sodium Chloride (Ns Flush) 2 ml IV.FLUSH PRN PRN PRN Reason: FLUSH AFTER USING IV ACCESS Vitamin D (Vitamin D3) 2,000 unit PO DAILY [facility] Last Admin: 05/27/18 09:08 Dose: 2,000 unit Warfarin Sodium (Coumadin) 3 mg PO DAILY@1600 [facility] Last Admin: 05/27/18 18:09 Dose: 3 mg <Segun Patel - Last Filed: 05/28/18 09:58> Allergies Allergy/AdvReac Type Severity Reaction Status Date / Time Sulfa (Sulfonamide Allergy Severe Rash Verified 03/14/18 08:43 Antibiotics) adhesive AdvReac Severe Redness of Verified 03/14/18 08:44 Skin, RASH, BLISTERS, CAUSES SKIN TO COME OFF Home Medications Medication Instructions Recorded Confirmed Type calcitriol 1 dose PO 3XW 12/05/17 05/26/18 History calcium carbonate-vitamin D3 1 tab PO DAILY 12/05/17 05/26/18 History [Calcium 600 + D(3)] carbidopa-levodopa 1 tab PO TID 12/05/17 05/26/18 History carvedilol 6.25 mg PO BID 12/05/17 05/26/18 History cholecalciferol (vitamin D3) 2,000 unit PO DAILY 12/05/17 05/26/18 History [Vitamin D3] enalapril maleate [Vasotec] 10 mg PO BID 12/05/17 05/26/18 History fluoxetine 10 mg PO DAILY 12/05/17 05/26/18 History furosemide 20 mg PO 4XW 12/05/17 05/26/18 History levothyroxine 100 mcg PO DAILY 12/05/17 05/26/18 History multivitamin [Multiple Vitamins] 1 tab PO DAILY 12/05/17 05/26/18 History omeprazole 20 mg PO DAILY 12/05/17 05/26/18 History sevelamer carbonate [Renvela] 800 mg PO TID PRN 12/05/17 05/26/18 History acetaminophen [Tylenol Extra 500 mg PO Q6H PRN 05/26/18 05/26/18 History Strength] dronabinol 10 mg PO HS 05/26/18 05/26/18 History loperamide [Imodium A-D] 2 mg PO Q2-4H PRN 05/26/18 05/26/18 History metoclopramide HCl 10 mg PO BID 05/26/18 05/26/18 History warfarin 3.5 mg PO DIRECTED 05/26/18 05/26/18 History warfarin 4.5 mg PO QWEEK 05/26/18 05/26/18 History Exam Vital signs: Vital Signs 05/26/18 15:35 05/26/18 16:00 05/26/18 21:10 Temperature 98.2 F 98.4 F Pulse Rate 112 H 119 H Respiratory Rate 20 19 Blood Pressure 185/105 H 105/59 L Pulse Oximetry 97 99 90 L 05/27/18 01:10 05/27/18 02:08 05/27/18 05:20 Temperature 97.6 F 98.2 F Pulse Rate 84 84 Respiratory Rate 18 18 Blood Pressure 87/54 L 89/57 L 125/62 Pulse Oximetry 91 L 98 05/27/18 07:43 05/27/18 08:00 05/27/18 08:20 Temperature 97.3 F L Pulse Rate 77 Respiratory Rate 20 Blood Pressure 114/62 Pulse Oximetry 97 96 96 Intake & Output 05/26/18 05/27/18 05/27/18 18:59 06:59 18:59 Intake Total 220 / 220 Output Total 1999 Balance -1780 / -1780 Weight 73.7 kg Intake: IV 100 / 100 Rocephin Inj 1,000 MG In NS Inj 100 / 100 100 ML @ 200 mls/hr IV.SIG ONCE ONE Rx#:[id number] Oral 120 / 120 Output: Urine 0 / 0 Hemodialysis Amount 1999 Other: # Voids 0 Date of Last Bowel Movement 05/25/18 05/25/18 05/25/18 - Constitutional no acute distress, chronically ill appearing - Routine HEENT Exam Head: Present: normocephalic - Routine Respiratory Exam Present: CTA bilaterally. Absent: accessory muscle use - Routine Cardiovascular Exam Present: RRR - Routine Abdominal Exam Present: soft, normoactive bowel sounds. Absent: tenderness, distended, guarding, firm, surgical scars - Routine Extremities Exam Absent: edema - Routine Skin Exam Present: dry, pallor, warm - Routine Neurological Exam Present: alert, sensory deficit Hard of hearing - Routine Psychiatric Exam Present: normal affect, cooperative <Bell,Deanne - Last Filed: 05/27/18 18:57> Vital signs: Vital Signs 05/27/18 12:00 05/27/18 16:00 05/27/18 17:08 Temperature 97.5 F L 97.5 F L Pulse Rate 74 74 Respiratory Rate 20 20 Blood Pressure 114/62 99/57 L Pulse Oximetry 95 98 96 05/27/18 20:30 05/28/18 00:00 05/28/18 04:00 Temperature 97.8 F 98 F 98 F Pulse Rate 105 H 74 84 Respiratory Rate 18 18 Blood Pressure 120/63 126/70 121/69 Pulse Oximetry 97 96 95 05/28/18 08:00 05/28/18 09:20 Temperature 97.6 F Pulse Rate 76 Respiratory Rate 20 Blood Pressure 127/71 Pulse Oximetry 98 98 Intake & Output 05/27/18 05/28/18 05/28/18 18:59 06:59 18:59 Intake Total 700 / 700 Output Total 0 / 0 Balance 700 / 700 Weight 72.1 kg Intake: IV 100 / 100 Rocephin Inj 1,000 MG In NS Inj 100 / 100 100 ML @ 200 mls/hr IV.SIG Q24H [facility] Rx#:[id number] Oral 500 / 500 Other 100 / 100 Output: Urine 0 / 0 Other: Other Intake Source Saline Solution # Voids 0 3 Date of Last Bowel Movement 05/25/18 05/27/18 <Segun Patel - Last Filed: 05/28/18 09:58> Results - Labs CBC & Chem 7: 05/27/18 03:34 05/27/18 03:34 Labs: Laboratory Results - last 24 hr 05/26/18 05/26/18 05/26/18 20:02 20:18 20:18 WBC RBC Hgb Hct MCV MCH MCHC RDW Plt Count MPV Neut % (Auto) Lymph % (Auto) [place] % (Auto) Eos % (Auto) Baso % (Auto) Neut # (Auto) Lymph # (Auto) [place] # (Auto) Eos # (Auto) Baso # (Auto) WBC Differential Differential Comment PT INR Sodium Potassium 3.7 D Chloride Carbon Dioxide Anion Gap BUN Creatinine Estimated GFR POC Glucose 92 Random Glucose Lactic Acid Calcium Calcium Adj for Albumin Phosphorus Magnesium Total Bilirubin AST ALT Alkaline Phosphatase Total Protein Albumin Hepatitis A IgM Ab Nonreactive Hep Bs Antigen Nonreactive Hep B Core IgM Ab Nonreactive Hep C IgG Ab Nonreactive 05/27/18 05/27/18 05/27/18 03:34 03:34 03:34 WBC 8.8 RBC 2.27 L Hgb 8.0 L D Hct 23.1 L MCV 101.6 H MCH 35.4 H MCHC 34.8 RDW 14.6 Plt Count 192 D MPV 8.5 Neut % (Auto) 61.7 Lymph % (Auto) 24.3 [place] % (Auto) 13.2 H Eos % (Auto) 0.4 Baso % (Auto) 0.4 Neut # (Auto) 5.4 Lymph # (Auto) 2.1 [place] # (Auto) 1.2 H Eos # (Auto) 0.0 Baso # (Auto) 0.0 WBC Differential . Differential Comment Auto diff final PT 29.2 H D INR 2.9 Sodium 142 Potassium 4.0 Chloride 105 Carbon Dioxide 32.7 H Anion Gap 4 L BUN 5 L Creatinine 2.28 H Estimated GFR 28 L POC Glucose Random Glucose 89 Lactic Acid Calcium 7.2 L* Calcium Adj for Albumin 9.4 Phosphorus 2.8 Magnesium 1.7 Total Bilirubin 0.5 AST 24 ALT Less than 6 L Alkaline Phosphatase 153 H Total Protein 3.8 L Albumin 1.3 L Hepatitis A IgM Ab Hep Bs Antigen Hep B Core IgM Ab Hep C IgG Ab 05/27/18 03:34 WBC RBC Hgb Hct MCV MCH MCHC RDW Plt Count MPV Neut % (Auto) Lymph % (Auto) [place] % (Auto) Eos % (Auto) Baso % (Auto) Neut # (Auto) Lymph # (Auto) [place] # (Auto) Eos # (Auto) Baso # (Auto) WBC Differential Differential Comment PT INR Sodium Potassium Chloride Carbon Dioxide Anion Gap BUN Creatinine Estimated GFR POC Glucose Random Glucose Lactic Acid 1.0 Calcium Calcium Adj for Albumin Phosphorus Magnesium Total Bilirubin AST ALT Alkaline Phosphatase Total Protein Albumin Hepatitis A IgM Ab Hep Bs Antigen Hep B Core IgM Ab Hep C IgG Ab <Deanne Bell - Last Filed: 05/27/18 18:57> - Labs CBC & Chem 7: 05/28/18 06:12 05/28/18 06:12 Labs: Laboratory Results - last 24 hr 05/26/18 05/27/18 05/28/18 07:05 20:12 06:12 WBC 6.4 RBC 2.61 L Hgb 9.2 L Hct 27.0 L MCV 103.5 H MCH 35.3 H MCHC 34.1 RDW 15.1 Plt Count 207 MPV 8.5 Neut % (Auto) 48.4 Lymph % (Auto) 30.2 [place] % (Auto) 17.2 H Eos % (Auto) 3.6 Baso % (Auto) 0.6 Neut # (Auto) 3.1 Lymph # (Auto) 1.9 [place] # (Auto) 1.1 H Eos # (Auto) 0.2 Baso # (Auto) 0.0 WBC Differential . Differential Comment Auto diff final PT INR Sodium Potassium Chloride Carbon Dioxide Anion Gap BUN Creatinine Estimated GFR POC Glucose 166 H Random Glucose Calcium Phosphorus Total Bilirubin AST ALT Alkaline Phosphatase Total Protein Albumin Urine Color Yellow Urine Clarity Turbid H Urine pH 7.0 Ur Specific [place] 1.009 Urine Protein 100 H Urine Glucose (UA) Negative Urine Ketones Negative Urine Occult Blood Small H Urine Nitrate Negative Urine Bilirubin Negative Urine Urobilinogen Less than 2 Ur Leukocyte Esterase Moderate H Urine RBC 10 H Urine WBC Urine WBC Clumps Many H Ur Squamous Epith Cells 2 Urine Bacteria Many H Urine Mucus Few H Micro UA Comment Culture indicated Urine Culture Comments Culture indicated 05/28/18 05/28/18 05/28/18 06:12 06:12 08:05 WBC RBC Hgb Hct MCV MCH MCHC RDW Plt Count MPV Neut % (Auto) Lymph % (Auto) [place] % (Auto) Eos % (Auto) Baso % (Auto) Neut # (Auto) Lymph # (Auto) [place] # (Auto) Eos # (Auto) Baso # (Auto) WBC Differential Differential Comment PT 31.5 H INR 3.1 Sodium 142 Potassium 3.7 Chloride 104 Carbon Dioxide 31.4 Anion Gap 7 BUN 7 Creatinine 3.03 H Estimated GFR 20 L POC Glucose 87 Random Glucose 93 Calcium 7.5 L Phosphorus 2.7 Total Bilirubin 0.4 AST 29 ALT 6 L Alkaline Phosphatase 171 H Total Protein 4.5 L D Albumin 1.4 L Urine Color Urine Clarity Urine pH Ur Specific [place] Urine Protein Urine Glucose (UA) Urine Ketones Urine Occult Blood Urine Nitrate Urine Bilirubin Urine Urobilinogen Ur Leukocyte Esterase Urine RBC Urine WBC Urine WBC Clumps Ur Squamous Epith Cells Urine Bacteria Urine Mucus Micro UA Comment Urine Culture Comments <NabilsarahBelemSegun - Last Filed: 05/28/18 09:58> Assessment and Plan (1) Dysphagia Status: Acute Code(s): R13.10 - Dysphagia, unspecified (2) Failure to thrive Status: Acute - Plan This patient is a pleasant 77-year-old male with past medical history significant for anemia, TIA-on Coumadin, depression, diabetes, renal failure, hypertension, hypothyroidism and Parkinson's. Patient presented to [facility] yesterday brought in by spouse with report of generalized weakness and inability to ambulate well and decreased appetite over the last 2 weeks. Designated dialysis days are Tuesdays and Saturdays. Patient was found to have a UTI upon admission. Upon consultation, patient spouse assists with HPI and endorses that patient has had decreased appetite times 1 month despite being on Megace. She also reports patient receiving Reglan before meals and at bedtime. She states patient has had some dysphagia with solid foods and medications over the last 1-2 months. Patient able to swallow liquids but she reports that he will on occasion cough/choke regardless of what he is eating/drinking. She reports patient had EGD and colonoscopy "years ago" while they were living [place]. She denies any abnormal findings communicated as per her recollection. Patient denies any noted bleeding. Denies abdominal pain, nausea or vomiting and states he moves his bowels every 1-2 days and they are soft and brown without any noted bleeding. Patient denies smoking but does endorse drinking 2 glasses of wine daily. Our service has been consulted to evaluate patient for PEG tube placement. Dysphagia Failure to thrive Patient presented to [facility] with 2-week onset of generalized weakness and decreased appetite. Spouse reports patient has had dysphagia with solid foods and medications for 1-2 months. States patient was receiving IV TPN with dialysis as well as Megace with no improvement in appetite or nutritional intake WBC 8.8 hemoglobin 8.0 hematocrit 23.1 platelet count 192 INR 2.9 BUN 5 creatinine 2.28 GFR 28 lactic acid 1.0 Total bilirubin 0.5 AST 24 ALT less than 6 alk phos 156 Plan neck -Diet as tolerated -Aspiration precautions -May require barium swallow -Continue Reglan -Antiemetics as needed -Multivitamin daily -Pantoprazole 20 mg p.o. daily -Supportive care -As per attending progress note, patient has had improvement in appetite. -GI will sign off at this time, please notify for any further assistance This patient has been seen by myself and Dr. Patel and this note is written on his behalf - Attending Attestation Dr. Patel <Deanne Bell - Last Filed: 05/27/18 18:57> (1) Dysphagia Status: Acute Code(s): R13.10 - Dysphagia, unspecified (2) Failure to thrive Status: Acute - Attending Attestation Patient seen and examined. I agree with the assessment and recommendations above. <Segun Patel - Last Filed: 05/28/18 09:58>
--- NOTE | 2018-05-27 17:11 | P.CONGI ---
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 Renal failure - Surgical History Surgical History: Surgical History (Last Reviewed 05/27/18 @ 06:50 by Markell Serrano) AICD (automatic cardioverter/defibrillator) present Hx of cataract removal with insertion of prosthetic lens Hx of joint replacement - Family History Family History: Family History (Last Reviewed 05/26/18 @ 07:15 by Beyrl Lee MD) Other Osteoarthritis - Tobacco History Second Hand Smoke Exposure: No Smoking Status: Former smoker - Alcohol History How Often Do You Have a Drink Containing Alcohol: 4 or more times a week - Substance Use History Substance History: No History of Abuse - Travel History Recent Travel in the [place] Within the Last 8 Weeks: No Recent Travel Out of the Country Within the Last 8 Weeks: No - Immunization History Tetanus Immunization: >5 Years Medications and Allergies Active Medications: Active Medications Acetaminophen (Tylenol) 650 mg PO UNSCH PRN PRN Reason: SEE LABEL COMMENTS Acetaminophen (Tylenol) 650 mg PO Q4H PRN PRN Reason: Temp > 100.4 Al Hydroxide/Mg Hydroxide (Milk Of Rajiv Liq) 30 ml PO Q12H PRN PRN Reason: Mild Constipation Calcitriol (Rocaltrol) mcg PO 3XW [facility] Calcium/Vitamin D (Oscal With D 250/125 Mg) 2 tab PO DAILY [facility] Last Admin: 05/27/18 09:08 Dose: 2 tab Carbidopa/Levodopa (Simemet 10/100 Mg) 1 tab PO TID [facility] Last Admin: 05/27/18 12:53 Dose: 1 tab Carvedilol (Coreg) 6.25 mg PO BID [facility] Last Admin: 05/27/18 09:14 Dose: 6.25 mg Diphenhydramine HCl (Benadryl) 25 mg PO UNSCH PRN PRN Reason: SEE LABEL COMMENTS Dronabinol (Marinol) 10 mg PO HS [facility] Last Admin: 05/26/18 22:19 Dose: 10 mg Enalapril Maleate (Vasotec) 10 mg PO BID [facility] Last Admin: 05/27/18 09:08 Dose: 10 mg Epoetin Nigel (Epogen Inj) 4,000 unit IV.PUSH UNSCH PRN PRN Reason: SEE LABEL COMMENTS Fluoxetine HCl (Prozac) 10 mg PO DAILY [facility] Last Admin: 05/27/18 09:08 Dose: 10 mg Furosemide (Lasix) 20 mg PO 4XW [facility] Gelatin (Gelfoam 12 Mm/7 Mm Topical) 1 foam TOPICAL PRN PRN PRN Reason: help stop bleeding from site Gentamicin Sulfate (Gentamicin Inj) 20 mg OTHER WITH DIALYSIS PRN PRN Reason: Dwell Gentamycin Lock Heparin Sodium (Porcine) (Heparin Inj) 8,000 units OTHER WITH DIALYSIS PRN PRN Reason: for machine prime Heparin Sodium (Porcine) (Heparin Inj) 1,000 units OTHER WITH DIALYSIS PRN PRN Reason: Dwell Heparin to Fill Catheter Albumin Human (Flexbumin 25% Inj) 100 mls @ 60 mls/hr IV.SIG WITH DIALYSIS PRN PRN Reason: hypotension / volume replace Sodium Chloride (Ns Inj) 1,000 mls @ 0 mls/hr OTHER .Q0M PRN PRN Reason: for prime and rinse back Sodium Chloride (Ns Inj) 1,000 mls @ 200 mls/hr OTHER .Q5H PRN PRN Reason: for dialyzer flush PRN Sodium Chloride (Ns Inj) 1,000 mls @ 0 mls/hr IV.CONT .Q0M PRN PRN Reason: hypotension / volume replace Ceftriaxone Sodium 1,000 mg/ (Sodium Chloride) 100 mls @ 200 mls/hr IV.SIG Q24H [facility] Last Admin: 05/27/18 09:07 Dose: 200 mls/hr Lactobacillus Acidophilus (Lactinex) 1 tab PO TID [facility] Last Admin: 05/27/18 12:53 Dose: 1 tab Levothyroxine Sodium (Synthroid) 100 mcg PO DAILY@0600 [facility] Last Admin: 05/27/18 06:45 Dose: 100 mcg Mannitol (Mannitol Inj) 12.5 gm IV.PUSH UNSCH PRN PRN Reason: hypotension / volume replace Metoclopramide HCl (Reglan) 5 mg PO BID [facility] Last Admin: 05/27/18 09:07 Dose: 5 mg Multivitamins (Theragran) 1 tab PO DAILY [facility] Last Admin: 05/27/18 09:08 Dose: 1 tab Nitroglycerin (Nitrostat Sl) 0.4 mg SL Q5M PRN PRN Reason: CHEST PAIN Ondansetron HCl (Zofran Inj) 4 mg IV.PUSH UNSCH PRN PRN Reason: NAUSEA OR VOMITING Ondansetron HCl (Zofran Inj) 4 mg IV.PUSH Q6H PRN PRN Reason: NAUSEA OR VOMITING Pantoprazole Sodium (Protonix) 20 mg PO DAILY [facility] Last Admin: 05/27/18 09:08 Dose: 20 mg Sevelamer Carbonate (Renvela) 800 mg PO TID PRN PRN 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 Sodium Chloride (Ns Flush) 5 ml IV.FLUSH PRN PRN PRN Reason: flush each lumen during HD Sodium Chloride (Ns Flush) 2 ml IV.FLUSH BID [facility] Last Admin: 05/27/18 09:09 Dose: 2 ml Sodium Chloride (Ns Flush) 2 ml IV.FLUSH PRN PRN PRN Reason: FLUSH AFTER USING IV ACCESS Vitamin D (Vitamin D3) 2,000 unit PO DAILY [facility] Last Admin: 05/27/18 09:08 Dose: 2,000 unit Warfarin Sodium (Coumadin) 3 mg PO DAILY@1600 [facility] Allergies Allergy/AdvReac Type Severity Reaction Status Date / Time Sulfa (Sulfonamide Allergy Severe Rash Verified 03/14/18 08:43 Antibiotics) adhesive AdvReac Severe Redness of Verified 03/14/18 08:44 Skin, RASH, BLISTERS, CAUSES SKIN TO COME OFF Home Medications Medication Instructions Recorded Confirmed Type calcitriol 1 dose PO 3XW 12/05/17 05/26/18 History calcium carbonate-vitamin D3 1 tab PO DAILY 12/05/17 05/26/18 History [Calcium 600 + D(3)] carbidopa-levodopa 1 tab PO TID 12/05/17 05/26/18 History carvedilol 6.25 mg PO BID 12/05/17 05/26/18 History cholecalciferol (vitamin D3) 2,000 unit PO DAILY 12/05/17 05/26/18 History [Vitamin D3] enalapril maleate [Vasotec] 10 mg PO BID 12/05/17 05/26/18 History fluoxetine 10 mg PO DAILY 12/05/17 05/26/18 History furosemide 20 mg PO 4XW 12/05/17 05/26/18 History levothyroxine 100 mcg PO DAILY 12/05/17 05/26/18 History multivitamin [Multiple Vitamins] 1 tab PO DAILY 12/05/17 05/26/18 History omeprazole 20 mg PO DAILY 12/05/17 05/26/18 History sevelamer carbonate [Renvela] 800 mg PO TID PRN 12/05/17 05/26/18 History acetaminophen [Tylenol Extra 500 mg PO Q6H PRN 05/26/18 05/26/18 History Strength] dronabinol 10 mg PO HS 05/26/18 05/26/18 History loperamide [Imodium A-D] 2 mg PO Q2-4H PRN 05/26/18 05/26/18 History metoclopramide HCl 10 mg PO BID 05/26/18 05/26/18 History warfarin 3.5 mg PO DIRECTED 05/26/18 05/26/18 History warfarin 4.5 mg PO QWEEK 05/26/18 05/26/18 History Exam Vital signs: Vital Signs 05/26/18 21:10 05/27/18 01:10 05/27/18 02:08 Temperature 98.4 F 97.6 F Pulse Rate 119 H 84 Respiratory Rate 19 18 Blood Pressure 105/59 L 87/54 L 89/57 L Pulse Oximetry 90 L 91 L 05/27/18 05:20 05/27/18 07:43 05/27/18 08:00 Temperature 98.2 F Pulse Rate 84 Respiratory Rate 18 Blood Pressure 125/62 Pulse Oximetry 98 97 96 05/27/18 08:20 Temperature 97.3 F L Pulse Rate 77 Respiratory Rate 20 Blood Pressure 114/62 Pulse Oximetry 96 Intake & Output 05/26/18 05/27/18 05/27/18 18:59 06:59 18:59 Intake Total 220 / 220 Output Total 1999 Balance -1780 / -1780 Weight 73.7 kg Intake: IV 100 / 100 Rocephin Inj 1,000 MG In NS Inj 100 / 100 100 ML @ 200 mls/hr IV.SIG ONCE ONE Rx#:[id number] Oral 120 / 120 Output: Urine 0 / 0 Hemodialysis Amount 1999 Other: # Voids 0 Date of Last Bowel Movement 05/25/18 05/25/18 05/25/18 - Constitutional no acute distress - Routine HEENT Exam Head: Present: normocephalic Results - Labs CBC & Chem 7: 05/27/18 03:34 05/27/18 03:34 Labs: Laboratory Results - last 24 hr 05/26/18 05/26/18 05/26/18 07:05 20:02 20:18 WBC RBC Hgb Hct MCV MCH MCHC RDW Plt Count MPV Neut % (Auto) Lymph % (Auto) [place] % (Auto) Eos % (Auto) Baso % (Auto) Neut # (Auto) Lymph # (Auto) [place] # (Auto) Eos # (Auto) Baso # (Auto) WBC Differential Differential Comment PT INR Sodium Potassium Chloride Carbon Dioxide Anion Gap BUN Creatinine Estimated GFR POC Glucose 92 Random Glucose Lactic Acid Calcium Calcium Adj for Albumin Phosphorus Magnesium Total Bilirubin AST ALT Alkaline Phosphatase Total Protein Albumin Urine Color Yellow Urine Clarity Turbid H Urine pH 7.0 Ur Specific [place] 1.009 Urine Protein 100 H Urine Glucose (UA) Negative Urine Ketones Negative Urine Occult Blood Small H Urine Nitrate Negative Urine Bilirubin Negative Urine Urobilinogen Less than 2 Ur Leukocyte Esterase Moderate H Urine RBC 10 H Urine WBC Urine WBC Clumps Many H Ur Squamous Epith Cells 2 Urine Bacteria Many H Urine Mucus Few H Micro UA Comment Culture indicated Urine Culture Comments Culture indicated Hepatitis A IgM Ab Nonreactive Hep Bs Antigen Nonreactive Hep B Core IgM Ab Nonreactive Hep C IgG Ab Nonreactive 05/26/18 05/27/18 05/27/18 20:18 03:34 03:34 WBC 8.8 RBC 2.27 L Hgb 8.0 L D Hct 23.1 L MCV 101.6 H MCH 35.4 H MCHC 34.8 RDW 14.6 Plt Count 192 D MPV 8.5 Neut % (Auto) 61.7 Lymph % (Auto) 24.3 [place] % (Auto) 13.2 H Eos % (Auto) 0.4 Baso % (Auto) 0.4 Neut # (Auto) 5.4 Lymph # (Auto) 2.1 [place] # (Auto) 1.2 H Eos # (Auto) 0.0 Baso # (Auto) 0.0 WBC Differential . Differential Comment Auto diff final PT 29.2 H D INR 2.9 Sodium Potassium 3.7 D Chloride Carbon Dioxide Anion Gap BUN Creatinine Estimated GFR POC Glucose Random Glucose Lactic Acid Calcium Calcium Adj for Albumin Phosphorus Magnesium Total Bilirubin AST ALT Alkaline Phosphatase Total Protein Albumin Urine Color Urine Clarity Urine pH Ur Specific [place] Urine Protein Urine Glucose (UA) Urine Ketones Urine Occult Blood Urine Nitrate Urine Bilirubin Urine Urobilinogen Ur Leukocyte Esterase Urine RBC Urine WBC Urine WBC Clumps Ur Squamous Epith Cells Urine Bacteria Urine Mucus Micro UA Comment Urine Culture Comments Hepatitis A IgM Ab Hep Bs Antigen Hep B Core IgM Ab Hep C IgG Ab 05/27/18 05/27/18 03:34 03:34 WBC RBC Hgb Hct MCV MCH MCHC RDW Plt Count MPV Neut % (Auto) Lymph % (Auto) [place] % (Auto) Eos % (Auto) Baso % (Auto) Neut # (Auto) Lymph # (Auto) [place] # (Auto) Eos # (Auto) Baso # (Auto) WBC Differential Differential Comment PT INR Sodium 142 Potassium 4.0 Chloride 105 Carbon Dioxide 32.7 H Anion Gap 4 L BUN 5 L Creatinine 2.28 H Estimated GFR 28 L POC Glucose Random Glucose 89 Lactic Acid 1.0 Calcium 7.2 L* Calcium Adj for Albumin 9.4 Phosphorus 2.8 Magnesium 1.7 Total Bilirubin 0.5 AST 24 ALT Less than 6 L Alkaline Phosphatase 153 H Total Protein 3.8 L Albumin 1.3 L Urine Color Urine Clarity Urine pH Ur Specific [place] Urine Protein Urine Glucose (UA) Urine Ketones Urine Occult Blood Urine Nitrate Urine Bilirubin Urine Urobilinogen Ur Leukocyte Esterase Urine RBC Urine WBC Urine WBC Clumps Ur Squamous Epith Cells Urine Bacteria Urine Mucus Micro UA Comment Urine Culture Comments Hepatitis A IgM Ab Hep Bs Antigen Hep B Core IgM Ab Hep C IgG Ab Assessment and Plan (1) Dysphagia Status: Acute Code(s): R13.10 - Dysphagia, unspecified (2) Failure to thrive Status: Acute - Plan This patient is a pleasant 77-year-old male with past medical history significant for anemia, TIA-on Coumadin, depression, diabetes, renal failure, hypertension, hypothyroidism and Parkinson's. Patient presented to [facility] yesterday brought in by spouse with report of generalized weakness and inability to ambulate well and decreased appetite over the last 2 weeks. Designated dialysis days are Tuesdays and Saturdays. Patient was found to have a UTI upon admission. Upon consultation, patient spouse assists with HPI and endorses that patient has had decreased appetite times 1 month despite being on Megace. She also reports patient receiving Reglan before meals and at bedtime. She states patient has had some dysphagia with solid foods and medications over the last 1-2 months. Patient able to swallow liquids but she reports that he will on occasion cough/choke regardless of what he is eating/drinking. She reports patient had EGD and colonoscopy "years ago" while they were living [place]. She denies any abnormal findings communicated as per her recollection. Patient denies any noted bleeding. Denies abdominal pain, nausea or vomiting and states he moves his bowels every 1-2 days and they are soft and brown without any noted bleeding. Patient denies smoking but does endorse drinking 2 glasses of wine daily. Our service has been consulted to evaluate patient for PEG tube placement. Dysphagia Failure to thrive Patient presented to [facility] with 2-week onset of generalized weakness and decreased appetite. Spouse reports patient has had dysphagia with solid foods and medications for 1-2 months. States patient was receiving IV TPN with dialysis as well as Megace with no improvement in appetite or nutritional intake WBC 8.8 hemoglobin 8.0 hematocrit 23.1 platelet count 192 INR 2.9 BUN 5 creatinine 2.28 GFR 28 lactic acid 1.0 Total bilirubin 0.5 AST 24 ALT less than 6 alk phos 156 Plan neck -Diet as tolerated -Aspiration precautions -May require barium swallow -Continue Reglan -Antiemetics as needed -Multivitamin daily -Pantoprazole 20 mg p.o. daily -Plan to proceed with PEG tube placement when acute infection resolved and INR level 1.5 -Supportive care -Further recommendations to follow This patient has been seen by myself and Dr. Patel and this note is written on his behalf
[2018-05-28] MEDS: Levothyroxine 100 MCG Tablet PO SCH (05:48)
[2018-05-28 07:32] LABS: Baso % (Auto) 0.6 % (0.0-2.0); Eos # (Auto) 0.2 th/mm3 (0.0-0.4); Eos % (Auto) 3.6 % (0.0-4.0); Hemoglobin 9.2 gm/dL (13.0-17.0); Lymph # (Auto) 1.9 th/mm3 (1.0-4.8); Lymph % (Auto) 30.2 % (9.0-44.0); Mean Corpuscular HGB Conc 34.1 % (32.0-36.0); Mean Corpuscular Hemoglobin 35.3 pg (27.0-34.0); Mean Corpuscular Volume 103.5 fL (80.0-100.0); Mean Platelet Volume 8.5 fL (7.0-11.0); Mono # (Auto) 1.1 th/mm3 (0.0-0.9); Mono % (Auto) 17.2 % (0.0-8.0); Neut # (Auto) 3.1 th/mm3 (1.8-7.7); Neut % (Auto) 48.4 % (16.0-70.0); Platelet Count 207 th/mm3 (150-450); Red Blood Count 2.61 mil/mm3 (4.50-5.90); Red Cell Distribution Width 15.1 % (11.6-17.2); White Blood Count 6.4 th/mm3 (4.0-11.0)
[2018-05-28 07:53] LABS: Alanine Aminotransferase 6 U/L (12-78); Albumin 1.4 g/dL (3.4-5.0); Anion Gap 7 meq/L (5-15); Aspartate Aminotransferase 29 U/L (15-37); Blood Urea Nitrogen 7 mg/dL (7-18); Calcium 7.5 mg/dL (8.5-10.1); Carbon Dioxide 31.4 meq/L (21.0-32.0); Chloride 104 meq/L (98-107); Glomerular Filtration Rate 20 mL/min (>89); Glucose,Random 93 mg/dL (74-106); Phosphorus 2.7 mg/dL (2.5-4.9); Potassium 3.7 meq/L (3.5-5.1); Sodium 142 meq/L (136-145)
[2018-05-28 07:56] LABS: Alkaline Phosphatase 171 U/L (45-117); Total Protein 4.5 g/dL (6.4-8.2)
[2018-05-28 08:01] LABS: INR 3.1 Ratio; Prothrombin Time 31.5 sec (9.8-11.6)
--- NOTE | 2018-05-28 09:57 | P.PNNP ---
Subjective Interval history: Patient seen on dialysis, tolerating HD well, no acute complaints Physical Exam Vital signs: Vital Signs 05/27/18 12:00 05/27/18 16:00 05/27/18 17:08 Temperature 97.5 F L 97.5 F L Pulse Rate 74 74 Respiratory Rate 20 20 Blood Pressure 114/62 99/57 L Pulse Oximetry 95 98 96 05/27/18 20:30 05/28/18 00:00 05/28/18 04:00 Temperature 97.8 F 98 F 98 F Pulse Rate 105 H 74 84 Respiratory Rate 18 18 18 Blood Pressure 120/63 126/70 121/69 Pulse Oximetry 97 96 95 05/28/18 08:00 05/28/18 09:20 Temperature 97.6 F Pulse Rate 76 Respiratory Rate 20 Blood Pressure 127/71 Pulse Oximetry 98 98 Intake & Output 05/27/18 05/28/18 05/28/18 18:59 06:59 18:59 Intake Total 700 / 700 Output Total 0 / 0 Balance 700 / 700 Weight 72.1 kg Intake: IV 100 / 100 Rocephin Inj 1,000 MG In NS Inj 100 / 100 100 ML @ 200 mls/hr IV.SIG Q24H [facility] Rx#:[id number] Oral 500 / 500 Other 100 / 100 Output: Urine 0 / 0 Other: Other Intake Source Saline Solution # Voids 0 3 Date of Last Bowel Movement 05/25/18 05/27/18 - Constitutional no acute distress - Routine HEENT Exam Head: Present: normocephalic Eye: Present: EOMI ENT: Present: mucous membranes moist - Routine Neck Exam Present: supple - Routine Respiratory Exam Present: CTA bilaterally - Routine Cardiovascular Exam Present: RRR - Routine Abdominal Exam Present: soft - Routine Skin Exam Present: intact - Routine Neurological Exam Present: alert, oriented X3 - Detailed Neurological Exam: Coma Scale Eye Opening: Spontaneous - Routine Psychiatric Exam Present: normal affect - Urinary Catheter Management Straight Cath placed during this visit: yes, but has since been removed by the nurse Reason for continuing: Decision to DC catheter Insertion date: 05/26/18 Insertion time: 07:15 Removal date: 05/26/18 Removal time: 07:15 Assessment and Plan - Assessment (1) ESRD (end stage renal disease) on dialysis Code(s): N18.6 - End stage renal disease; Z99.2 - Dependence on renal dialysis Status: Acute Plan: Seen on HD today, tolerating HD well. Seen with GI, continue to follow nutrition. No apparent immediate plans for PEG (2) Unspecified protein-calorie malnutrition Code(s): E46 - Unspecified protein-calorie malnutrition Status: Acute Plan: Patient has been receiving IDPN during dialysis to treat protein calorie malnutrition. He has also been on Marinol for appetite stimulant which thus far has not been improving appetite. Patient and have agreed to proceed with possible peg tube placement - follow with GI (3) Anemia Code(s): D64.9 - Anemia, unspecified Status: Acute Plan: On Epogen with dialysis Labs in AM (4) Urinary tract infection Code(s): N39.0 - Urinary tract infection, site not specified Status: Acute Plan: GNR in urine on cultures, speciation pending. Blood cultures negative Given ceftriaxone, follow cultures
[2018-05-28] MEDS: Calcium/Vitamin D 250/125 MG Tablet PO SCH (10:57)
[2018-05-28] MEDS: Carvedilol 6.25 MG Tablet PO SCH ×2 (10:57→20:31)
[2018-05-28] MEDS: Lactobacillus Acidophilus/L. Spores Tablet PO SCH ×3 (10:57→18:30)
[2018-05-28] MEDS: Pantoprazole Sodium 20 MG DR Tablet PO SCH (10:58)
[2018-05-28] MEDS: FLUoxetine 10 MG Capsule PO SCH (10:58)
[2018-05-28] MEDS: Metoclopramide 10 MG Tablet PO SCH ×2 (10:58→20:30)
--- NOTE | 2018-05-28 12:31 | P.PNIM ---
Subjective Interval history: Patient still complains of poor appetite and weakness. He is failed his physical therapy evaluation and shelter facility and inpatient settings recommended. No new complaints today. Status post dialysis today. Physical Exam Vital signs: Last Vital Signs Temp 97.6 F 05/28/18 08:00 Pulse 76 05/28/18 08:00 Resp 20 05/28/18 08:00 BP 127/71 05/28/18 08:00 Pulse Ox 98 05/28/18 09:20 Intake & Output 05/26/18 05/27/18 05/28/18 05/29/18 06:59 06:59 06:59 06:59 Intake Total 220 / 220 700 / 700 Output Total 1999 / 1999 0 / 0 1500 / 1500 Balance -1780 / -1780 700 / 700 -1500 / -1500 Weight 79.379 kg 73.7 kg 72.1 kg Narrative: GENERAL: NAD, A&Ox3 HEAD: Normocephalic. NECK: Supple, trachea midline. No lymphadenopathy. EYES: No scleral icterus. No injection or drainage. CARDIOVASCULAR: Regular rate and rhythm without murmurs, gallops, or rubs. RESPIRATORY: Breath sounds equal bilaterally. No accessory muscle use. GASTROINTESTINAL: Abdomen soft, non-tender, nondistended. MUSCULOSKELETAL: No cyanosis, or edema. SKIN: Warm and dry. NEURO: No focal neurological deficits. Urinary Catheter Management Straight: Cath placed during this visit: yes, but has since been removed by the nurse Insertion date: 05/26/18 Insertion time: 07:15 Removal date: 05/26/18 Removal time: 07:15 Results Labs CBC & Chem 7: 05/28/18 06:12 05/28/18 06:12 Labs: Microbiology 05/26/18 08:11 Blood - Peripheral Aerobic Blood Culture - Preliminary No growth in 2 days 05/26/18 08:11 Blood - Peripheral Anaerobic Blood Culture - Preliminary No growth in 2 days 05/26/18 08:00 Blood - Peripheral Aerobic Blood Culture - Preliminary No growth in 2 days 05/26/18 08:00 Blood - Peripheral Anaerobic Blood Culture - Preliminary No growth in 2 days 05/26/18 07:05 Clean Catch Urine Urine Culture - Final Escherichia coli Assessment and Plan (1) ESRD (end stage renal disease) on dialysis: Code(s): N18.6 - End stage renal disease; Z99.2 - Dependence on renal dialysis Status: Acute (2) Unspecified protein-calorie malnutrition: Code(s): E46 - Unspecified protein-calorie malnutrition Status: Acute (3) Anemia: Code(s): D64.9 - Anemia, unspecified Status: Acute (4) Urinary tract infection: Code(s): N39.0 - Urinary tract infection, site not specified Status: Acute Plan 77-year-old male admitted secondary to a urinary tract infection with weakness and poor appetite Appetite stimulant added. Monitor for improvement in appetite. Continue physical therapy. Patient not safe for discharge to home, will discharge to shelter facility. Continue monitoring urine cultures. Continue treatment of UTI. Continue physical therapy. Continue encouraging p.o. intake which has improved. Urinary tract infection Rocephin Probiotics Follow clinically for improvement Follow urine cultures Generalized weakness This may be secondary to urinary tract infection Start physical therapy Follow for improvement Poor appetite Patient inquires about tube feeding Treat urinary tract infection first Encourage p.o. intake Monitor for improvement End-stage renal disease Nephrology consulted Continue dialysis Monitor electrolytes Hypertension Continue baseline treatment Follow blood pressures Adjust treatments as needed Hypothyroidism Continue baseline treatment Follow as an outpatient Parkinson's disease History of TIA History of depression No exacerbations Follow these conditions clinically Hypertherapeutic INR Follow INR Coumadin on hold for now DVT prophylaxis Patient currently will be on Coumadin _ (1) Unspecified protein-calorie malnutrition Qualifiers: Protein-calorie malnutrition severity: (2) Anemia Qualifiers: Anemia type: Iron deficiency anemia type: Vitamin B12 deficiency anemia type: Folate deficiency anemia type: Bone marrow failure anemia type: Hemolytic anemia type: Other causes of anemia: Chronic kidney disease stage : (3) Urinary tract infection Qualifiers: Urinary tract infection type: Hematuria presence: Indwelling urinary catheter type: Encounter type:
[2018-05-28] MEDS: Megestrol Acetate Liq 400 MG/10 ML UDC PO SCH (14:27)
[2018-05-28] MEDS ORDERED: Warfarin Consult Pharmacy OTHER PRN (15:23)
[2018-05-28] MEDS ORDERED: Dextrose 50% in Water 50 ML Vial IV.PUSH PRN (21:02)
[2018-05-29] MEDS: Levothyroxine 100 MCG Tablet PO SCH (05:35)
[2018-05-29] MEDS: Insulin NovoLIN Regular Correctional Sugar Inj SQ SCH ×4 (08:49→21:58)
[2018-05-29] MEDS: Lactobacillus Acidophilus/L. Spores Tablet PO SCH ×3 (08:53→17:21)
[2018-05-29] MEDS: Metoclopramide 10 MG Tablet PO SCH ×2 (08:54→21:57)
[2018-05-29] MEDS: Calcium/Vitamin D 250/125 MG Tablet PO SCH (08:54)
[2018-05-29] MEDS: Carvedilol 6.25 MG Tablet PO SCH ×2 (08:54→21:56)
[2018-05-29] MEDS: FLUoxetine 10 MG Capsule PO SCH (08:55)
[2018-05-29] MEDS: Furosemide 20 MG Tablet PO SCH (08:55)
[2018-05-29] MEDS: Pantoprazole Sodium 20 MG DR Tablet PO SCH (08:55)
[2018-05-29] MEDS: Megestrol Acetate Liq 400 MG/10 ML UDC PO SCH (13:24)
--- NOTE | 2018-05-29 14:13 | P.PNIM ---
Subjective Interval history: Follow-up end-stage renal disease and UTI. Patient has no complaints awaiting placement. Discussed with nursing and case management Physical Exam Vital signs: Last Vital Signs Temp 97.9 F 05/29/18 12:00 Pulse 74 05/29/18 12:00 Resp 20 05/29/18 12:00 BP 127/72 05/29/18 12:00 Pulse Ox 95 05/29/18 12:00 Intake & Output 05/27/18 05/28/18 05/29/18 05/30/18 06:59 06:59 06:59 06:59 Intake Total 220 / 220 700 / 700 240 / 240 Output Total 2000 / 1999 0 / 0 1500 / 1500 Balance -1780 / -1780 700 / 700 -1260 / -1260 Weight 73.7 kg 72.1 kg 71.1 kg Narrative: GENERAL: NAD, A&Ox3 CARDIOVASCULAR: Regular rate and rhythm without murmurs, gallops, or rubs. RESPIRATORY: Breath sounds equal bilaterally. No accessory muscle use. GASTROINTESTINAL: Abdomen soft, non-tender, nondistended. MUSCULOSKELETAL: No cyanosis, or edema. SKIN: Warm and dry. NEURO: No focal neurological deficits. Urinary Catheter Management Straight: Cath placed during this visit: yes, but has since been removed by the nurse Insertion date: 05/26/18 Insertion time: 07:15 Removal date: 05/26/18 Removal time: 07:15 Results Labs CBC & Chem 7: 05/28/18 06:12 05/28/18 06:12 Labs: Microbiology 05/26/18 08:11 Blood - Peripheral Aerobic Blood Culture - Preliminary No growth in 3 days 05/26/18 08:11 Blood - Peripheral Anaerobic Blood Culture - Preliminary No growth in 3 days 05/26/18 08:00 Blood - Peripheral Aerobic Blood Culture - Preliminary No growth in 3 days 05/26/18 08:00 Blood - Peripheral Anaerobic Blood Culture - Preliminary No growth in 3 days 05/26/18 07:05 Clean Catch Urine Urine Culture - Final Escherichia coli Assessment and Plan (1) ESRD (end stage renal disease) on dialysis: Code(s): N18.6 - End stage renal disease; Z99.2 - Dependence on renal dialysis Status: Acute (2) Unspecified protein-calorie malnutrition: Code(s): E46 - Unspecified protein-calorie malnutrition Status: Acute (3) Anemia: Code(s): D64.9 - Anemia, unspecified Status: Acute (4) Urinary tract infection: Code(s): N39.0 - Urinary tract infection, site not specified Status: Acute Plan 77-year-old male admitted secondary to a urinary tract infection with weakness and poor appetite E. coli urinary tract infection Switch Rocephin to Ceftin Probiotics Follow clinically for improvement Follow urine cultures Generalized weakness This may be secondary to urinary tract infection Ct physical therapy Follow for improvement Poor appetite Patient inquires about tube feeding Treat urinary tract infection first Encourage p.o. intake which is improving Monitor for improvement ct megace End-stage renal disease Nephrology consulted Continue dialysis Monitor electrolytes Hypertension Continue baseline treatment Follow blood pressures Adjust treatments as needed Hypothyroidism Continue baseline treatment Follow as an outpatient Parkinson's disease History of TIA History of depression No exacerbations Follow these conditions clinically Hypertherapeutic INR Resolved Follow INR DVT prophylaxis Patient currently on Coumadin Discharge to snf when arranged _ (1) Urinary tract infection Qualifiers: Encounter type: Hematuria presence: Indwelling urinary catheter type: Urinary tract infection type: (2) Anemia Qualifiers: Anemia type: Bone marrow failure anemia type: Chronic kidney disease stage : Folate deficiency anemia type: Hemolytic anemia type: Iron deficiency anemia type: Other causes of anemia: Vitamin B12 deficiency anemia type: (3) Unspecified protein-calorie malnutrition Qualifiers: Protein-calorie malnutrition severity:
[2018-05-29 16:14] LABS: INR 3.1 Ratio; Prothrombin Time 31.1 sec (9.8-11.6)
--- NOTE | 2018-05-29 17:44 | P.PNNP ---
Subjective Interval history: no acute complaints Physical Exam Vital signs: Vital Signs 05/28/18 18:09 05/28/18 20:00 05/29/18 00:00 Temperature 98.3 F 98 F Pulse Rate 84 78 Respiratory Rate 20 20 Blood Pressure 112/65 110/63 Pulse Oximetry 97 98 95 05/29/18 04:00 05/29/18 08:00 05/29/18 12:00 Temperature 97.9 F 97.6 F 97.9 F Pulse Rate 75 81 74 Respiratory Rate 18 20 20 Blood Pressure 108/64 129/73 127/72 Pulse Oximetry 98 96 95 05/29/18 16:00 Temperature 97.6 F Pulse Rate 77 Respiratory Rate 20 Blood Pressure 102/63 Pulse Oximetry 99 Intake & Output 05/28/18 05/29/18 05/29/18 18:59 06:59 18:59 Intake Total 240 / 240 100 / 100 Output Total 1500 / 1500 Balance -1260 / -1260 100 / 100 Weight 71.1 kg Intake: IV 100 / 100 Rocephin Inj 1,000 MG In NS Inj 100 / 100 100 ML @ 200 mls/hr IV.SIG Q24H LAMAR Rx#:[id number] Oral 240 / 240 Output: Hemodialysis Amount 1500 / 1500 Other: # Incontinent Voids 3 Date of Last Bowel Movement 05/28/18 05/28/18 05/28/18 # Bowel Movements 1 # Incontinent Bowel Movements 1 - Constitutional no acute distress - Routine HEENT Exam Head: Present: normocephalic Eye: Present: EOMI ENT: Present: mucous membranes moist - Routine Neck Exam Present: supple - Routine Respiratory Exam Present: decreased breath sounds - Routine Cardiovascular Exam Present: RRR - Routine Abdominal Exam Present: soft - Routine Skin Exam Present: intact - Routine Neurological Exam Present: alert - Detailed Neurological Exam: Coma Scale Eye Opening: Spontaneous - Routine Psychiatric Exam Present: normal affect - Urinary Catheter Management Straight Cath placed during this visit: yes, but has since been removed by the nurse Reason for continuing: Decision to DC catheter Insertion date: 05/26/18 Insertion time: 07:15 Removal date: 05/26/18 Removal time: 07:15 Assessment and Plan - Assessment (1) ESRD (end stage renal disease) on dialysis Code(s): N18.6 - End stage renal disease; Z99.2 - Dependence on renal dialysis Status: Acute Plan: On HD TTS Tolerated HD yesterday Plan next HD Wednesday (holiday schedule), then HD Seen with GI, continue to follow nutrition. No apparent immediate plans for PEG (2) Unspecified protein-calorie malnutrition Code(s): E46 - Unspecified protein-calorie malnutrition Status: Acute Plan: Patient has been receiving IDPN during dialysis to treat protein calorie malnutrition. He has also been on Marinol for appetite stimulant which thus far has not been improving appetite. Patient and have agreed to proceed with possible peg tube placement - however no immediate plans for PEG per GI (3) Anemia Code(s): D64.9 - Anemia, unspecified Status: Acute Plan: On Epogen with dialysis Labs in AM (4) Urinary tract infection Code(s): N39.0 - Urinary tract infection, site not specified Status: Acute Plan: GNR in urine on cultures, speciation pending. Blood cultures negative Given ceftriaxone, follow cultures
[2018-05-30] MEDS: Levothyroxine 100 MCG Tablet PO SCH (05:18)
[2018-05-30] MEDS: Insulin NovoLIN Regular Correctional Sugar Inj SQ SCH ×4 (07:53→21:15)
[2018-05-30] MEDS: Furosemide 20 MG Tablet PO SCH (09:25)
[2018-05-30] MEDS: Lactobacillus Acidophilus/L. Spores Tablet PO SCH ×3 (09:25→17:14)
[2018-05-30 10:00] LABS: INR 2.3 Ratio; Prothrombin Time 23.4 sec (9.8-11.6)
[2018-05-30] MEDS: Metoclopramide 10 MG Tablet PO SCH ×2 (13:35→21:14)
[2018-05-30] MEDS: Calcium/Vitamin D 250/125 MG Tablet PO SCH (13:35)
[2018-05-30] MEDS: FLUoxetine 10 MG Capsule PO SCH (13:36)
[2018-05-30] MEDS: Pantoprazole Sodium 20 MG DR Tablet PO SCH (13:36)
[2018-05-30] MEDS: Carvedilol 6.25 MG Tablet PO SCH ×2 (13:36→21:14)
[2018-05-30] MEDS: Megestrol Acetate Liq 400 MG/10 ML UDC PO SCH (13:37)
--- NOTE | 2018-05-30 15:35 | P.PNIM ---
Subjective Interval history: Follow-up end-stage renal disease. He is hungry after having dialysis today. INR 2.3. Physical Exam Vital signs: Last Vital Signs Temp 98 F 05/30/18 13:39 Pulse 82 05/30/18 13:39 Resp 14 05/30/18 13:39 BP 117/70 05/30/18 13:39 Pulse Ox 97 05/30/18 13:39 Intake & Output 05/28/18 05/29/18 05/30/18 05/31/18 06:59 06:59 06:59 06:59 Intake Total 700 / 700 240 / 240 100 / 100 Output Total 0 / 0 1500 / 1500 700 / 700 1500 / 1500 Balance 700 / 700 -1260 / -1260 -600 / -600 -1500 / -1500 Weight 72.1 kg 71.1 kg 70.2 kg Narrative: GENERAL: NAD, A&Ox3 CARDIOVASCULAR: Regular rate and rhythm without murmurs, gallops, or rubs. RESPIRATORY: Breath sounds equal bilaterally. No accessory muscle use. GASTROINTESTINAL: Abdomen soft, non-tender, nondistended. MUSCULOSKELETAL: No cyanosis, or edema. SKIN: Warm and dry. Urinary Catheter Management Straight: Cath placed during this visit: yes, but has since been removed by the nurse Insertion date: 05/26/18 Insertion time: 07:15 Removal date: 05/26/18 Removal time: 07:15 Results Labs CBC & Chem 7: 05/28/18 06:12 05/28/18 06:12 Labs: Microbiology 05/26/18 08:11 Blood - Peripheral Aerobic Blood Culture - Preliminary No growth in 4 days 05/26/18 08:11 Blood - Peripheral Anaerobic Blood Culture - Preliminary No growth in 4 days 05/26/18 08:00 Blood - Peripheral Aerobic Blood Culture - Preliminary No growth in 4 days 05/26/18 08:00 Blood - Peripheral Anaerobic Blood Culture - Preliminary No growth in 4 days Assessment and Plan (1) ESRD (end stage renal disease) on dialysis: Code(s): N18.6 - End stage renal disease; Z99.2 - Dependence on renal dialysis Status: Acute (2) Unspecified protein-calorie malnutrition: Code(s): E46 - Unspecified protein-calorie malnutrition Status: Acute (3) Anemia: Code(s): D64.9 - Anemia, unspecified Status: Acute (4) Urinary tract infection: Code(s): N39.0 - Urinary tract infection, site not specified Status: Acute Plan 77-year-old male admitted secondary to a urinary tract infection with weakness and poor appetite E. coli urinary tract infection Switched Rocephin to Ceftin last dose today Probiotics Follow clinically for improvement Generalized weakness This may be secondary to urinary tract infection Ct physical therapy Follow for improvement Poor appetite Patient inquires about tube feeding Treat urinary tract infection first Encourage p.o. intake which is improving will switch to prescribed diet tomorrow if still in-house Monitor for improvement ct megace End-stage renal disease Nephrology consulted Continue dialysis Monitor electrolytes Hypertension Continue baseline treatment Follow blood pressures Adjust treatments as needed Hypothyroidism Continue baseline treatment Follow as an outpatient Parkinson's disease History of TIA History of depression No exacerbations Follow these conditions clinically Hypertherapeutic INR Resolved Follow INR DVT prophylaxis Patient currently on Coumadin Discharge to snf when arranged _ (1) Unspecified protein-calorie malnutrition Qualifiers: Protein-calorie malnutrition severity: (2) Anemia Qualifiers: Anemia type: Iron deficiency anemia type: Vitamin B12 deficiency anemia type: Folate deficiency anemia type: Bone marrow failure anemia type: Hemolytic anemia type: Other causes of anemia: Chronic kidney disease stage : (3) Urinary tract infection Qualifiers: Urinary tract infection type: Hematuria presence: Indwelling urinary catheter type: Encounter type:
--- NOTE | 2018-05-30 21:01 | P.PNNP ---
Subjective Interval history: Patient seen during HD, no SOB, not in distress. Physical Exam Vital signs: Vital Signs 05/30/18 00:00 05/30/18 04:00 05/30/18 13:39 Temperature 98.0 F 97.6 F 98 F Pulse Rate 74 77 82 Respiratory Rate 16 18 14 Blood Pressure 130/56 L 135/82 117/70 Pulse Oximetry 98 98 97 05/30/18 17:15 Temperature Pulse Rate Respiratory Rate Blood Pressure Pulse Oximetry 97 Intake & Output 05/30/18 05/30/18 05/31/18 06:59 18:59 06:59 Intake Total 500 / 500 Output Total 700 / 700 1500 / 1500 Balance -700 / -700 -1000 / -1000 Weight 70.2 kg Intake: Oral 500 / 500 Output: Urine 700 / 700 Hemodialysis Amount 1500 / 1500 Other: Date of Last Bowel Movement 05/28/18 05/28/18 # Bowel Movements 1 Narrative: GENERAL: NAD, A&Ox3 CARDIOVASCULAR: Regular rate and rhythm without murmurs, gallops, or rubs. RESPIRATORY: Breath sounds equal bilaterally. No accessory muscle use. GASTROINTESTINAL: Abdomen soft, non-tender, nondistended. MUSCULOSKELETAL: No cyanosis, or edema. SKIN: Warm and dry. - Urinary Catheter Management Straight Cath placed during this visit: yes, but has since been removed by the nurse Reason for continuing: Decision to DC catheter Insertion date: 05/26/18 Insertion time: 07:15 Removal date: 05/26/18 Removal time: 07:15 Assessment and Plan - Assessment (1) ESRD (end stage renal disease) on dialysis Code(s): N18.6 - End stage renal disease; Z99.2 - Dependence on renal dialysis Status: Acute Plan: On HD TTS Tolerated HD yesterday HD due to Holidays, Tolerating well, BP is stable Seen with GI, continue to follow nutrition. GI defer the PEG as his appetite is better. (2) Unspecified protein-calorie malnutrition Code(s): E46 - Unspecified protein-calorie malnutrition Status: Acute Plan: Patient has been receiving IDPN during dialysis to treat protein calorie malnutrition. He has also been on Marinol for appetite stimulant which thus far has not been improving appetite. Patient and have agreed to proceed with possible peg tube placement - however no immediate plans for PEG per GI (3) Anemia Code(s): D64.9 - Anemia, unspecified Status: Acute Plan: On Epogen with dialysis Labs in AM (4) Urinary tract infection Code(s): N39.0 - Urinary tract infection, site not specified Status: Acute Plan: GNR in urine on cultures, speciation pending. Blood cultures negative Given ceftriaxone, follow cultures
[2018-05-31] MEDS: Levothyroxine 100 MCG Tablet PO SCH (06:00)
[2018-05-31] MEDS: Metoclopramide 10 MG Tablet PO SCH (09:05)
[2018-05-31] MEDS: Insulin NovoLIN Regular Correctional Sugar Inj SQ SCH ×2 (09:05→13:51)
[2018-05-31] MEDS: Lactobacillus Acidophilus/L. Spores Tablet PO SCH (09:05)
[2018-05-31] MEDS: Carvedilol 6.25 MG Tablet PO SCH (09:05)
[2018-05-31] MEDS: FLUoxetine 10 MG Capsule PO SCH (09:06)
[2018-05-31] MEDS: Pantoprazole Sodium 20 MG DR Tablet PO SCH (09:06)
[2018-05-31] MEDS: Calcium/Vitamin D 250/125 MG Tablet PO SCH (09:06)
--- NOTE | 2018-05-31 14:48 | P.DS ---
DS: Providers Date of admission: 05/27/18 16:34 Primary care physician: UNKNOWN Consults: 05/26/18 10:47 Consult to Nephrology Routine Consulting Provider: Mitchell Durant Does the patient have a [employer] Bath Attendant who follows them?: Yes Preferred Nephrology Outlet Manager:: Alcides Durant Reason for Consultation: Dialysis Dependent - admitted with UTI and Weakness Notified:: Office Spoke with:: GIOVANNI Date Notified:: 05/26/18 Time Notified:: 10:50 Ordering Provider: GIBRAN 05/27/18 09:31 Consult to Gastroenterology Routine Consulting Provider: Segun Patel Reason for Consultation: GI consult for Feeding tube. Patient has been receiving IDPN in dialysis, poor appetite, and continues to have malnutrition. Notified:: Office Spoke with:: MATTEO Date Notified:: 05/27/18 Time Notified:: 10:18 Ordering Provider: LINDA 05/27/18 16:02 HUB Only Consult Order Routine Consulting Provider: [facility],[place] 05/27/18 16:06 HUB Only Consult Order Routine Consulting Provider: [facility],[place] Brief History from admission: Mr. Martinez is a 7-year-old male. His primary complaint for coming in is poor appetite and weakness. He says for the past 2 weeks he is not been able to ambulate well and has hardly been eating anything. He has end-stage renal disease at baseline. He is dialysis dependent. Findings on workup revealed a urinary tract infection and hyperkalemia with lactic acidosis. Sepsis is not suspected at this point. Patient's urinary tract infection may have be contributory to his symptomology. No other complaints at this time. Dialysis due today. DS: Diagnosis Discharge Diagnosis (1) ESRD (end stage renal disease) on dialysis: Status: Acute (2) Unspecified protein-calorie malnutrition: Status: Acute (3) Anemia: Status: Acute (4) Urinary tract infection: Status: Acute DS: Summary 77-year-old male admitted secondary to a urinary tract infection with weakness and poor appetite E. coli urinary tract infection Switched Rocephin to Ceftin last dose today Probiotics Follow clinically for improvement Generalized weakness This may be secondary to urinary tract infection Ct physical therapy Follow for improvement Poor appetite Patient inquires about tube feeding Treat urinary tract infection first Encourage p.o. intake which is improving will switch to prescribed diet Monitor for improvement ct raudelce End-stage renal disease Nephrology consulted Continue dialysis Monitor electrolytes Hypertension Continue baseline treatment Follow blood pressures Adjust treatments as needed Hypothyroidism Continue baseline treatment Follow as an outpatient Parkinson's disease History of TIA History of depression No exacerbations Follow these conditions clinically Hypertherapeutic INR Resolved Follow INR DVT prophylaxis Patient currently on Coumadin Time Spent with Patient Total time spent providing and/or coordinating discharge services: Greater than 30 minutes Exam Narrative Exam Narrative: GENERAL: Well-developed, well-nourished in no distress SKIN: Warm and dry. CARDIOVASCULAR: Regular rate and rhythm. RESPIRATORY: No accessory muscle use. Clear to auscultation. Breath sounds equal bilaterally. GASTROINTESTINAL: Abdomen soft, non-tender, nondistended. MUSCULOSKELETAL: Extremities without clubbing, cyanosis, or edema. No obvious deformities. NEUROLOGICAL: Awake and alert. No obvious cranial nerve deficits. Motor grossly within normal limits. Five out of 5 muscle strength in the arms and legs. Normal speech. PSYCHIATRIC: Appropriate mood and affect; insight and judgment normal. Results Labs on day of discharge: Labs from last 24 hours 05/31/18 05/31/18 05/30/18 12:56 07:55 21:04 POC Glucose 227 H 72 161 H Impressions ITS Impressions Chest X-Ray 05/26/18 06:39 CONCLUSION: Stable chest appearance. Head CT 05/26/18 07:13 CONCLUSION: Stable brain with no acute findings. . Discharge Plan Discharge Disposition Patient Disposition: 03 Discharge to SNF Discharge Condition Condition: Stable Discharge Order Discharge Orders: Discharge Order (Routine); Ordered 05/30/18 Ordered By: Milan Baltazar Discharge Details Anticipated Discharge Date: 05/30/18 Discharge Comment: dc when arranegemnets made Physicians Team Primary Care Provider: UNKNOWN, Attending Provider: Milan Baltazar Other Providers: Mitchell Durant ; Segun Patel ; [facility],Agency ; [facility],Agency Rxs /Orders / Referrals /Forms Prescriptions: Continue loperamide [Imodium A-D] 2 mg Capsule 2 mg PO Q2-4H PRN (Reason: Diarrhea) RF: 0 acetaminophen [Tylenol Extra Strength] 500 mg Tablet 500 mg PO Q6H PRN (Reason: Headache) RF: 0 dronabinol 10 mg Capsule 10 mg PO HS RF: 0 multivitamin [Multiple Vitamins] Tablet 1 tab PO DAILY RF: 0 carvedilol 6.25 mg Tablet 6.25 mg PO BID RF: 0 enalapril maleate [Vasotec] 10 mg Tablet 10 mg PO BID RF: 0 calcium carbonate-vitamin D3 [Calcium 600 + D(3)] 600 mg(1,500mg) -200 unit Tablet 1 tab PO DAILY RF: 0 levothyroxine 100 mcg Tablet 100 mcg PO DAILY RF: 0 carbidopa-levodopa 10-100 mg Tablet 1 tab PO TID RF: 0 fluoxetine 10 mg Capsule 10 mg PO DAILY RF: 0 furosemide 20 mg Tablet 20 mg PO 4XW RF: 0 calcitriol 0.25 mcg Capsule 1 dose PO 3XW RF: 0 cholecalciferol (vitamin D3) [Vitamin D3] 1,000 unit Capsule 2,000 unit PO DAILY RF: 0 sevelamer carbonate [Renvela] 800 mg Tablet 800 mg PO TID PRN (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) RF: 0 omeprazole 20 mg Tablet,Delayed Release (Dr/Ec) 20 mg PO DAILY RF: 0 Changed metoclopramide HCl 5 mg Tablet 5 mg PO BID Qty: 0 RF: 0 warfarin 1 mg Tablet 3 mg PO DAILY Qty: 0 RF: 0 Discontinued warfarin 1 mg Tablet 4.5 mg PO QWEEK RF: 0 Ambulatory Orders / Order Sets / DME: Prothrombin Time INR (Routine) Location: Determined by Patient Ordered By: Milan Baltazar Referrals: Mitchell Durant MD [Physician] - See Instructions (1 wk f/u) UNKNOWN, [Primary Care Provider] - See Instructions (1 wk f/u) Post Discharge Care Plan Care Plan Goals: Your Health Problems: Goals to Promote Your Health: * To prevent worsening of your condition * To maintain your health at the optimal level Directions to Meet Your Goals: * Take your medications as prescribed * Follow your dietary instruction * Follow activity as directed * Keep your appointments as scheduled * Take your immunizations and boosters as scheduled * If your symptoms worsen call your PCP * If no PCP go to Urgent Care or Emergency Room Smoking is dangerous to your health. Avoid second hand smoke. You may reach the 24-hour crisis hotline for domestic abuse at . Status ED Status: Left Department Discharge Information Discharge Date/Time: 05/31/18 14:23
--- NOTE | 2018-05-31 17:53 | P.PNNP ---
Subjective Interval history: Patient seen in the afternoon, started eating better. Physical Exam Vital signs: Vital Signs 05/30/18 21:14 05/31/18 00:57 05/31/18 04:42 Temperature 97.8 F 97.9 F 97.7 F Pulse Rate 81 80 82 Respiratory Rate 18 18 18 Blood Pressure 113/68 107/67 110/69 Pulse Oximetry 95 96 96 05/31/18 08:00 05/31/18 12:00 Temperature 98 F 97.4 F L Pulse Rate 82 70 Respiratory Rate 20 20 Blood Pressure 123/66 110/61 Pulse Oximetry 96 Intake & Output 05/30/18 05/31/18 05/31/18 18:59 06:59 18:59 Intake Total 500 / 500 480 / 480 Output Total 1500 / 1500 225 / 225 Balance -1000 / -1000 255 / 255 Weight 68.6 kg Intake: Oral 500 / 500 480 / 480 Output: Urine 225 / 225 Hemodialysis Amount 1500 / 1500 Other: Date of Last Bowel Movement 05/28/18 05/28/18 05/31/18 Narrative: GENERAL: NAD, A&Ox3 CARDIOVASCULAR: Regular rate and rhythm without murmurs, gallops, or rubs. RESPIRATORY: Breath sounds equal bilaterally. No accessory muscle use. GASTROINTESTINAL: Abdomen soft, non-tender, nondistended. MUSCULOSKELETAL: No cyanosis, or edema. SKIN: Warm and dry. - Urinary Catheter Management Straight Cath placed during this visit: yes, but has since been removed by the nurse Reason for continuing: Decision to DC catheter Insertion date: 05/26/18 Insertion time: 07:15 Removal date: 05/26/18 Removal time: 07:15 Assessment and Plan - Assessment (1) ESRD (end stage renal disease) on dialysis Code(s): N18.6 - End stage renal disease; Z99.2 - Dependence on renal dialysis Status: Acute Plan: On HD TTS HD done yesterday, Tolerating well, BP is stable Seen with GI, continue to follow nutrition. GI defer the PEG as his appetite is better. Now for discharge to SNF. HD will be on . (2) Unspecified protein-calorie malnutrition Code(s): E46 - Unspecified protein-calorie malnutrition Status: Acute Plan: Patient has been receiving IDPN during dialysis to treat protein calorie malnutrition. He has also been on Marinol for appetite stimulant which thus far has not been improving appetite. Patient and have agreed to proceed with possible peg tube placement - however no immediate plans for PEG per GI (3) Anemia Code(s): D64.9 - Anemia, unspecified Status: Acute Plan: On Epogen with dialysis Labs in AM (4) Urinary tract infection Code(s): N39.0 - Urinary tract infection, site not specified Status: Acute Plan: GNR in urine on cultures, speciation pending. Blood cultures negative Given ceftriaxone, follow cultures
== END 2018-05-31 14:23 ==
LOC: NEPC 06:17 → NEDA 06:17 → N05 16:14
PROVIDERS: ADMIT Internal Medicine; ATTEND Internal Medicine
DX: E11.22 Type 2 diabetes mellitus with diabetic chronic kidney disease; Z95.810 Presence of automatic (implantable) cardiac defibrillator; Z86.73 Personal history of transient ischemic attack (TIA), and cerebral infarction without residual deficits; Z87.891 Personal history of nicotine dependence; G20 Parkinson's disease; Z96.1 Presence of intraocular lens; N39.0 Urinary tract infection, site not specified; F32.9 Major depressive disorder, single episode, unspecified; R62.7 Adult failure to thrive; R13.10 Dysphagia, unspecified; B96.20 Unspecified Escherichia coli [E. coli] as the cause of diseases classified elsewhere; Z98.49 Cataract extraction status, unspecified eye; H91.90 Unspecified hearing loss, unspecified ear; Z68.1 Body mass index [BMI] 19.9 or less, adult; D64.9 Anemia, unspecified; I12.0 Hypertensive chronic kidney disease with stage 5 chronic kidney disease or end stage renal disease; E87.5 Hyperkalemia; E03.9 Hypothyroidism, unspecified; Z99.2 Dependence on renal dialysis; Z96.60 Presence of unspecified orthopedic joint implant; N18.6 End stage renal disease; Z99.3 Dependence on wheelchair; Z79.01 Long term (current) use of anticoagulants; E46 Unspecified protein-calorie malnutrition